=== PATIENT | female | born 1975 | race Caucasian/White ===

== ENCOUNTER → 2017-05-14 18:42 | Outpatient (CLI) | payer BC, SELFPAY ==
[2017-05-14 18:44] LABS: Bacteria 0 SEEN /hpf (None Seen); Mucous, Urine 0 SEEN /hpf (<or=2+); Red Blood Cells-Urine 0 SEEN /hpf (0-5); White Blood Cells 0 SEEN /hpf (0-5)
[2017-05-14 18:56] LABS: Color, Urine Yellow (Yellow); Glucose, Dipstick Normal (Normal); Ketone-Dipstick Negative (Negative); Leukocyte Esterase-Dipstick Negative /ul (Negative); Nitrite-Dipstick Negative (Negative); Occult Blood-Urine Negative /ul (Negative); Protein-Dipstick Negative (Negative); Urine Bilirubin Dipstick Negative (Negative); Urine Clarity Sl. Cloudy (Clear); Urine Urobilinogen Normal (Normal); Urine pH 6.5 (5.0 - 8.0)
[2017-05-14 19:08] LABS: Squamous Epithelial Cells - UA 0-5 SEEN /hpf (5-10)
== END ==
PROVIDERS: Family Provider Internal Medicine; PCP Internal Medicine; Visit Provider Physician Assistant Surgical
DX: R35.0 Frequency of micturition (principal)
CPT/HCPCS: 81001; 87086

== ENCOUNTER → 2019-10-07 08:05 | Outpatient (REF) | payer BC, SELFPAY ==
[2019-10-01 09:57] VITALS: BMI 24.0
== END ==
LOC: HPRAD 08:05
PROVIDERS: PCP Internal Medicine; Referring Provider Chiropractor; Visit Provider Chiropractor
DX: M54.9 Dorsalgia, unspecified (principal); M99.03 Segmental and somatic dysfunction of lumbar region; M99.05 Segmental and somatic dysfunction of pelvic region
CPT/HCPCS: 72100

== ENCOUNTER → 2019-12-26 15:33 | Outpatient (CLI) | payer BC, SELFPAY ==
[2019-10-07 13:08] VITALS: BMI 24.0
--- NOTE | 2019-12-26 15:45 | MRI_ITS ---
STUDY: MRI LUMBAR SPINE WITHOUT CONTRAST REASON FOR EXAM: Female, 44 years old. Lumbar radiculopathy, right hip and buttock pain TECHNIQUE: Standardized fat and water weighted pulse sequences were obtained in the sagittal and axial planes. COMPARISON: X-ray 10/07/2019 FINDINGS: T12-L1: Normal endplates. Normal disc height, hydration and morphology. Normal bilateral facet joints. Normal central canal and bilateral lateral recesses. Normal bilateral intervertebral neural foramina. Normal lumbar lordosis. There is no substantial scoliosis. Normal conus medullaris that terminates at the T12/L1 to L1-2: Normal endplates. Normal disc height, hydration and morphology. Normal bilateral facet joints. Normal central canal and bilateral lateral recesses. Normal bilateral intervertebral neural foramina. L2-3: Normal endplates. Normal disc height, hydration and morphology. Normal bilateral facet joints. Normal central canal and bilateral lateral recesses. Normal bilateral intervertebral neural foramina. L3-4: Normal endplates. Normal disc height, hydration and morphology. Normal bilateral facet joints. Normal central canal and bilateral lateral recesses. Normal bilateral intervertebral neural foramina. L4-5: Normal endplates. Normal disc height, hydration and morphology. Normal bilateral facet joints. Normal central canal and bilateral lateral recesses. Normal bilateral intervertebral neural foramina. L5-S1: Normal endplates. Normal disc height, hydration and morphology. Normal bilateral facet joints. Normal central canal and bilateral lateral recesses. Normal bilateral intervertebral neural foramina. Normal visualized sacral ala. Normal visualized paraspinous soft tissue structures. MRI/Spine Lumbar (Routine) IMPRESSION: Normal unenhanced MR examination of the lumbar spine. Electronically Signed: Rishi Pastor MD at 11:01 EST Tel , Service support ,
--- NOTE | 2019-12-26 15:46 | MRI_ITS ---
STUDY: MRI RIGHT HIP REASON FOR EXAM: Female, 44 years old. RIGHT gluteal tendonopathy, RIGHT SI and glute pain x 17years TECHNIQUE: Standardized fat and water weighted pulse sequences were obtained in all 3 orthogonal planes. COMPARISON: None. FINDINGS: Normal hip joint without articular joint space narrowing. Normal acetabulum. Normal labrum. Normal femoral head. Normal femoral neck and intratrochanteric region. Normal gluteus minimus, medius and iliopsoas tendons and distal insertions. There is no trochanteric, iliopsoas or iliopectineal bursitis. Normal superior and inferior pubic rami. Normal pubic symphysis. Normal ischial tuberosity. Normal origin of the hamstring tendons. Normal visualized iliac wing, sacroiliac joint, and sacral ala. 4 cm corpus luteum cyst of the left ovary. Retroverted uterus. MRI/Lower Ext Joint Only (Routine) IMPRESSION: Normal MRI of the hip. Electronically Signed: Rishi Pastor MD at 13:17 EST Tel , Service support ,
== END ==
PROVIDERS: PCP Internal Medicine; Referring Provider Orthopaedic Surgery Orthopaedic Surgery of the Spine; Visit Provider Orthopaedic Surgery Orthopaedic Surgery of the Spine
DX: M54.16 Radiculopathy, lumbar region (principal); M67.959 Unspecified disorder of synovium and tendon, unspecified thigh
CPT/HCPCS: 72148; 73721

== ENCOUNTER → 2020-10-12 12:31 | Outpatient (CLI) | payer BC, SELFPAY ==
[2020-10-12 15:35] LABS: T4 Free Direct 1.11 ng/dL (0.76-1.46)
== END ==
PROVIDERS: PCP Internal Medicine; Referring Provider Internal Medicine Endocrinology, Diabetes & Metabolism; Visit Provider Internal Medicine Endocrinology, Diabetes & Metabolism
DX: E89.0 Postprocedural hypothyroidism (principal)
CPT/HCPCS: 36415; 84439

== ENCOUNTER → 2020-12-06 12:15 | Outpatient (CLI) | payer BC, SELFPAY ==
[2020-12-06 16:03] LABS: T4 Free Direct 1.31 ng/dL (0.76-1.46); Thyroid Stim Hormone (TSH) 0.33 uIU/mL (0.358-3.74)
== END ==
PROVIDERS: PCP Internal Medicine; Referring Provider Nurse Practitioner Adult Health; Visit Provider Nurse Practitioner Adult Health
DX: E89.0 Postprocedural hypothyroidism (principal)
CPT/HCPCS: 36415; 84439; 84443

== ENCOUNTER 2021-03-22 08:51 | Outpatient (CLI) | payer BC, SELFPAY ==
[2021-03-22 10:49] LABS: ALB/GLOB Ratio 1.2 RATIO (0.9-2.4); AST(SGOT) 13 U/L (15-37); Alanine Aminotransfer ALT/SGPT 18 U/L (13-56); Albumin, Serum 3.7 g/dL (3.2-5.0); Alkaline Phosphatase 37 U/L (45-117); Anion Gap 8 (5-15); BUN 14 mg/dL (7-18); BUN/Creat Ratio 21.3 RATIO (10-20); Calcium,Total 8.4 mg/dL (8.5-10.1); Chloride 100 mmol/L (98-107); Creatinine, Serum 0.66 mg/dL (0.55-1.02); EST Glomerular Filtration Rate 104 mL/min (>60); Est Glom Filt Rate - Afr Amer 126 mL/min (>60); Glucose 93 mg/dL (74-106); Protein, Total 6.7 g/dL (6.4-8.2); Sodium Level 134 mmol/L (136-145); Thyroid Stim Hormone (TSH) 0.13 uIU/mL (0.358-3.74)
== END 2021-03-22 23:59 | disposition home or self-care (01) ==
LOC: MTLAB 08:53
PROVIDERS: PCP Internal Medicine; Referring Provider Internal Medicine Endocrinology, Diabetes & Metabolism; Visit Provider Internal Medicine Endocrinology, Diabetes & Metabolism
DX: E89.0 Postprocedural hypothyroidism (principal)
CPT/HCPCS: 36415; 80053; 84443

== ENCOUNTER 2021-04-11 12:47 | Outpatient (RCR) | payer BC, SELFPAY | END 2021-04-11 23:59 | LOC: EMPH 12:47 | PROVIDERS: PCP Internal Medicine; Visit Provider Family Medicine Geriatric Medicine | DX: Z03.818 Encounter for observation for suspected exposure to other biological agents ruled out (principal) | CPT/HCPCS: 87426 ==

== ENCOUNTER 2021-05-26 12:56 | Outpatient (CLI) | payer BC, SELFPAY ==
[2021-05-26 15:40] LABS: Free T3 2.8 pg/mL (2.18-3.98); T4 Free Direct 1.27 ng/dL (0.76-1.46); Thyroid Stim Hormone (TSH) 0.34 uIU/mL (0.358-3.74)
== END 2021-05-26 23:59 | disposition home or self-care (01) ==
LOC: MTLAB 12:57
PROVIDERS: PCP Internal Medicine; Referring Provider Internal Medicine Endocrinology, Diabetes & Metabolism; Visit Provider Internal Medicine Endocrinology, Diabetes & Metabolism
DX: E89.0 Postprocedural hypothyroidism (principal)
CPT/HCPCS: 36415; 84439; 84443; 84481

== ENCOUNTER → 2021-07-07 | Outpatient (CLI) | payer BC, SELFPAY ==
[2021-07-07 12:37] LABS: ALB/GLOB Ratio 1.4 RATIO (0.9-2.4); AST(SGOT) 17 U/L (15-37); Alanine Aminotransfer ALT/SGPT 33 U/L (13-56); Albumin, Serum 3.8 g/dL (3.2-5.0); Alkaline Phosphatase 29 U/L (45-117); Anion Gap 7 (5-15); BUN 14 mg/dL (7-18); Calcium,Total 8.5 mg/dL (8.5-10.1); Chloride 102 mmol/L (98-107); EST Glomerular Filtration Rate 97 mL/min (>60); Est Glom Filt Rate - Afr Amer 117 mL/min (>60); Globulin 2.8 g/dL (2.2-4.2); Glucose 97 mg/dL (74-106); Potassium 3.9 mmol/L (3.5-5.1); Protein, Total 6.6 g/dL (6.4-8.2); Sodium Level 135 mmol/L (136-145); T4 Free Direct 1.31 ng/dL (0.76-1.46); Thyroid Stim Hormone (TSH) 0.17 uIU/mL (0.358-3.74)
== END | disposition home or self-care (01) ==
LOC: MTLAB 09:26
PROVIDERS: PCP Internal Medicine; Referring Provider Internal Medicine Endocrinology, Diabetes & Metabolism; Visit Provider Internal Medicine Endocrinology, Diabetes & Metabolism
DX: E89.0 Postprocedural hypothyroidism (principal)
CPT/HCPCS: 36415; 80053; 84439; 84443

== ENCOUNTER → 2021-09-19 | Outpatient (CLI) | payer BC, SELFPAY ==
[2021-09-19 10:37] LABS: ALB/GLOB Ratio 1.3 RATIO (0.9-2.4); AST(SGOT) 16 U/L (15-37); Alanine Aminotransfer ALT/SGPT 21 U/L (13-56); Albumin, Serum 3.7 g/dL (3.2-5.0); Alkaline Phosphatase 34 U/L (45-117); Anion Gap 5 (5-15); BUN 14 mg/dL (7-18); BUN/Creat Ratio 18.5 RATIO (10-20); Calcium,Total 8.5 mg/dL (8.5-10.1); Chloride 104 mmol/L (98-107); Creatinine, Serum 0.76 mg/dL (0.55-1.02); EST Glomerular Filtration Rate 88 mL/min (>60); Est Glom Filt Rate - Afr Amer 107 mL/min (>60); Globulin 2.8 g/dL (2.2-4.2); Glucose 107 mg/dL (74-106); Potassium 4.1 mmol/L (3.5-5.1); Protein, Total 6.5 g/dL (6.4-8.2); Sodium Level 136 mmol/L (136-145); T4 Free Direct 1.13 ng/dL (0.76-1.46); Thyroid Stim Hormone (TSH) 1.03 uIU/mL (0.358-3.74)
[2021-09-19 10:46] LABS: Vitamin D,25 Hydroxy 76.9 ng/mL
== END | disposition home or self-care (01) ==
LOC: MTLAB 07:29
PROVIDERS: PCP Internal Medicine; Referring Provider Internal Medicine Endocrinology, Diabetes & Metabolism; Visit Provider Internal Medicine Endocrinology, Diabetes & Metabolism
DX: E89.0 Postprocedural hypothyroidism (principal); E55.9 Vitamin D deficiency, unspecified
CPT/HCPCS: 36415; 80053; 82306; 84439; 84443

== ENCOUNTER → 2022-03-24 | Outpatient (CLI) | payer BC, SELFPAY ==
--- NOTE | 2022-03-24 10:45 | MRI_ITS ---
STUDY: BILATERAL BREAST MR WITHOUT AND WITH CONTRAST REASON FOR EXAM: Female, 46 years old. History of multiple cysts. Dense breasts. TECHNIQUE: Multi-sequence multi-echo imaging of both breasts was performed with a dedicated breast coil. T1-weighted and T2-weighted images were performed before the administration of contrast. T1-weighted images were also performed after the administration of IV 11ml Clariscan without complications. COMPARISON: Bilateral mammograms dated January 2022, December 2020 and November 2018. FINDINGS: RIGHT BREAST: Heterogeneously dense breasts may obscure small masses. Moderate to marked background enhancement. Multiple simple cysts bilaterally, too numerous to count and of variable size. There are no abnormal enhancing masses or areas of non-mass enhancement in the right breast. LEFT BREAST: Heterogeneously dense breasts may obscure small masses. Moderate to marked background enhancement. Multiple simple cysts bilaterally, too numerous to count and of variable size. There are no abnormal enhancing masses or areas of non-mass enhancement in the right breast. No enlarged or abnormal lymph nodes. No abnormality in the visualized regions of the chest or liver. MRI/Breast Bilateral W/O and W IMPRESSION: Dense fibroglandular tissue with multiple bilateral cysts as described. No suspicious lesions. Follow-up screening mammogram, which could be alternated with breast MRI with contrast, for future evaluation. CATEGORY: BIRADS Category 2: Benign. A letter regarding these results will be sent to the patient by the facility within 30 days. Electronically Signed: Dilan Clement, at 11:46 EST ,
== END | disposition home or self-care (01) ==
LOC: MRI 10:18
PROVIDERS: Referring Provider Surgery; Visit Provider Surgery
DX: R92.2 Inconclusive mammogram (principal)
CPT/HCPCS: 77049; A9575; A4216; C8908

== ENCOUNTER → 2022-04-10 | Outpatient (CLI) | payer BC, SELFPAY ==
[2022-04-10 09:59] LABS: Absolute Lymphocyte Count 2.59 X10^3/uL (0.83-4.51); Absolute Neutrophil Count 3.1 X10^3/uL (2.0-7.7); Basophil# 0.05 X10^3/uL; Basophil% 0.8 % (0-1); Eosinophil# 0.11 X10^3/uL; Eosinophils% 1.7 % (0-5); Hematocrit 38.8 % (37-47); Hemoglobin 12.7 g/dL (12.0-15.0); Lymphocyte # 2.59 X10^3/ul (0.83-4.51); Lymphocyte % 40.4 % (19-41); Mean Corp Hgb Conc 32.7 g/dL (32-36); Mean Corpuscular Hgb 32.4 pg (27.0-32.0); Mean Platelet Vol. 10.6 fl (6.2-12.0); Monocyte# 0.56 X10^3/uL; Monocyte% 8.7 % (0-10); NRBC Flagged by Analyzer 0 % (0-5); Neutrophil # 3.09 X10^3/uL (2.7-7.7); Neutrophil % 48.2 % (47-70); Platelet Count 267 K/mm3 (150-450); RBC Distribution Width CV 11.9 % (11.6-14.6); RBC Distribution Width SD 43.1 fl (35.1-43.9); Red Blood Count 3.92 M/mm3 (4.2-5.4); White Blood Count 6.4 K/mm3 (4.4-11.0)
[2022-04-10 10:36] LABS: ALB/GLOB Ratio 1.2 RATIO (0.9-2.4); AST(SGOT) 15 U/L (15-37); Alanine Aminotransfer ALT/SGPT 19 U/L (13-56); Albumin, Serum 3.6 g/dL (3.2-5.0); Alkaline Phosphatase 34 U/L (45-117); Anion Gap 6 (5-15); BUN 17 mg/dL (7-18); BUN/Creat Ratio 22.7 RATIO (10-20); Calcium,Total 8.7 mg/dL (8.5-10.1); Chloride 103 mmol/L (98-107); Creatinine, Serum 0.75 mg/dL (0.55-1.02); EST Glomerular Filtration Rate 89 mL/min (>60); Est Glom Filt Rate - Afr Amer 108 mL/min (>60); Ferritin 18 ng/mL (8-252); Glucose 104 mg/dL (74-106); Iron 120 ug/dL (50-170); Potassium 3.9 mmol/L (3.5-5.1); Protein, Total 6.6 g/dL (6.4-8.2); Sodium Level 136 mmol/L (136-145); T4 Total, Thyroxin 8.4 ug/dL (4.8-13.9); Thyroid Stim Hormone (TSH) 0.78 uIU/mL (0.358-3.74)
== END | disposition home or self-care (01) ==
LOC: MTLAB 07:10
PROVIDERS: Referring Provider Internal Medicine Endocrinology, Diabetes & Metabolism; Visit Provider Internal Medicine Endocrinology, Diabetes & Metabolism
DX: E89.0 Postprocedural hypothyroidism (principal); E61.1 Iron deficiency
CPT/HCPCS: 36415; 80053; 82728; 83540; 84436; 84443; 85025

== ENCOUNTER → 2022-12-01 | Outpatient (CLI) | payer BC, SELFPAY ==
[2022-12-01 12:48] LABS: Vitamin D,25 Hydroxy 44.9 ng/mL
[2022-12-01 13:03] LABS: AST(SGOT) 9 U/L (15-37); Alanine Aminotransfer ALT/SGPT 23 U/L (13-56); Albumin, Serum 3.3 g/dL (3.2-5.0); Alkaline Phosphatase 40 U/L (45-117); Anion Gap 6 (5-15); BUN 19 mg/dL (7-18); Chloride 105 mmol/L (98-107); Creatinine, Serum 0.73 mg/dL (0.55-1.02); EST Glomerular Filtration Rate 92 mL/min (>60); Est Glom Filt Rate - Afr Amer 111 mL/min (>60); Globulin 3.3 g/dL (2.2-4.2); Glucose 92 mg/dL (74-106); Potassium 4.3 mmol/L (3.5-5.1); Protein, Total 6.6 g/dL (6.4-8.2); Sodium Level 139 mmol/L (136-145); T4 Free Direct 1.19 ng/dL (0.76-1.46); Thyroid Stim Hormone (TSH) 0.82 uIU/mL (0.358-3.74)
== END | disposition home or self-care (01) ==
LOC: MTLAB 10:05
PROVIDERS: Referring Provider Internal Medicine Endocrinology, Diabetes & Metabolism; Visit Provider Internal Medicine Endocrinology, Diabetes & Metabolism
DX: E89.0 Postprocedural hypothyroidism (principal); E55.9 Vitamin D deficiency, unspecified
CPT/HCPCS: 36415; 80053; 82306; 84439; 84443

== ENCOUNTER → 2023-06-11 | Outpatient (CLI) | payer BC, SELFPAY ==
[2023-06-11 15:25] LABS: Vitamin D,25 Hydroxy 38.7 ng/mL
[2023-06-11 15:32] LABS: PTHIN 29.5 pg/mL (18.4-80.1)
[2023-06-11 18:24] LABS: ALB/GLOB Ratio 1.2 RATIO (0.9-2.4); AST(SGOT) 16 U/L (15-37); Alanine Aminotransfer ALT/SGPT 20 U/L (13-56); Albumin, Serum 3.7 g/dL (3.2-5.0); Alkaline Phosphatase 53 U/L (45-117); Anion Gap 4 (5-15); BUN 21 mg/dL (7-18); BUN/Creat Ratio 28.9 RATIO (10-20); Calcium,Total 9.2 mg/dL (8.5-10.1); Chloride 104 mmol/L (98-107); Creatinine, Serum 0.73 mg/dL (0.55-1.02); EST Glomerular Filtration Rate 92 mL/min (>60); Est Glom Filt Rate - Afr Amer 111 mL/min (>60); Follicle Stimulating Hormone 7.3 mIU/mL; Globulin 3.1 g/dL (2.2-4.2); Glucose 100 mg/dL (74-106); Potassium 3.8 mmol/L (3.5-5.1); Protein, Total 6.8 g/dL (6.4-8.2); Sodium Level 138 mmol/L (136-145); Thyroid Stim Hormone (TSH) 2.17 uIU/mL (0.358-3.74)
== END | disposition home or self-care (01) ==
PROVIDERS: Referring Provider Internal Medicine Endocrinology, Diabetes & Metabolism; Visit Provider Internal Medicine Endocrinology, Diabetes & Metabolism
DX: E89.0 Postprocedural hypothyroidism (principal); N95.9 Unspecified menopausal and perimenopausal disorder; E55.9 Vitamin D deficiency, unspecified
CPT/HCPCS: 36415; 80053; 82306; 82670; 83001; 83970; 84443

== ENCOUNTER → 2023-08-31 | Outpatient (CLI) | payer BC, SELFPAY ==
[2023-08-31 15:42] LABS: ALB/GLOB Ratio 1.2 RATIO (0.9-2.4); AST(SGOT) 19 U/L (15-37); Alanine Aminotransfer ALT/SGPT 23 U/L (13-56); Albumin, Serum 3.9 g/dL (3.2-5.0); Alkaline Phosphatase 49 U/L (45-117); Anion Gap 9 (5-15); BUN 22 mg/dL (7-18); BUN/Creat Ratio 26.7 RATIO (10-20); Calcium,Total 9.8 mg/dL (8.5-10.1); Chloride 103 mmol/L (98-107); Creatinine, Serum 0.82 mg/dL (0.55-1.02); EST Glomerular Filtration Rate 79 mL/min (>60); Est Glom Filt Rate - Afr Amer 96 mL/min (>60); Globulin 3.3 g/dL (2.2-4.2); Glucose 123 mg/dL (74-106); Potassium 3.8 mmol/L (3.5-5.1); Protein, Total 7.2 g/dL (6.4-8.2); Sodium Level 138 mmol/L (136-145); Thyroid Stim Hormone (TSH) 2.04 uIU/mL (0.358-3.74)
== END | disposition home or self-care (01) ==
LOC: MTLAB 13:02
PROVIDERS: PCP Family Medicine; Referring Provider Internal Medicine Endocrinology, Diabetes & Metabolism; Visit Provider Internal Medicine Endocrinology, Diabetes & Metabolism
DX: E89.0 Postprocedural hypothyroidism (principal)
CPT/HCPCS: 36415; 80053; 84443

== ENCOUNTER 2023-09-13 09:16 | Outpatient (CLI) | payer BC, SELFPAY ==
--- NOTE | 2023-09-13 09:32 | BI_ITS ---
MAMMOGRAPHY - BILATERAL DIAGNOSTIC REASON FOR EXAM: Female, 48 years old. 2 month history of left breast mass. PERTINENT HISTORY: Non-contributory. TECHNIQUE: Digital bilateral breast konstantin (3D mammographic acquisition) in the CC and MLO projections. 2-D mediolateral oblique (MLO) and craniocaudad (CC) views of both breasts were obtained. CAD: Full Field Digital Mammography with Computer Added Detection was performed. COMPARISON: Comparison made with prior outside examination dated October 24, 2021. Comparison is also made with prior MRI of the breasts dated March 24, 2022. FINDINGS: Breast Composition: The breasts are extremely dense, which lowers the sensitivity of mammography. Multiple well-defined nodules are seen scattered throughout the left breast suggestive of multiple cysts. Multiple nodular densities also seen in the right breast. Correlation with ultrasound is recommended for further evaluation. Small benign-appearing bilateral axillary lymph nodes. No other significant abnormalities are identified. There has been no significant change since the prior study. BI/DIAG MAMM W/CAD, BILAT IMPRESSION: Multiple bilateral nodular densities as described suggesting multiple cysts as seen on prior MRI examination. Correlation with ultrasound is recommended. ASSESSMENT CATEGORY: BIRADS Category 0: Incomplete. Need additional imaging evaluation. A letter regarding these results will be sent to the patient by the facility within 30 days. Approximately 10% of breast cancers are not detected by mammography. A normal mammogram should not delay biopsy of a clinically suspicious abnormality. Electronically Signed: Marlon Rodriguez MD at 10:30 EDT ,
--- NOTE | 2023-09-13 09:32 | US_ITS ---
STUDY: ULTRASOUND BREAST - LEFT REASON FOR EXAM: Female, 48 years old. Abnormal screening mammogram. TECHNIQUE: Axial and longitudinal images of the LEFT breast were performed with a high resolution ultrasound transducer. # OF IMAGES: 51 COMPARISON: Comparison is made with prior mammogram done earlier in the day. FINDINGS: LEFT Breast: The inferior medial aspect of the left breast was examined with ultrasound. Multiple cysts are seen. The largest cyst is at the 3:00 position of the breast at 6 cm from the nipple. This measures 2.7 cm x 2.3 cm x 1.7 cm. A similar appearing cyst measuring 2.6 cm x 2.5 cm x 1.8 cm is seen adjacent to this. US/Breast Limited Unilateral IMPRESSION: Left breast cysts. ASSESSMENT CATEGORY: BIRADS Category 2: Benign. A letter regarding these results will be sent to the patient by the facility within 30 days. Electronically Signed: Marlon Rodriguez MD at 11:07 EDT ,
== END 2023-09-13 23:59 | disposition home or self-care (01) ==
PROVIDERS: PCP Family Medicine; Referring Provider Obstetrics & Gynecology; Visit Provider Obstetrics & Gynecology
DX: N63.20 Unspecified lump in the left breast, unspecified quadrant (principal)
CPT/HCPCS: 76642; 77062; 77066; G0279

== ENCOUNTER → 2023-12-10 | Outpatient (CLI) | payer BC, SELFPAY ==
--- OUTSIDE RECORDS SUMMARY | 2023-12-10 07:05 | XMS RPT_ITS | CCD ---
Author Organization [facility] CliniSyil Care Team Providers Care Field Insurance Sales Manager Name Role Phone Jana Farias Unavailable Tyler Bell Unavailable Garry Rosenberg Unavailable Mitch, Yun A Unavailable Cooper Khan Unavailable Erica Shah Unavailable Unavailable Unavailable Unavailable Venus Carroll Primary Care Provider Jana Farias DO Unavailable Tyler Bell MD Unavailable Garry Rosenberg Unavailable Mitch DO, Yun A Unavailable Cooper Khan Jr Unavailable Erica Shah RN Unavailable Unavailable Unavailable Unavailable Venus Carroll Primary Care Provider Jana Farias DO Unavailable Jeff Duron DO Unavailable Pardeep Barreto MD Unavailable Priyanka Taylor MD Unavailable Pollo Hollingsworth MD Primary Care Provider Jeff Duron DO Unavailable [phone] Pardeep Barreto MD Unavailable Priyanka Taylor MD Unavailable Pollo Hollingsworth MD Primary Care Provider PARDEEP BARRETO MD Attending Unavailable NO FAMILY PHYSICIAN, 837 Primary Care Unavail able YANIRA BRADLEY CNP Attending Unavailable NO FAMILY PHYSICIAN, 837 Primary Care Unavail able NO FAMILY PHYSICIAN, 837 Primary Care Unavail able NO FAMILY PHYSICIAN, 837 Primary Care Unavail able MARY LOU CALDERON, PARDEEP Attending Unavailable MARY LOU CALDERON, PARDEEP Attending Unavailable NO FAMILY PHYSICIAN, 837 Primary Care Unavail able MARY LOU CALDERON, PARDEEP Attending Unavailable MARY LOU CALDERON, PARDEEP Referring Unavailable NO FAMILY PHYSICIAN, 837 Primary Care Unavail able NO FAMILY PHYSICIAN, 837 Primary Care Unavail able MARY LOU CALDERON, PARDEEP Attending Unavailable Pollo Hollingsworth MD Primary Care Provider [phone] Priyanka Taylor MD Unavailable [phone] Leslie Parks Unavailable MARY LOU CALDERON, PARDEEP Attending Unavailable NO FAMILY PHYSICIAN, 837 Primary Care Unavail able MARY LOU CALDERON, PARDEEP Attending Unavailable NO FAMILY PHYSICIAN, 837 Primary Care Unavail able MARY LOU CALDERON, PARDEEP Attending Unavailable NO FAMILY PHYSICIAN, 837 Primary Care Unavail able POLLO HOLLINGSWORTH Attending Unavailable POLLO HOLLINGSWORTH Primary Care Unavailable MARY LOU, PARDEEP Referring Unavailable PARDEEP BARRETO Attending Unavailable POLLO HOLLINGSWORTH Primary Care Unavailable Allergies Allergy Classification Reported Allergen(s) Allergy Type Date of Onset Reaction(s) Facility methIMAzole (2 sources) methIMAzole; Translations: [Tapazole *THYROID AGENTS*] Drug Allergy Rash [facility]; [facility] Work Phone: (14 sources) methIMAzole; Translations: [Tapazole *THYROID AGENTS*] Drug Allergy 5 Rash [facility] Work Phone: (13 sources) Allergy to tapazole (Renamed from Aspirin (Salicylates)); Translations: [Allergy to tapazole (Renamed from Aspirin (Salicylates))] allergy to substance [facility] Work Phone: (19 sources) methIMAzole Drug Allergy 7 [facility] Medications Current Medications Medication Drug Class(es) Dates Sig (Normalized) Sig (Original) cetirizine hydrochloride 10 mg oral tablet (3 sources) Histamine-1 Receptor Antagonist take 1 tablet by mouth once daily as needed cetirizine (ZYRTEC) 10 MG tablet Take 10 mg by mouth daily as needed 0 Active cholecalciferol 0.05 mg oral capsule (20 sources) Vitamin D Cholecalciferol (Vitamin D) 50 MCG (1999) capsule Take by mouth. Active Levomefolate Glucosamine (MethylFolate) 400 MCG capsule (19 sources) Start: 06-12-2022 Levomefolate Glucosamine (MethylFolate) 400 MCG capsule Take by mouth. 06/12/2022 Active Start: 06-12-2022 Levomefolate G lucosamine (MethylFolate) 400 MCG capsule Take by mouth. 0 06/12/2022 Active levothyroxine sodium 0.112 mg oral capsule (20 sources) l-Thyroxine Start: 01-12-2022 take 1 capsule by mouth once daily in the morning levothyroxine (Tirosint) 112 MCG capsule TAKE 1 CAPSULE BY MOUTH EVERY DAY IN THE MORNING 01/12/2022 Active Start: 04-17-2011 End: 11-13-2016 take 1 tablet by mouth once daily Levothyroxine Sodium 75 MCG Oral Tablet 1 Tablet qd for 0 days Quantity: 30 {Tablet(s)} Refills: 6 Ordered: 13-Nov-2016 Erica Shah RN Start : 17-Apr-2011 End : 13-Nov-2016 Inactive take 1 capsule by mo ut once daily Tirosint 88 MCG Oral Capsule 1 qd (88 MCG) Active take 1 capsule by sc ut once daily Levothyroxine Sodium (TIROSINT) 75 MCG CAPS Indications: 6d/wk Take 75 mcg by mouth Daily Indications: 6d/wk 0 Active Multiple Vitamin (MULTI VITAMIN DAILY PO) (3 sources) Multiple Vitamin (MULTI VITAMIN DAILY PO) Take by mouth 0 Active Multiple Vitamin (multivitamin) tablet (19 sources) take 1 tablet by van once daily Multiple Vitamin (multivitamin) tablet Take 1 tablet by mouth daily. Active take 1 tablet by mouth once constance y Multiple Vitamin (multivitamin) tablet Take 1 tablet by mouth daily. 0 Active NON FORMULARY (19 sources) NON FORMULARY da russell. Hormone Balance Active NON FORMULARY da russell. Hormone Balance 0 Active Completed/Discontinued Medications Medication Drug Class(es) Dates Sig (Normalized) Sig (Original) amoxicillin 875 mg / clavulanate 125 mg oral tablet (13 sources) Penicillin-class Antibacterial Start: 04-26-2011 End: 05-10-2011 take 1 tablet by mouth twice daily AUGMENTIN, 875-125MG (Oral Tablet) 1 Tablet BID for 14 days Refills: 0 Ordered: 26-Apr-2011 Jana Farias DO Dinora DO Jana Start : 26-Apr-2011 End : 10-May-2011 Inactive amylase [id number] unt / lipase 9000 unt / protease [id number] unt oral capsule (6 sources) take 1 capsule by mouth once daily Digestive Enzyme Oral Capsule 1 qd Active aspirin 81 mg oral tablet (13 sources) Platelet Aggregation Inhibitor, Nonsteroidal Anti-inflammatory Drug take 1 tablet by mouth once daily ASPIRIN, 81MG (Oral Tablet) 1 qd (81 MG) Inactive azithromycin 250 mg oral tablet (13 sources) Macrolide Antimicrobial Start: 04-09-2007 End: 04-16-2007 ZITHROMAX Z-JACKY, 250MG (Oral Tablet) 1 Tablet take 2 on day one then one daily for 5 days Quantity: 1 {Package(s)} Refills: 0 Ordered: 09-Apr-2007 KaylynnYnes rivera Start : 09-Apr-2007 End : 16-Apr-2007 Inactive bifidobacterium animalis [id number] unt / lactobacillus acidophilus [id number] unt oral capsule (7 sources) take 1 capsule by mouth once daily Probiotic Daily Oral Capsule 1 qd Active take 1 capsule by mouth once bijal ly Probiotic Daily Oral Capsule 1 qd Active BIOTIN FORTE PO (3 sources) End: 06-12-2022 BIOTIN FORTE PO Take by mouth. 0 06/12/2022 Discontinued (Med list cleanup) ciprofloxacin 500 mg oral tablet (13 sources) Quinolone Antimicrobial Start: 12-31-2007 End: 06-06-2010 take 1 tablet by mouth twice daily CIPRO, 500MG (Oral Tablet) Tablet BID for 0 days Quantity: 14 {Tablet} Refills: 0 Ordered: 06-Jun-2010 SINA Brooks LPN Start : 31-Dec-2007 End : 06-Jun-2010 Inactive CITRACAL PLUS (Oral Tablet) (13 sources) take 1 tablet by mouth once daily CITRACAL PLUS (Oral Tablet) 1 qd Active clotrimazole 10 mg oral lozenge (13 sources) Azole Antifungal Start: 04-09-2007 End: 08-14-2007 MYCELEX, 10MG (Mouth/Throat Anita) 1 (one) Anita 5 times daily for 14 days Quantity: 70 {Anita} Refills: 0 Ordered: 09-Apr-2007 Ynes Mahajan Start : 09-Apr-2007 End : 14-Aug-2007 Inactive dextromethorphan hydrobromide 2 mg/ml / guaiFENesin 20 mg/ml oral suspension (13 sources) Uncompetitive U-opeooc-U-aspartat e Receptor Antagonist, Sigma-1 Agonist End: 12-31-2007 take 2 [tsp_us] by mouth every four hours as needed ROBITUSSIN DM, 100-10MG/5ML (Oral Syrup) 2 tsp Q 4hr/PRN for 0 days Refills: 0 Ordered: 31-Dec-2007 SINA Brooks LPN End : 31-Dec-2007 Inactive End: 12-31-2007 take 2 [tsp_us] by mouth every four hours as needed ROBITUSSIN DM, 100-10MG/5ML (Oral Syrup) 2 tsp Q 4hr/PRN for 0 days Refills: 0 Ordered: 31-Dec-2007 SINA Brooks LPN End : 31-Dec-2007 Inactive Digestive Enzyme Oral Capsule (1 source) take 1 capsule by mouth once daily Digestive Enzyme Oral Capsule 1 qd Active Digestive Enzyme Oral Capsule (6 sources) take 1 capsule by mouth once daily Digestive Enzyme Oral Capsule 1 qd Active fluconazole 150 mg oral tablet (13 sources) Azole Antifungal Start: 008 End: 008 take 1 tablet by mouth once DIFLUCAN, 150MG (Oral Tablet) 1 (one) Tablet once for 1 days Refills: 1 Ordered: 09-Apr-2007 SINA Brooks LPN Start : 09-Apr-2007 End : 31-Dec-2007 Inactive fluticasone propionate 0.05 mg/actuat metered dose nasal spray (13 sources) Corticosteroid Start: 012 End: 017 Flonase 50 MCG/ACT Nasal Suspension 2 (two) Suspension each nostril daily for 0 days Quantity: 1 {Suspension} Refills: 0 Ordered: 13-Nov-2016 Erica Shah RN Start : 26-Apr-2011 End : 13-Nov-2016 Inactive Comments: pls substitute generic Comment on above: pls substitute gener ic folic acid 2.5 mg / vitamin b12 2 mg / vitamin b6 25 mg oral tablet (13 sources) Vitamin B12 take 1 tablet by mouth once daily FOLBIC, 2.5-25-2MG (Oral Tablet) 1 qd (2.5-25-2 MG) Inactive iron carbonyl 25 mg oral tablet (13 sources) take 2 tablets by mouth once daily Iron 25 MG Oral Tablet 2 qd (25 MG) Active phenazopyridine hydrochloride 100 mg oral tablet (13 sources) Start: 008 End: 011 take 1 tablet by mouth twice daily as needed PYRIDIUM, 100MG (Oral Tablet) Tablet BID/PRN for 0 days Quantity: 30 {Tablet} Refills: 0 Ordered: 06-Jun-2010 SINA Brooks LPN Start : 01-Jan-2008 End : 06-Jun-2010 Inactive (Oral Tablet) (13 sources) End: 008 take 1 tablet by mouth once daily (Oral Tablet) 1 qd for 0 days Refills: 0 Ordered: 09-Apr-2007 Meaghan Gonzalez End : 09-Apr-2007 Discontinued Oral Tablet (13 sources) take 1 tablet by mouth once daily Oral Tablet 1 qd Active Probiotic Daily Oral Capsule (6 sources) take 1 capsule by mouth once daily Probiotic Daily Oral Capsule 1 qd Active 24 hr propranolol hydrochloride 60 mg extended release oral capsule (20 sources) beta-Adrenergic Cory Start: 007 End: 008 PROPRANOLOL HCL CR, 60MG (Oral Capsule Extended Release 24 Hour) 1 (one) Capsule ER 24HR bid for 5 days Quantity: 60 {Capsule_ER_24HR} Refills: 3 Ordered: 24-Jan-2007 Meaghan Gonzalez Start : 24-Jan-2007 End : 09-Apr-2007 Discontinued End: 04-09-2007 take 1 capsule by mouth once daily PROPRANOLOL HCL CR, 60MG (PO Cap CR) 1 QD for 0 days Refills: 0 Ordered: 09-Apr-2007 Meaghan Gonzalez End : 09-Apr-2007 Discontinued propylthiouracil 50 mg oral tablet (13 sources) Thyroid Hormone Synthesis Inhibitor Start: 01-24-2007 End: 04-09-2007 take 3 tablets by mouth every eight hours PROPYLTHIOURACIL, 50MG (Oral Tablet) 3 (three) Tablet q8h for 0 days Quantity: 90 {Tablet} Refills: 0 Ordered: 24-Jan-2007 Meaghan Gonzalez Start : 24-Jan-2007 End : 09-Apr-2007 Discontinued Triamcinolone (13 sources) Corticosteroid Start: 01-24-2007 End: 04-09-2007 NASACORT AQ, 55MCG/ACT (Nasal Aerosol Solution) 1 Aerosol Soln 2PUFFF DAILY for 0 days Refills: 0 Ordered: 24-Jan-2007 Meaghan Gonzalez Start : 24-Jan-2007 End : 09-Apr-2007 Discontinued Problems Active Problems Problem Classification Problem Date Documented Da te Episodic/Chronic Abdominal pain (14 sources) Generalized abdominal pain; Translations: [Abdominal pain, acute, generalized] Resolved: 07-28-2008 11-13-2016 Episodic Comment on above: lower abd think blad breonna but with cirsums need urine if by 4 not go then straight cath Allergic reactions (1 source) Nummular eczema; Translations: [Nummular dermatitis] 09-12-2022 Episodic Anxiety disorders (20 sources) Anxiety; Translations: [Other specified anxiety disorders] Onset: 06-12-2022 06-12-2022 Chronic Cardiac dysrhythmias (20 sources) Palpitations; Translations: [Tachycardia] Resolved: 11-13-2016 11-13-2016 Episodic Complications of surgical procedures or medical care (20 sources) Postablative hypothyroidism; Translations: [Postprocedural hypothyroidism] Onset: 05-03-2022 05-03-2022 Chronic Diabetes mellitus without complication (17 sources) Abnormal glucose tolerance test; Translations: [Abnormal glucose tolerance test (Renamed from Abnormal glucose tolerance test (GTT))] 11-13-2016 Episodic Genitourinary symptoms and ill-defined conditions (20 sources) Dysuria; Translations: [Dysuria] 11-13-2016 Episodic Malaise and fatigue (20 sources) Fatigue; Translations: [Fatigue] Resolved: 11-13-2016 11-13-2016 Episodic Comment on above: eat well some sleep off with kids. thyroid panel good talkabout adding T3. suggest Dr. cuevas book thyroid solution. check rest of labs. to senior inspector for hormonal issues. Menopausal disorders (5 sources) Perimenopausal state; Translations: [Menopausal and female climacteric states] 06-15-2023 Chronic Menstrual disorders (20 sources) Menorrhagia; Translations: [Menorrhagia] Resolved: 11-13-2016 11-13-2016 Chronic Comment on above: us normal senior inspector feel t hyriod Mycoses (20 sources) Candidiasis of mouth; Translations: [Candidiasis of mouth] Resolved: 07-28-2008 11-13-2016 Episodic Nonmalignant breast conditions (19 sources) Multiple cysts of breast; Translations: [Diffuse cystic mastopathy of unspecified breast] Onset: 01-25-2022 01-25-2022 Chronic Nutritional deficiencies (20 sources) Vitamin D deficiency; Translations: [Vitamin D deficiency] 11-13-2016 Chronic Other circulatory disease (20 sources) Bleeding Episodic Other circulatory disease (14 sources) Hemorrhage, unspecified; Translations: [Bleeding] Resolved: 11-13-2016 11-13-2016 Episodic Comment on above: from injection site as self medicates with heparingives self heparin shots for Other gastrointestinal disorders (20 sources) Constipation; Translations: [Constipation] Resolved: 11-13-2016 11-13-2016 Episodic Comment on above: talk about increase thyroid some. talk about colace daily. friuts veggies. on the fiber. 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] Onset: 06-15-2023 06-15-2023 Chronic Other and delivery including normal (13 sources) History of past delivery; Translations: [Vaginal delivery] 11-13-2016 Episodic Comment on above: 2006 Other screening for suspected conditions (not mental disorders or infectious disease) (20 sources) Thyroid hormone tests abnormal; Translations: [Abnormal TSH] Onset: 01-25-2022 Resolved: 11-13-2016 11-13-2016 Episodic Other skin disorders (1 source) Erythematous rash; Translations: [Rash and other nonspecific skin eruption] 09-12-2022 Episodic Other upper respiratory disease (20 sources) Allergic rhinitis; Translations: [Allergic rhinitis] Resolved: 11-13-2016 11-13-2016 Chronic Other upper respiratory infections (20 sources) Acute sinusitis, unspecified; Translations: [Laryngitis] Resolved: 11-13-2016 11-13-2016 Episodic Otitis media and related conditions (14 sources) Dysfunction of eustachian tube; Translations: [Eustachian tube dysfunction] Resolved: 07-28-2008 11-13-2016 Episodic Thyroid disorders (20 sources) Hypothyroidism; Translations: [Hyperthyroidism] Resolved: 11-13-2016 11-13-2016 Chronic Comment on above: seeing endo and raimundo coronel her lab orders and follows Past or Other Problems Problem Classification Problem Date Documented Da te Episodic/Chronic Immunizations and screening for infectious disease (20 sources) Viral screening status; Translations: [Encounter for screening for other viral diseases] Onset: 06-15-2023 Episodic Nonmalignant breast conditions (9 sources) Breast finding ; Translations: [Dense breasts] Onset: 01-25-2022 01-25-2022 Episodic Other bone disease and musculoskeletal deformities (19 sources) Segmental and somatic dysfunction; Translations: [Segmental and somatic dysfunction of abdomen and other regions] Onset: 06-06-2022 06-06-2022 Episodic Other circulatory disease (20 sources) Labile hypertension due to being in a clinical environment; Translations: [Elevated blood-pressure reading, without diagnosis of hypertension] Onset: 06-12-2022 Episodic Other nutritional; endocrine; and metabolic disorders (19 sources) History of Graves' disease; Translations: [Personal history of other endocrine, nutritional and metabolic disease] Onset: 05-03-2022 05-03-2022 Episodic Regional enteritis and ulcerative colitis (20 sources) Ulcerative (chronic) proctitis; Translations: [Proctitis, ulcerative] Onset: 06-06-2022 Resolved: 06-12-2022 11-13-2016 Chronic Comment on above: Dr. jorge mac. 5-2 2-12 biopsy Residual codes; unclassified (19 sources) Contraception status; Translations: [Other specified health status] Onset: 05-03-2022 05-03-2022 Episodic Residual codes; unclassified (19 sources) Hereditary disorder of endocrine system; Translations: [Genetic susceptibility to other disease] Onset: 05-03-2022 06-06-2022 Episodic Residual codes; unclassified (19 sources) FH: Hypertension; Translations: [Family history of ischemic heart disease and other diseases of the circulatory system] Onset: 06-12-2022 06-12-2022 Episodic Residual codes; unclassified (9 sources) Family history of malignant melanoma; Translations: [Family history of malignant neoplasm of other organs or systems] Onset: 06-07-2023 06-07-2023 Episodic Unclassified (20 sources) Unclassified (20 sources) Abnormal TSH (794.5) Unclassified (13 sources) Allergy to tapazole (Renamed from Aspirin (Salicylates)); Translations: [Allergy to tapazole (Renamed from Aspirin (Salicylates))] 11-13-2016 Unclassified (13 sources) Abortions/Miscarriag es; Translations: [Abortions/Miscarria ges] 11-13-2016 Comment on above: 2. Unclassified (12 sources) Abnormal glucose tolerance test (Renamed from Abnormal glucose tolerance test (GTT)) Unclassified (13 sources) Living Children (Number Of); Translations: [Living Children (Number Of)] 11-13-2016 Comment on above: 3 Unclassified (13 sources) Pregnancies (); Translations: [Pregnancies ()] 11-13-2016 Comment on above: 5. Unclassified (12 sources) Eustachian tube dysfunction (381.81) Unclassified (12 sources) Abdominal Pain,General (789.07) Results Test Name Value Interpretation Reference Range Facility 10-17-2023 36 I spoke to our sugey ng department and they are resubmitting the claim with the BP dx as primary. Notified patient and advised her to call me back if she received another denial. [facility] 09-27-2023 36 Name of caller: Shayna green Contact phone number: [phone] Relationship to Patient: patient Provider: Dr. Hollingsworth Practice: [facility] Chief Complaint/Reason for Call: Pt would like to talk to the chief marketing officer, states she requested a call back last week and have not received it. Please advise Best time of day caller can be reached: After 12 tomorrow and time today! Patient advised that office/PCP has 24-48 business hours to return their call: No [facility] 09-14-2023 36 Notified mammography department at [facility] 09-13-2023 36 Received a diagnosti c mammogram result for this patient from [facility]. Please let them know that I am not the PCP for this patient. The radiology report phone number stated it was [phone] Normal [facility] CARECOORDon 08-23-2023 CARECOMERRILL Patient presented at her routine screening mammogram appointment today, stated her breast is prone to cyst, but she has a new palpable area that she has noticed for aprox 1 week on her left breast around 9o'clock. We recommended that she contact her doctor for a diagnostic mammogram and breast ultrasound order and also gave her the number for scheduling these tests. Normal [facility] Phone Msgon 08-23-2023 Phone Msg - From: Mariah Alvarez To: Mariajose Palmer; Sent: 08/23/2023 14:34:21 EDT Subject: ORDERS Caller Name: MARIAJOSE HUANG; Caller Number: H PATIENT CALLED IN STATING SHE WAS GETTING HER MAMMOGRAM DONE AND SHE STATED SHE HAD A LUMP ON LEFT BREAST THE ARE WANTING A MAMMOGRAM DIAGNOSTIC AND AN BREAST ULTRASOUND ORDER . SHE WASNT SURE IF SHE WAS GOING TO [facility] OR TO [facility] SHE WILL CALL BACK WITH LOCATION . THANK YOU RH addressed [facility] Phone Msg - From: Mariah Alvarez To: Mariajose Palmer; Sent: 08/23/2023 15:00:11 EDT Subject: 3D MAMM ORDER AND BREAST U/S Due Date/Time: 08/23/2023 15:00:00 EDT Caller Name: MARIAJOSE HUANG; Caller Number: H PATIENT CALLED BACK AND SHE WOULD LIKE IT TO BE A 3D MAMMOGRAM ORDER ALONG WITH THE BREAST ULTRASOUND ORDER AND SHE WOULD LIKE IT TO GO TO [facility] BREAST [facility] FAX # [phone]. SHE WASNT ABLE TO GET INTO [facility] THANK YOU order placed and faxed pt has called multiple times [facility] Phone Msg - From: Maria Antonia Ortiz To: Stefany Singh; Sent: 08/23/2023 14:26:08 EDT Subject: MAMMOGRAM pie filler Name: MARIAJOSE HUANG; Caller Number: H Pt. called back she called to schedule her mammogram and they asked if she has any problems. She stated to them she feels she might have a cyst in the left breast, she will no longer need a screen it needs to be changed to a U/S and mammogram. Once you have that new order in I can fax for you [phone] Order placed and to be faxed Normal [facility] Office Visiton 06-15-2023 Follow-up visit [id number] Shayna Huang Chey 1975 F Date Provider Department Center 06/15/2023 [facility] FAMILY P None Family History Problem Relation Age of Onset Melanoma Mother 55 Comments: on stomach Heart attack Father High Blood Pressure Father Prostate cancer Father 73 Bladder Cancer Father 73 Cancer Father Diabetes Father Hearing loss Father Heart disease Father Hypertension Father Hypertension Sister Other Brother Diabetes type I Daughter Diabetes Daughter Heart failure Paternal Grandmother Diabetes Paternal Grandmother Heart failure Paternal Grandfather Diabetes Paternal Grandfather High Blood Pressure Other Comments: sisters/SIBLINGS Family Status - Relation Status Age at Mother Alive Father Alive Sister Brother Daughter Daughter Alive Daughter Paternal Grandmother Paternal Grandfather Other Level of Service:51807 [place] OFFICE/OUTPATIENT ESTABLISHED MOD MDM 30 MIN Reason for Visit and Comments: Blood Pressure Check [299] Normal [facility] Progress Noteon 06-15-2023 Progress Note Most likely due to perimenopause as she has noticed cyclical component. Her [employer] MAKER did give her some Paxil to try it 5 mg for short cyclical time. She was hesitant to do so but she will consider doing this to help prevent panic attacks at work. She also knows coping mechanisms such as deep breathing exercises and other relaxation techniques if this would happen. She is going to let me know or her [employer] MAKER know if symptoms do not improve [facility] Progress Note Patient has noticed a cyclical component and believes that perimenopause and high estrogen levels are playing a role. She is going to continue taking this broccoli based supplement as it is making her feel better. She is continuing to do healthy exercise and diet. She continues to check her blood pressure at home and it is normal. She does not want to start any medications at this time Normal [facility] Progress Note [facility] [address] [facility] [address] Dept: [phone] Dept Loc: [phone] Reason for Visit: Blood Pressure Check Assessment and Plan 1. Situational anxiety Assessment & Plan: Most likely due to perimenopause as she has noticed cyclical component. Her [employer] MAKER did give her some Paxil to try it 5 mg for short cyclical time. She was hesitant to do so but she will consider doing this to help prevent panic attacks at work. She also knows coping mechanisms such as deep breathing exercises and other relaxation techniques if this would happen. She is going to let me know or her [employer]KER know if symptoms do not improve 2. White coat syndrome without diagnosis of hypertension Assessment & Plan: Patient has noticed a cyclical component and believes that perimenopause and high estrogen levels are playing a role. She is going to continue taking this broccoli based supplement as it is making her feel better. She is continuing to do healthy exercise and diet. She continues to check her blood pressure at home and it is normal. She does not want to start any medications at this time 3. Colon cancer screening - External referral to Gastroenterology 4. Screening mammogram for breast cancer-she has dense breasts she was going to check with her insurance company to see if MRI will be covered every other year she knows she is due for mammogram this has come from her [employer] 5. Encounter for screening for HIV - HIV-1 and HIV-2 Antigen-Antibody Screen 6. Need for hepatitis C screening test - Hepatitis C antibody 7. Perimenopause--mainly with hot flashes and weight gain and anxiety as above follows with clinic licensed practical nurse as well as [employer] she is going to consider the cyclical Paxil 8. Postablative hypothyroidism--follows with endocrinology levels have been stable continue current plan I reviewed recent blood work that was drawn current treatment plan is effective, no change in therapy, orders and follow up as documented in EMR, lab results reviewed with patient, repeat labs ordered prior to next appointment, reviewed compliance with lifestyle measures, reviewed diet, exercise and weight control, reviewed medications and side effects in detail Rto prn / or 3 months Subjective HPI F/up She sees luiza for post-ablative hypothyroidism = he follows labs and tsh She ahs white coat htn and has declined bp meds in past- she endorses regualr aerobic acitvity / low salt diet and yoga regularly She has noticed a cyclical component to her anxiety symptoms and mood symptoms which is usually run a week before her period the days of her period and a little bit after her period. sHe also notices a blood pressure spike during this time She brings her blood pressure readings today which are excellent in the last week her period just ended yesterday and started on the she also has a whitecoat component her blood pressure was in the 160s at her [employer]'s office and then at home it was 116/67 130/70 today knowing she was coming here it was 138/80. 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 Her clinic licensed practical nurse ordered hormone levels and has her on a special supplement that she has been on in the past to help decrease her high estrogen levels Issues with perimenopause and panic attacks during periods sees a clinic licensed practical nurse as well dr barrientos - high in estrogen her estradiol is high and had Mo-DVThe [employer] - bulgarian test detoxes estrogen --and dimevale started diindolylmethane taking again 2 weeks ago --she feels better already = less bloated Has had panic attacks before periods--high anxiety 1 week before and after and during these times her BP spikes as well Her [employer] that she saw last week prescribed Paxil for her to take a few days before her period the days of her period and a few days after her period she is to take 5 mg of Paxil. But she has not started this yet she prefers to go on a natural path and she states that she is already feeling better but was wondering what she she should do at work when the panic feelings come on. She has dense breasts and ahs followed with dr taylor in past and has had mri breast 2022 for baseline and it was normal Mammogram 2023 Was to see luiza yesterday and then July 2023 Dad has mestastized prostate and bladder cancer- and heart failure . Her daughter is a type I who is going off to college soon Patient's last menstrual period was 06/09/2023 (exact date). Review of Systems Constitutional: Positive for activity change and appetite change. HENT: Negative. Respiratory: Negative. Endocrine: Positive for heat intolerance. Genitourinary: Negative. Musculoskeletal: Negative. Psychiatric/Behavioral: Positive for behavioral problems and sleep disturbance. Negative for suicidal ideas. The patient is nerv (more content not included)... Normal [facility] Progress Note Patient was able to ambulate safely to the examination room. Provider was not notified of possible fall risk Pt asked if they have been to specialist,been in ER /hospitalized or had testing since last visit. ED. Scratched cornea Normal [facility] Physician Progress No laci 04-19-2023 [facility] Physician Progress Note MARIAJOSE HUANG :1975 Registration Date:04/19/2023 Assessment/Plan This Visit Diagnosis Breast cancer screening by mammogram Z12.31 Ordered: MAMM DIGITAL SCRN BILATERAL, 04/19/2023, Routine, SCREENING, Ambulatory, Breast cancer screening by mammogram Encounter for well woman exam Z01.419 pap normal 11/02 Graves disease w/Radiation E05.00 Ordered: TSH, ROUTINE, 04/19/2023, Order for future visit-Diagnosis required, Dx: Graves disease w/Radiation Orders: PARoxetine(Paxil 10 mg oral tablet), 10 mg= 1 tabs, ORAL, DAILY, 3 refills Medication Reconciliation What How Much When Instructions Unchanged ergocalciferol (Vitamin D) Oral Unchanged levothyroxine (Tirosint 112 mcg (0.112 mg) oral capsule) 30 EA, TAKE 1 CAPSULE BY MOUTH EVERY DAY IN THE MORNING Unchanged multivitamin 1 Tabs Oral DAILY What How Much When Comments Stop Taking fluconazole (Diflucan 150 mg oral tablet) 1 Tabs Oral ONCE Chief Complaint Here for an annual exam - having horrible anxiety, comes and goes. Had a panic attack on Mon. Happening usually around her cycle - is there a rescue medication she could take ? LMP 03/26/23 History of Present Illness Mariajose is a 47 year who has had an increase in anxiety. Her last TSH was 3 months. Her blood pressure is always elevated in the office but normal at home. I feel insane Anxiety happens at random times. I reassured her that sometimes this will happen in perimenopause. Dad isn't well-prostate cancer. mom with bad anxiety so she isn't leaving the house. Physical Exam Vitals & Measurements BP: 166/90 HT: 155 cm WT: 67.7 kg BMI: 28.18 LMP: 03/26/2023 00:00 EST Depression Screening Scores Initial Depression Screen Score: 0 (04/19/23 09:44:00) Fall Risk Assessment Is the patient ambulatory (mobile): Yes (04/19/23 09:44:00) Have you had a fall within the past: No (04/19/23 09:44:00) Have you had 2 or more falls in the past: No (04/19/23 09:44:00) The vital signs were reviewed and her blood pressure was elevated. General appearance: well developed and well nourished Lungs: Normal respiratory effort Extremities: no edema Psychiatric: Mood: normal [employer]CHOOL PAR[employer]ESSIONAL: External genitalia: normal, no lesions Urethra: normal meatus Vagina: normal no lesions, scant discharge, vault normal Cervix: no lesions, no cervical motion tenderness, normal appearance Uterus: normal mobility, non-tender, normal size, shape and consistency Adnexa: normal Cul de sac: normal Perineum: no hemorrhoids, masses or warts noted Breasts: normal-no masses or tenderness or skin changes [employer]OL [employer]AL Additional Details-Patient Stated Menstrual History Menstrual StatusMenarcheal Last Menstrual Cwwmqg0003/26/2023 [employer] Screening Date of Last Pap Smear10/21/2020 Last Pap Result, Pt StatedNegative Last Pap Result CommentNeg HPV Last Mammography Result, Pt StatedBenign Last Mammography Result CommentCat 2 simple cysts return to routine screening mammograms Date of Last Breast US, Pt StatedBreast MRI 03/24 22 Last Breast Ultrasound Result, Pt StatedBenign Last Breast Ultrasound Result CommentBenign Contraception Contraception MethodSterilization for contraception OB History History (1,2,2,3) # 1 Baby 1 Outcome Date: 2006 Outcome or Result: Spontaneous Gest Age: -- Outcome: Sex: -- # 2 Baby 1 Outcome Date: 05/19/2006 Outcome or Result: Vaginal Gest Age: 34 weeks 5 days Outcome: Live Sex: Female Wt: 2126 g # 3 Baby 1 Outcome Date: 2009 Outcome or Result: Spontaneous with D&C Gest Age: -- Outcome: Sex: -- # 4 Baby 1 Outcome Date: 03/2009 Outcome or Result: Gest Age: 36 weeks Outcome: Live Sex: Female Wt: 2580 g Hospital: Dr. Barreto Comment: Breech # 5 Baby 1 Outcome Date: 07/2012 Outcome or Result: Gest Age: 38 weeks Outcome: Live Sex: Male Wt: 3629 g Hospital: Dr. Barreto Problem List/Past Medical History Ongoing BMI 25.0-25.9,adult Graves disease w/Radiation History of gestational diabetes Hypothyroidism MTHFR gene mutation AJ-1 Seasonal allergies Historical Procedure/Surgical History Last pap-neg HPV-ne10/21/20 Mammo - Normal with US f/u: 05/20/19 Colonoscopy-normal: 07/04/11 hemorrhoidectomy: 07/2009 : 03/2009 D&C- MAB: 12/2007 Tonsils: 03/2006 Oral surgery: 1995 Medications ergocalciferol(Vitamin D), ORAL levothyroxine(Tirosint 112 mcg (0.112 mg) oral capsule) multivitamin, 1 tabs, ORAL, DAILY Allergies Tapazole rash Social History Alcohol Use:Current Frequency:1-2 times per month Sexual Sexually active:Yes Other contraceptive use:vastectomy Subst (more content not included)... Normal [facility] Ambulatory Clinical Summaryo n 04-19-2023 Ambulatory Clinical Summary MARIAJOSE HUANG :1975 Registration Date:04/19/2023 Ambulatory Visit Instructions Your Diagnosis Breast cancer screening by mammogram Encounter for well woman exam Graves disease w/Radiation Your Care Team Attending Physician - MARY LOU CALDERON FACOG, PARDEEP Primary Care Physician - NO FAMILY PHYSICIAN, 837 Procedures Performed Last pap-neg HPV-neg (10/21/2020) Mammo - Normal with US f/u (05/20/2019) Colonoscopy-normal (07/04/2011) hemorrhoidectomy (07/2009) (03/2009) D&C- MAB (12/2007) Tonsils (03/2006) Oral surgery (1995) Discharge Vitals Blood Pressure 166/90 Height 61.02 in (155 cm) Weight 149.28 lb (67.7 kg) BMI 28.18 Systolic Blood Pressure: 166 mmHg High (04/19/23 09:44:00) Diastolic Blood Pressure: 90 mmHg (04/19/23 09:44:00) Mean Arterial Pressure: 115 mmHg (04/19/23 09:44:00) Height/Length Measured: 155 cm (04/19/23 09:44:00) Weight Measured: 67.7 kg (04/19/23 09:44:00) Body Mass Index Measured: 28.18 kg/m2 (04/19/23 09:44:00) Ht/Wt Measurement Refused by Patient?2: No (04/19/23 09:44:00) Last Menstrual Period: 03/26/23 (04/19/23 09:44:00) What to do next Scheduled Follow-Up Appointments No results You Need to Schedule the Following Appointments TSH, ROUTINE, 04/19/2023, Order for future visit-Diagnosis required, Dx: Graves disease w/Radiation MAMM DIGITAL SCRN BILATERAL, 04/19/2023, Routine, SCREENING, Ambulatory, Breast cancer screening by mammogram Medications What How Much When Instructions New PARoxetine (Paxil 10 mg oral tablet) 1 Tabs Oral DAILY Refills: 3 Pickup at [facility]/pharmacy #[id number] Unchanged ergocalciferol (Vitamin D) Oral Unchanged levothyroxine (Tirosint 112 mcg (0.112 mg) oral capsule) 30 EA, TAKE 1 CAPSULE BY MOUTH EVERY DAY IN THE MORNING Unchanged multivitamin 1 Tabs Oral DAILY Pharmacy Information [facility]/pharmacy #[id number]: [address], [place] [phone] What How Much When Comments Stop Taking fluconazole (Diflucan 150 mg oral tablet) 1 Tabs Oral ONCE Allergies Tapazole rash Problems Ongoing - Any problem that you are currently receiving treatment for. BMI 25.0-25.9,adult Graves disease w/Radiation History of gestational diabetes Hypothyroidism MTHFR gene mutation AJ-1 Seasonal allergies Common Emergency Awareness Tips IS IT A STROKE? Act FAST and Check for these signs: FACE Does the face look uneven? ARM Does one arm drift down? SPEECH Does their speech sound strange? TIME Call at any sign of stroke Heart Attack Signs Chest discomfort: Most heart attacks involve discomfort in the center of the chest and lasts more than a few minutes, or goes away and comes back. It can feel like uncomfortable pressure, squeezing, fullness or pain. Discomfort in upper body: Symptoms can include pain or discomfort in one or both arms, back, neck, jaw or stomach. Shortness of breath: With or without discomfort. Other signs: Breaking out in a cold sweat, nausea, or lightheaded. Remember, MINUTES DO MATTER. If you experience any of these heart attack warning signs, call to get immediate medical attention! Normal [facility] Comprehensive Intake - Texto n 04-19-2023 Comprehensive Intake - Text Comprehensive Intake Entered On: 04/19/2023 9:44 EST Performed On: 04/19/2023 9:44 EST by Mariajose Palmer Last Menstrual Period : 03/26/2023 EST Bladder Control Issues? : No Urine Leakage? : No Presence or absence of urinary incontinence assessed : Yes CPT-II Medication list doc'd in medical record : Yes Influenza immunization administered or previously received : Yes Pneumococcal vaccine administered or previously received : No Chief Complaint : Here for an annual exam - having horrible anxiety, comes and goes. Had a panic attack on Mon. Happening usually around her cycle - is there a rescue medication she could take ? LMP 03/26/23 Mariajose Palmer - 04/19/2023 9:46 EST Menstrual Status : Menarcheal Mariajose Palmer 04/19/2023 9:44 EST Measurements Ht/Wt Measurement Refused by Patient? : No Mariajose Palmer 04/19/2023 9:44 EST Weight Measured : 67.7 kg(Converted to: 149 lb 4 oz, 149.253 lb) Mariajose Palmer 04/19/2023 9:46 EST Height/Length Measured : 155 cm(Converted to: 5 ft 1 in, 61.02 in) Mariajose Palmer 04/19/2023 9:44 EST Body Mass Index Measured : 28.18 kg/m2 Mariajose Palmer 04/19/2023 9:46 EST Body Mass Index documented : Yes Mariajose Palmer 04/19/2023 9:44 EST Vitals Require BP : Yes Systolic Blood Pressure : 166 mmHg (HI) Diastolic Blood Pressure : 90 mmHg Mean Arterial Pressure : 115 mmHg Last Systolic BP : greater than or equal to 140 mmHg Last Diastolic BP : greater than or equal to 90 mmHg Pain Present : No actual or suspected pain Pain : 0 Pain severity quantified : No pain present Mariajose Palmer 04/19/2023 9:46 EST Infection Screening Travel outside [place] within past 30 days : No Positive COVID test in the last 10 days? : No Coronavirus Live/Work High Risk : No Exposure to and/or close contact with a person who has a laboratory-confirmed COVID test within the last 48 hours. : No Mariajose Palmer 04/19/2023 9:46 EST Depression Screening Is patient currently : None of the Below Feeling Down, Depressed, Hopeless : Not at all Little Interest - Pleasure in Activities : Not at all Initial Depression Screen Score : 0 Depression Screening Score 0 : No Mariajose Palmer 04/19/2023 9:46 EST Falls Risk Assessment Is the patient ambulatory (mobile) : Yes Have you had 2 or more falls in the past year : No Have you had a fall within the past year that has caused an injury : No Patient screen for fall risk : no falls in last year OR 1 fall with no injury in last year Mariajose Palmer 04/19/2023 9:46 EST Normal [facility] PRESCHOOL [employer]AP[employer]OFESSIONAL Visit - [employer] PRESCHOOL PARAPROFESSIONAL Visit - Text PRESCHOOL PARAPROFESSIONAL Visit Entered On : 04/19/2023 9:43 EST Performed On: 04/19/2023 9:42 EST by Mariajose Palmer [employer] Menstrual History Menstrual Status : Menarcheal Mariajose Palmer 04/19/2023 9:42 EST [employer] Screenings Date of Last Pap Smear : 10/21/2020 Last Pap Result : Negative Last Pap Result Comment : Neg HPV Date of Last Mammogram : 01/23/2022 Last Mammography Result : Benign Last Mammography Result Comment : Cat 2 simple cysts return to routine screening mammograms Date of Last Breast Ultrasound : Breast MRI 03/24 22 Last Breast Ultrasound Result : Benign Last Breast Ultrasound Result Comment : Benign Mariajose Palmer 04/19/2023 9:42 EST Contraception Contraception Method : Sterilization for contraception Sterilization Type : Partner vasectomy Mariajose Palmer - 04/19/2023 9:42 EST Normal [facility] Phone Msgon 04-19-2023 Phone Msg - From: PARDEEP BARRETO MD, FACOG To: MARIAJOSE HUANG Sent: 04/19/2023 15:01:02 EST Subject: normal thyroid Mariajose, Your thyroid was normal. I hope the paxil helps you. Let me know how it goes. Pardeep Barreto MD Results: Date Result Name Value Ref Range 04/19/2023 10:18 TSH 0.74 uIU/ml (0.55 - 4.78) Normal [facility] TSHon 04-19-2023 TSH Qn 0.74 m[IU]/L Normal 0.55-4.78 [facility] Comment on above: Order Comment: Order ed on Fin# [id number] Result Comment: - Do not use samples that contain fluorescein. Fluorescein levels > 0.24 ?g/mL may decrease results in this assay - Patients undergoing retinal fluorescein angiography can retain amounts of fluorescein in the body for up to 48?72 hours post-treatment. Such samples can produce falsely depressed values when tested with this assay, and should not be tested Reference Intervals (if applicable): First trimester: 0.6-3.4 uIU/mL Second trimester: 0.37-3.6 uIU/mL Third trimester: 0.38-4.04 uIU/mL Reference: [email or web address] (11/2022) Performed By: #### 1 [id number] #### [facility] [address] [place] [address] Loss Prevention Manager: Escobar Tracy MD 03-29-2023 36 Message left for patient to call the [facility]. [facility] 03-28-2023 36 Message left for patient to call the [facility]. [facility] 03-27-2023 36 Called number of rec ord and left message to call office for message from PCP. [facility] 36 Please schedule a follow-up appointment for this patient for a check up and follow up blood pressure Normal [facility] MG Breast Tomosynthesis Scr Blon 12-23-2020 MG Breast Tomosynthesis Scr Bl Patient Name: MARIAJOSE HUANG Mammography ACCESSION EXAM DATE/TIME PROCEDURE ORDERING PROVIDER [id number] 12/23/2020 10:50 EST MG Breast Tomosynthesis PARDEEP BARRETO BI Scr CPT code 43936 [id number] Reason For Exam (MG Breast Tomosynthesis BI Scr) screening Report TIME SINCE LAST MAMMOGRAM: Last mammogram was performed 1 year and 7 months ago. REASON FOR EXAM: screening, asymptomatic. PROCEDURE: MG BREAST TOMOSYNTHESIS BL SCR: DECEMBER 23, 2020 - 2D/3D Procedure 3D Bilateral CC and MLO view(s) were taken. 2D Bilateral CC and MLO view(s) were taken. Prior study comparison: June 03, 2019, mammogram performed at [facility]. June 03, 2019, ultrasound performed at [facility]. December 20, 2018, right breast MG breast tomosynthesis right performed at [facility]. November 28, 2018, bilateral MG breast tomosynthesis bl scr performed at [facility]. TISSUE DENSITY: BIRADS D - The breast tissue is extremely dense, which may lower the sensitivity of mammography. . PATIENT CANCER HISTORY: No Personal History of Cancer FAMILY CANCER HISTORY: Mother Skin Cancer (Non-Melanoma) age 65 Father Prostate Cancer age 74 Paternal Grandfather Prostate Cancer age 60 . FINDINGS: No suspicious masses, architectural distortions or suspiciously clustered microcalcifications are identified. Bilateral circumscribed masses are noted, suggestive of a changing cystic pattern. There are no significant changes when compared with prior studies. No mammographic evidence of malignancy. Markings on images: BB's = Nipples; skin lesions Open pitka's point = Palpable Mammography Report Line = Scar 2D digital mammography and tomosynthesis imaging were performed and reviewed with CAD. ASSESSMENT: Category 2 Benign RECOMMENDATION: Routine screening mammogram of both breasts in 1 year. . Report Dictated on Cancer Risk Assessment: This risk assessment is based on patient provided information collected in a risk survey taken at the time of this examination. Lifetime breast cancer risk: Average Risk - If greater than or equal to 20%, consider annual mammogram and annual screening Breast MRI or follow up in high risk clinic. A score of Average Risk indicates a score of less than 20%. Is the patient at elevated risk based on the HBOC criteria? No (Hereditary Breast and Ovarian Cancer) - If yes, consider genetic counseling and testing with high risk follow up. Is the patient at elevated risk based on the Campbell Syndrome criteria? No - If yes, consider genetic counseling and testing with high risk follow up. Final Signed Date and Time: 12/30/2020 11:52 am Signed by: DO CRAWFORD RACHEL Normal [facility] Comprehensive metabolic 2000 panelon 10-07-2020 Albumin [Mass/Vol] 4.8 g/dL Normal 3.9-4.9 [facility] Comment on above: Order Comment: Speci men Type: BLOOD SPECIMEN Performed By: #### 2 4323-8, 6-3 #### [facility] CLIA [id number] [address] ALP [Catalytic activity/Vol] 40 U/L Normal 34-123 [facility] Comment on above: Order Comment: Speci men Type: BLOOD SPECIMEN Performed By: #### 2 4323-8, 6-3 #### [facility] CLIA [id number] [address] ALT With P-5'-P [Catalytic activity/Vol] 17 U/L Normal 7-38 [facility] Comment on above: Order Comment: Speci men Type: BLOOD SPECIMEN Performed By: #### 2 4323-8, 6-3 #### [facility] CLIA [id number] [address] Anion gap [Moles/Vol] 10 mmol/L Normal 9-18 [facility] Comment on above: Order Comment: Speci men Type: BLOOD SPECIMEN Performed By: #### 2 4323-8, 6-3 #### [facility] CLIA [id number] [address] [place] [address] [place] AST With P-5'-P [Catalytic activity/Vol] 24 U/L Normal 13-35 [facility] Comment on above: Order Comment: Speci men Type: BLOOD SPECIMEN Performed By: #### 2 4323-8, 3016-3 #### [facility] CLIA [id number] [address] STATES OF [facility] Bilirubin [Mass/Vol] 0.5 mg/dL Normal 0.2-1.3 [facility] Comment on above: Order Comment: Speci men Type: BLOOD SPECIMEN Performed By: #### 2 3-8, 6-3 #### [facility] CLIA [id number] [address] STATES OF [facility] Calcium [Mass/Vol] 9.4 mg/dL Normal 8.5-10.2 [facility] Comment on above: Order Comment: Speci men Type: BLOOD SPECIMEN Performed By: #### 2 4322-8, 3015-3 #### [facility] CLIA [id number] [address] [place] Chloride [Moles/Vol] 101 mmol/L Normal 97-105 [facility] Comment on above: Order Comment: Speci men Type: BLOOD SPECIMEN Performed By: #### 2 4322-8, 6-3 #### [facility] CLIA [id number] [address] [place] CO2 [Moles/Vol] 26 mmol/L Normal 22-30 [facility] Comment on above: Order Comment: Speci men Type: BLOOD SPECIMEN Performed By: #### 2 3-8, 6-3 #### [facility] CLIA [id number] [address] [place] Creatinine [Mass/Vol] 0.71 mg/dL Normal 0.58-0.96 [facility] Comment on above: Order Comment: Speci men Type: BLOOD SPECIMEN Performed By: #### 2 4323-8, 6-3 #### [facility] CLIA [id number] [address] [place] GFR/1.73 sq M.predicted MDRD (S/P/Bld) [Vol rate/Area] mL/min/{1.73_m2} Normal [facility] Comment on above: Order Comment: Speci men Type: BLOOD SPECIMEN Result Comment: >60 eGFR (Estimated GFR) Units of measure: mL/min/1.73 meters squared eGFR is derived from the reexpressed MDRD Study equation using the following parameters: serum creatinine, age, gender and race. The creatinine assay has been calibrated to be traceable to IDMS. An eGFR <60 mL/min/1.73m2 for >3 months is consistent with chronic kidney disease. Refer to KDOQI guidelines for clinical interpretation. In patients with unstable renal function, e.g. those with acute kidney injury, the eGFR may not accurately reflect actual GFR. Performed By: #### 2 4323-8, 3016-3 #### [facility][1] [facility] CLIA [id number] [address] [place] Glucose [Mass/Vol] 104 mg/dL High 74-99 [facility] Comment on above: Order Comment: Speci men Type: BLOOD SPECIMEN Result Comment: The [place] Diabetes Association (ADA) provides guidance for cutoff values for fasting glucose and random glucose. The ADA defines fasting as no caloric intake for at least 8 hours. Fasting plasma glucose results between 100 to 125 mg/dL indicate increased risk for diabetes (prediabetes). Fasting plasma glucose results greater than or equal to 126 mg/dL meet the criteria for diagnosis of diabetes. In the absence of unequivocal hyperglycemia, results should be confirmed by repeat testing. In a patient with classic symptoms of hyperglycemia or hyperglycemic crisis, random plasma glucose results greater than or equal to 200 mg/dL meet the criteria for diagnosis of diabetes. Reference: Standards of Medical Care in Diabetes 2016, [place] Diabetes Association. Diabetes Care. 2016.39(Suppl 1). Performed By: #### 2 4323-8, 3016-3 #### [facility] CLIA [id number] [address] [place] Potassium [Moles/Vol] 4.6 mmol/L Normal 3.7-5.1 [facility] Comment on above: Order Comment: Speci men Type: BLOOD SPECIMEN Performed By: #### 2 4323-8, 3016-3 #### [facility] CLIA [id number] [address] Protein [Mass/Vol] 7.3 g/dL Normal 6.3-8.0 [facility] Comment on above: Order Comment: Speci men Type: BLOOD SPECIMEN Performed By: #### 2 4323-8, 3016-3 #### [facility] CLIA [id number] [address] Sodium [Moles/Vol] 137 mmol/L Normal 136-144 [facility] Comment on above: Order Comment: Speci men Type: BLOOD SPECIMEN Performed By: #### 2 4323-8, 3016-3 #### [facility] CLIA [id number] [address] Urea nitrogen [Mass/Vol] 13 mg/dL Normal 7-21 [facility] Comment on above: Order Comment: Speci men Type: BLOOD SPECIMEN Performed By: #### 2 4323-8, 3016-3 #### [facility] CLIA [id number] [address] [place] TSH SerPl-aCncon 10-07-2020 TSH Qn 2.470 m[IU]/L Normal 0.270-4.200 [facility] Comment on above: Order Comment: Speci men Type: BLOOD SPECIMEN Result Comment: If t he patient is , TSH reference range varies by gestational period: First Trimester (weeks 9-12): 0.180-2.990 mcIU/mL Second Trimester: 0.110-3.980 mcIU/mL Third Trimester: 0.480-4.710 mcIU/mL Justin Rand et al. A Practical Approach for the Verifications and Determination of Site- and Trimester-Specific Reference Intervals for Thyroid Function tests in . Thyroid, 2019:29:3:412-420. Thuan E, et al. 2017 Guidelines of the [place] Thyroid Association for the Diagnosis and Management of Thyroid Disease during and the . Thyroid, 2017:27:3:315-389. Performed By: #### 2 4323-8, 3016-3 #### [facility] CLIA [id number] [address] VITAMIN D 25 HYDROXYon 10-07 25-hydroxyvitamin D3 [Mass/Vol] 63.1 ng/mL Normal 30.0-100.0 [facility] Comment on above: Order Comment: Speci men Type: BLOOD SPECIMEN Result Comment: Clas sification of 25 [place] Vitamin D status: Deficiency: < 20 ng/ml. Insufficientcy: 20-30 ng/ml. Sufficiency: 30-100 ng/ml. Performed By: #### V ITD #### [facility] CLIA [id number] [address] CNOVon 08-11-2020 CNOV Office Visit (WALKWA ) MARIAJOSE HUANG ([id number]) 1975 [facility] Date Time Provider Department 08/11/20 11:40 AM WALK IN CLINIC [facility] During your visit today, we recorded the following information about you: Temperature Pulse Respiration Blood pressure 98.3 degrees 89/minute 10/minute 149/89 Weight Last Period 64.2 kg 07/31/20 Aspen Ruelas APRN.SUPERVISOR LOCOMOTIVE 08/11/2020 11:57 AM Addendum (T14.8XXA) Puncture wound (primary encounter diagnosis) Plan: TDAP VACCINE AGE 7+ IM -Tdap updated in office today. -No signs of infection on exam now. -Keep area clean and dry. Non scented antimicrobial soap and water. -Signs of infection: increased in size, streaking up or down the skin, fever of 101 F or higher, or copious drainage from the site. -Be seen immediately with signs of infection. Aspen Ruelas APRN.CNP 08/11/2020 12:10 PM Signed This note was created using Ostarariter. Subjective Mariajose Huang is a 45 year old female. HPI by patient: Mariajose Huang is a 45 year old female presenting to the office with the complaint of needing a tetanus vaccine. Was in [place] and stepped on a tack yesterday. Tack came out in one piece but the end was jesus. No fevers or redness to the site. ALLERGIES Tapazole (Methimazo* Rash Family History Reviewed Including Cardiac Diseases, Psychiatric Diseases, AND Substance Abuse Problem: other (nephrolithiasis) Relation: Other Age of Onset: (Not Specified) Problem: Heart Relation: Other Age of Onset: (Not Specified) Problem: Osteoporosis Relation: Other Age of Onset: (Not Specified) Problem: Diabetes Relation: Other Age of Onset: (Not Specified) Problem: other (thyroid nodule) Relation: Other Age of Onset: (Not Specified) Problem: Hypertension Relation: Other Age of Onset: (Not Specified) Problem: other (hyperthyroidism) Relation: Other Age of Onset: (Not Specified) Problem: other (hyperthyroidism) Relation: Other Age of Onset: (Not Specified) Social History Tobacco Use Smoking status: Never Smoker Smokeless tobacco: Never Used Alcohol use: Yes Drug use: Not on file Active Ambulatory Problems Previous section complicating Date Noted: 08/11/2012 Hypothyroidism, postablative History of Graves' disease Date Noted: 12/12/2016 Malaise and fatigue Date Noted: 01/22/2018 Resolved Ambulatory Problems Other postablative hypothyroidism Date Noted: 11/15/2006 Thyroid disease Past Medical History: No date: Blood dyscrasia No date: Thrombophilia (HCC) Review of Systems Constitutional: Negative. HENT: Negative. Eyes: Negative. Respiratory: Negative. Cardiovascular: Negative. Gastrointestinal: Negative. Endocrine: Negative. Genitourinary: Negative. Musculoskeletal: Negative. Skin: Positive for wound (puncture wound). Neurological: Negative. Hematological: Negative. Objective BP 149/89 Pulse 89 Temp 36.8 ?C (98.3 ?F) (Tympanic) Resp 10 Wt 64.2 kg (141 lb 9.6 oz) LMP 07/31/2020 (Approximate) SpO2 100% BMI 26.76 kg/m? Physical Exam Constitutional: General: She is not in acute distress. Appearance: She is not ill-appearing, toxic-appearing or diaphoretic. Pulmonary: Effort: Pulmonary effort is normal. Skin: Findings: No wound (Area where tack went in skin: no puncture site seen or wound. Skin is soft and non tender when palpated.). Psychiatric: Behavior: Behavior is cooperative. Assessment and Plan (T14.8XXA) Puncture wound (primary encounter diagnosis) Plan: TDAP VACCINE AGE 7+ IM -Tdap updated in office today. -No signs of infection on exam now. -Keep area clean and dry. Non scented antimicrobial soap and water. -Signs of infection: increased in size, streaking up or down the skin, fever of 101 F or higher, or copious drainage from the site. -Be seen immediately with signs of infection. The patient will pursue further outpatient evaluation with the primary care physician or another Urgent Care/Express Care as outlined in the after visit summary. The patient is agreeable to this plan of care and follow-up instructions have been explained in detail. The patient has received these instructions in written format and have expressed an understanding of the after visit summary. Medical Decision Making: Level: 3 - Low I spent a total of 15 minutes on the date of the service which included preparing to see the patient, [id number] patient care, completing clinical documentation, obtaining and/or reviewing separately obtained history, performing a medically appropriate examination, counseling and educating the patient/family/caregive r and ordering medications, tests, or procedures. Referring Provider: SELF [200] Allergies As of Date: 08/11/2020 Noted Allergy Reaction TAPAZOLE (METHIMAZOLE) 01/11/2007 2 - Rash Date Reviewed: 08/11/2020 Reviewed by: Emi (more content not included)... Normal [facility] Comprehensive metabolic 2000 panelon 06-11-2020 Albumin [Mass/Vol] 4.7 g/dL Normal 3.9-4.9 [facility] Comment on above: Order Comment: Speci men Type: BLOOD SPECIMEN Performed By: #### 2 4323-8, LIPB, 3016-3, B12 #### [facility] CLIA [id number] 1 [place] [address] ALP [Catalytic activity/Vol] 37 U/L Normal 34-123 [facility] Comment on above: Order Comment: Speci men Type: BLOOD SPECIMEN Performed By: #### 2 4323-8, LIPB, 3016-3, B12 #### [facility] CLIA [id number] [address] [place] [address] ALT With P-5'-P [Catalytic activity/Vol] 15 U/L Normal 7-38 [facility] Comment on above: Order Comment: Speci men Type: BLOOD SPECIMEN Performed By: #### 2 4323-8, LIPB, 3016-3, B12 #### [facility] CLIA [id number] [address] [place] [address] Anion gap [Moles/Vol] 9 mmol/L Normal 9-18 [facility] Comment on above: Order Comment: Speci men Type: BLOOD SPECIMEN Performed By: #### 2 4323-8, LIPB, 3016-3, B12 #### [facility] CLIA [id number] [address] [place] [address] AST With P-5'-P [Catalytic activity/Vol] 19 U/L Normal 13-35 [facility] Comment on above: Order Comment: Speci men Type: BLOOD SPECIMEN Performed By: #### 2 4323-8, LIPB, 3016-3, B12 #### [facility] CLIA [id number] [address] [place] [address] Bilirubin [Mass/Vol] 0.5 mg/dL Normal 0.2-1.3 [facility] Comment on above: Order Comment: Speci men Type: BLOOD SPECIMEN Performed By: #### 2 4323-8, LIPB, 3016-3, B12 #### [facility] CLIA [id number] 1 [place] [address] Calcium [Mass/Vol] 9.5 mg/dL Normal 8.5-10.2 [facility] Comment on above: Order Comment: Speci men Type: BLOOD SPECIMEN Performed By: #### 2 4323-8, LIPB, 3016-3, B12 #### [facility] CLIA [id number] [address] [place] [address] Chloride [Moles/Vol] 101 mmol/L Normal 97-105 [facility] Comment on above: Order Comment: Speci men Type: BLOOD SPECIMEN Performed By: #### 2 4323-8, LIPB, 3016-3, B12 #### [facility] CLIA [id number] [address] [place] [address] CO2 [Moles/Vol] 27 mmol/L Normal 22-30 [facility] Comment on above: Order Comment: Speci men Type: BLOOD SPECIMEN Performed By: #### 2 4323-8, LIPB, 3016-3, B12 #### [facility] CLIA [id number] [address] [place] [address] Creatinine [Mass/Vol] 0.80 mg/dL Normal 0.58-0.96 [facility] Comment on above: Order Comment: Speci men Type: BLOOD SPECIMEN Performed By: #### 2 4323-8, LIPB, 3016-3, B12 #### [facility] CLIA [id number] [address] [place] [address] GFR/1.73 sq M.predicted MDRD (S/P/Bld) [Vol rate/Area] mL/min/{1.73_m2} Normal [facility] Comment on above: Order Comment: Speci men Type: BLOOD SPECIMEN Result Comment: >60 eGFR (Estimated GFR) Units of measure: mL/min/1.73 meters squared eGFR is derived from the reexpressed MDRD Study equation using the following parameters: serum creatinine, age, gender and race. The creatinine assay has been calibrated to be traceable to IDMS. An eGFR <60 mL/min/1.73m2 for >3 months is consistent with chronic kidney disease. Refer to KDOQI guidelines for clinical interpretation. In patients with unstable renal function, e.g. those with acute kidney injury, the eGFR may not accurately reflect actual GFR. Performed By: #### 2 4323-8, LIPB, 3016-3, B12 #### [facility] CLIA [id number] [address] [place] [address] Glucose [Mass/Vol] 108 mg/dL High 74-99 [facility] Comment on above: Order Comment: Speci men Type: BLOOD SPECIMEN Result Comment: The [place] Diabetes Association (ADA) provides guidance for cutoff values for fasting glucose and random glucose. The ADA defines fasting as no caloric intake for at least 8 hours. Fasting plasma glucose results between 100 to 125 mg/dL indicate increased risk for diabetes (prediabetes). Fasting plasma glucose results greater than or equal to 126 mg/dL meet the criteria for diagnosis of diabetes. In the absence of unequivocal hyperglycemia, results should be confirmed by repeat testing. In a patient with classic symptoms of hyperglycemia or hyperglycemic crisis, random plasma glucose results greater than or equal to 200 mg/dL meet the criteria for diagnosis of diabetes. Reference: Standards of Medical Care in Diabetes 2016, [place] Diabetes Association. Diabetes Care. 2016.39(Suppl 1). Performed By: #### 2 4323-8, LIPB, 3016-3, B12 #### [facility] CLIA [id number] 1 [place] [address] Potassium [Moles/Vol] 4.6 mmol/L Normal 3.7-5.1 [facility] Comment on above: Order Comment: Speci men Type: BLOOD SPECIMEN Performed By: #### 2 4323-8, LIPB, 3016-3, B12 #### [facility] CLIA [id number] 1 [place] [address] Protein [Mass/Vol] 6.6 g/dL Normal 6.3-8.0 [facility] Comment on above: Order Comment: Speci men Type: BLOOD SPECIMEN Performed By: #### 2 4323-8, LIPB, 3016-3, B12 #### [facility] CLIA [id number] [address] [place] [address] Sodium [Moles/Vol] 137 mmol/L Normal 136-144 [facility] Comment on above: Order Comment: Speci men Type: BLOOD SPECIMEN Performed By: #### 2 4323-8, LIPB, 3016-3, B12 #### [facility] CLIA [id number] [address] [place] [address] Urea nitrogen [Mass/Vol] 16 mg/dL Normal 7-21 [facility] Comment on above: Order Comment: Speci men Type: BLOOD SPECIMEN Performed By: #### 2 4323-8, LIPB, 3016-3, B12 #### [facility] CLIA [id number] [address] [place] [address] LIPID PANEL BASICon 06-12-19 21 Cholesterol [Mass/Vol] 168 mg/dL Normal <200 [facility] Comment on above: Order Comment: Speci men Type: BLOOD SPECIMEN Result Comment: <200 mg/dL, Desirable 200-239 mg/dL, Borderline high >239 mg/dL, High Performed By: #### 2 4323-8, LIPB, 3016-3, B12 #### [facility] CLIA [id number] [address] [place] [address] Cholesterol in HDL [Mass/Vol] 59 mg/dL Normal >39 [facility] Comment on above: Order Comment: Speci men Type: BLOOD SPECIMEN Result Comment: 40-5 9 mg/dL, Acceptable >59 mg/dL, High: Negative risk factor for coronary heart disease <40 mg/dL, Low: Positive risk factor for coronary heart disease Performed By: #### 2 4323-8, LIPB, 3016-3, B12 #### [facility] CLIA [id number] [address] [place] [address] Cholesterol in LDL [Mass/Vol] 86 mg/dL Normal <100 [facility] Comment on above: Order Comment: Speci men Type: BLOOD SPECIMEN Result Comment: <100 mg/dL, Optimal 100-129 mg/dL, Near optimal/above optimal 130-159 mg/dL, Borderline high 160-189 mg/dL, High >189 mg/dL, Very high Secondary prevention optimal LDL Cholesterol levels are recommended to be < 70 mg/dL Performed By: #### 2 4323-8, LIPB, 3016-3, B12 #### [facility] CLIA [id number] [address] [place] [address] Cholesterol in LDL/Cholesterol in HDL [Mass ratio] 1.46 {ratio} Normal <2.54 [facility] Comment on above: Order Comment: Speci men Type: BLOOD SPECIMEN Result Comment: Refe rence: 1. National Cholesterol Education Program ATP III Guideline At-A-Glance Quick Desk Reference: National Heart, Lung, and Blood [place]. National Institutes of Health. 2001: NIH Publication No. 01-3305. 2. An International Atherosclerosis Society position paper: global recommendations for the management of dyslipidemia: executive summary, Atherosclerosis. 2014: 232(2):410-413. Performed By: #### 2 4323-8, LIPB, 3016-3, B12 #### [facility] CLIA [id number] [address] [place] [address] Cholesterol in VLDL [Mass/Vol] 23 mg/dL Normal <30 [facility] Comment on above: Order Comment: Speci men Type: BLOOD SPECIMEN Performed By: #### 2 4323-8, LIPB, 3016-3, B12 #### [facility] CLIA [id number] [address] [place] [address] Cholesterol non HDL [Mass/Vol] 109 mg/dL Normal <130 [facility] Comment on above: Order Comment: Speci men Type: BLOOD SPECIMEN Result Comment: <130 mg/dL, Optimal 130-159 mg/dL, Near optimal/above optimal 160-189 mg/dL, Borderline high 190-219 mg/dL, High >219 mg/dL, Very high Secondary prevention optimal non HDL Cholesterol levels are recommended to be <100 mg/dL Performed By: #### 2 4323-8, LIPB, 3016-3, B12 #### [facility] CLIA [id number] [address] [place] [address] Cholesterol.total /Cholesterol in HDL [Mass ratio] 2.85 {ratio} Normal <5.10 [facility] Comment on above: Order Comment: Speci men Type: BLOOD SPECIMEN Performed By: #### 2 4323-8, LIPB, 3016-3, B12 #### [facility] CLIA [id number] [address] [place] [address] FASTING TIME 12 hrs Normal [facility] Comment on above: Order Comment: Speci men Type: BLOOD SPECIMEN Performed By: #### 2 4323-8, LIPB, 3016-3, B12 #### [facility] CLIA [id number] [address] [place] [address] Triglyceride [Mass/Vol] 113 mg/dL Normal <150 [facility] Comment on above: Order Comment: Speci men Type: BLOOD SPECIMEN Result Comment: <150 mg/dL, Normal 150-199 mg/dL, Borderline high 200-499 mg/dL, High >499 mg/dL, Very high Performed By: #### 2 4323-8, LIPB, 3016-3, B12 #### [facility] CLIA [id number] [address] [place] [address] TSH SerPl-aCncon 06-11-2020 TSH Qn 0.331 m[IU]/L Normal 0.270-4.200 [facility] Comment on above: Order Comment: Speci men Type: BLOOD SPECIMEN Result Comment: If t he patient is , TSH reference range varies by gestational period: First Trimester (weeks 9-12): 0.180-2.990 mcIU/mL Second Trimester: 0.110-3.980 mcIU/mL Third Trimester: 0.480-4.710 mcIU/mL Justin Rand et al. A Practical Approach for the Verifications and Determination of Site- and Trimester-Specific Reference Intervals for Thyroid Function tests in . Thyroid, 2019:29:3:412-420. Thuan E, et al. 2017 Guidelines of the [place] Thyroid Association for the Diagnosis and Management of Thyroid Disease during and the . Thyroid, 2017:27:3:315-389. Performed By: #### 2 4323-8, LIPB, 3016-3, B12 #### [facility] CLIA [id number] [address] [place] [address] VITAMIN B12 BLOODon 06-12-19 Cobalamin (Vitamin B12) [Mass/Vol] 970 pg/mL Normal 232-1,245 [facility] Comment on above: Order Comment: Speci men Type: BLOOD SPECIMEN Performed By: #### 2 4323-8, LIPB, 3016-3, B12 #### [facility] CLIA [id number] [address] [place] [address] VITAMIN D 25 HYDROXYon 06-11 25-hydroxyvitamin D3 [Mass/Vol] 39.3 ng/mL Normal 30.0-100.0 [facility] Comment on above: Order Comment: Speci men Type: BLOOD SPECIMEN Result Comment: Clas sification of 25 [place] Vitamin D status: Deficiency: < 20 ng/ml. Insufficientcy: 20-30 ng/ml. Sufficiency: 30-100 ng/ml. Performed By: #### V ITD #### [facility] CLIA [id number] [address] [place] [address] CNPGeorgie 06-04-2019 CNPN Telephone (MEPRAD) MARIAJOSE HUANG ([id number]) 1975 [facility] Date Time Provider Department 06/04/19 ROCIO COOL During your visit today, we recorded the following information about you: Rocio Cool MD 06/04/2019 11:00 AM Signed Spoke with patient - breast aspiration performed yesterday. Gram stain shows gram positive cocci. She is sore but no evidence for worsening infection. I would like to wait for the culture results to determine treatment. She is comfortable with this. Allergies As of Date: 06/04/2019 Noted Allergy Reaction TAPAZOLE (METHIMAZOLE) 01/11/2007 2 - Rash Date Reviewed: 05/29/2019 Reviewed by: Rocio Cool - Fully Assessed Reason for Visit: Results [95] Prescriptions as of 06/04/2019 Sig: SULFAMETHOXAZOLE 800 MG-TRIME* TAKE 1 TABLET BY MOUTH TWICE * TIROSINT 112 MCG CAPSULE TAKE 1 CAPSULE BY MOUTH EVERY* BENZONATATE 200 MG CAPSULE Take 1 capsule by mouth every* Problem List As Of Date 06/04/2019 Noted Resolved Other postablative hypothyroidism [E89.0] 11/15/2006 08/04/2015 Previous section complicating pregnanc*08/11/2012 Hypothyroidism, postablative [E89.0] More... Thyroid disease [E07.9] 08/05/2015 History of Graves' disease [Z86.39] 12/12/2016 Malaise and fatigue [R53.81, R53.83] 01/22/2018 Encounter Status:Closed by ROCIO COOL MD on 06/04/19 [facility] HEALTHon 06-03-2019 [facility] HNO ID: [id number] Author: MAYITO Corona (Ct) Service: Radiology Author Type: Clinical Supervisor Feed House Type: Allied Health Filed: 06/03/2019 3:09 PM Note Text: PATIENT IDENTITY VERIFICATION COMPLETED USING TWO (2) STANDARD IDENTIFIERS: Name and Date of confirmed by patient verbally. Procedure: Ultrasound FNA Site Verification: left No Nursing No Allergies ALLERGIES Allergen Reactions - Tapazole [Methimazo* Rash Is the patient having any pain? None Physician, Nurse, Technologist: Xiao Shen PREOPERATIVE/PROCEDURAL VERIFICATION: Patient verified by: Name and Date of Procedure to be performed: Ultrasound Cyst Aspiration Site of the procedure confirmed:Yes Site:left Patient position: Right lat Equipment/implant present:Imaging Data Staff involved: Abhi Rader MD Relevant documentation, images, implants or special equipment present: N/A MARKING THE SITE: Procedural site verified by:Physically marking the site on or near incision site, with persistent marker and remains visible once patient prepped. PROCEDURAL TIME OUT: All team activity stops Time out verification includes:Audible time-out documented:. Time: 14:36 NUMBER OF SPECIMENS SENT TO LAB: 1 Sign in Communication: Completed Time Out: Team Confirms the Correct Patient, Correct Procedure, Correct Site and Site Marking, Correct Position (if applicable). Time: 14:36 Affirmation of Time Out: YES Sign Out Discussion: Completed [facility] DIAGNOSTIC LTon 06-03-19 20 [facility] DIAGNOSTIC LT * * *Final Report* * * DATE OF EXAM: Jun 03 2019 1:46PM CLEO 0621 - [facility] DIAGNOSTIC LT / PROCEDURE REASON: N63.20-Breast mass, left * * * * Physician Interpretation * * * * #[id number] - [facility] US BREAST LTD LT #[id number] - [facility] DIAGNOSTIC LT UNILATERAL LEFT DIGITAL DIAGNOSTIC MAMMOGRAM WITH CAD: 06/03/2019 HISTORY: Palpable lump - left breast. Patient reposrta associated pain and warmth. She's currently on antibiotics and reports improvement of the symptoms N63.20-Breast Mass, Left. RESULT: TECHNIQUE: The study was acquired using full field digital technology and interpreted from soft copy. Current study was also evaluated with a Computer Aided Detection (CAD). Comparison is made to exams dated: 12/20/2018 mammogram, 12/20/2018 ultrasound, and 11/28/2018 mammogram. The tissue of left breast is extremely dense, which lowers the sensitivity of mammography. There are multiple oval focal asymmetries in the left breast central to the nipple middle depth. No other significant masses or calcifications are seen in the breast. IMPRESSION: INCOMPLETE: NEEDS ADDITIONAL IMAGING EVALUATION The multiple oval focal asymmetries in the left breast are indeterminate. An ultrasound is recommended. ULTRASOUND OF LEFT BREAST: 06/03/2019 RESULT: Comparison is made to exams dated: 12/20/2018 mammogram, 12/20/2018 ultrasound, and 11/28/2018 mammogram. Color flow and real-time ultrasound of the left breast were performed. Hussein scale images of the real-time examination were reviewed. There is a benign 1.9 cm x 1.6 cm x 2 cm oval lesion in the left breast at 4 o'clock 5 cm from the nipple. This oval lesion is hypoechoic with a well-defined boundary and internal echoes. This correlates as palpated. Color flow imaging demonstrates that there is an adjacent vascularity. There are multiple benign simple cysts seen scattered thoughout the left breast, corresponding to the mammographic findings, for example at 3:00 7cmfn, measuring approximatelly 3.1 x 1.5cm. IMPRESSION: BENIGN FINDING There is no sonographic evidence of malignancy. The 1.9 cm x 1.6 cm x 2 cm oval lesion in the left breast is benign. Given associated symptoms of pain and warmth, this may represent an abscess. Ultrasound guided aspiration is recommended. Multiple benign simple cysts seen in the left breast. SUMMARY: Findings were discussed with the patient at the time of examination. Informed consent for the recommended biopsy was explained and signed by the patient. The patient will ahve the aspiration done today. Ashlyn Rader M.D., cp/luh:06/03/2019 15:13:14 Multiple national specialty organizations have released breast cancer screening guidelines for women at average risk for developing breast cancer - guidelines that are based on both evidence and opinion, yet differ on when to start and how often to screen for breast cancer. With representation from Breast Imaging, Internal Medicine, Women's Health, Family Medicine, and Medical/Surgical Oncology, the [facility] has carefully reviewed the data and reached the following consensus: 1) All women should engage in shared decision-making with their providers to decide when to start and how often to screen; 2) All women should have the opportunity to start screening mammography at age 40; 3) For women ages 45-55, we recommend annual screening mammograms; 4) For women ages 55 and over, we support both the transition from an annual to a biennial interval if this aligns more with patient's values and preferences, or continuation with annual screening; 5) All women should discuss with their providers when to stop screening mammograms. Tattoo And Body Artist(s): RT Fredo(R)(M), [facility]; Xiao Nunez, [facility] OVERALL STUDY BIRADS: 2 Benign finding Extruding Press Operator: Luh Transcribe Date/Time: Jun 03 2019 1:36P Dictated by : ASHLYN RADER MD This examination was interpreted and the report reviewed and electronically signed by: ASHLYN RADER MD on Jun 03 2019 3:13PM EST [id number] Normal [facility] US BREAST LTD LTon 06-02 [facility] [employer] BREAST LTD LT * * *Final Report* * * DATE OF EXAM: Jun 03 2019 3:02PM LUIS MIGUEL 0593 - [facility] [employer] BREAST LTD LT / PROCEDURE REASON: N63.20-Breast mass, left * * * * Physician Interpretation * * * * #[id number] - [employer] BREAST LTD LT #[id number] - [facility] DIAGNOSTIC LT UNILATERAL LEFT DIGITAL DIAGNOSTIC MAMMOGRAM WITH CAD: 06/03/2019 HISTORY: Palpable lump - left breast. Patient reposrta associated pain and warmth. She's currently on antibiotics and reports improvement of the symptoms N63.20-Breast Mass, Left. RESULT: TECHNIQUE: The study was acquired using full field digital technology and interpreted from soft copy. Current study was also evaluated with a Computer Aided Detection (CAD). Comparison is made to exams dated: 12/20/2018 mammogram, 12/20/2018 ultrasound, and 11/28/2018 mammogram. The tissue of left breast is extremely dense, which lowers the sensitivity of mammography. There are multiple oval focal asymmetries in the left breast central to the nipple middle depth. No other significant masses or calcifications are seen in the breast. IMPRESSION: INCOMPLETE: NEEDS ADDITIONAL IMAGING EVALUATION The multiple oval focal asymmetries in the left breast are indeterminate. An ultrasound is recommended. ULTRASOUND OF LEFT BREAST: 06/03/2019 RESULT: Comparison is made to exams dated: 12/20/2018 mammogram, 12/20/2018 ultrasound, and 11/28/2018 mammogram. Color flow and real-time ultrasound of the left breast were performed. Hussein scale images of the real-time examination were reviewed. There is a benign 1.9 cm x 1.6 cm x 2 cm oval lesion in the left breast at 4 o'clock 5 cm from the nipple. This oval lesion is hypoechoic with a well-defined boundary and internal echoes. This correlates as palpated. Color flow imaging demonstrates that there is an adjacent vascularity. There are multiple benign simple cysts seen scattered thoughout the left breast, corresponding to the mammographic findings, for example at 3:00 7cmfn, measuring approximatelly 3.1 x 1.5cm. IMPRESSION: BENIGN FINDING There is no sonographic evidence of malignancy. The 1.9 cm x 1.6 cm x 2 cm oval lesion in the left breast is benign. Given associated symptoms of pain and warmth, this may represent an abscess. Ultrasound guided aspiration is recommended. Multiple benign simple cysts seen in the left breast. SUMMARY: Findings were discussed with the patient at the time of examination. Informed consent for the recommended biopsy was explained and signed by the patient. The patient will ahve the aspiration done today. Ashlyn Rader M.D., cp/luh:06/03/2019 15:13:14 Multiple national specialty organizations have released breast cancer screening guidelines for women at average risk for developing breast cancer - guidelines that are based on both evidence and opinion, yet differ on when to start and how often to screen for breast cancer. With representation from Breast Imaging, Internal Medicine, Women's Health, Family Medicine, and Medical/Surgical Oncology, the [facility] has carefully reviewed the data and reached the following consensus: 1) All women should engage in shared decision-making with their providers to decide when to start and how often to screen; 2) All women should have the opportunity to start screening mammography at age 40; 3) For women ages 45-55, we recommend annual screening mammograms; 4) For women ages 55 and over, we support both the transition from an annual to a biennial interval if this aligns more with patient's values and preferences, or continuation with annual screening; 5) All women should discuss with their providers when to stop screening mammograms. Tattoo And Body Artist(s): Denise Taylor RT(R)(M), [facility]; Xiao Nunez, [facility] OVERALL STUDY BIRADS: 2 Benign finding Extruding Press Operator: Luh Transcribe Date/Time: Jun 03 2019 1:36P Dictated by : ASHLYN RADER MD This examination was interpreted and the report reviewed and electronically signed by: ASHLYN RADER MD on Jun 03 2019 3:13PM EST [id number] Normal [facility] US CYST ASP BRST LTon [facility] US CYST ASP BRST LT * * *Final Report* * * * * * SEE BOTTOM OF REPORT FOR ADDENDED TEXT * * * DATE OF EXAM: Jun 03 2019 3:02PM LUIS MIGUEL 0595 - [facility] US CYST ASP BRST LT / PROCEDURE REASON: N63.0-Breast mass * * * * Physician Interpretation * * * * FINAL REPORT #[id number] - [facility] US CYST ASP BRST LT ULTRASOUND GUIDED ASPIRATION LEFT BREAST WITH POST ULTRASOUND IMAGIN06/03/2019 HISTORY: The patient presents for left ultrasound guided fine needle aspiration. Pre and post aspiration hard copy sonographic images were obtained. PATIENT CONSENT: A time out was performed immediately prior to procedure start with the radiology team, correctly identifying the patient name, date of , procedure, anatomy (including marking of site and side), patient position, relevant diagnostic and radiology test results, safety precautions, and procedure-specific equipment needs. The procedure was explained to the patient including the risks, benefits and alternatives. Medications and allergies were also reviewed. The risks, including but not limited to infection and bleeding, were reviewed by the performing physician and the patient agreed to undergo the procedure. The radiologist and technologist were present throughout the entire procedure. Audible Time Out Time: 1436 Procedure Start Time: 1439 Procedure Stop Time: 1445. Correlation is made to exams dated: 06/03/2019 ultrasound and 06/03/2019 mammogram - [facility]. An aspiration was performed for the palpable painful oval fluid collection located in the left breast at 4 o'clock 5 cm from the nipple. The skin was prepped in the usual manner. Local anesthetic was administered to the access site. The abnormality was approached from the lateral aspect. An 18 gauge needle was percutaneously placed into the abnormality under ultrasound guidance. Once the needle was documented to be in the correct location, 5 cc of brown pus was aspirated. The patient received additional local anesthetic during the procedure. A skin adhesive was applied to the access site. Post procedure ultrasound imaging demonstrates the abnormality to be smaller in size. The aspirated fluid was sent for bacterial analysis. IMPRESSION: ASPIRATION Aspiration of the fluid collection in the left breast was successful with no apparent post procedure complications. Post ultrasound imaging revealed the abnormality to be smaller in size. SUMMARY: Wound Culture and Gram Stain Smear Result Abnormal - Many Gram positive cocci Smear Result Moderate Polymorphonuclear leukocytes Smear Result Few Mononuclear cells Culture Abnormal - Many Staphylococcus lugdunensis Clinical follow up is recommended to ensure resolution of the clinical symptoms. She is under the care of Dr. Cool. Ashlyn Rader M.D., cp/luh:06/09/2019 11:31:48 Tattoo And Body Artist(s): [facility] Multiple national specialty organizations have released breast cancer screening guidelines for women at average risk for developing breast cancer - guidelines that are based on both evidence and opinion, yet differ on when to start and how often to screen for breast cancer. With representation from Breast Imaging, Internal Medicine, Women's Health, Family Medicine, and Medical/Surgical Oncology, the [facility] has carefully reviewed the data and reached the following consensus: 1) All women should engage in shared decision-making with their providers to decide when to start and how often to screen; 2) All women should have the opportunity to start screening mammography at age 40; 3) For women ages 45-55, we recommend annual screening mammograms; 4) For women ages 55 and over, we support both the transition from an annual to a biennial interval if this aligns more with patient's values and preferences, or continuation with annual screening; 5) All women should discuss with their providers when to stop screening mammograms. Extruding Press Operator: Luh Transcribe Date/Time: Jun 03 2019 2:57P Dictated by : ASHLYN RADER MD This examination was interpreted and the report reviewed and electronically signed by: ASHLYN RADER MD on Jun 03 2019 3:24PM EST This document has been addended by: ASHLYN RADER MD on Jun 09 2019 11:31AM EST [id number] [facility] PROGRESSon 06-03-2019 PROGRESS HNO ID: [id number] Author: Denise Fragoso) Jose Luis Taylor Service: Radiology Author Type: Supervisor Feed House Type: Progress Notes Filed: 06/03/2019 1:53 PM Note Text: Radiology Service Progress Note PATIENT NAME: Mariajose Huang DATE OF SERVICE: June 03, 2019 TIME: 1:52 PM PATIENT IDENTITY VERIFICATION COMPLETED USING TWO (2) IDENTIFIERS: Name and Date of confirmed by patient verbally. PATIENT GENDER DATA: Female. status: : No status: NO. PATIENT RELEVANT IMPLANT DATA REVIEWED: Not Applicable RADIOLOGY DEPARTMENT: Mammography PERIPHERAL IV DATA: Not applicable SIGNED BY: RT Fredo June 03, 2019 1:52 PM [facility] Wound Culture/Stainon 2019 Wound Culture/Stain Sp. Request/Comment: - Specimen received in sterile container. Smear Result - Many Gram positive cocci --> ABNORMAL ALERT Moderate Polymorphonuclear leukocytes Few Mononuclear cells Culture Result - Many Staphylococcus lugdunensis --> ABNORMAL ALERT ORGANISM: Staphylococcus lugdunensis METHOD: Minimum inhibitory concentration(Vitek) Antibiotic Interp KATHRYN Status Erythromycin SUSCEPTIBLE <=0.25 F Clindamycin SUSCEPTIBLE 0.25 F Tetracycline SUSCEPTIBLE <=1 F Vancomycin SUSCEPTIBLE <=0.5 F Oxacillin SUSCEPTIBLE 0.5 F Oxacillin susceptible staphylococci are susceptible to other penicillinase stable penicillins, beta lactam/beta lactamase inhibitor combinations, anti staphyloccal cephems, and carbapenems. Trimeth sulfameth SUSCEPTIBLE <=10 F Gentamicin SUSCEPTIBLE <=0.5 F Rifampin SUSCEPTIBLE <=0.5 F Rifampin should not be used alone for antimicrobial therapy. Doxycycline SUSCEPTIBLE <=0.5 F Critically abnormal [facility] Comment on above: Performed By: #### W CUL ####[facility] [place], [place] [phone] [facility] 05-08-2019 Albumin [Mass/Vol] 4.4 g/dL Normal 3.9-4.9 [facility] Comment on above: Performed By: #### C MP #### [facility] [address] [place], [place] [address] ALP [Catalytic activity/Vol] 39 U/L Normal 34-123 [facility] Comment on above: Performed By: #### C MP #### [facility] [address] [place], [place] [address] ALT [Catalytic activity/Vol] 13 U/L Normal 7-38 [facility] Comment on above: Performed By: #### C MP #### [facility] [address] [place], [place] [address] Anion gap [Moles/Vol] 13 mmol/L Normal 9-18 [facility] Comment on above: Performed By: #### C MP #### [facility] [address] [place] [address] AST [Catalytic activity/Vol] 17 U/L Normal 13-35 [facility] Comment on above: Performed By: #### C MP #### [facility] [address] [place] [address] Bilirubin [Mass/Vol] 0.3 mg/dL Normal 0.2-1.3 [facility] Comment on above: Performed By: #### C MP #### [facility] [address] [place] [address] Calcium [Mass/Vol] 9.5 mg/dL Normal 8.5-10.2 [facility] Comment on above: Performed By: #### C MP #### [facility] [address] [place] [address] Chloride [Moles/Vol] 99 mmol/L Normal 97-105 [facility] Comment on above: Performed By: #### C MP #### [facility] [address] [place] [address] CO2 Blood 26 mmol/L Normal 22-30 [facility] Comment on above: Performed By: #### C MP #### [facility] [address] [place] [address] Creatinine [Mass/Vol] 0.68 mg/dL Normal 0.58-0.96 [facility] Comment on above: Performed By: #### C MP #### [facility] [address] [place] [address] Glucose [Mass/Vol] 98 mg/dL Normal 74-99 [facility] Comment on above: Result Comment: The [place] [employer] (ADA) provides guidance for cutoff values for fasting glucose and random glucose. The ADA defines fasting as no caloric intake for at least 8 hours.Fasting plasma glucose results between 100 to 125 mg/dL indicate increased risk for diabetes (prediabetes). Fasting plasma glucose results greater than or equal to 126 mg/dL meet the criteria for diagnosis of diabetes. In the absence of unequivocal hyperglycemia, results should be confirmed by repeat testing. In a patient with classic symptoms of hyperglycemia or hyperglycemic crisis, random plasma glucose results greater than or equal to 200 mg/dL meet the criteria for diagnosis of diabetes. Reference: Standards of Medical Care in Diabetes 2016; [place] [employer] Association. Diabetes Care. 2016;39(Suppl 1). Performed By: #### C MP #### [place] [address] Potassium [Moles/Vol] 4.4 mmol/L Normal 3.7-5.1 [facility] Comment on above: Performed By: #### C MP #### [place] [address] Protein [Mass/Vol] 6.5 g/dL Normal 6.3-8.0 [facility] Comment on above: Performed By: #### C MP #### [place] [id number] Sodium [Moles/Vol] 138 mmol/L Normal 136-144 [facility] Comment on above: Performed By: #### C MP #### [place] [id number] Urea nitrogen [Mass/Vol] 21 mg/dL Normal 7-21 [facility] Comment on above: Performed By: #### C MP #### [place] [id number] MDRD GFRon 05-08-2019 GFR/1.73 sq M predicted among non-blacks MDRD (S/P/Bld) [Vol rate/Area] mL/min/{1.73_m2} Normal >60mL/min/1. 73m2 [facility] Comment on above: Result Comment: If t he patient is , multiply the result by 1.210. Performed By: #### G FR #### [address] [address] TSHon 05-08-2019 TSH Qn 0.267 uIU/mL Low 0.270-4.200 [facility] Comment on above: Result Comment: Preg sylvia: 1st trimester:(9-12 weeks):0.180-2.900 uIU/mL 2nd trimester: 0.110-3.980 uIU/mL 3rd trimester: 0.480-4.710 uIU/mL Patients taking a biotin dose of up to 5 mg/day should refrain from taking biotin for 4 hours prior to sample collection. Patients taking a biotin dose of 5 to 10 mg/day should refrain from taking biotin for 8 hours prior to sample collection. Patients taking a biotin dose > 10 mg/day should consult with their physician or the laboratory prior to having a sample taken. Clinicians should consider biotin interference as a source of error, when clinically suspicious of the laboratory result. Performed By: #### T SH3 #### [place] [id number] MAMM OUTSIDE DICOM IMPORT -N BNRon 12-20-2018 MAMM OUTSIDE DICOM IMPORT -NBNR Images were obtained outside of [facility] [id number] OUTSIDE CD DICOM IMPORT - NBNRon 12-20-2018 [place] OUTSIDE CD DICOM IMPORT -NBNR Images were obtained outside of [facility] [id number] [facility] ZO DIGITAL SCREEN BILA Kaiden 11-28-2018 Patient Name: MARIAJOSE HUANG ---Mammography--- Exam Date/Time 11/28/2018 14:52:28 EDT Exam MG Breast Tomosynthesis BI Scr Ordering Physician PARDEEP BARRETO Accession Number [id number] CPT4 Codes 11224 (MG Breast Tomosynthesis Scr Bl), 63725 (MG MAMMO 2D SCREENING) Reason For Exam screening Report PATIENT HISTORY: Family history of prostate cancer at age 74 in father. Took hormonal contraceptives for 2 years. Took progesterone for 8 months. Patient has never smoked. Patient's BMI is 25.3. TIME SINCE LAST MAMMOGRAM: Baseline mammogram. REASON FOR EXAM: screening, asymptomatic. PROCEDURE: MG BREAST TOMOSYNTHESIS BL SCR: NOVEMBER 28, 2018 - 2D/3D Procedure 3D Bilateral CC and MLO view(s) were taken. 2D Bilateral CC and MLO view(s) were taken. TISSUE DENSITY: The breast tissue is extremely dense, which may lower the sensitivity of mammography. . FINDINGS: This baseline examination demonstrates an asymmetry in the right axillary region in the mediolateral oblique orientation with some possible surrounding architectural distortion. There is no other mass, architectural distortion or suspicious cluster of microcalcifications. Markings on images: BB's = Nipples; skin lesions Open pitka's point = Palpable Line = Scar 2D digital mammography and tomosynthesis imaging were performed and reviewed with CAD. ASSESSMENT: Category 0 Incomplete: need additional imaging evaluation RECOMMENDATION: Follow-up diagnostic mammogram of the right breast. With a follow-up Ultrasound if needed. . Report Dictated on Cancer Risk Assessment: This risk assessment is based on patient provided information collected in a risk survey taken at the time of this examination. Lifetime breast cancer risk: 12.8% - If greater than or equal to 20%, consider annual mammogram and annual screening Breast MRI or follow up in high risk clinic. Is the patient at elevated risk based on the HBOC criteria? No (Hereditary Breast and Ovarian Cancer) - If yes, consider genetic counseling and testing with high risk follow up. HNPCC mutation risk (Campbell Syndrome): 1% - if greater than or equal to 5%, consider genetic counseling, testing and screening colonoscopy. --- Final --- Signed Date and Time: 11/28/2018 3:46 pm Signed by: MD JULIET, [facility]- [place], [place], [facility] Incoming Radiology Results From [facility] - 11/28/2018 9:28 PM EDT Patient Name: MARIAJOSE HUANG ---Mammography--- Exam Date/Time 11/28/2018 14:52:28 EDT Exam MG Breast Tomosynthesis BI Scr Ordering Physician PARDEEP BARRETO Accession Number [id number] CPT4 Codes 28977 (MG Breast Tomosynthesis Scr Bl), 71982 (MG MAMMO 2D SCREENING) Reason For Exam screening Report PATIENT HISTORY: Family history of prostate cancer at age 74 in father. Took hormonal contraceptives for 2 years. Took progesterone for 8 months. Patient has never smoked. Patient's BMI is 25.3. TIME SINCE LAST MAMMOGRAM: Baseline mammogram. REASON FOR EXAM: screening, asymptomatic. PROCEDURE: MG BREAST TOMOSYNTHESIS BL SCR: NOVEMBER 28, 2018 - 2D/3D Procedure 3D Bilateral CC and MLO view(s) were taken. 2D Bilateral CC and MLO view(s) were taken. TISSUE DENSITY: The breast tissue is extremely dense, which may lower the sensitivity of mammography. . FINDINGS: This baseline examination demonstrates an asymmetry in the right axillary region in the mediolateral oblique orientation with some possible surrounding architectural distortion. There is no other mass, architectural distortion or suspicious cluster of microcalcifications. Markings on images: BB's = Nipples; skin lesions Open pitka's point = Palpable Line = Scar 2D digital mammography and tomosynthesis imaging were performed and reviewed with CAD. ASSESSMENT: Category 0 Incomplete: need additional imaging evaluation RECOMMENDATION: Follow-up diagnostic mammogram of the right breast. With a follow-up Ultrasound if needed. . Report Dictated on Cancer Risk Assessment: This risk assessment is based on patient provided information collected in a risk survey taken at the time of this examination. Lifetime breast cancer risk: 12.8% - If greater than or equal to 20%, consider annual mammogram and annual screening Breast MRI or follow up in high risk clinic. Is the patient at elevated risk based on the HBOC criteria? No (Hereditary Breast and Ovarian Cancer) - If yes, consider genetic counseling and testing with high risk follow up. HNPCC mutation risk (Campbell Syndrome): 1% - if greater than or equal to 5%, consider genetic counseling, testing and screening colonoscopy. --- Final --- Signed Date and Time: 11/28/2018 3:46 pm Signed by: MD JULIET, [facility], [place] MAMM OUTSIDE DICOM IMPORT -N [place] 11-28-2018 MAMM OUTSIDE DICOM IMPORT -NBNR Images were obtained outside of [facility] [id number] [facility] MAMM OUTSIDE DICOM IMPORT -NBNR Images were obtained outside of [facility] [id number] Normal [facility] T3, FREE (TRIDOTHYRONINE) ([id number])Ordered By: Fabric Normalizer on 04-14-2011 Free T3 [Mass/Vol] 2.8 pg/mL Normal 2.0-4.4 [facility] Work Phone: Comment on above: PATIENT NOT FASTINGP ERFORMED BY: CAROL [facility] [id number] [facility] [id number] T4, FREE (THYROXINE) ([id number]) Ordered By: Fabric Normalizer on 04-14-2011 Free T4 [Mass/Vol] 1.26 ng/dL Normal 0.82-1.77 [facility] Work Phone: Comment on above: PATIENT NOT FASTINGP ERFORMED BY: Lab[facility] Menus [id number] [facility] [id number] Information: [id number] TSH ([id number])Ordered By: Jostin m Complaint Coordinator on 04-14-2011 TSH Qn 5.580 {uIU/mL} Abnormal 0.450-4.[address] [facility] Internal Medicine Work Phone: Comment on above: PATIENT NOT FASTINGP ERFORMED BY: CAROL Lab[facility] Menus [id number] [facility] [id number] URINE DONALD CULTURE-ASTRID COL C OUNT ([id number])Ordered By: Fabric Normalizer on 11-16-2010 Bacteria identified Cx Nom (U) MUG Normal [facility] Work Phone: Comment on above: Mixed urogenital nayeli ra10,000-25,000 colony forming units per mL PATIENT NOT FASTINGP ERFORMED BY: [facility] [id number] [facility] [id number] Information: SRC:UR [id number] Bacteria identified Cx Nom (U) Final report Normal [facility] Work Phone: Comment on above: PATIENT NOT FASTINGP ERFORMED BY: Lab1001 [facility]us Vgozkh[address] [facility] [id number] Information: SRC:UR [id number] Urinalysis, Office ([id number])Or dered By: Claire Downs on 11-16-2010 Bilirubin Ql (U) Negative Normal Comprehe nsive [facility] Medicine Work Phone: Bilirubin Ql (U) Negative Normal Comprehe nsive [facility]; [facility] Work Phone: Glucose Test strip (U) [Mass/Vol] Negative Normal [facility] Work Phone: Glucose Test strip (U) [Mass/Vol] Negative Normal [facility]; [facility] Work Phone: Hemoglobin Ql (U) Negative Normal Compreh ensive [facility] Work Phone: Hemoglobin Ql (U) Negative Normal Compreh ensive [facility]; [facility] Work Phone: Ketones Ql (U) Negative Normal Comprehens fadumo [facility] Work Phone: Ketones Ql (U) Negative Normal Comprehens [facility]; [facility] Work Phone: Leukocyte esterase Test strip Ql (U) Negative Normal [facility] Work Phone: Leukocyte esterase Test strip Ql (U) Negative Normal [facility]; [facility] Work Phone: Nitrite Ql (U) Negative Normal Comprehens [facility] Work Phone: Nitrite Ql (U) Negative Normal Comprehens [facility]; [facility] Work Phone: pH (U) 7.0 [pH] Normal [facility] Work Phone: Protein Ql (U) Negative Normal Comprehens [facility] Work Phone: Protein Ql (U) Negative Normal Comprehens [facility]; [facility] Work Phone: Specific gravity (U) [Rel density] 1.010 1 Normal [facility] Work Phone: Urobilinogen (24H U) [Mass/Time] Normal Normal [facility] Work Phone: Urine Test, Office ([id number])Ordered By: Claire Downs on 11-16-2010 Beta HCG ( test) Ql (U) Negative Normal [facility] Work Phone: Beta HCG ( test) Ql (U) Negative Normal [facility]; [facility] Work Phone: CALCIFIDIOL (62084) VIT D 25 Ordered By: Fabric Normalizer on 10-06-2010 Calcitriol [Mass/Vol] 36.1 ng/mL Normal 32.0-100.0 [facility] Work Phone: Comment on above: Recent studies consi breonna the lower limit of 32.0 ng/mL to be athreshold for optimal health.Travis SIMMONS. J Nutr. 2004;135(2):317-22. PATIENT NOT FASTINGP ERFORMED BY: CB [facility] Sihmlf1641 [address] RoadDublin [place] [id number] CBC (Auto) ([id number])Ordered By : Fabric Normalizer on 10-06-2010 Erythrocyte distribution width (RBC) [Ratio] 13.7 % Normal 11.7-15.0 [facility] Work Phone: Comment on above: PATIENT NOT FASTINGP ERFORMED BY: CB [facility] Vayqop3254 [address] RoadDublin [place] [id number] Hematocrit (Bld) [Volume fraction] 39.1 % Normal 34.0-44.0 [facility] Work Phone: Comment on above: PATIENT NOT FASTINGP ERFORMED BY: CB [facility] Xyurgp[address] REVENUE.comDublin [place] [id number] Hemoglobin (Bld) [Mass/Vol] 13.0 g/dL Normal 11.5-15.0 [facility] Work Phone: Comment on above: PATIENT NOT FASTINGP ERFORMED BY: CB [facility] Jolitx8319 [address] RoadDublin [place] [id number] MCH (RBC) [Entitic mass] 31.3 pg Normal 27.0-34.0 [facility] Work Phone: Comment on above: PATIENT NOT FASTINGP ERFORMED BY: CB [facility] Fluagf2709 [address] RoadDublin [place] [id number] MCHC (RBC) [Mass/Vol] 33.2 g/dL Normal 32.0-36.0 [facility] Work Phone: Comment on above: PATIENT NOT FASTINGP ERFORMED BY: CAROL [facility] Gygqsa2371 [address] RoadDublin [place] [id number] MCV (RBC) [Entitic vol] 94 fL Normal 80-98 [facility] Work Phone: Comment on above: PATIENT NOT FASTINGP ERFORMED BY: CB [facility] Jpcxrr4897 [address] RoadDublin [place] [id number] Platelets (Bld) [#/Vol] 302 {x10E3/uL} Normal 140-415 [facility] Work Phone: Comment on above: PATIENT NOT FASTINGP ERFORMED BY: CB [facility] Ghhiva0389 [address] RoadDublin [place] [id number] Platelets (Bld) [#/Vol] 302 10*3/uL Normal 140-415 [facility]; [facility] Work Phone: Comment on above: PATIENT NOT FASTINGP ERFORMED BY: CB [facility] Grpcfs6946 [address] RoadDublin [place] [id number] RBC (Bld) [#/Vol] 4.15 {x10E6/uL} Normal 3.80-5.10 [facility] Work Phone: Comment on above: PATIENT NOT FASTINGP ERFORMED BY: CB [facility] Wwzkac3585 [address] RoadDublin [place] [id number] RBC (Bld) [#/Vol] 4.15 10*6/uL Normal 3.80-5.10 [facility]; [facility] Work Phone: Comment on above: PATIENT NOT FASTINGP ERFORMED BY: CB [facility] Gsegey5150 [address] RoadDublin [place] [id number] WBC (Bld) [#/Vol] 6.5 {x10E3/uL} Normal 4.0-10.5 [facility] Work Phone: Comment on above: PATIENT NOT FASTINGP ERFORMED BY: CB [facility] Myuufm4221 [address] RoadDublin [place] [id number] WBC (Bld) [#/Vol] 6.5 10*3/uL Normal 4.0-10.5 [facility]; [facility] Work Phone: Comment on above: PATIENT NOT FASTINGP ERFORMED BY: CAROL [facility] Zcfygx4800 [address] RoadDublin [place] [id number] Ferritin ([id number])Ordered By: Fabric Normalizer on 10-06-2010 Ferritin [Mass/Vol] 13 ng/mL Normal 13-150 [facility] Work Phone: Comment on above: PATIENT NOT FASTINGP ERFORMED BY: CAROL [facility] Fqwsfo[address] [facility] [place] [id number] Metabolic Panel, Comprehensi ve ([id number])Ordered By: Fabric Normalizer on 10-06-2010 Albumin [Mass/Vol] 4.7 g/dL Normal 3.5-5.5 [facility] Work Phone: Comment on above: PATIENT NOT FASTINGP ERFORMED BY: CAROL [facility] Onjgwv1332 [address] RoadFormerly [facility] Centerin [place] [id number] Albumin/Globulin [Mass ratio] 2.1 {ratio} Normal 1.1-2.5 [facility] Work Phone: Comment on above: PATIENT NOT FASTINGP ERFORMED BY: CAROL [facility] Enplyv1975 Brun[address] Roadblin [place] [id number] ALP [Catalytic activity/Vol] 41 [iU]/L Normal 25-150 [facility] Work Phone: Comment on above: PATIENT NOT FASTINGP ERFORMED BY: [facility] Hncfrb4283 [address] RoadDublin [place] [id number] ALP [Catalytic activity/Vol] 41 U/L Normal 25-150 [facility]; [facility] Work Phone: Comment on above: PATIENT NOT FASTINGP ERFORMED BY: [facility] Ucrxpc2114 [address] RoadDublin [place] [id number] ALT [Catalytic activity/Vol] 11 [iU]/L Normal 0-40 [facility] Work Phone: Comment on above: PATIENT NOT FASTINGP ERFORMED BY: CB [facility] Wuwgbu7517 [address] RoadDublin [place] [id number] ALT [Catalytic activity/Vol] 11 U/L Normal 0-40 [facility]; [facility] Work Phone: Comment on above: PATIENT NOT FASTINGP ERFORMED BY: CB [facility] Ccdhar5336 [address] RoadDublin [place] [id number] AST [Catalytic activity/Vol] 20 [iU]/L Normal 0-40 [facility] Work Phone: Comment on above: PATIENT NOT FASTINGP ERFORMED BY: CB [facility] Vghkgy1362 [address] RoadDublin [place] [id number] AST [Catalytic activity/Vol] 20 U/L Normal 0-40 [facility]; [facility] Work Phone: Comment on above: PATIENT NOT FASTINGP ERFORMED BY: CB [facility] Srubbr0882 [address] RoadDublin [place] [id number] Bilirubin [Mass/Vol] 0.7 mg/dL Normal 0.0-1.2 [facility] Work Phone: Comment on above: PATIENT NOT FASTINGP ERFORMED BY: CB [facility] Rbvydx5180 [address] RoadDublin [place] [id number] Calcium [Mass/Vol] 9.5 mg/dL Normal 8.7-10.2 [facility] Work Phone: Comment on above: PATIENT NOT FASTINGP ERFORMED BY: CB [facility] Qkqqwu7463 [address] RoadDublin [place] [id number] Chloride [Moles/Vol] 101 mmol/L Normal 97-108 [facility] Work Phone: Comment on above: PATIENT NOT FASTINGP ERFORMED BY: CB [facility] Psqyyq2462 [address] RoadDublin [place] [id number] CO2 [Moles/Vol] 25 mmol/L Normal 20-[address] [facility] Internal Medicine Work Phone: Comment on above: PATIENT NOT FASTINGP ERFORMED BY: CB [facility] Swlaoe6029 [address] RoadDublin [place] [id number] Creatinine [Mass/Vol] 0.80 mg/dL Normal 0.57-1.00 [facility] Work Phone: Comment on above: PATIENT NOT FASTINGP ERFORMED BY: CAROL Gaudencio Tjwuim8143 [facility] [id number] GFR/1.73 sq M predicted among blacks MDRD (S/P/Bld) [Vol rate/Area] 112 mL/min/{1.73_m2} Normal Comprehensi ve Internal Medicine Work Phone: Comment on above: Note: A persistent e GFR <60 mL/min/1.73 m2 (3 months or more) mayindicate chronic kidney disease. An eGFR >59 mL/min/1.73 m2 with anelevated urine protein also may indicate chronic kidney disease.Calculated using CKD-EPI formula. PATIENT NOT FASTINGP ERFORMED BY: CAROL [facility]6370 [facility] [id number] GFR/1.73 sq M predicted among non-blacks CKD-EPI (S/P/Bld) [Vol rate/Area] 97 mL/min/1.73 Normal [facility] Work Phone: Comment on above: PATIENT NOT FASTINGP ERFORMED BY: CAROL [employer] Xorzna7808 [facility] [id number] Globulin (S) [Mass/Vol] 2.2 g/dL Normal 1.5-4.5 [facility] Work Phone: Comment on above: PATIENT NOT FASTINGP ERFORMED BY: CAROL [facility]6370 [facility] [id number] Glucose [Mass/Vol] 108 mg/dL Abnormal 65-99 [facility] Work Phone: Comment on above: PATIENT NOT FASTINGP ERFORMED BY: CAROL [facility]6370 [facility] [id number] Potassium [Moles/Vol] 4.8 mmol/L Normal 3.5-5.2 [facility] Work Phone: Comment on above: PATIENT NOT FASTINGP ERFORMED BY: CAROL LabC[facility] [place] 1943870 [address] RoadDublin [place] [id number] Protein [Mass/Vol] 6.9 g/dL Normal 6.0-8.5 [facility] Work Phone: Comment on above: PATIENT NOT FASTINGP ERFORMED BY: CB [facility] Ekpyif9303 [address] RoadDublin [place] [id number] Sodium [Moles/Vol] 138 mmol/L Normal 135-145 [facility] Work Phone: Comment on above: PATIENT NOT FASTINGP ERFORMED BY: CB [facility] Fcbbnv8111 [address] RoadDublin [place] [id number] Urea nitrogen [Mass/Vol] 11 mg/dL Normal 6-20 [facility] Work Phone: Comment on above: PATIENT NOT FASTINGP ERFORMED BY: CB [facility] Vojloi2841 [address] RoadDublin [place] [id number] Urea nitrogen/Creatini ne [Mass ratio] 14 mg/mg Normal 8-20 [facility] Work Phone: Comment on above: PATIENT NOT FASTINGP ERFORMED BY: CB [facility] Ltbgya1384 [address] RoadDublin [place] [id number] Vitamin B-12 (cyanocobalamin ) ([id number])Ordered By: Fabric Normalizer on 10-06-2010 Cobalamin (Vitamin B12) [Mass/Vol] pg/mL Abnormal 211-946 [facility] Work Phone: Comment on above: PATIENT NOT FASTINGP ERFORMED BY: CB [facility] Omaciy1937 [address] RoadDublin [place] [id number] Urinalysis, Office ([id number])Or dered By: SINA Brooks on 12-31-2007 Bilirubin Ql (U) Negative Normal Comprehe nsive [facility] Work Phone: Bilirubin Ql (U) Negative Normal Comprehe nsive [facility]; [facility] Work Phone: Glucose Test strip (U) [Mass/Vol] Negative Normal [facility] Work Phone: Glucose Test strip (U) [Mass/Vol] Negative Normal [facility]; [facility] Work Phone: Hemoglobin Ql (U) Hemolyzed Moderate Normal [facility] Work Phone: Ketones Ql (U) Negative Normal Comprehens [facility]o [facility] Work Phone: Ketones Ql (U) Negative Normal Comprehens [facility]adumo [facility]; [facility] Work Phone: Leukocyte esterase Test strip Ql (U) Negative Normal [facility] Work Phone: Leukocyte esterase Test strip Ql (U) Negative Normal [facility]; [facility] Work Phone: Nitrite Ql (U) Negative Normal Comprehens f[facility]umo [facility] Work Phone: Nitrite Ql (U) Negative Normal Comprehens [facility]; [facility] Work Phone: pH (U) 5.0 [pH] Normal [facility] Work Phone: Protein Ql (U) Negative Normal Comprehens fadumo [facility] Work Phone: Protein Ql (U) Negative Normal Comprehens fadumo [facility]; [facility] Work Phone: Specific gravity (U) [Rel density] 1.010 1 Normal [facility] Work Phone: Urobilinogen (24H U) [Mass/Time] 2 mg/dL Normal [facility] Work Phone: Rapid Flu ([id number] x 2)Ordered By: Claire Downs on 04-09-2007 FLUAV Ag IA Ql (Throat) Negative Normal [facility] Work Phone: Comment on above: neg FLUAV Ag IA Ql (Throat) Negative Normal [facility]; [facility] Work Phone: Comment on above: neg Rapid Strep Test, Office ([phone])Ordered By: Meaghan Gonzalez on 04-09-2007 S. pyogenes Ag EIA Ql (Throat) Negative Normal [facility]; [facility] Work Phone: Comment on above: aw neg S. pyogenes Ag IA Ql (Unsp spec) Negative Normal [facility] Work Phone: Comment on above: aw neg T3, TOTAL (TRIDOTHYRONINE) ( [id number])Ordered By: Ynes Mahajan on 01-24-2007 T3 [Mass/Vol] 186 ng/dL Normal 85-205 Comprehensi ve [facility] Work Phone: Comment on above: PERFORMED BY: [facility] StrumAt[facility] [id number] T4, TOTAL ([id number])Ordered By: Ynes Mahajan on 01-24-2007 T4 [Mass/Vol] 9.8 ug/dL Normal 4.5-12.0 Comprehensi ve [facility] Medicine Work Phone: Comment on above: PERFORMED BY: [facility] StrumAt[facility] [id number] TSH (THYROID STIMULATING HOR ROXIE) ([id number])Ordered By: Ynes Mahajan on 01-24-2007 TSH Qn m[IU]/L Abnormal 0.350-5.500 [facility] Work Phone: Comment on above: fAX RESULTS TO Dr Emmy harris at [phone]; PERFORMED BY: [employer]70 PrescreenAt[facility] [id number] TSH Qn m[IU]/L Abnormal 0.350-5.500 [facility]; [facility] Work Phone: Comment on above: fAX RESULTS TO Dr Emmy harris at [phone]; PERFORMED BY: [employer]63OPX BiotechnologiesAtrium Health [facility] [id number] Vital Signs Date Time Vital Sign Value Performing Clinician Facility 06-15-2023 10:21-0400 Diastolic blood pressure 80 mm[Hg] Pollo Hollingsworth MD Work Phone: Infect[facility] 06-15-2023 10:-0400 Heart rate 100 /min Pollo Hollingsworth MD Work Phone: [facility] 06-15-2023 10:21-0400 Systolic blood pressure 130 mm[Hg] Pollo Hollingsworth MD Work Phone: [facility] 06-15-2023 09:38-0400 Body height 156.2 cm Pollo Hollingsworth MD Work Phone: [facility] 06-15-2023 09:38-0400 Body mass index (BMI) [Ratio] 27.88 kg/m2 Pollo Hollingsworth MD Work Phone: [facility] 06-15-2023 09:38-0400 Body temperature 97.7 [degF] Pollo Hollingsworth MD Work Phone: [facility] 06-15-2023 09:38-0400 Body weight 68.04 kg Pollo Hollingsworth MD Work Phone: [facility] 06-12-2022 15:58-0400 Diastolic blood pressure 72 mm[Hg] Pollo Hollingsworth MD Work Phone: [facility] 06-12-2022 15:58-0400 Heart rate 100 /min Pollo Hollingsworth MD Work Phone: [facility] 06-12-2022 15:58-0400 Systolic blood pressure 136 mm[Hg] Pollo Hollingsworth MD Work Phone: [facility] 06-12-2022 15:02-0400 Body height 156.2 cm Pollo Hollingsworth MD Work Phone: [facility] 06-12-2022 15:02-0400 Body mass index (BMI) [Ratio] 26.21 kg/m2 Pollo Hollingsworth MD Work Phone: [facility] 06-12-2022 15:02-0400 Body temperature 97.7 [degF] Pollo Hollingsworth MD Work Phone: [facility] 06-12-2022 15:02-0400 Body weight 63.96 kg Pollo Hollingsworth MD Work Phone: [facility] 11-13-2016 13:48-0400 BMI (Body Mass Index) 25.15 kg/m2 Erica Shah RN [facility] Work Phone: 11-13-2016 13:48-0400 Body weight 60.39 kg Erica Shah RN [facility] Work Phone: 11-13-2016 13:48-0400 BP Diastolic 82 mm[Hg] Erica Shah RN [facility] Work Phone: Comment on above: Patient Position: Sitting; Cuff Location : Left Arm; Cuff Size: Standard 11-13-2016 13:48-0400 BP Systolic 138 mm[Hg] Erica Shah RN [facility] Work Phone: Comment on above: Patient Position: Sitting; Cuff Location : Left Arm; Cuff Size: Standard 11-13-2016 13:48-0400 BSA (Body Surface Area) 1.59 m2 Erica Shah RN [facility] Work Phone: 11-13-2016 13:48-0400 Height 154.94 cm Erica Shah RN [facility] Work Phone: 11-13-2016 13:48-0400 Pulse (Heart Rate) 94 /min Erica Shah RN [facility] Work Phone: Comment on above: Pattern: Regular 11-13-2016 13:48-0400 Pulse Oximetry 98 % Jana Farias [facility] Work Phone: Comment on above: Room air 11-13-2016 13:48-0400 Respiratory Rate 18 /min Erica Shah RN [facility] Work Phone: Comment on above: Pattern: Unlabored 11-13-2016 13:48-0400 SaO2% (BldA) [Mass fraction] 98 % Erica Shah RN [facility]; [facility] Work Phone: Comment on above: Room air 04-26-2011 10:25-0400 BMI (Body Mass Index) 25.04 kg/m2 Erica Shah RN [facility] Work Phone: 04-26-2011 10:25-0400 Body Temperature 97.8 [degF] Erica Shah RN [facility] Work Phone: Comment on above: Method: Oral 04-26-2011 10:25-0400 Body weight 60.1 kg Erica Shah RN [facility] Work Phone: 04-26-2011 10:25-0400 BP Diastolic 80 mm[Hg] Erica Shah RN [facility] Work Phone: Comment on above: Patient Position: Sitting; Cuff Location : Left Arm; Cuff Size: Large 04-26-2011 10:25-0400 BP Systolic 122 mm[Hg] Erica Shah RN [facility] Work Phone: Comment on above: Patient Position: Sitting; Cuff Location : Left Arm; Cuff Size: Large 04-26-2011 10:25-0400 BSA (Body Surface Area) 1.59 m2 Erica Shah RN [facility] Work Phone: 04-26-2011 10:25-0400 Height 154.94 cm Erica Shah RN [facility] Work Phone: 04-26-2011 10:25-0400 Pulse (Heart Rate) 88 /min Erica Shah RN [facility] Work Phone: Comment on above: Pattern: Regular 04-26-2011 10:25-0400 Respiratory Rate 16 /min Erica Shah RN [facility] Work Phone: Comment on above: Pattern: Unlabored 04-14-2011 06:56-0500 BMI (Body Mass Index) 25.13 kg/m2 SINA Brooks LPN [facility] Work Phone: 04-14-2011 06:56-0500 Body Temperature 97.9 [degF] SINA Brooks LPN [facility] Work Phone: Comment on above: Method: Oral 04-14-2011 06:56-0500 Body weight 60.33 kg SINA Brooks LPN [facility] Work Phone: 04-14-2011 06:56-0500 BP Diastolic 78 mm[Hg] SINA Brooks LPN [facility] Work Phone: Comment on above: Patient Position: Sitting; Cuff Location : Left Arm; Cuff Size: Standard 04-14-2011 06:56-0500 BP Systolic 128 mm[Hg] SINA Brooks LPN [facility] Work Phone: Comment on above: Patient Position: Sitting; Cuff Location : Left Arm; Cuff Size: Standard 04-14-2011 06:56-0500 BSA (Body Surface Area) 1.59 m2 SINA Brooks LPN [facility] Internal Medicine Work Phone: 04-14-2011 06:56-0500 Height 154.94 cm SINA Brooks [facility] Internal Medicine Work Phone: 04-14-2011 06:56-0500 Pulse (Heart Rate) 78 /min SINA Brooks LPN [facility] Internal Medicine Work Phone: Comment on above: Pattern: Regular 04-14-2011 06:56-0500 Respiratory Rate 18 /min SINA Brooks LPN [facility] Internal Medicine Work Phone: Comment on above: Pattern: Unlabored 11-16-2010 10:35-0400 BMI (Body Mass Index) 24.37 kg/m2 Claire Downs [facility] Internal Medicine Work Phone: 11-16-2010 10:35-0400 Body Temperature 99.7 [degF] Claire Downs [facility] Internal Medicine Work Phone: Comment on above: Method: Oral 11-16-2010 10:35-0400 Body weight 58.51 kg Claire Downs [facility] Internal [facility] Work Phone: 11-16-2010 10:35-0400 BP Diastolic 82 mm[Hg] Claire Downs [facility] Medicine Work Phone: Comment on above: Patient Position: Sitting; Cuff Location : Left Arm; Cuff Size: Standard 11-16-2010 10:35-0400 BP Systolic 132 mm[Hg] Claire Downs [facility] Internal Medicine Work Phone: Comment on above: Patient Position: Sitting; Cuff Location : Left Arm; Cuff Size: Standard 11-16-2010 10:35-0400 BSA (Body Surface Area) 1.57 m2 Claire Downs [facility] Internal Medicine Work Phone: 11-16-2010 10:35-0400 Height 154.94 cm Claire Downs [employer] [facility] Work Phone: 11-16-2010 10:35-0400 Pulse (Heart Rate) 82 /min Claire Downs [facility] Internal Medicine Work Phone: Comment on above: Pattern: Regular 10-06-2010 10:17-0400 BMI (Body Mass Index) 24.37 kg/m2 SINA Brooks [facility] Work Phone: 10-06-2010 10:17-0400 Body Temperature 97.6 [degF] SINA Brooks [facility] Internal Medicine Work Phone: Comment on above: Method: Oral 10-06-2010 10:170400 Body weight 58.51 kg SINA Brooks [facility] Internal Medicine Work Phone: 10-06-2010 10:17-0400 BP Diastolic 88 mm[Hg] SINA Brooks [facility] Work Phone: Comment on above: Patient Position: Sitting; Cuff Location : Left Arm; Cuff Size: Standard 10-06-2010 10:170400 BP Systolic 132 mm[Hg] SINA Brooks [facility] Internal Medicine Work Phone: Comment on above: Patient Position: Sitting; Cuff Location : Left Arm; Cuff Size: Standard 10-06-2010 10:170400 BSA (Body Surface Area) 1.57 m2 [facility] Work Phone: 10-06-2010 10:170400 Height 154.94 cm SINA Brooks [facility] Internal Medicine Work Phone: 10-06-2010 10:17-0400 Pulse (Heart Rate) 80 /min SINA Brooks [facility] Internal Medicine Work Phone: Comment on above: Pattern: Regular 10-06-2010 10:17-0400 Respiratory Rate 18 /min SINA Brooks [facility] Internal Medicine Work Phone: Comment on above: Pattern: Unlabored 06-06-2010 08:53-0400 BMI (Body Mass Index) 24.19 kg/m2 SINA Brooks [facility] Internal Medicine Work Phone: 06-06-2010 08:53-0400 Body Temperature 98.2 [degF] SINA Brooks LPN [facility] Internal Medicine Work Phone: Comment on above: Method: Oral 06-06-2010 08:53-0400 Body weight 58.06 kg SINA Brooks LPN [facility] Internal Medicine Work Phone: 06-06-2010 08:53-0400 BP Diastolic 90 mm[Hg] SINA Brooks LPN [facility] Internal Medicine Work Phone: Comment on above: Patient Position: Sitting; Cuff Location : Left Arm; Cuff Size: Standard 06-06-2010 08:53-0400 BP Systolic 130 mm[Hg] SINA Brooks LPN [facility] Internal Medicine Work Phone: Comment on above: Patient Position: Sitting; Cuff Location : Left Arm; Cuff Size: Standard 06-06-2010 08:53-0400 BSA (Body Surface Area) 1.56 m2 SINA Brooks LPN [facility] Internal Medicine Work Phone: 06-06-2010 08:53-0400 Height 154.94 cm SINA Brooks [facility]PN [facility] [facility] Work Phone: 06-06-2010 08:53-0400 Pulse (Heart Rate) 82 /min SINA Brooks LPN [facility] Internal Medicine Work Phone: Comment on above: Pattern: Regular 06-06-2010 08:53-0400 Respiratory Rate 18 /min SINA Brooks LPN [facility] Internal Medicine Work Phone: Comment on above: Pattern: Unlabored 12-31-2007 13:00-0500 Body Temperature 98.2 [degF] SINA Brooks LPN [facility] Internal Medicine Work Phone: Comment on above: Method: Oral 12-31-2007 13:00-0500 Body weight 0 kg SINA Brooks LPN [facility] Internal Medicine Work Phone: 12-31-2007 13:00-0500 BP Diastolic 84 mm[Hg] SINA Brooks LPN [facility] Internal Medicine Work Phone: Comment on above: Patient Position: Sitting; Cuff Location : Left Arm; Cuff Size: Standard 12-31-2007 13:00-0500 BP Systolic 126 mm[Hg] SINA Brooks [facility] Internal Medicine Work Phone: Comment on above: Patient Position: Sitting; Cuff Location : Left Arm; Cuff Size: Standard 12-31-2007 13:00-0500 Head Circumference 0 cm Jana Farias [facility] Internal Medicine Work Phone: 12-31-2007 13:00-0500 Head Occipital-frontal circumference 0 cm SINA Brooks [facility] Internal Medicine; [facility] Medicine Work Phone: 12-31-2007 13:00-0500 Height 0 cm SINA Brooks [facility] Internal Medicine Work Phone: 12-31-2007 13:00-0500 Pulse (Heart Rate) 70 /min SINA Brooks [facility] Internal Medicine Work Phone: Comment on above: Pattern: Regular 12-31-2007 13:00-0500 Respiratory Rate 16 /min SINA Brooks [facility] Internal Medicine Work Phone: Comment on above: Pattern: Unlabored 04-09-2007 08:09-0500 BMI (Body Mass Index) 24.4 kg/m2 [facility] Internal Medicine Work Phone: 04-09-2007 08:09-0500 Body Temperature 98.5 [degF] [facility] Medicine Work Phone: Comment on above: Method: Oral 04-09-2007 08:09-0500 Body weight 58.57 kg [facility] Internal Medicine Work Phone: 04-09-2007 08:09-0500 BP Diastolic 82 mm[Hg] [facility] Internal Medicine Work Phone: Comment on above: Patient Position: Sitting; Cuff Location : Left Arm; Cuff Size: Standard 04-09-2007 08:09-0500 BP Systolic 142 mm[Hg] [facility] Internal Medicine Work Phone: Comment on above: Patient Position: Sitting; Cuff Location : Left Arm; Cuff Size: Standard 04-09-2007 08:09-0500 BSA (Body Surface Area) 1.57 m2 [facility] Internal Medicine Work Phone: 04-09-2007 08:09-0500 Head Circumference 0 cm Jaan Farias [facility] Work Phone: 04-09-2007 08:09-0500 Head Occipital-frontal circumference 0 cm Meaghan [facility]; [facility] Work Phone: 04-09-2007 08:09-0500 Height 154.94 cm [facility] Internal Medicine Work Phone: 04-09-2007 08:09-0500 Pulse (Heart Rate) 60 /min [facility] Internal Medicine Work Phone: Comment on above: Pattern: Regular 04-09-2007 08:09-0500 Respiratory Rate 20 /min [facility] Internal Medicine Work Phone: Comment on above: Pattern: Unlabored 01-24-2007 08:01-0500 BMI (Body Mass Index) 24.4 kg/m2 Claire Downs [employer] [facility] Work Phone: 01-24-2007 08:01-0500 Body Temperature 98.9 [degF] Claire Downs [employer] INTER[employer] [facility] Work Phone: Comment on above: Method: Oral 01-24-2007 08:01-0500 Body weight 58.57 kg Claire Downs LPN [facility] Work Phone: 01-24-2007 08:01-0500 BP Diastolic 86 mm[Hg] Claire Downs [employer] INTER[employer] [facility] Work Phone: Comment on above: Patient Position: Sitting; Cuff Location : Left Arm; Cuff Size: Standard 01-24-2007 08:01-0500 BP Systolic 144 mm[Hg] Claire Downs [employer] INTER[employer] [facility] Work Phone: Comment on above: Patient Position: Sitting; Cuff Location : Left Arm; Cuff Size: Standard 01-24-2007 08:01-0500 BSA (Body Surface Area) 1.57 m2 Claire Downs [employer] INTERPRETER [facility] Work Phone: 01-24-2007 08:01-0500 Head Circumference 0 cm Jana Farias [facility] Work Phone: 01-24-2007 08:01-0500 Head Occipital-frontal circumference 0 cm Claire Downs [employer]ANG[employer] INTERPRETER [facility]; [facility] Work Phone: 01-24-2007 08:01-0500 Height 154.94 cm Claire Downs [employer]ANG[employer] INTERPRETER [facility] Medicine Work Phone: 01-24-2007 08:01-0500 Pulse (Heart Rate) 140 /min Claire Downs [facility] Internal Medicine Work Phone: Comment on above: Pattern: Regular 01-24-2007 08:01-0500 Pulse Oximetry 100 % Jana Farias [facility] Internal Medicine Work Phone: Comment on above: Room air 01-24-2007 08:01-0500 Respiratory Rate 20 /min Claire Downs [facility] Internal Medicine Work Phone: Comment on above: Pattern: Unlabored 01-24-2007 08:01-0500 SaO2% (BldA) [Mass fraction] 100 % Claire Downs [employer]ANG[employer] INTERPRETER [facility] Internal Medicine; [facility] Work Phone: Comment on above: Room air 10-19-2006 14:54-0400 BMI (Body Mass Index) 24.4 kg/m2 Jana Farias [facility] Internal Medicine Work Phone: 10-19-2006 14:54-0400 Body Temperature 98.9 [degF] Jana Farias [facility] Medicine Work Phone: Comment on above: Method: Oral 10-19-2006 14:54-0400 Body weight 58.57 kg Jana Farias [facility] Medicine Work Phone: 10-19-2006 14:54-0400 BP Diastolic 88 mm[Hg] Jana Farias [facility] Medicine Work Phone: Comment on above: Patient Position: Sitting; Cuff Location : Left Arm; Cuff Size: Standard 10-19-2006 14:54-0400 BP Systolic 150 mm[Hg] Jana Farias [facility] Medicine Work Phone: Comment on above: Patient Position: Sitting; Cuff Location : Left Arm; Cuff Size: Standard 10-19-2006 14:54-0400 BSA (Body Surface Area) 1.57 m2 Jana Farias [facility] Work Phone: 10-19-2006 14:54-0400 Head Circumference 0 cm Jana Farias [facility] Work Phone: 10-19-2006 14:54-0400 Head Occipital-frontal circumference 0 cm Jana Farias DO Work Phone: [facility]; [facility] Work Phone: 10-19-2006 14:54-0400 Height 154.94 cm Jana Farias [facility] Work Phone: 10-19-2006 14:54-0400 Pulse (Heart Rate) 135 /min Jana Farias [facility] Work Phone: Comment on above: Pattern: Regular 10-19-2006 14:54-0400 Respiratory Rate 22 /min Jana Farias [facility] Work Phone: Comment on above: Pattern: Unlabored Encounters Encounter Date Encounter Type Care Provider Facility Start: 09-27-2023 End: 10-12-2023 Telephone encounter Pollo Hollingsworth MD Work Phone: [facility] Comment on above: Other (Billing ) Start: 09-13-2023 End: 09-18-2023 Documentation procedure Priti Hollingsworth MD Work Phone: [facility] Start: 08-23-2023 End: 08-23-2023 ambulatory PARDEEP BARRETO [facility] Start: 08-20-2023 End: 11-19-2023 Transcribe Orders Pardeep Barreto MD Work Phone: [facility] Scheduling Comment on above: Encounter for screen ing mammogram for malignant neoplasm of breast (Primary Dx) Start: 06-15-2023 End: 06-15-2023 ambulatory POLLO HOLLINGSWORTH [facility] Start: 06-15-2023 End: 06-15-2023 Office outpatient visit 25 minutes Pollo Hollingsworth MD Work Phone: [facility] Comment on above: Situational anxiety (Primary Dx); White coat syndrome without diagnosis of hypertension; Colon cancer screening; Screening mammogram for breast cancer; Encounter for screening for HIV; Need for hepatitis C screening test; Perimenopause; Postablative hypothyroidism Start: 04-19-2023 End: 04-19-2023 ambulatory PARDEEP BARRETO MD Facility:[id number] Start: 04-19-2023 ambulatory PARDEEP BARRETO MD Facil ity:[email or web address] Start: 04-19-2023 End: 04-19-2023 ambulatory PARDEEP BARRETO MD Facility:[facility] Start: 03-27-2023 Telephone encounter Pollo lundy MD Work Phone: [facility] Comment on above: Appointment Request; Appointment Start: 12-03-2022 End: 12-03-2022 ambulatory YANIRA BRADLEY CNP Facility:[facility] Start: 10-20-2022 ambulatory PARDEEP BARRETO MD Facil ity:[facility] Start: 09-12-2022 End: 09-12-2022 Office outpatient visit 15 minutes Pollo Hollingsworth MD Work Phone: [facility] Comment on above: Erythematous rash (P rimary Dx); Nummular dermatitis Start: 08-18-2022 ambulatory 837 NO FAMILY PHYSICIAN Facility:[facility] Start: 06-14-2022 Telephone encounter Pollo lundy MD Work Phone: [facility] Comment on above: New Patient (Lab rec ords ); Results Start: 06-12-2022 End: 06-12-2022 Office outpatient new 45 minutes Pollo Hollingsworth MD Work Phone: [facility] Comment on above: Hyperglycemia (Prima ry Dx); Need for hepatitis C screening test; Screening for HIV (human immunodeficiency virus); White coat syndrome without diagnosis of hypertension Start: 04-17-2022 End: 04-18-2022 ambulatory 837 NO FAMILY PHYSICIAN Facility:[facility] Start: 02-26-2022 End: 02-26-2022 ambulatory PARDEEP BARRETO MD Facility:[id number] Start: 01-11-2022 End: 01-12-2022 ambulatory PARDEEP BARRETO MD Facility:[facility] Start: 12-24-2021 End: 12-24-2021 ambulatory 837 NO FAMILY PHYSICIAN Facility:[facility] Start: 12-23-2020 End: 12-23-2020 Subsequent hospital visit by physician Pardeep Barreto MD Work Phone: [facility] Comment on above: Arrived Start: 12-20-2018 End: 12-20-2018 Subsequent hospital visit by physician Pardeep Barreto Work Phone: [facility] Comment on above: Arrived Start: 11-28-2018 End: 11-28-2018 Subsequent hospital visit by physician Pardeep Barreto Work Phone: [facility] Comment on above: Arrived Start: 11-13-2016 End: 11-13-2016 Office outpatient new 30 minutes Jana Farias [facility] Start: 02-02-2012 End: 02-02-2012 Annotation/Addendum Jana Farias [facility] Start: 07-11-2011 End: 07-11-2011 Historical Summary Jana Farias [facility] Start: 05-05-2011 End: 05-05-2011 Phone Encounter Jana Farias [facility] Start: 04-26-2011 End: 04-26-2011 Patient encounter procedure Jana Farias [facility] Start: 04-17-2011 End: 04-17-2011 Phone Encounter Jana Farias [facility] Start: 04-14-2011 End: 04-14-2011 Patient encounter procedure Jana Fajardo [facility] Start: 11-16-2010 End: 11-16-2010 Office outpatient visit 10 minutes J[facility] Start: 10-06-2010 End: 10-06-2010 Patient encounter procedure Jana Farias [facility] Start: 09-22-2010 End: 09-22-2010 Nursing evaluation of patient and report J[facility] Faj[facility] Start: 06-06-2010 End: 06-06-2010 Patient encounter procedure Jana Farias [facility] Start: 12-31-2007 End: 01-01-2008 Patient encounter procedure Jana Farias [facility] Start: 04-09-2007 End: 04-09-2007 Office outpatient visit 15 minutes Jana Farias [facility] Start: 01-24-2007 End: 01-24-2007 Office outpatient visit 25 minutes Jana Farias [facility] Start: 10-19-2006 End: 10-19-2006 Patient encounter procedure Jana Farias [facility] Procedures Date Procedure Procedure Detail Performing Clinician Start: 09-13-2023 Mammography Priti mckeon MD Work Phone: Start: 06-15-2023 Adult depression screening assessment Pollo Hollingsworth MD Work Phone: Start: 12-04-2022 Thyrotropin [Units/volume] in Serum or Plasma Pollo Hollingsworth MD Work Phone: Start: 06-12-2022 Adult depression screening assessment Pollo Hollingsworth MD Work Phone: Start: 03-22-2022 Thyrotropin [Units/volume] in Serum or Plasma Pollo Hollingsworth MD Work Phone: Start: 01-23-2022 Mammography Pollo lundy MD Work Phone: Start: 01-11-2021 End: 01-11-2021 Chiropractic Report Comments: See Note; NOTES: [facility] [address] [place], [place] [id number] OFFICE VISIT Date of Service: 01/11/21 MR#: [id number] Acct: [id number] Name: MARIAJOSE HUANG Rep #: [id number] : 1975 Provider: KVNG Magallon Age/Sex: 45/F Location: [facility] Status: Signed Intake Intake Visit Reasons: Back Pain Chief Complaint: Neck and Mid Back Pain Is patient in pain?: Yes Allergies methimazole [From Tapazole] Adverse Reaction (Mild, Verified 10/01/19 09:26) [facility] Medical History (Updated 01/11/21 @ 15:[address] [place], KVNG) Thyroid disease Surgical History History of History of dilation and curettage History of tonsillectomy Social History Smoking Status: Never smoker alcohol intake: current alcohol intake frequency: a few times a week what type of physical activity do you participate in: walking and weight training frequency: 3-4 times per week HPI Back Pain Chief Complaint: Neck and Mid Back Pain Visit Number: 2 Details: Mariajose Huang is a 45 year old F here today for neck and mid back pain. She states that her low back pain has been decreased since her last adjustment. She states that recently she has experienced pain in her mid back between her shoulders. She describes the pain as tight and tender to the touch. She also has had increased neck pain recently that has been causing migraines. She denies any new injury. Denies numbness, tingling or other associated symptoms. Location: Neck, Mid Back Duration: Frequent Aggravating or associated factors: Neck Rotation, Twisting Relieving factors: Chiro Pain Quality: aching, cramping and other (tight) Exam Musc General: Yes normal posture, normal gait and joint tenderness (C2,C5,C6,T3,T4,L4,L5,R SI); No decreased range of motion Cervical Spine: Yes normal cervical lordosis, Yes cervical muscular tenderness right greater than left lower paracervical muscle and trapezius, Yes cervical spasm right greater than left lower trapezius and paracervical muscles and Yes misalignment misalignment: C5 and C6 Thoracic/Lumber: Yes thoracic and lumbar spine normal to inspection, Yes paraspinal tenderness bilaterally in the upper thoracic and in the mid thoracic and on the right greater than left (lumbopelvic), Yes thoraco-lumbar spasm bilaterally in the upper thoracic, in the mid thoracic and in the lower lumbar and Yes misalignment T3, T4, T5, L3, L4 and L5 Office Procedures Procedures - Chiropractic Procedures Manipulation: Cervical C5, Lumbar L5 and Thoracic T3 and T6 Manipulation: 3-4 regions Patient Response: positive Assessment and Plan Assessment and Plan (1) Back pain: Status: Acute Qualifiers: Back pain laterality: bilateral Back pain location: thoracic back pain Chronicity: acute Qualified Code(s): M54.6 - Pain in thoracic spine (2) Segmental and somatic dysfunction of cervical region: Status: Acute Orders: Orders: Chiropractic Treatments Today (3) Segmental and somatic dysfunction of thoracic region: Status: Acute Orders: Orders: Chiropractic Treatments Today (4) Segmental and somatic dysfunction of lumbar region: Status: Acute Orders: Orders: Chiropractic Treatments Today Plan Details Other Orders: Orders: Chiropractic Treatments Today M54.5, M99.04, M99.05 Additional Comments: Patient was treated without incident. Continue care. Goals Barriers: Goals Decrease pain Decrease spasm Improve intersegmental motion Follow Up: 2 Weeks Coding Level of Care Code No Charge Diagnoses Back pain M54.6 Back pain laterality: bilateral Back pain location: thoracic back pain Chronicity: acute Segmental and somatic dysfunction of cervical region M99.01 Segmental and somatic dysfunction of thoracic region M99.02 Segmental and somatic dysfunction of lumbar region M99.03 CPT Codes Procedures - Manipulation: 3-4 regions ([id number]) 01/11/21 1517 <Electronically signed by Paradise Grove D.C.> Date Paradise Grove D.C. Cosigner Signature: Date (if applicable) CC: Jana Farias DO Work Phone: Start: 06-11-2020 Lipid 1996 panel - Serum or Plasma Pollo Hollingsworth MD Work Phone: Start: 03-02-2020 End: 03-02-2020 Chiropractic Report Comments: See Note; NOTES: [facility] [address] [place] [id number] OFFICE VISIT Date of Service: 03/02/20 MR#: [id number] Acct: [id number] Name: MARIAJOSE HUANG Rep #: [id number] : 1975 Provider: KVNG Magallon Age/Sex: 44/F Location: [facility] Status: Signed Intake Intake Visit Reasons: Back Pain Chief Complaint: Neck and Low Back Pain Is patient in pain?: Yes Allergies methimazole [From Tapazole] Adverse Reaction (Mild, Verified 10/01/19 09:26) [facility] Medical History Thyroid disease (Acute) Surgical History History of (Acute) History of dilation and curettage (Acute) History of tonsillectomy (Acute) Social History (Updated 03/02/20 @ 14:[address] [place], KVNG) Smoking Status: Never smoker alcohol intake: current alcohol intake frequency: a few times a week what type of physical activity do you participate in: walking, weight training frequency: 3-4 times per week HPI Back Pain: Chief Complaint: Neck and Low Back Pain Visit Number: 1 Details: MARIAJOSE HUANG is a 44 year old F here today for neck and low back pain. She states that she continues to have a tight ache in her neck. She states that her low back pain has been decreased since she had an SI injection done on 01/30/20 and she is working on strengthening. She states that today she woke up with a pain in her right mid-back underneath her right shoulder blade that is worsened with twisting. she believes that she slept on it wrong. She denies any numbness, tingling, or radiculopathy. Location: Neck, right mid-back, and Low Back Duration: Intermittent Aggravating or associated factors: Bending, squatting, twisting, sleeping Relieving factors: Chiro Pain Quality: aching, dull, cramping, other (Tight) Exam Musc General: Yes normal posture, normal gait and joint tenderness (C2,C5,C6,T3,T4,L4,L5,R SI); no decreased ROM Cervical Spine: Yes normal cervical lordosis, Yes cervical muscular tenderness, Yes cervical spasm (trap, levator) right greater than left lateral: trapezius and paracervical muscles, Yes misalignment misalignment: C2, C5, C6 Thoracic/Lumber: Yes thoracic and lumbar spine normal to inspection, Yes paraspinal tenderness bilaterally in the upper thoracic and in the mid thoracic and on the right greater than left (lumbopelvic), Yes thoraco-lumbar spasm bilaterally (trap, levator) in the upper thoracic, in the mid thoracic and in the lower lumbar (paraspinal (L3-S1)) and on the right greater than left (iliopsoas), Yes misalignment T3, T4, T5, L3, L4, L5, RIL Sacroiliac joints: on the right (post/inf rotation) tender to palpation Office Procedures Chiropractic Treatments Procedures Manipulation: Cervical C2, C6, Lumbar L4, Thoracic T4, Pelvis RIL Manipulation: 3-4 regions Patient Response: positive Assessment Plan Problems 1. Acute right-sided low back pain without sciatica M54.5 2. Segmental and somatic dysfunction of cervical region M99.01 3. Segmental and somatic dysfunction of thoracic region M99.02 4. Segmental and somatic dysfunction of lumbar region M99.03 5. Segmental and somatic dysfunction of pelvic region M99.05 Plan Patient was treated without incident. Continue care. Orders Orders: Chiropractic Treatments Today M54.9, M99.01, M99.02, M99.03, M99.05 Plan Detail Goals Decrease pain Improve ability to run/jump Improve gait Decrease spasm Follow Up PRN Coding Level of Care Code No Charge Diagnoses Acute right-sided low back pain without sciatica M54.5 ?Back pain laterality: right ?Back pain location: low back pain ?Chronicity: acute ?Sciatica presence: without sciatica Segmental and somatic dysfunction of cervical region M99.01 Segmental and somatic dysfunction of thoracic region M99.02 Segmental and somatic dysfunction of lumbar region M99.03 Segmental and somatic dysfunction of pelvic region M99.05 Additional Codes Procedures - Manipulation: 3-4 regions ([id number]) 03/02/20 0854 <Electronically signed by [place] Grove D.C.> Date Paradise Trejo Signature: Date (if applicable) CC: Jana Farias Start: 01-12-2020 End: 01-12-2020 Chiropractic Report Comments: See Note; NOTES: [facility] [address] [place] [address] OFFICE VISIT Date of Service: 01/12/20 MR#: [id number] Acct: [id number] Name: MARIAJOSE HUANG Rep #: [id number] : 1975 Provider: KVNG Magallon Age/Sex: 44/F Location: [facility] Status: Signed Intake Intake Visit Reasons: Back Pain Chief Complaint: Neck and Low Back Pain Allergies methimazole [From Tapazole] Adverse Reaction (Mild, Verified 10/01/19 09:26) [facility] Medical History Thyroid disease (Acute) Surgical History History of (Acute) History of dilation and curettage (Acute) History of tonsillectomy (Acute) Social History (Updated 01/12/20 @ 16:[address] [place], KVNG) Smoking Status: Never smoker alcohol intake: current alcohol intake frequency: a few times a week what type of physical activity do you participate in: walking, weight training frequency: 3-4 times per week HPI Back Pain: Chief Complaint: Neck and Low Back Pain Visit Number: 9 Details: MARIAJOSE HUANG is a 44 year old F here today for neck and low back pain. She states that her neck pain continues to be relieved. She states that she has a a tight, sore ache in her low back that is worse on the right side and radiates into her right groin. She states that she has been doing some jairo and painting this past weekend and that seemed to aggravate the pain. She denies any numbness or tingling. Location: Right Low Back Duration: Intermittent Aggravating or associated factors: Bending, squatting Relieving factors: Chiro Pain Quality: aching, dull, cramping, radiating, other (Tight) Exam Musc General: Yes normal posture, normal gait and joint tenderness (C2,C5,C6,T3,T4,L4,L5,R SI); no decreased ROM Cervical Spine: Yes normal cervical lordosis, Yes cervical muscular tenderness (slightly improved), Yes cervical spasm (trap, levator-slightly improved) right greater than left lateral: trapezius and paracervical muscles, Yes misalignment misalignment: C2, C5, C6 Thoracic/Lumber: Yes thoracic and lumbar spine normal to inspection, Yes paraspinal tenderness bilaterally in the upper thoracic and in the mid thoracic and on the right greater than left (l umbopelvic), Yes thoraco-lumbar spasm bilaterally (trap, levator) in the upper thoracic, in the mid thoracic and in the lower lumbar (paraspinal (L3-S1)) and on the right greater than left (iliopsoas), Yes misalignment T3, T4, T5, L3, L4, L5, RIL Sacroiliac joints: on the right (post/inf rotation) tender to palpation Office Procedures Chiropractic Treatments Procedures Manipulation: Cervical C2, C6, Lumbar L4, Thoracic T3, Pelvis RIL Manipulation: 3-4 regions Patient Response: positive Assessment Plan Problems 1. Acute right-sided low back pain without sciatica M54.5 2. Segmental and somatic dysfunction of pelvic region M99.05 3. Segmental and somatic dysfunction of lumbar region M99.03 4. Segmental and somatic dysfunction of thoracic region M99.02 5. Segmental and somatic dysfunction of cervical region M99.01 Plan Patient was treated without incident. Continue care as needed. Orders Orders: Chiropractic Treatments Today M99.01, M99.02, M99.03, M99.05 Plan Detail Goals Decrease pain Improve ability to run/jump Improve gait Decrease spasm Follow Up PRN Coding Level of Care Code No Charge Diagnoses Acute right-sided low back pain without sciatica M54.5 ?Back pain location: low back pain ?Chronicity: acute ?Back pain laterality: right ?Sciatica presence: without sciatica Segmental and somatic dysfunction of pelvic region M99.05 Segmental and somatic dysfunction of lumbar region M99.03 Segmental and somatic dysfunction of thoracic region M99.02 Segmental and somatic dysfunction of cervical region M99.01 Additional Codes Procedures - Manipulation: 3-4 regions (57055) 01/12/20 3785 <Electronically signed by [facility] D.C.> Date [facility] D.C. Cosigner Signature: Date (if applicable) CC: Jana Farias Start: 12-26-2019 End: 12-27-2019 Lower Ext Joint Only (Routine) Comments: See Note; NOTES: [facility] Imaging Services [address] [place] [address] Lower Ext Joint Only (Routine) MR#: [id number] Acct: [id number] Name: MARIAJOSE HUANG Rep #: [id number] : 1975 F 44 From: Rishi Pastor MD PCP: Dr. Jana Farias, DO Status: REG CLI Study: Lower Ext Joint Only (Routine) Date of Exam: 02/24/19 Exam# [id number] Ordering Dr: Kerrie Cardoso MD STUDY: MRI RIGHT HIP REASON FOR EXAM: Female, 44 years old. RIGHT gluteal tendonopathy, RIGHT SI and glute pain x 17years TECHNIQUE: Standardized fat and water weighted pulse sequences were obtained in all 3 orthogonal planes. COMPARISON: None. FINDINGS: Normal hip joint without articular joint space narrowing. Normal acetabulum. Normal labrum. Normal femoral head. Normal femoral neck and intratrochanteric region. Normal gluteus minimus, medius and iliopsoas tendons and distal insertions. There is no trochanteric, iliopsoas or iliopectineal bursitis. Normal superior and inferior pubic rami. Normal pubic symphysis. Normal ischial tuberosity. Normal origin of the hamstring tendons. Normal visualized iliac wing, sacroiliac joint, and sacral ala. 4 cm corpus luteum cyst of the left ovary. Retroverted uterus. MRI/Lower Ext Joint Only (Routine) IMPRESSION: Normal MRI of the hip. Electronically Signed: Rishi Pastor MD at 13:17 EST Tel , Service support , CC: Dr. Kerrie Cardoso MD; Dr. Jana Farias DO Extruding Press Operator: Signed Jana Farias Start: 12-26-2019 End: 12-27-2019 Spine Lumbar (Routine) Comments: See Note; NOTES: [facility] Imaging Services [address] [place] [id number] Spine Lumbar (Routine) MR#: [id number] Acct: [id number] Name: MARIAJOSE HUANG Rep #: [id number] : 1975 F 44 From: Rishi Pastor MD PCP: Dr. Jana Farias DO Status: REG CLI Study: Spine Lumbar (Routine) Date of Exam: 12/26/19 Exam# [id number] Ordering Dr: Kerrie Cardoso MD STUDY: MRI LUMBAR SPINE WITHOUT CONTRAST REASON FOR EXAM: Female, 44 years old. Lumbar radiculopathy, right hip and buttock pain TECHNIQUE: Standardized fat and water weighted pulse sequences were obtained in the sagittal and axial planes. COMPARISON: X-ray 10/07/2019 FINDINGS: T12-L1: Normal endplates. Normal disc height, hydration and morphology. Normal bilateral facet joints. Normal central canal and bilateral lateral recesses. Normal bilateral intervertebral neural foramina. Normal lumbar lordosis. There is no substantial scoliosis. Normal conus medullaris that terminates at the T12/L1 to L1-2: Normal endplates. Normal disc height, hydration and morphology. Normal bilateral facet joints. Normal central canal and bilateral lateral recesses. Normal bilateral intervertebral neural foramina. L2-3: Normal endplates. Normal disc height, hydration and morphology. Normal bilateral facet joints. Normal central canal and bilateral lateral recesses. Normal bilateral intervertebral neural foramina. L3-4: Normal endplates. Normal disc height, hydration and morphology. Normal bilateral facet joints. Normal central canal and bilateral lateral recesses. Normal bilateral intervertebral neural foramina. L4-5: Normal endplates. Normal disc height, hydration and morphology. Normal bilateral facet joints. Normal central canal and bilateral lateral recesses. Normal bilateral intervertebral neural foramina. L5-S1: Normal endplates. Normal disc height, hydration and morphology. Normal bilateral facet joints. Normal central canal and bilateral lateral recesses. Normal bilateral intervertebral neural foramina. Normal visualized sacral ala. Normal visualized paraspinous soft tissue structures. MRI/Spine Lumbar (Routine) IMPRESSION: Normal unenhanced MR examination of the lumbar spine. Electronically Signed: Rishi Pastor MD at 11:01 EST Tel , Service support , CC: Dr. Kerrie Cardoso MD; Dr. Jana Farias DO Extruding Press Operator: Signed Jana Farias Start: 12-18-2019 End: 12-18-2019 Chiropractic Report Comments: See Note; NOTES: [facility] [address] [place] [id number] OFFICE VISIT Date of Service: 12/18/19 MR#: [id number] Acct: [id number] Name: MARIAJOSE HUANG Rep #: [id number] : 1975 Provider: KVNG Magallon Age/Sex: 44/F Location: [facility] Status: Signed Intake Intake Visit Reasons: Back Pain Chief Complaint: Neck and Low Back Pain Allergies methimazole [From Tapazole] Adverse Reaction (Mild, Verified 10/01/19 09:26) [facility] Medical History Thyroid disease (Acute) Surgical History History of (Acute) History of dilation and curettage (Acute) History of tonsillectomy (Acute) Social History (Updated 12/18/19 @ 09:[address] [place], K[facility]NG) Smoking Status: Never smoker alcohol intake: current alcohol intake frequency: a few times a week what type of physical activity do you participate in: walking, weight training frequency: 3-4 times per week HPI Back Pain: Chief Complaint: Neck and Low Back Pain Visit Number: 8 Details: MARIAJOSE HUANG is a 44 year old F here today for improving neck and low back pain. She feels as though she is stabilizing her low back and pelvis with exercises from her PT. Her headaches have been slightly improved. Her neck pain has also decreased. She denies any numbness, tingling, or radiculopathy. Location: Neck and Low Back Duration: Intermittent Aggravating or associated factors: Wearing high heels, running, squatting, sleeping Relieving factors: Chiro Pain Quality: aching, dull, cramping, other (Tight) Exam Musc General: Yes normal posture, normal gait and joint tenderness (C2,C5,C6,T3,T4,L4,L5,R SI); no decreased ROM Cervical Spine: Yes normal cervical lordosis, Yes cervical muscular tenderness (slightly improved), Yes cervical spasm (trap, levator-slightly improved) right greater than left lateral: trapezius and paracervical muscles, Yes misalignment misalignment: C2, C5, C6 Thoracic/Lumber: Yes thoracic and lumbar spine normal to inspection, Yes paraspinal tenderness (slightly improved) bilaterally in the upper thoracic and in the mid thoracic and on the right greater than left (lumbopelvic), Yes thoraco-lumbar spasm bilaterally (trap, levator) in the upper thoracic, in the mid thoracic and in the lower lumbar (paraspinal (L3-S1)) and on the right greater than left (iliopsoas), Yes misalignment T3, T4, T5, L3, L4, L5, RIL Sacroiliac joints: on the right (post/inf rotation) tender to palpation Office Procedures Chiropractic Treatments Procedures Manipulation: Cervical C2, C6, Lumbar L4, Thoracic T4, Pelvis RIL Manipulation: 3-4 regions Patient Response: positive Assessment Plan Problems 1. Segmental and somatic dysfunction of cervical region M99.01 2. Segmental and somatic dysfunction of thoracic region M99.02 3. Segmental and somatic dysfunction of lumbar region M99.03 4. Segmental and somatic dysfunction of pelvic region M99.05 Plan Patient is showing improvement and symptom stabilization with including PT with her treatment. Continue care. Orders Orders: Chiropractic Treatments Today M54.9, M99.01, M99.02, M99.03, M99.05 Plan Detail Goals Decrease pain Improve ability to run/jump Improve gait Decrease spasm Follow Up PRN Coding Level of Care Code No Charge Diagnoses Segmental and somatic dysfunction of cervical region M99.01 Segmental and somatic dysfunction of thoracic region M99.02 Segmental and somatic dysfunction of lumbar region M99.03 Segmental and somatic dysfunction of pelvic region M99.05 Additional Codes Procedures - Manipulation: 3-4 regions (99277) 12/18/19 0936 <Electronically signed by [facility] D.C[facility]> Date [facility] D.C. Cosigner Signature: Date (if applicable) CC: Jana Farias Start: 12-02-2019 End: 12-02-2019 Chiropractic Report Comments: See Note; NOTES: [facility] [address] [place] [address] OFFICE VISIT Date of Service: 12/02/19 MR#: [id number] Acct: [id number] Name: MARIAJOSE HUANG Rep #: [id number] : 1975 Provider: KVNG Magallon Age/Sex: 44/F Location: [facility] Status: Signed Intake Intake Visit Reasons: Back pain Chief Complaint: Right SI pain Accompanied by: Self Is patient in pain?: Yes Allergies methimazole [From Tapazole] Adverse Reaction (Mild, Verified 10/01/19 09:26) [facility] Medical History Thyroid disease (Acute) Surgical History History of (Acute) History of dilation and curettage (Acute) History of tonsillectomy (Acute) Social History (Updated 12/02/19 @ 15:[address] [place], [facility]) Smoking Status: Never smoker alcohol intake: current alcohol intake frequency: a few times a week what type of physical activity do you participate in: walking, weight training frequency: 3-4 times per week HPI Back pain: Chief Complaint: SI pain Visit Number: 7 Details: MARIAJOSE HUANG is a 44 year old F here today for the treatment of her persistent neck and low back pain. She continues to get neck and upper back pain and discomfort. She also experiences constant right SI discomfort. She has attempted a variety of stretches which does not seem to address it. She no longer is having any urinary issues. She stated that she has relief for approx 2- 3 days following her adjustment. Location: Right SI and Neck Duration: Frequent Aggravating or associated factors: Wearing high heels, running, squatting, sleeping, poor posture Relieving factors: Chiro Pain Quality: aching, dull, sharp, radiating, other (Tight) Current Sensation: catching Exam Musc General: Yes normal posture, normal gait and joint tenderness (C2,C5,C6,T3,T4,L4,L5,R SI); no decreased ROM Cervical Spine: Yes normal cervical lordosis, Yes cervical muscular tenderness, Yes cervical spasm (trap, levator) right greater than left lateral: trapezius and paracervical muscles, Yes misalignment misalignment: C2, C5, C6 Thoracic/Lumber: Yes thoracic and lumbar spine normal to inspection, Yes paraspinal tenderness bilaterally in the upper thoracic and in the mid thoracic and on the right greater than left (lumbopelvic), Yes thoraco-lumbar spasm bilaterally (trap, levator) in the upper thoracic, in the mid thoracic and in the lower lumbar (paraspinal (L3-S1)) and on the right greater than left (iliopsoas), Yes misalignment T3, T4, T5, L3, L4, L5, RIL Sacroiliac joints: on the right (post/inf rotation) tender to palpation Office Procedures Chiropractic Treatments Procedures Manipulation: Cervical C2, C6, Lumbar L4, Thoracic T4, Pelvis RIL Manipulation: 3-4 regions Electronic Stimulation: No Traction, Mechanical: No Patient Response: no change Assessment Plan 1. Acute right-sided low back pain without sciatica M54.5 2. Segmental and somatic dysfunction of cervical region M99.01 Orders Orders: Chiropractic Treatments Today 3. Segmental and somatic dysfunction of lumbar region M99.03 Orders Orders: Chiropractic Treatments Today 4. Segmental and somatic dysfunction of pelvic region M99.05 Orders Orders: Chiropractic Treatments Today 5. Segmental and somatic dysfunction of thoracic region M99.02 Orders Orders: Chiropractic Treatments Today Plan Detail Additional Comments Patient was treated without incident. Continue care. She is following up with KIRSTIE-Sonia Urbano for soft tissue work. Goals Decrease pain Improve ability to run/jump Improve gait Decrease spasm Follow Up prn Coding Level of Care Code No Charge Diagnoses Acute right-sided low back pain without sciatica M54.5 ?Back pain location: low back pain ?Chronicity: acute ?Back pain laterality: right ?Sciatica presence: without sciatica Segmental and somatic dysfunction of cervical region M99.01 Segmental and somatic dysfunction of lumbar region M99.03 Segmental and somatic dysfunction of pelvic region M99.05 Segmental and somatic dysfunction of thoracic region M99.02 Additional Codes Procedures - Manipulation: 3-4 regions (54597) Time Spent (min) 30 12/02/19 2161 <Electronically signed by [facility] D.C.> Date Paradise Trejo Signature: Date (if applicable) CC: Jana Farias Start: 11-20-2019 End: 11-20-2019 Chiropractic Report Comments: See Note; NOTES: [facility] [address] [place] [address] OFFICE VISIT Date of Service: 11/20/19 MR#: [id number] Acct: [id number] Name: MARAIJOSE HUANG Rep #: [id number] : 1975 Provider: KVNG Magallon Age/Sex: 44/F Location: [facility] Status: Signed Intake Intake Visit Reasons: Back Pain Chief Complaint: Neck and Low Back Pain Allergies methimazole [From Tapazole] Adverse Reaction (Mild, Verified 10/01/19 09:26) [facility] Medical History Thyroid disease (Acute) Surgical History History of (Acute) History of dilation and curettage (Acute) History of tonsillectomy (Acute) Social History (Updated 11/20/19 @ 09:[address] [place], [facility]) Smoking Status: Never smoker alcohol intake: current alcohol intake frequency: a few times a week what type of physical activity do you participate in: walking, weight training frequency: 3-4 times per week HPI Back Pain: Chief Complaint: Neck and Low Back Pain Visit Number: 6 Details: MARIAJOSE HUANG is a 44 year old F here today for neck and low back pain. She states that her low back flared up on Sunday and Sunday she went to another chiropractor and had some relief. She states that her neck continues to be relieved and she only experiences some tightness but that is controlled through regular adjustments and massage. She continues to get discomfort in her R SI joint at times. Last week she stated that she was having urinary urgency and was treated with an antibiotic which was not helpful. She got adjusted and the urgency stopped. She denies any numbness, tingling, or radiculopathy. She stated that she made an appointment with a spinal specialist Location: Neck and Low Back Duration: Intermittent Aggravating or associated factors: Wearing high heels, running, squatting, sleeping Relieving factors: Chiro Pain Quality: aching, dull, cramping, other (Tight) Exam Musc General: Yes normal posture, normal gait and joint tenderness (C2,C5,C6,T3,T4,L4,L5,R SI); no decreased ROM Cervical Spine: Yes normal cervical lordosis, Yes cervical muscular tenderness, Yes cervical spasm (trap, levator) right greater than left lateral: trapezius and paracervical muscles, Yes misalig nment misalignment: C2, C5, C6 Thoracic/Lumber: Yes thoracic and lumbar spine normal to inspection, Yes paraspinal tenderness (slightly improved) bilaterally in the upper thoracic and in the mid thoracic and on the right greater than left (lumbopelvic), Yes thoraco-lumbar spasm bilaterally (trap, levator) in the upper thoracic, in the mid thoracic and in the lower lumbar (paraspinal (L3-S1)) and on the right greater than left (iliopsoas), Yes misalignment T3, T4, T5, L3, L4, L5, RIL Sacroiliac joints: on the right (post/inf rotation) tender to palpation Office Procedures Chiropractic Treatments Procedures Manipulation: Cervical C2, C6, Lumbar L4, Thoracic T4, Pelvis RIL Manipulation: 3-4 regions Patient Response: positive Assessment Plan Problems 1. Segmental and somatic dysfunction of pelvic region M99.05 2. Segmental and somatic dysfunction of lumbar region M99.03 3. Segmental and somatic dysfunction of thoracic region M99.02 4. Segmental and somatic dysfunction of cervical region M99.01 Plan Patient was treated without incident. She also had a massage this morning. Continue care as needed. Orders Orders: Chiropractic Treatments Today M99.01, M99.02, M99.03, M99.05 Plan Detail Goals Decrease pain Improve ability to run/jump Improve gait Decrease spasm Follow Up prn Coding Level of Care Code No Charge Diagnoses Segmental and somatic dysfunction of pelvic region M99.05 Segmental and somatic dysfunction of lumbar region M99.03 Segmental and somatic dysfunction of thoracic region M99.02 Segmental and somatic dysfunction of cervical region M99.01 Additional Codes Procedures - Manipulation: 3-4 regions (74290) 11/20/19 0945 <Electronically signed by [facility] [place] D.C.> Date Paradise Lamignchuck Signature: Date (if applicable) CC: Jana Farias Start: 10-30-2019 End: 10-30-2019 Chiropractic Report Comments: See Note; NOTES: [facility] [address] [place] [address] OFFICE VISIT Date of Service: 10/30/19 MR#: [id number] Acct: [id number] Name: MARIAJOSE HUANG Rep #: [id number] : 1975 Provider: KVNG Magallon Age/Sex: 44/F Location: [facility] Status: Signed Intake Intake Visit Reasons: Back Pain Chief Complaint: Neck and Low Back Pain Allergies methimazole [From Tapazole] Adverse Reaction (Mild, Verified 10/01/19 09:26) Rash [facility] Medical History Thyroid disease (Acute) Surgical History History of (Acute) History of dilation and curettage (Acute) History of tonsillectomy (Acute) Social History (Updated 10/30/19 @ 11:[address] [place], KVNG) Smoking Status: Never smoker alcohol intake: current alcohol intake frequency: a few times a week what type of physical activity do you participate in: walking, weight training frequency: 3-4 times per week HPI Back Pain: Chief Complaint: Neck and Low Back Pain Visit Number: 5 Details: MARIAJOSE HUANG is a 44 year old F here today for neck and low back pain. She states that she has had some neck muscular pain that she believes was caused by stress. She states that her low back and hip pain has been slightly improved since her last adjustment and just some stiffness has returned today. She denies any numbness, tingling, or radiculopathy. Location: Neck and Low Back Duration: Intermittent Aggravating or associated factors: Wearing high heels, running, squatting, sleeping Relieving factors: Chiro Pain Quality: aching, dull, cramping, other (Tight) Exam Musc General: Yes normal posture, normal gait and joint tenderness (C2,C5,C6,T3,T4,L4,L5,R SI); no decreased ROM Cervical Spine: Yes normal cervical lordosis, Yes cervical muscular tenderness, Yes cervical spasm (trap, levator) right greater than left lateral: trapezius and paracervical muscles, Yes misalignment misalignment: C2, C5, C6 Thoracic/Lumber: Yes thoracic and lumbar spine normal to inspection, Yes paraspinal tenderness (slightly improved) bilaterally in the upper thoracic and in the mid thoracic and on the right greater than left (lumbopelvic), Yes thoraco-lumbar spasm bilaterally (trap, levator) in the upper thoracic, in the mid thoracic and in the lower lumbar (paraspinal (L3-S1)) and on the right greater than left (iliopsoas), Yes misalignment T3, T4, T5, L3, L4, L5, RIL Sacroiliac joints: on the right (post/inf rotation) tender to palpation Office Procedures Chiropractic Treatments Procedures Manipulation: Cervical C2, C6, Lumbar L4, Thoracic T3, Pelvis RIL Manipulation: 3-4 regions Patient Response: positive Assessment Plan Problems 1. Segmental and somatic dysfunction of pelvic region M99.05 2. Segmental and somatic dysfunction of lumbar region M99.03 3. Segmental and somatic dysfunction of thoracic region M99.02 4. Segmental and somatic dysfunction of cervical region M99.01 Plan Patient is showing slow improvement. Continue care. Orders Orders: Chiropractic Treatments Today M99.01, M99.02, M99.03, M99.05 Plan Detail Goals Decrease pain Improve ability to run/jump Improve gait Decrease spasm Follow Up 2xWeek (5 of 6) Coding Level of Care Code No Charge Diagnoses Segmental and somatic dysfunction of pelvic region M99.05 Segmental and somatic dysfunction of lumbar region M99.03 Segmental and somatic dysfunction of thoracic region M99.02 Segmental and somatic dysfunction of cervical region M99.01 Additional Codes Procedures - Manipulation: 3-4 regions (20939) 10/30/19 1105 <Electronically signed by [facility] D.C.> Date [facility] [place] D.C. Cosigner Signature: Date (if applicable) CC: Jana Farias Start: 10-16-2019 End: 10-16-2019 Chiropractic Report Comments: See Note; NOTES: [facility] [address] [place] [address] OFFICE VISIT Date of Service: 10/16/19 MR#: [id number] Acct: [id number] Name: MARIAJOSE HUANG Rep #: [id number] : 1975 Provider: KVNG Magallon Age/Sex: 44/F Location: [facility] Status: Signed Intake Intake Visit Reasons: Back Pain Chief Complaint: Neck and Low Back Pain Allergies methimazole [From Tapazole] Adverse Reaction (Mild, Verified 10/01/19 09:26) [facility] Medical History Thyroid disease (Acute) Surgical History History of (Acute) History of dilation and curettage (Acute) History of tonsillectomy (Acute) Social History (Updated 10/16/19 @ 11:[address] [place], [place]) Smoking Status: Never smoker alcohol intake: current alcohol intake frequency: a few times a week what type of physical activity do you participate in: walking, weight training frequency: 3-4 times per week HPI Back Pain: Chief Complaint: Neck and Low Back Pain Visit Number: 4 Details: MARIAJOSE HUANG is a 44 year old F here today for neck and low back pain. She states that her neck pain has now decreased to a tight ache. She states that her low back pain has decreased as well but she is still getting radiating pain down the right leg with exercising such as squatting, prolonged walking, and running. She states that she went on a 5 mile walk on Sunday and had a lot of radiating pain but has not had any since then. She denies any numbness or tingling. Location: Neck and Low Back Duration: Intermittent Aggravating or associated factors: Wearing high heels, running, squatting, sleeping Relieving factors: Chiro Pain Quality: aching, dull, cramping, other (Tight) Exam Musc General: Yes normal posture, normal gait and joint tenderness (C2,C5,C6,T3,T4,L4,L5,R SI); no decreased ROM Cervical Spine: Yes normal cervical lordosis, Yes cervical muscular tenderness (slightly improved), Yes cervical spasm (trap, levator) right greater than left lateral: trapezius and paracervical mu scles, Yes misalignment misalignment: C2, C5, C6 Thoracic/Lumber: Yes thoracic and lumbar spine normal to inspection, Yes paraspinal tenderness (slightly improved) bilaterally in the upper thoracic and in the mid thoracic and on the right greater than left (lumbopelvic), Yes thoraco-lumbar spasm bilaterally (trap, levator) in the upper thoracic, in the mid thoracic and in the lower lumbar (paraspinal (L3-S1)) and on the right greater than left (iliopsoas), Yes misalignment T3, T4, T5, L3, L4, L5, RIL Sacroiliac joints: on the right (post/inf rotation) tender to palpation Office Procedures Chiropractic Treatments Procedures Manipulation: Cervical C2, C6, Lumbar L4, Thoracic T4, Pelvis RIL Manipulation: 3-4 regions Patient Response: positive Assessment Plan Problems 1. Segmental and somatic dysfunction of pelvic region M99.05 2. Segmental and somatic dysfunction of lumbar region M99.03 3. Segmental and somatic dysfunction of thoracic region M99.02 4. Segmental and somatic dysfunction of cervical region M99.01 Plan Patient was treated without incident. Discussed utilizing ice and stretching. Orders Orders: Chiropractic Treatments Today M54.9, M99.01, M99.02, M99.03, M99.05 Plan Detail Goals Decrease pain Improve ability to run/jump Improve gait Decrease spasm Follow Up 2xWeek (4 of 6) Coding Level of Care Code No Charge Diagnoses Segmental and somatic dysfunction of pelvic region M99.05 Segmental and somatic dysfunction of lumbar region M99.03 Segmental and somatic dysfunction of thoracic region M99.02 Segmental and somatic dysfunction of cervical region M99.01 Additional Codes Procedures - Manipulation: 3-4 regions (69318) 10/16/19 1138 <Electronically signed by [facility]> Date [facility] Cosigner Signature: Date (if applicable) CC: Jana Farias Start: 10-14-2019 End: 10-14-2019 Radiology Report Comments: See Note; NOTES: [address] [address] 10/14/19 1021 MR#: [id number] Acct: [id number] Name: MARIAJOSE HUANG Rep #: [id number] : 1975 44 From: [facility] PCP: Dr. Venus Carroll MD Status:DEP [facility] Location: [facility] X-Ray Report Impression Impression: Patients Name: MARIAJOSE HUANG : 1975 Views Submitted: a routine lumbar series was accomplished on 10/07/19 at [facility]. The lumbar series reveals in the AP view right spinous process rotation at L4 and left rotation at L2,L3. Pelvis and sacrum appear level. Soft tissue structures are unremarkable. The lateral lumbar view demonstrates a normal lordotic lumbar spine. The disc spaces are within normal limits for the patient???s age. No indication of instability or disease is noted. IMPRESSION: 1. Normal lumbar xray. Dictated by Performing Provider: [facility] Coding Level of Care Code Spine Lumbarsacral 2-3 views Diagnoses Back pain M54.9 10/14/19 1023 <Electronically signed by [facility]> Date [facility] Signed Jana Farias Start: 10-09-2019 End: 10-09-2019 Chiropractic Report Comments: See Note; NOTES: [facility] [address] [place] [address] OFFICE VISIT Date of Service: 10/09/19 MR#: [id number] Acct: [id number] Name: MARIAJOSE HUANG Rep #: [id number] : 1975 Provider: KVNG Magallon Age/Sex: 44/F Location: [facility] Status: Signed Intake Vital Signs 10/01/19 BMI 24.0 Intake Visit Reasons: Back Pain Chief Complaint: Neck and Low Back Pain Allergies methimazole [From Tapazole] Adverse Reaction (Mild, Verified 10/01/19 09:26) Rash [facility] Medical History Thyroid disease (Acute) Surgical History History of (Acute) History of dilation and curettage (Acute) History of tonsillectomy (Acute) Social History (Updated 10/09/19 @ 09:[address] [place], KVNG) Smoking Status: Never smoker alcohol intake: current alcohol intake frequency: a few times a week what type of physical activity do you participate in: walking, weight training frequency: 3-4 times per week HPI Back Pain: Chief Complaint: Neck and Low Back Pain Visit Number: 3 Details: MARIAJOSE HUANG is a 44 year old F here today for neck and low back pain. She states that her neck decreased to just some tightness since her last appointment. She also states that her low back pain and R SI pain has been relieved slightly. She only experienced one episode of R SI pain since her last visit. She notices that she is most comfortable sleeping with her right leg/hip in extension. She denies any numbness or tingling. Location: Neck and Low Back Duration: Intermittent Aggravating or associated factors: Wearing high heels, running, squatting, sleeping Relieving factors: Chiro Pain Quality: aching, dull, cramping, sharp, other (Tight) Exam Musc General: Yes normal posture, normal gait and joint tenderness (C2,C5,C6,T3,T4,L4,L5,R SI); no decreased ROM Cervical Spine: Yes normal cervical lordosis, Yes cervical muscular tenderness (slightly improved), Yes cervical spasm (trap, levator) right greater than left lateral: trapezius and paracervical muscles, Yes misalignment misalignment: C2, C5, C6 Thoracic/Lumber: Yes thoracic and lumbar spine normal to inspection, Yes paraspinal tenderness (slightly improved) bilaterally in the upper thoracic and in the mid thoracic and on the right greater than left (lumbopelvic), Yes thoraco-lumbar spasm bilaterally (trap, levator) in the upper thoracic, in the mid thoracic and in the lower lumbar (paraspinal (L3-S1)) and on the right greater than left (iliopsoas), Yes misalignment T3, T4, T5, L3, L4, L5, RIL Sacroiliac joints: on the right (post/inf rotation) tender to palpation Office Procedures Chiropractic Treatments Procedures Manipulation: Cervical C2, C6, Lumbar L4, Thoracic T3, Pelvis RIL Manipulation: 3-4 regions Patient Response: positive Assessment Plan Problems 1. Acute right-sided low back pain without sciatica M54.5 2. Segmental and somatic dysfunction of cervical region M99.01 3. Segmental and somatic dysfunction of thoracic region M99.02 4. Segmental and somatic dysfunction of lumbar region M99.03 5. Segmental and somatic dysfunction of pelvic region M99.05 Plan Patient is showing mild improvement. Continue care. Orders Orders: Chiropractic Treatments Today M54.9, M99.01, M99.02, M99.03, M99.05 Plan Detail Goals Decrease pain Improve ability to run/jump Improve gait Decrease spasm Follow Up 2xWeek (3 of 6) Coding Level of Care Code No Charge Diagnoses Acute right-sided low back pain without sciatica M54.5 ?Back pain laterality: right ?Back pain location: low back pain ?Chronicity: acute ?Sciatica presence: without sciatica Segmental and somatic dysfunction of cervical region M99.01 Segmental and somatic dysfunction of thoracic region M99.02 Segmental and somatic dysfunction of lumbar region M99.03 Segmental and somatic dysfunction of pelvic region M99.05 Additional Codes Procedures - Manipulation: 3-4 regions (54249) 10/09/19 0952 <Electronically signed by [facility]> Date [facility] Cosigner Signature: Date (if applicable) CC: Jana Farias Start: 10-07-2019 End: 10-07-2019 Chiropractic Report Comments: See Note; NOTES: [facility] [address] [place] [address] OFFICE VISIT Date of Service: 10/07/19 MR#: [id number] Acct: [id number] Name: MARIAJOSE HUANG Rep #: [id number] : 1975 Provider: KVNG Magallon Age/Sex: 44/F Location: [facility] Status: Signed Intake Vital Signs 10/01/19 BMI 25.2 Intake Visit Reasons: Back pain Chief Complaint: Neck and Low Back Pain Is patient in pain?: Yes Allergies methimazole [From Tapazole] Adverse Reaction (Mild, Verified 10/01/19 09:26) Rash [facility] Medical History Thyroid disease (Acute) Surgical History History of (Acute) History of dilation and curettage (Acute) History of tonsillectomy (Acute) Social History (Updated 10/07/19 @ 14:[address] [place], [place]) Smoking Status: Never smoker alcohol intake: current alcohol intake frequency: a few times a week what type of physical activity do you participate in: walking, weight training frequency: 3-4 times per week HPI Back pain: Chief Complaint: Neck and Low Back Pain Visit Number: 2 Details: MARIAJOSE HUANG is a 44 year old F here today for neck and low back pain. She states that she saw some relief after her last adjustment. Her low back pain is still increased by wearing high heels and prolonged running and squatting. Her neck pain is increased by poor posture and sleeping. She denies any numbness or tingling. Location: Right SI and Neck Duration: Frequent Aggravating or associated factors: Wearing high heels, running, squatting, sleeping, poor posture Relieving factors: Chiro Pain Quality: aching, dull, sharp, radiating, other (Tight) Exam Musc General: Yes normal posture, normal gait and joint tenderness (C2,C5,C6,T3,T4,L4,L5,R SI); no decreased ROM Cervical Spine: Yes normal cervical lordosis, Yes cervical muscular tenderness, Yes pain with cervical ROM with lateral flexion to right and with lateral flexion to left, Yes cervical spasm right greater than left lateral: trapezius and paracervical muscles, Yes misalignment misalignment: C2, C5, C6 Thoracic/Lumber: Yes thoracic and lumbar spine normal to inspection, Yes paraspinal tenderness (slightly improved) bilaterally in the upper thoracic and in the mid thoracic and on the right greater than left (lumbopelvic), Yes thoraco-lumbar spasm bilaterally (trap, levator) in the upper thoracic, in the mid thoracic and in the lower lumbar (paraspinal (L3-S1)) and on the right greater than left (iliopsoas), Yes misalignment T3, T4, T5, L3, L4, L5, RIL Sacroiliac joints: on the right (post/inf rotation) tender to palpation Office Procedures Chiropractic Treatments Procedures Manipulation: Cervical C2, C6, Lumbar L4, Thoracic T3, Pelvis RIL Manipulation: 3-4 regions Patient Response: positive Assessment Plan 1. Acute right-sided low back pain without sciatica M54.5 2. Segmental and somatic dysfunction of pelvic region M99.05 Orders Orders: Chiropractic Treatments Today 3. Segmental and somatic dysfunction of lumbar region M99.03 Orders Orders: Chiropractic Treatments Today 4. Segmental and somatic dysfunction of thoracic region M99.02 Orders Orders: Chiropractic Treatments Today 5. Segmental and somatic dysfunction of cervical region M99.01 Orders Orders: Chiropractic Treatments Today Plan Detail Other Orders Orders: Chiropractic Treatments Today M54.9 Additional Comments Lumbar xrays were viewed with patient and at home stretches were discussed. Suggested pelvic tilts, bridging, and psoas stretches. Continue care. Goals Decrease pain Improve ability to run/jump Improve gait Decrease spasm Follow Up 2xWeek Coding Level of Care Code No Charge Diagnoses Acute right-sided low back pain without sciatica M54.5 ?Back pain location: low back pain ?Chronicity: acute ?Back pain laterality: right ?Sciatica presence: without sciatica Segmental and somatic dysfunction of pelvic region M99.05 Segmental and somatic dysfunction of lumbar region M99.03 Segmental and somatic dysfunction of thoracic region M99.02 Segmental and somatic dysfunction of cervical region M99.01 Additional Codes Procedures - Manipulation: 3-4 regions (92436) 10/07/19 1423 <Electronically signed by [facility] D[facility]> Date Paradise Lamignchuck Signature: Date (if applicable) CC: Jana Farias Start: 10-01-2019 End: 10-01-2019 Chiropractic Report Comments: See Note; NOTES: [facility] [address] [place] [address] OFFICE VISIT Date of Service: 10/01/19 MR#: [id number] Acct: [id number] Name: MARIAJOSE HUANG Rep #: [id number] : 1975 Provider: KVNG Magallon Age/Sex: 44/F Location: [facility] Status: Signed Intake Vital Signs 10/01/19 BMI 24.0 10/01/19 Height 5 ft 1.5 in 10/01/19 Weight: 135 lb 9 oz 10/01/19 BMI 25.2 10/01/19 BP 112/60 10/01/19 Blood Pressure Location Rt brachial 10/01/19 Position Sitting Intake Visit Reasons: Back pain Chief Complaint: Neck and Low Back Pain Is patient in pain?: Yes Allergies methimazole [From Tapazole] Adverse Reaction (Mild, Verified 10/01/19 09:26) Rash Medications cetirizine 10 mg tablet 10 mg PO QDAY 05/14/17 [History Confirmed 10/01/19] levothyroxine 88 mcg capsule PO 05/14/17 [History Confirmed 10/01/19] pediatric multivitamin no.136 tab PO 05/14/17 [History Confirmed 10/01/19] [facility] Medical History (Updated 10/01/19 @ 10:[address] [facility] [place] DC) Thyroid disease (Acute) Surgical History (Updated 10/01/19 @ 09:32 by Josette Barraza) History of (Acute) History of dilation and curettage (Acute) History of tonsillectomy (Acute) Social History (Updated 10/01/19 @ 10:[address] [facility] [place] DC) Smoking Status: Never smoker alcohol intake: current alcohol intake frequency: a few times a week what type of physical activity do you participate in: walking, weight training frequency: 3-4 times per week HPI Back pain: Chief Complaint: Neck and Low Back Pain Visit Number: 1 Details: MARIAJOSE HUANG is a 44 year old F here today for neck and low back pain. She has seen a chiropractor for years but wanted to establish herself here since she works at [employer]. She states that she has issues with her Right SI joint that occasionally goes into her right groin. She states that with her first steps it feels uneven and like it is catching but usually works itself out. The pain is worsened by wearing high heels, walking on uneven ground, running, and repeated squatting. She also states that she has occasional neck stiffness and tightness that radiates from the neck into the trapezius muscles. The neck pain is aggravated by sleeping and bad posture. She denies any numbness or tingling. Location: Right SI and Neck Duration: Frequent Aggravating or associated factors: Wearing high heels, running, squating, sleeping, poor posture Relieving factors: Chiro Pain Quality: aching, dull, sharp, radiating, other (Tight) Current Sensation: catching Exam Musc General: Yes normal posture, normal gait and joint tenderness (C2,C5,C6,T3,T4,L4,L5,R SI); no decreased ROM Cervical Spine: Yes normal cervical lordosis, Yes cervical muscular tenderness, Yes pain with cervical ROM with lateral flexion to right and with lateral flexion to left, Yes cervical spasm right greater than left lateral: trapezius and paracervical muscles, Yes misalignment misalignment: C2, C5, C6 Thoracic/Lumber: Yes thoracic and lumbar spine normal to inspection, Yes Lasegue's sign negative, Yes straight leg raise negative bilaterally, No pain with thoraco-lumbar ROM, Yes paraspinal tenderness bilaterally in the upper thoracic and in the mid thoracic and on the right greater than left (lumbopelvic), No thoraco-lumbar ROM limited, Yes thoraco-lumbar spasm bilaterally (trap, levator) in the upper thoracic, in the mid thoracic and in the lower lumbar (paraspinal (L3-S1)) and on the right greater than left (iliopsoas), Yes misalignment T3, T4, T5, L3, L4, L5, RIL Sacroiliac joints: on the right (post/inf rotation) tender to palpation Neuro General: alert, awake, oriented x3, normal light touch, pain and propioception, no focal motor deficits Ortho Test CERVICAL Compression pain: Negative Shoulder depression pain: Right (tightness) THORACIC Kemps: Negative Kelly: Negative LUMBAR Kemps: Negative Valsalvas: Negative SLR: Negative Iliac Compression: Positive, Right Office Procedures Chiropractic Treatments Procedures Manipulation: Cervical C2, C6, Lumbar L4, Thoracic T3, Pelvis RIL Manipulation: 3-4 regions Patient Response: positive Assessment Plan 1. Acute right-sided low back pain without sciatica M54.5 2. Segmental and somatic dysfunction of cervical region M99.01 Orders Orders: Chiropractic Treatments Today 3. Segmental and somatic dysfunction of pelvic region M99.05 Orders Orders: Lumbar Spine 2 or 3 Views Today 4. Segmental and somatic dysfunction of lumbar region M99.03 Orders Orders: Lumbar Spine 2 or 3 Views Today 5. Segmental and somatic dysfunction of thoracic region M99.02 Plan Detail Other Orders Orders: Chiropractic Treatments Today M99.04 Lumbar Spine 2 or 3 Views Today M54.9 Additional Comments Patient was examined and treated without incident. Ordered lumbar xrays to be reviewed. Recommend acute treatment plan of 2x/wk/3wks. Goals Decrease pain Improve ability to run/jump Improve gait Decrease spasm Follow Up 2x/wk/3wks (1 of 6) Coding Level of Care Code Off vis,new,level 2 Diagnoses Acute right-sided low back pain without sciatica M54.5 ?Back pain location: low back pain ?Chronicity: acute ?Back pain laterality: right ?Sciatica presence: without sciatica Segmental and somatic dysfunction of cervical region M99.01 Segmental and somatic dysfunction of pelvic region M99.05 Segmental and somatic dysfunction of lumbar region M99.03 Segmental and somatic dysfunction of thoracic region M99.02 Additional Codes Procedures - Manipulation: 3-4 regions (72664) 10/01/19 1055 <Electronically signed by [facility]> Date [facility] Cosigner Signature: Date (if applicable) CC: Jana Farias Start: 11-28-2018 Screening digital breast tomosynthesis bi Pardeep Mary Lou Work Phone: Start: 05-14-2017 End: 05-14-2017 Urgent Care Visit Report Comments: See Note; NOTES: [facility] [address] [place] [address] OFFICE VISIT Date of Service: 05/14/17 MR#: [id number] Acct: [id number] Name: MARIAJOSE HUANG Rep #: [id number] : 1975 Provider: Brandon CHANDLER Age/Sex: 41/F Location: [facility] Status: Signed Intake Vital Signs05/14/17 Height 5 ft 1 in 05/14/17 Weight: 127 lb 05/14/17 Body Mass Index (BMI) 24.0 Intake Visit Reasons: Urinary tract infection 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 Is patient in pain?: Yes Allergies No Known Allergies Allergy (Unverified 05/14/17 12:26) Medications cetirizine 10 mg tablet 10 mg PO QDAY 05/14/17 [History Confirmed 05/14/17] levothyroxine 88 mcg capsule PO 05/14/17 [History Confirmed 05/14/17] pediatric multivitamin no.136 chewable tablet tab PO 05/14/17 [History Confirmed 05/14/17] PFSH Medical History Thyroid disease (Acute) Surgical History History of (Acute) History of tonsillectomy (Acute) Social History Smoking Status: Never smoker alcohol intake: current alcohol intake frequency: a few times a week HPI HPI Details: MARIAJOSE HUANG, is a 41 F who presents to the office today for 48 hours of intermittent pelvic discomfort. Patient states that she has pelvic pressure which is relieved with urinating. She denies any dysuria, hematuria or urinary frequency/urgency. Patient reports that her LMP was approximately 3/2 weeks ago and is due to have her period in the next several days. She reports that she has been regular with no irregular periods recently. Patient states she is concerned for possible UTI. She has had no fever, chills, sweats. No nausea, vomiting, diarrhea. No other associated symptoms or alleviating/aggravating factors. ROS Const Constitutional: No body ache, chills or fever(s) Resp Respiratory: No shortness of breath Cardio Cardiology: No lightheadedness, palpitations or irregular heart rhythm Gastro GI: No abdominal pain Genitourinary-Female: Positive for suprapubic fullness; no pelvic pain, painful intercourse, urinary frequency, blood in urine, burning urination, painful urination, sexual problems, Vaginal Itching, vaginal dryness, heavy periods, abnormal vaginal bleeding or genital itching Neuro Neurology: No confusion or behavioral changes Psych Psychiatric: No confusion, No behavioral changes Exam Const General: cooperative, healthy appearing Resp Effort AND Inspection: normal respiratory effort Auscultation: Bilateral: Clear to Auscultation Cardio Rate: regular rate Rhythm: regular rhythm GI Auscultation: normal bowel sounds General: No CVA tenderness Psych Appearance: grossly normal Mental Status: mental status grossly normal Results [facility] Office Urine Color Yellow Last Edit by Shu Riddle on 05/14/17 12:30 Assessment AND Plan 1. Pelvic pain in female R10.2 Status Acute Plan Patient advised to use ibuprofen or Tylenol as needed for the discomfort. Advised to follow-up with her [employer] in the next 5-7 days if no better or sooner if worse. Patient advised of potential red flags when appropriate report to the ED. Patient verbalized understanding of all the above. This note was generated with [employer] dictation software. It may contain incorrect words, spelling, and punctuation that were not noted in checking the note before signing. Plan Detail Other Orders Orders: Coding Level of Care Code Off vis,new,level 3 Diagnoses Pelvic pain in female R10.2 05/14/17 1243 <Electronically signed by Brandon CHANDLER> Date Brandon CHANDLER Cosigner Signature: Date (if applicable) CC: Jana Farias Start: 10-16-2013 Microscopic observat ion [Identifier] in Cervix by Cyto stain Pardeep Barreto MD Work Phone: section [facility] Erica Shah Comment on above: 2008 H/O: surgery Erica Shah Comment on above: 03/21 VILLAREAL thyroid Erica Shah Comment on above: 2006 rectal sx Erica Shah Comment on above: 2009 Tonsillectomy Erica lyman Comment on above: 03/21 Plan of Treatment Date Care Activity Detail Author Start: 2037 RSV Immunization aged 60 or older (1 - 1-dose 60+ series) RSV Immunization aged 60 or older (1 - 1-dose 60+ series) [facility] Start: 08-11-2030 DTaP/Tdap/Td vaccine (3 - Td or Tdap) DTaP/Tdap/Td vaccine (3 - Td or Tdap) [facility] Start: 08-11-2030 DTaP/Tdap/Td Vaccines (3 - Td or Tdap) DTaP/Tdap/Td Vaccines (3 - Td or Tdap) [facility] Start: 07-14-2027 Zoster Vaccines (1 of 2) Zoster Vaccines (1 of 2) [facility] Start: 06-11-2025 Lipid panel Lipid Panel [facility] Start: 09-12-2024 Screening for malignant neoplasm of breast Mammogram [facility] Start: 06-14-2024 Depression Screening Depression Screening [facility] Start: 12-05-2023 Diabetes mellitus screening Diabetes Screening [facility] Start: 12-05-2023 Thyroid stimulating hormone measurement TSH Level [facility] Start: 10-14-2023 COVID-19 Vaccine ( season) COVID-19 Vaccine ( season) [facility] Start: 10-14-2023 Influenza vaccination Influenza Vaccine (#1) [facility] Start: 10-14-2023 Screening for malignant neoplasm of cervix Cervical Cancer Screening [facility] Comment on above: Postponed from 1998 (Other Medical Reasons) Postponed from 07/13 (Other Medical Reasons) Start: 08-20-2023 End: 10-20-2024 DBT Breast - bilateral screening Bilateral screening mammogram with tomosynthesis Imaging Routine Encounter for screening mammogram for malignant neoplasm of breast Expected: 08/20/2023, Expires: 10/20/2024 [facility] Work Phone: Comment on above: Expected: 08/20/2023, Expires: Start: 06-13-2023 Depression Screening Depression Screening [facility] Start: 03-22-2023 Thyroid stimulating hormone measurement TSH Level [facility] Start: 01-23-2023 Screening for malignant neoplasm of breast Mammogram [facility] Start: 10-13-2022 COVID-19 Vaccine ( season) COVID-19 Vaccine ( season) [facility] Start: 10-13-2022 Influenza vaccination Influenza Vaccine (#1) [facility] Start: 08-13-2022 DTaP/Tdap/Td vaccine (2 - Td) DTaP/Tdap/Td vaccine (2 - Td) [place], [place] Start: 06-12-2022 End: 06-07-2023 Hemoglobin A1c/Hemoglobin.total in Blood Hemoglobin A1c Lab Routine Hyperglycemia Expected: 06/12/2022, Expires: 06/07/2023 [facility] Comment on above: Expected: 06/12/2022, Expires: 4 Start: 06-12-2022 End: 06-07-2023 Hepatitis C virus Ab [Presence] in Serum or Plasma by Immunoassay Hepatitis C antibody Lab Routine Need for hepatitis C screening test Expected: 06/12/2022, Expires: 06/07/2023 [facility] Work Phone: Comment on above: Expected: 06/12/2022, Expires: 4 Start: 06-12-2022 End: 06-07-2023 HIV 1+2 Ab+HIV1 p24 Ag [Presence] in Serum or Plasma by Immunoassay HIV-1 and HIV-2 Antigen-Antibody Screen Lab Routine Screening for HIV (human immunodeficiency virus) Expected: 06/12/2022, Expires: 06/07/2023 [facility] Comment on above: Expected: 06/12/2022, Expires: 4 Start: 02-22-2021 COVID-19 Vaccine (4 - Booster for Moderna series) COVID-19 Vaccine (4 - Booster for Moderna series) [facility] Start: 10-13-2020 Influenza vaccination Flu vaccine (#1) [facility] Start: 10-13-2018 Influenza vaccination Flu vaccine (#1) [place], [place] Start: 2017 Lipid panel Lipid screen [facility] Start: 2017 Lipid screen Lipid screen [place], [place] Start: 11-13-2016 Blood count complete auto&auto difrntl wbc CBC with auto diff (40328) [facility] Work Phone: Start: 11-13-2016 Urine albumin quantitative MICROALBUMIN: CREATININE RATIO (02001) AND (13391) [facility] Work Phone: Start: 11-13-2016 Comprehensive metabolic panel METABOLIC PANEL, COMPREHENSIVE (50138) [facility] Work Phone: Start: 11-13-2016 Lipid panel LIPID PANEL (30423) [facility] Work Phone: Start: 11-13-2016 HbA1c (Bld) [Mass fraction] HGB A1C (12617) [facility] Work Phone: Start: 11-13-2016 Hemoglobin glycosylated a1c HGB A1C (53753) [facility]; [facility] Work Phone: Start: 10-16-2016 Cervical cancer screen Cervical cancer screen [place], [place] Start: 10-16-2016 Screening for malignant neoplasm of cervix [facility] Start: 05-05-2011 Assay of free thyroxine T4, FREE (THYROXINE) ([id number]) [facility] Work Phone: Start: 05-05-2011 Free T4 [Mass/Vol] T4, FREE (THYROXINE) ([id number]) [facility] Work Phone: Start: 05-05-2011 Assay of thyroid stimulating hormone tsh TSH ([id number]) [facility]; [facility] Work Phone: Start: 05-05-2011 TSH Qn TSH ([id number]) [facility] Work Phone: Start: 05-05-2011 Assay of triiodothyronine t3 free T3, FREE (TRIDOTHYRONINE) ([id number]) [facility]; [facility] Work Phone: Start: 05-05-2011 Free T3 [Mass/Vol] T3, FREE (TRIDOTHYRONINE) ([id number]) [facility] Work Phone: Start: 04-26-2011 Provider Instructions for Treatment [facility] Work Phone: Start: 04-17-2011 Assay of free thyroxine T4, FREE (THYROXINE) ([id number]) [facility]; [facility] Work Phone: Comment on above: re check in 8 weeks Start: 04-17-2011 Free T4 [Mass/Vol] T4, FREE (THYROXINE) ([id number]) [facility] Work Phone: Comment on above: re check in 8 weeks Start: 04-17-2011 Assay of triiodothyronine t3 free T3, FREE (TRIDOTHYRONINE) ([id number]) [facility]; [facility] Work Phone: Start: 04-17-2011 Free T3 [Mass/Vol] T3, FREE (TRIDOTHYRONINE) ([id number]) [facility] Work Phone: Start: 04-17-2011 Assay of thyroid stimulating hormone tsh TSH ([id number]) [facility]; [facility] Work Phone: Start: 04-17-2011 TSH Qn TSH ([id number]) [facility] Work Phone: Start: 11-16-2010 GFR/1.73 sq M predicted among non-blacks MDRD (S/P/Bld) [Vol rate/Area] HCG, FREE BETACHAIN TEST (14682) [facility] Work Phone: Start: 11-16-2010 Gonadotropin chorionic hcg free beta chain HCG, FREE BETACHAIN TEST (86448) [facility]; [facility] Work Phone: Start: 11-16-2010 Gonadotropin chorionic qualitative HCG (Qual) (38285) [facility] Work Phone: Start: 09-22-2010 Assay of thyroid stimulating hormone tsh TSH ([id number]) [facility]; [facility] Work Phone: Start: 09-22-2010 TSH Qn TSH (19891) [facility] Work Phone: Start: 09-22-2010 Assay of free thyroxine T4, FREE (THYROXINE) ([id number]) [facility]; [facility] Work Phone: Start: 09-22-2010 Free T4 [Mass/Vol] T4, FREE (THYROXINE) ([id number]) [facility] Work Phone: Start: 09-22-2010 Assay of triiodothyronine t3 free T3, FREE (TRIDOTHYRONINE) ([id number]) [facility]; [facility] Work Phone: Start: 09-22-2010 Free T3 [Mass/Vol] T3, FREE (TRIDOTHYRONINE) ([id number]) [facility] Work Phone: Start: 07-20-2010 Assay of thyroid stimulating hormone tsh TSH ([id number]) [facility]; [facility] Work Phone: Start: 07-20-2010 TSH Qn TSH ([id number]) [facility] Work Phone: Start: 07-14-2007 Screening for malignant neoplasm of cervix [facility] Start: 04-09-2007 Cul bact xcpt urine blood/stool aerobic isol DONALD CULTURE-OTHER (80753) [facility] Work Phone: Start: 01-24-2007 Provider Instructions for Treatment [facility] Work Phone: Start: 01-24-2007 Thyroid horm uptk/thyroid hormone binding ratio T-3 UPTAKE (90900) [facility] Work Phone: Start: 10-19-2006 Assay of triiodothyronine t3 total tt3 T3, TOTAL (TRIDOTHYRONINE) ([id number]) [facility] Work Phone: Start: 10-19-2006 Thyroid horm uptk/thyroid hormone binding ratio T-3 UPTAKE (47056) [facility] Work Phone: Start: 10-19-2006 Assay of thyroxine total T4, TOTAL ([id number]) [facility] Work Phone: Start: 10-19-2006 Beta HCG ( test) Ql (U) Urine Test, Office (95006) [facility] Work Phone: Comment on above: NEGATIVE Start: 10-19-2006 Urine test visual color cmprsn meths Urine Test, Office (04127) [facility]; [facility] Work Phone: Comment on above: NEGATIVE Start: 10-19-2006 Assay of thyroid stimulating hormone tsh TSH ([id number]) [facility]; [facility] Work Phone: Start: 10-19-2006 TSH Qn TSH ([id number]) [facility] Work Phone: Start: 1998 Screening for malignant neoplasm of cervix Pap Smear [facility] Start: 1996 DTaP/Tdap/Td vaccine (1 - Tdap) DTaP/Tdap/Td vaccine (1 - Tdap) [place], [place] Start: 07-14-1995 Diabetes mellitus screening Diabetes Screening [facility] Start: 07-14-1995 Hepatitis C screening Hepatitis C Screening [facility] Start: 1992 HIV screen HIV screen [place], [place] Start: 1992 HIV screening HIV screen [facility] Start: 1989 COVID-19 Vaccine (1) COVID-19 Vaccine (1) [facility] Start: 1977 Hepatitis C screening Hepatitis C screen [facility] Start: 1977 HIV screening HIV Screening [facility] Start: 1977 Lipid panel Lipid Panel [facility] Start: 1977 Screening for malignant neoplasm of colon [facility] Hepatitis C virus Ab [Presence] in Serum or Plasma by Immunoassay Hepatitis C antibody Lab Routine Need for hepatitis C screening test Ordered: 06/15/2023 [facility] Work Phone: Comment on above: Ordered: 06/15/2023 HIV 1+2 Ab+HIV1 p24 Ag [Presence] in Serum or Plasma by Immunoassay HIV-1 and HIV-2 Antigen-Antibody Screen Lab Routine Encounter for screening for HIV Ordered: 06/15/2023 [facility] Comment on above: Ordered: 06/15/2023 End: 12-20-2018 OMAR ZO DIGITAL DIAGNOSTIC UNILATERAL RIGHT OMAR ZO DIGITAL DIAGNOSTIC UNILATERAL RIGHT Imaging Routine Once for 1 Occurrences starting 12/20/2018 until 12/20/2018 [place] Comment on above: Once for 1 Occurrences starting 12/21/19 19 until 12/20/2018 OMAR ZO DIGITAL DIAGNOSTIC UNILATERAL RIGHT OMAR ZO DIGITAL DIAGNOSTIC UNILATERAL RIGHT Imaging [facility]ine [facility]/20[facility]2018 [facility] End: 12-23-2020 Screening digital breast tomosynthesis bi [facility] Work Phone: Comment on above: Once for 1 Occurrences starting 12/24/19 21 until 12/23/2020 End: 12-20-2018 US BREAST LIMITED RIGHT US BREAST LIMITED RIGHT Imaging Routine Once for 1 Occurrences starting 12/20/2018 until 12/20/2018 [facility] Comment on above: Once for 1 Occurrences starting 12/21/19 19 until 12/20/2018 US BREAST LIMITED RIGHT US BREAS T LIMITED RIGHT Imaging Routine 12/20/2018 4:04 PM [facility] Work Phone: [facility] Work Phone: [facility] Work Phone: [facility] Work Phone: Immunizations Immunization Date Immunization Notes Care Provider [facility] 11-22-2022 influenza virus vacc ine, unspecified formulation Priti Hollingsworth MD Work Phone: [facility] 11-21-2021 influenza, seasonal, injectable Pollo Hollingsworth MD Work Phone: [facility] 11-21-2021 influenza virus vacc ine, unspecified formulation Pollo Hollingsworth MD Work Phone: [facility] 08-11-2020 tetanus toxoid, redu marisol diphtheria toxoid, and acellular pertussis vaccine, adsorbed Pollo Hollingsworth MD Work Phone: [facility] 08-13-2012 tetanus toxoid, redu marisol diphtheria toxoid, and acellular pertussis vaccine, adsorbed Pollo Hollingsworth MD Work Phone: [facility] Payers Date Payer Category Payer Unknown [id number] 2014 Unknown BC[place] PO xxxxxxxxxxxx 2014-Present [address] [place] [address] xxxxxxxxxxxx [id number] 2014 Unknown [place] PO [id number] 2014-Present [phone] [address] [place] [address] [id number] 2008 Unknown 1977 Unknown [id number] 1977 Unknown [id number] 1977 Unknown [id number] 1977 Unknown [id number] 1977 Unknown [id number] 1977 Unknown [id number] 1977 Unknown [id number] 1977 Unknown [id number] 1977 Unknown [id number] 1977 Unknown [id number] Unknown [id number] Social History Date Type Detail Facility Start: 06-12-2022 End: 06-15-2023 Alcohol Use Alcohol Use [facility] Work Phone: Comment on above: Occasional alcohol u se occ Inactive Lives with spouse 1 Tobacco use: Tobacco use: [facility] Work Phone: Comment on above: updated 04-26-11 Start: 11-25-2014 End: 06-12-2022 Tobacco smoking status NHIS Never smoker [place], [place] Start: 11-25-2014 End: 06-15-2023 Alcohol intake Current drinker of alcohol (finding) [place] Start: 09-03-2014 Alcohol Comment ocasionally Marlen Parada [place], [place] Start: 1975 Sex Assigned At Not on file [place], [place] Start: 11-25-2014 End: 06-12-2022 Alcohol intake Yes [place] Tobacco use: Tobacco use: [facility] Work Phone: Comment on above: updated 04-26-11 Start: 09-03-2014 End: 06-12-2022 Tobacco use and exposure Smokeless tobacco non-user [facility] Work Phone: Start: 06-12-2022 History SDOH Financial 5 [facility] Start: 06-12-2022 History SDOH Food Worry 1 [facility] Start: 06-12-2022 History SDOH Transport Med 2 [facility] Start: 06-02-2022 End: 06-12-2022 Exposure to SARS-CoV-2 (event) Not sure [facility] How hard is it for you to pay for the very basics like food, housing, medical care, and heating Not hard at all [facility] (I/We) worried whether (my/our) food would run out before (I/we) got money to buy more. Never true [facility] Start: 09-02-2022 End: 09-12-2022 Exposure to SARS-CoV-2 (event) Unable to assess [facility] NEGATED: Highlighted rowStart: ESTUARDO History of tobacco use Passive smoker [facility] Clinical Notes 08-11-2020 to 10-17-2023 Telephone Encounter - Marisa Hernandez - 10/17/2023 10:56 AM EDTTelephone Encounter - Marisa Hernandez - 10/17/2023 10:56 AM EDTTelephone Encounter - Fabi Galindo - 09/27/2023 3:43 PM EDT Note Date & Type Note Facility 10-17-2023 Telephone encounter Note I spoke to our billing department and they are resubmitting the claim with the BP dx as primary. Notified patient and advised her to call me back if she received another denial. [facility] 10-17-2023 Miscellaneous Notes I spoke to our billing department and they are resubmitting the claim with the BP dx as primary. Notified patient and advised her to call me back if she received another denial. Name of caller: Mariajose Contact phone number: [phone] Relationship to Patient: patient Provider: Dr. Hollingsworth Practice: [facility] Chief Complaint/Reason for Call: Pt would like to talk to the chief marketing officer, states she requested a call back last week and have not received it. Please advise Best time of day caller can be reached: After 12 tomorrow and time today! Patient advised that office/PCP has 24-48 business hours to return their call: No documented in this encounter [facility] 09-27-2023 Telephone encounter Note Name of caller: Mariajose Contact phone number: [phone] Relationship to Patient: patient Provider: Dr. Hollingsworth Practice: [facility] Chief Complaint/Reason for Call: Pt would like to talk to the chief marketing officer, states she requested a call back last week and have not received it. Please advise Best time of day caller can be reached: After 12 tomorrow and time today! Patient advised that office/PCP has 24-48 business hours to return their call: No [facility] 09-27-2023 Miscellaneous Notes Name of caller: Mariajose Contact phone number: [phone] Relationship to Patient: patient Provider: Dr. Hollingsworth Practice: [facility] Chief Complaint/Reason for Call: Pt would like to talk to the chief marketing officer, states she requested a call back last week and have not received it. Please advise Best time of day caller can be reached: After 12 tomorrow and time today! Patient advised that office/PCP has 24-48 business hours to return their call: No documented in this encounter [facility] 06-15-2023 Evaluation + Plan note Associated Problem(s): Situational anxiety Most likely due to perimenopause as she has noticed cyclical component. Her [employer] did give her some Paxil to try it 5 mg for short cyclical time. She was hesitant to do so but she will consider doing this to help prevent panic attacks at work. She also knows coping mechanisms such as deep breathing exercises and other relaxation techniques if this would happen. She is going to let me know or her [employer] know if symptoms do not improve [facility] 06-15-2023 Miscellaneous Notes Associated Problem(s): Situational anxiety Most likely due to perimenopause as she has noticed cyclical component. Her [employer] did give her some Paxil to try it 5 mg for short cyclical time. She was hesitant to do so but she will consider doing this to help prevent panic attacks at work. She also knows coping mechanisms such as deep breathing exercises and other relaxation techniques if this would happen. She is going to let me know or her [employer] know if symptoms do not improve Associated Problem(s): White coat syndrome without diagnosis of hypertension Patient has noticed a cyclical component and believes that perimenopause and high estrogen levels are playing a role. She is going to continue taking this broccoli based supplement as it is making her feel better. She is continuing to do healthy exercise and diet. She continues to check her blood pressure at home and it is normal. She does not want to start any medications at this time documented in this encounter [facility] 06-15-2023 Evaluation + Plan note Associated Problem(s): White coat syndrome without diagnosis of hypertension Patient has noticed a cyclical component and believes that perimenopause and high estrogen levels are playing a role. She is going to continue taking this broccoli based supplement as it is making her feel better. She is continuing to do healthy exercise and diet. She continues to check her blood pressure at home and it is normal. She does not want to start any medications at this time [facility] 06-15-2023 History of Presen t illness Narrative Images from the original note were not included. [address] [address] Dept: [phone] Dept Loc: [phone] Reason for Visit: Blood Pressure Check Assessment and Plan 1. Situational anxiety Assessment & Plan: Most likely due to perimenopause as she has noticed cyclical component. Her [employer] did give her some Paxil to try it 5 mg for short cyclical time. She was hesitant to do so but she will consider doing this to help prevent panic attacks at work. She also knows coping mechanisms such as deep breathing exercises and other relaxation techniques if this would happen. She is going to let me know or her [employer] know if symptoms do not improve 2. White coat syndrome without diagnosis of hypertension Assessment & Plan: Patient has noticed a cyclical component and believes that perimenopause and high estrogen levels are playing a role. She is going to continue taking this broccoli based supplement as it is making her feel better. She is continuing to do healthy exercise and diet. She continues to check her blood pressure at home and it is normal. She does not want to start any medications at this time 3. Colon cancer screening - External referral to Gastroenterology 4. Screening mammogram for breast cancer-she has dense breasts she was going to check with her insurance company to see if MRI will be covered every other year she knows she is due for mammogram this has come from her [employer] 5. Encounter for screening for HIV - HIV-1 and HIV-2 Antigen-Antibody Screen 6. Need for hepatitis C screening test - Hepatitis C antibody 7. Perimenopause--mainly with hot flashes and weight gain and anxiety as above follows with clinic licensed practical nurse as well as [employer] she is going to consider the cyclical Paxil 8. Postablative hypothyroidism--follows with endocrinology levels have been stable continue current plan I reviewed recent blood work that was drawn current treatment plan is effective, no change in therapy, orders and follow up as documented in EMR, lab results reviewed with patient, repeat labs ordered prior to next appointment, reviewed compliance with lifestyle measures, reviewed diet, exercise and weight control, reviewed medications and side effects in detail Rto prn / or 3 months Subjective HPI F/up She sees endo for post-ablative hypothyroidism = he follows labs and tsh She ahs white coat htn and has declined bp meds in past- she endorses regualr aerobic acitvity / low salt diet and yoga regularly She has noticed a cyclical component to her anxiety symptoms and mood symptoms which is usually run a week before her period the days of her period and a little bit after her period. sHe also notices a blood pressure spike during this time She brings her blood pressure readings today which are excellent in the last week her period just ended yesterday and started on the she also has a whitecoat component her blood pressure was in the 160s at her [employer]'s office and then at home it was 116/67 130/70 today knowing she was coming here it was 138/80. 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 Her clinic licensed practical nurse ordered hormone levels and has her on a special supplement that she has been on in the past to help decrease her high estrogen levels Issues with perimenopause and panic attacks during periods sees a clinic licensed practical nurse as well dr barrientos - high in estrogen her estradiol is high and had [employer] - [place] test detoxes estrogen --and crissy started diindolylmethane taking again 2 weeks ago --she feels better already = less bloated Has had panic attacks before periods--high anxiety 1 week before and after and during these times her BP spikes as well Her [employer] that she saw last week prescribed Paxil for her to take a few days before her period the days of her period and a few days after her period she is to take 5 mg of Paxil. But she has not started this yet she prefers to go on a natural path and she states that she is already feeling better but was wondering what she she should do at work when the panic feelings come on. She has dense breasts and ahs followed with dr taylor in past and has had mri breast 2022 for baseline and it was normal Mammogram 2023 Was to see endo yesterday and then July 2023 Dad has mestastized prostate and bladder cancer- and heart failure . Her daughter is a type I who is going off to college soon Patient's last menstrual period was 06/09/2023 (exact date). Review of Systems Constitutional: Positive for activity change and appetite change. HENT: Negative. Respiratory: Negative. Endocrine: Positive for heat intolerance. Genitourinary: Negative. Musculoskeletal: Negative. Psychiatric/Behavioral: Positive for behavioral problems and sleep disturbance. Negative for suicidal ideas. The patient is nervous/anxious. Allergies Allergen Reactions Methimazole Rash Outpatient Medications Prior to Visit Medication Sig Dispense Refill Cholecalciferol (Vitamin D) 50 MCG (1999 UT) capsule Take by mouth. Levomefolate Glucosamine (MethylFolate) 400 MCG capsule Take by mouth. levothyroxine (Tirosint) 112 MCG capsule TAKE 1 CAPSULE BY MOUTH EVERY DAY IN THE MORNING Multiple Vitamin (multivitamin) tablet Take 1 tablet by mouth daily. NON FORMULARY daily. Hormone Balance No facility-administered medications prior to visit. Medications reviewed Medical history reviewed Allergies reviewed Health Maintenance Topic Date Due HIV Screening Never done Colorectal Cancer Screening Never done Hepatitis C Screening Never done COVID-19 Vaccine ( season) 2022 Mammogram 01/23/2023 Depression Screening 06/13/2023 Cervical Cancer Screening 10/14/2023 (Originally 07/14/2007) TSH Level 12/05/2023 Diabetes Screening 12/05/2023 Lipid Panel 06/11/2025 Zoster Vaccines (1 of 2) 07/14/2027 DTaP/Tdap/Td Vaccines (3 - Td or Tdap) 08/11/2030 RSV Immunization aged 60 or older (1 - 1-dose 60+ series) 2037 Influenza Vaccine Completed RSV Immunization under 20 Months Aged Out HIB Vaccines Aged Out IPV Vaccines Aged Out Hepatitis A Vaccines Aged Out Meningococcal Vaccine Aged Out Rotavirus Vaccines Aged Out HPV Vaccines Aged Out Pneumococcal Vaccine: Pediatrics (0 to 5 Years) and At-Risk Patients (6 to 64 Years) Aged Out Hepatitis B Vaccines Discontinued MMR Vaccines Discontinued Objective BP 130/80 Pulse 100 Temp 36.5 C (97.7 F) Ht 5' 1.5 (1.562 m) Wt 150 lb (68 kg) LMP 06/09/2023 (Exact Date) BMI 27.88 kg/m Physical Exam Vitals and nursing note reviewed. Constitutional: General: She is not in acute distress. HENT: Head: Normocephalic and atraumatic. Right Ear: Tympanic membrane normal. Left Ear: Tympanic membrane normal. Mouth/Throat: Mouth: Mucous membranes are moist. Pharynx: Oropharynx is clear. Eyes: Conjunctiva/sclera: Conjunctivae normal. Neck: Vascular: No carotid bruit. Cardiovascular: Rate and Rhythm: Normal rate and regular rhythm. Heart sounds: No murmur heard. Pulmonary: Effort: Pulmonary effort is normal. Breath sounds: Normal breath sounds. Abdominal: General: Bowel sounds are normal. Palpations: Abdomen is soft. Musculoskeletal: Cervical back: Neck supple. Right lower leg: No edema. Left lower leg: No edema. Lymphadenopathy: Cervical: No cervical adenopathy. Skin: General: Skin is warm and dry. Neurological: Mental Status: She is alert and oriented to person, place, and time. Psychiatric: Mood and Affect: Mood normal. Thought Content: Thought content normal. Data Reviewed and Summarized Last 3 PHQ-2 Scores 06/15/2023 0937 06/12/2022 1501 Patient Health Questionnaire-2 Score: 0 0 PHQ2: Patient Health Questionnaire-2 Score: 0 Labs: esults Results Test Name Value Interpretation Reference Range Facility Basophil percentage Ordered By: Jeff Duron on 06-11-2023 Bilirubin [Mass/Vol] 0.20 mg/dL 0.20-1.00 [facility] Comment on above: For patients on eltrombopag therapy, use of Dimension [place] TBIL is not recommended. Chloride [Moles/Vol] 104 mmol/L 98-107 [facility] Glucose [Mass/Vol] 100 mg/dL 74-106 [facility] Comment on above: Fasting Glucose result from 100 to 125 mg/dL suggests IMPAIRED HOMEOSTASIS per A.D.A. criteria. Potassium [Moles/Vol] 3.8 mmol/L 3.5-5.1 [facility] Protein [Mass/Vol] 6.8 g/dL 6.4-8.2 [facility] Sodium [Moles/Vol] 138 mmol/L 136-145 [facility] on 06-11-2023 Albumin [Mass/Vol] 3.7 g/dL Normal 3.2-5.0 [facility] Comment on above: Performed By: #### L3100.5125, L506.1000, L3300.1750, L509.1000, L500.4050, L501.9520 #### [facility] [address] [place], [address] Albumin/Globulin [Mass ratio] 1.2 Normal 0.9-2.4 [facility] Comment on above: Performed By: #### L3100.5125, L506.1000, L3300.1750, L509.1000, L500.4050, L501.9520 #### [facility] [address] [place], [address] ALK P 53 U/L Normal 45-117 [facility] Comment on above: Performed By: #### L3100.5125, L506.1000, L3300.1750, L509.1000, L500.4050, L501.9520 #### [facility] [address] [place], [address] ALT [Catalytic activity/Vol] 20 U/L Normal 13-56 [facility] Comment on above: Performed By: #### L3100.5125, L506.1000, L3300.1750, L509.1000, L500.4050, L501.9520 #### [facility] [address] [place], [address] AST [Catalytic activity/Vol] 16 U/L Normal 15-37 [facility] Comment on above: Performed By: #### L3100.5125, L506.1000, L3300.1750, L509.1000, L500.4050, L501.9520 #### [facility] [address] [place], [address] Bilirubin [Mass/Vol] 0.20 mg/dL Normal 0.20-1.00 [facility] Comment on above: Result Comment: For patients on eltrombopag therapy, use of Dimension [place] TBIL is not recommended. Performed By: #### L3100.5125, L506.1000, L3300.1750, L509.1000, L500.4050, L501.9520 #### [facility] [address] [place], [address] BUN/CRE 28.9 RATIO High 10-20 [facility] Comment on above: Performed By: #### L3100.5125, L506.1000, L3300.1750, L509.1000, L500.4050, L501.9520 #### [facility] [address] [place], [address] CA,Total 9.2 mg/dL Normal 8.5-10.1 [facility] Comment on above: Performed By: #### L3100.5125, L506.1000, L3300.1750, L509.1000, L500.4050, L501.9520 #### [facility] [address] [place], [address] Chloride [Moles/Vol] 104 mmol/L Normal 98-107 [facility] Comment on above: Performed By: #### L3100.5125, L506.1000, L3300.1750, L509.1000, L500.4050, L501.9520 #### [facility] [address] [place], [address] CO2 [Moles/Vol] 30.0 mmol/L Normal 21.0-32.0 [facility] Comment on above: Performed By: #### L3100.5125, L506.1000, L3300.1750, L509.1000, L500.4050, L501.9520 #### [facility] [address] [place], [address] Creatinine [Mass/Vol] 0.73 mg/dL Normal 0.55-1.02 [facility] Comment on above: Result Comment: The validity of the calculated GFR GFRAA in patients over 70 years has not been determined. Clinical correlation is essential. Performed By: #### L3100.5125, L506.1000, L3300.1750, L509.1000, L500.4050, L501.9520 #### [facility] [address] [place], [address] EST GFR - AA 111 mL/min Normal >60 [facility] Comment on above: Result Comment: GFR Calc Performed By: #### L3100.5125, L506.1000, L3300.1750, L509.1000, L500.4050, L501.9520 #### [facility] [address] [place], [address] GAP 4 Low 5-15 [facility] Comment on above: Performed By: #### L3100.5125, L506.1000, L3300.1750, L509.1000, L500.4050, L501.9520 #### [facility] [address] [place], [address] GFR/1.73 sq M.predicted among non-blacks MDRD (S/P/Bld) [Vol rate/Area] 92 mL/min/{1.73_m2 Normal >60 [facility] Comment on above: Result Comment: Non- GFR Calc Performed By: #### L3100.5125, L506.1000, L3300.1750, L509.1000, L500.4050, L501.9520 #### [facility] [address] [place], [address] Globulin (S) [Mass/Vol] 3.1 g/dL Normal 2.2-4.2 [facility] Comment on above: Performed By: #### L3100.5125, L506.1000, L3300.1750, L509.1000, L500.4050, L501.9520 #### [facility] [address] [place], [address] Glucose [Mass/Vol] 100 mg/dL Normal 74-106 [facility] Comment on above: Result Comment: Fasting Glucose result from 100 to 125 mg/dL suggests IMPAIRED HOMEOSTASIS per A.D.A. criteria. Performed By: #### L3100.5125, L506.1000, L3300.1750, L509.1000, L500.4050, L501.9520 #### [facility] [address] [place], [address] Potassium [Moles/Vol] 3.8 mmol/L Normal 3.5-5.1 [facility] Comment on above: Performed By: #### L3100.5125, L506.1000, L3300.1750, L509.1000, L500.4050, L501.9520 #### [facility] [address] [place], [address] Sodium [Moles/Vol] 138 mmol/L Normal 136-145 [facility] Comment on above: Performed By: #### L3100.5125, L506.1000, L3300.1750, L509.1000, L500.4050, L501.9520 #### [facility] [address] [place], [address] T PROT 6.8 g/dL Normal 6.4-8.2 [facility] Comment on above: Performed By: #### L3100.5125, L506.1000, L3300.1750, L509.1000, L500.4050, L501.9520 #### [facility] [address] [place], [address] Urea nitrogen [Mass/Vol] 21 mg/dL High 7-18 [facility] Comment on above: Performed By: #### L3100.5125, L506.1000, L3300.1750, L509.1000, L500.4050, L501.9520 #### [facility] [address] [place], [address] Estradiol on 06-11-2023 ESTRADIOL 54.0 pg/mL Normal [facility] Comment on above: Result Comment: NORMAL REFERENCE RANGES FEMALE FOLLICULAR 21.4 - 164.8 pg/mL MID-CYCLE PEAK 49.9 - 367.2 pg/mL LUTEAL 40.2 - 259.0 pg/mL POST-MENOPAUSAL ON MHT <11.0 - 462.1 pg/mL NOT ON MHT <11.0 - 58.3 pg/mL MALE <11.0 - 52.5 pg/mL NOTE: [facility] HAS CONFIRMED THE DRUG FULVETRANT (FASLODEX) MAY CAUSE FALSELY ELEVATED ESTRADIOL RESULTS WHEN USING THIS TEST METHOD. IF PATIENT IS TAKING FULVESTRANT AN ALTERNATIVE METHOD SHOULD BE USED TO DETERMINE ESTRADIOL CONCENTRATION. Performed By: #### L3100.5125, L506.1000, L3300.1750, L509.1000, L500.4050, L501.9520 #### [facility] [address] [place], [address] Follicle Stimulating Hormone on 06-11-2023 FSH 7.3 mIU/mL Normal [facility] Comment on above: Result Comment: NORMAL REFERENCE RANGES FEMALE FOLLICULAR 2.3 - 12.6 mIU/mL MID-CYCLE PEAK 5.2 - 17.5 mIU/mL LUTEAL 1.7 - 12.9 mIU/mL POST-MENOPAUSAL ON MHT 5.9 - 72.8 mIU/mL NOT ON MHT 12.7 - 132.2 mlU/mL MALE 0.7 - 10.8 mIU/mL Performed By: #### L3100.5125, L506.1000, L3300.1750, L509.1000, L500.4050, L501.9520 #### [facility] [address] [place], [address] Laboratory - Chemistry and Chemistry - challenge Ordered By: Jeff Duron on 06-11-2023 Albumin/Globulin [Mass ratio] 1.2 0.9-2.4 [facility] ALP [Catalytic activity/Vol] 53 U/L 45-117 [facility] ALT [Catalytic activity/Vol] 20 U/L 13-56 [facility] CO2 [Moles/Vol] 30.0 mmol/L 21.0-32.0 [facility] Globulin (S) [Mass/Vol] 3.1 g/dL 2.2-4.2 [facility] Urea nitrogen/Creatinine [Mass ratio] 28.9 mg/mg 10-20 [facility] No Panel Information Ordered By: Jeff Duron on 06-11-2023 Estimated GFR (MDRD) Amer 111 mL/min >60 [facility] Comment on above: GFR Calc Estimated GFR (MDRD) Non-Af Amer 92 mL/min >60 [facility] Comment on above: Non- GFR Calc Estradiol (E2) Level 54.0 pg/mL [facility] Comment on above: NORMAL REFERENCE RANGES FEMALE FOLLICULAR 21.4 - 164.8 pg/mL MID-CYCLE PEAK 49.9 - 367.2 pg/mL LUTEAL 40.2 - 259.0 pg/mL POST-MENOPAUSAL ON MHT <11.0 - 462.1 pg/mL NOT ON MHT <11.0 - 58.3 pg/mL MALE <11.0 - 52.5 pg/mL NOTE:[facility] HAS CONFIRMED THE DRUG FULVETRANT (FASLODEX) MAY CAUSE FALSELY ELEVATED ESTRADIOL RESULTS WHEN USING THIS TEST METHOD. IF PATIENT IS TAKING FULVESTRANT AN ALTERNATIVE METHOD SHOULD BE USED TO DETERMINE ESTRADIOL CONCENTRATION. Follicle Stimulating Hormone 7.3 mIU/mL [facility] Comment on above: NORMAL REFERENCE RANGES FEMALE FOLLICULAR 2.3 - 12.6 mIU/mL MID-CYCLE PEAK 5.2 - 17.5 mIU/mL LUTEAL 1.7 - 12.9 mIU/mL POST-MENOPAUSAL ON MHT 5.9 - 72.8 mIU/mL NOT ON MHT 12.7 - 132.2 mlU/mL MALE 0.7 - 10.8 mIU/mL Parathyroid Hormone (Intact) 29.5 pg/mL 18.4-80.1 [facility] Vitamin D 25-Hydroxy 38.7 ng/mL [facility] Comment on above: Vitamin D 25(OH) Status Range Deficiency <20 ng/mL (50nmol/L) Insufficiency 20 - 30 ng/mL (50 - 75 nmol/L) Sufficiency 30 - 100 ng/mL (75 - 250 nmol/L) Toxicity >100 ng/mL (>250 nmol/L) PTHIN on 06-11-2023 PTH 29.5 pg/mL Normal 18.4-80.1 [facility] Comment on above: Performed By: #### L3100.5125, L506.1000, L3300.1750, L509.1000, L500.4050, L501.9520 #### [facility] [address] [place], [address] Serum or plasma calcium measurement (mass/volume) Ordered By: Jeff Duron on 06-11-2023 Calcium [Mass/Vol] 9.2 mg/dL 8.5-10.1 [facility] Serum or plasma creatinine measurement (mass/volume) Ordered By: Jeff Duron on 06-11-2023 Creatinine [Mass/Vol] 0.73 mg/dL 0.55-1.02 [facility] Comment on above: The validity of the calculated GFR & GFRAA in patients over 70 years has not been determined. Clinical correlation is essential. Serum or plasma thyroid stimulating hormone (TSH) measurement (units/volume) Ordered By: Jeff Duron on 06-11-2023 TSH Qn 2.17 uIU/mL 0.358-3.74 [facility] Serum or plasma urea nitrogen measurement (mass/volume) Ordered By: Jeff Duron on 06-11-2023 Urea nitrogen [Mass/Vol] 21 mg/dL 7-18 [facility] Thin prep Papanicolaou smear with manual screening Ordered By: Jeff Duron on 06-11-2023 Thin prep Papanicolaou smear with manual screening 3.7 g/dL 3.2-5.0 [facility] Thin prep Papanicolaou smear with manual screening 16 U/L 15-37 [facility] Thin prep Papanicolaou smear with manual screening 4 5-15 [facility] Thyroid Stim Hormone (TSH) on 06-11-2023 TSH 2.17 uIU/mL Normal 0.358-3.74 [facility] Comment on above: Performed By: #### L3100.5125, L506.1000, L3300.1750, L509.1000, L500.4050, L501.9520 #### [facility] [address] [place], [place], [id number] Vitamin D,25 Hydroxy on 06-11-2023 Vitamin D 25-OH 38.7 ng/mL Normal [facility] Comment on above: Result Comment: Vitamin D 25(OH) Status Range Deficiency <20 ng/mL (50nmol/L) Insufficiency 20 - 30 ng/mL (50 - 75 nmol/L) Sufficiency 30 - 100 ng/mL (75 - 250 nmol/L) Toxicity >100 ng/mL (>250 nmol/L) Performed By: #### L3100.5125, L506.1000, L3300.1750, L509.1000, L500.4050, L501.9520 #### [facility] [address] [place], [place], [id number] POLLO HOLLINGSWORTH MD Patient was able to ambulate safely to the examination room. Provider was not notified of possible fall risk Pt asked if they have been to specialist,been in ER /hospitalized or had testing since last visit. ED. Scratched cornea documented in this encounter [facility] 03-29-2023 Telephone encounter Note Message left for patient to [facility] 03-29-2023 Miscellaneous Notes Message left for patient to call the [facility]. Message left for patient to call the [facility]. Called number of record and left message to call office for message from PCP. Please schedule a follow-up appointment for this patient for a check up and follow up blood pressure documented in this encounter [facility] 03-28-2023 Telephone encounter Note Message left for patient to call the [facility]. [facility] 03-28-2023 Miscellaneous Notes Message left for patient to call the [facility]. Called number of record and left message to call office for message from PCP. Please schedule a follow-up appointment for this patient for a check up and follow up blood pressure documented in this encounter [facility] 03-27-2023 Telephone encounter Note Called number of record and left message to call office for message from PCP. [facility] 03-27-2023 Miscellaneous Notes Called number of record and left message to call office for message from PCP. Please schedule a follow-up appointment for this patient for a check up and follow up blood pressure documented in this encounter [facility] 03-27-2023 Telephone encounter Note Please schedule a follow-up appointment for this patient for a check up and follow up blood pressure [facility] 09-12-2022 History of Presen t illness Narrative Images from the original note were not included. [facility] [address] [facility] [address] Dept: [phone] Dept Loc: [phone] [facility] Mariajose Huang is a 47 y.o. who presents for a telehealth visit. Patient was seen today via Telehealth by agreement and consent. I used the following Telehealth technology: Audio and video capabilities. Patient location: [place] Patient Location: Home. This patient encounter is appropriate and reasonable under the circumstances: time . Time spent on phone 20 minutesThe patient has been advised of the potential risks and limitations of this mode of treatment (including but not limited to the absence of in-person examination) and has agreed to be treated in a remote fashion in spite of them. Any and all of the patient's/patient's family's questions on this issue have been answered and I have made no promises or guarantees to the patient. The patient has also been advised to contact this office for worsening conditions or problems, and seek emergency medical treatment and/or call 911 if the patient deems either necessary. The patient stated that they are currently in the [facility]. If the patient is a minor, permission has been obtained by the parent or guardian for the patient to receive medical care at this visit. Chief complaint: No chief complaint on file. 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 She does feels like was bit that Sunday before they left--September 05 she was --- scratching at it ---no bleeding . She states it was only mildly itchy she just felt like she needed to scratch at it and denied feeling severe itchiness since. Denies symptoms of arthralgia fever headache visual disturbances. Her sister she states actually developed Lyme disease but it was not in [place] but they are actually not sure. Unfortunately since she saw the nurse practitioner this morning who had noticed the rash she became very worried and was not sure what she should do. She stated she did put Neosporin on it and that the second picture was the day after she put Neosporin on it. She feels like the rash was a little bit better this morning. She is unsure if the rash has spread or gotten bigger since it was behind her neck Allergies Allergen Reactions Methimazole Rash [x] PMH, allergies, and social history reviewed and updated as appropriate [x] Medication list reviewed/updated [x] Allergies reviewed/updated [x] Problem list reviewed/updated [] Patient requests medication refills, see below for orders. Depression: Not at risk (06/12/2022) PHQ-2 PHQ-2 Score: 0 (Provider: if last PHQ done >/= 9 mos from today, consider repeating today or include in plan for next visit): No flowsheet data found. If PHQ-2 is positive, in the follow up for this appointment, please have them scheduled for an appointment to discuss depression. O: -pt reported vitals - n/a Assessment/Plan Problem List Items Addressed This Visit None - erythematous rash with central papules --differential diagnosis is broad my initial recommendation is that this is not erythema migrans of Lyme disease due to her history of [place] and not more towards a heavily forested or wooded area. Unfortunately lab work is not going to be helpful at this time just by history and appearance of the rash and the fact that is getting better with Neosporin I would say this is more of a insect dermatitis. She at this point we had a long discussion versus committing to doxycycline for 3 weeks or not. She did not want to commit at this point and I concur because she has a very sensitive stomach , at this point I recommend that she continue some hydrocortisone for the next 2 to 3 days along with some of the triple antibiotic cream as she was not getting irritation from it and then she will send me a picture on Sunday morning as erythema migrans would not be affected by that topical medication in fact it would either spread or get worse or stay the same. Patient was reassured and agreed with plan No follow-ups on file. POLLO HOLLINGSWORTH MD documented in this encounter [facility] 06-14-2022 Telephone encounter Note Called back and is faxing labs and last office note. [facility] 06-14-2022 Miscellaneous Notes Called back and is faxing labs and last office note. Left a message at the endo office to call our office. [phone]. Patient had brought labs she had done in May by her mailroom assistant Dr Duron at her appt - but we didn't make a photocopy. Can we please either call that office to get the most recent labs and note or if she could somehow mychart them ? Thanks documented in this encounter [facility] 06-14-2022 Telephone encounter Note Left a message at the endo office to call our office. [phone]. [facility] 06-14-2022 Telephone encounter Note Patient had brought labs she had done in May by her mailroom assistant Dr Duron at her appt - but we didn't make a photocopy. Can we please either call that office to get the most recent labs and note or if she could somehow mychart them ? Thanks [facility] 06-12-2022 History of Presen t illness Narrative Images from the original note were not included. Progress Notes Pollo Hollingsworth MD (Physician) Family Medicine Unsigned Expand All Collapse All [facility] [address] [facility] [address] Dept: [phone] Dept Loc: [phone] Chief Complaint Patient presents with New Patient Diagnoses and all orders for this visit: Hyperglycemia (Primary)-- patient low risk but screen - Hemoglobin A1c; Future Need for hepatitis C screening test - Hepatitis C antibody; Future Screening for HIV (human immunodeficiency virus) - HIV-1 and HIV-2 Antigen-Antibody Screen White coat syndrome without diagnosis of hypertension Other orders - better after time -- will send bps' and heart rates thru mychart --if continues to be elevated - then will do further w/up Situational anxiety-- she is in counselling, journalin, exercise. Meditiation, Declined meds, she will let me know if she experiences tachycarida/ palpitations, chest pain , sob , or panic attack sx Postablative hypothyroidism - per endo - controlled - reviewed labs she had done after her EED visit in late March and her tsh was 0.8 , her cbc. Cmp. Were wnl Dietary sodium restriction/ yoga/ deep breathing Regular aerobic exercise. Follow up in 6 weeks. Patient Education: Reviewed risks of hypertension and principles of treatment. Counseling time: counseling time more than 50% of visit: 15 minutes. Subjective HPI New pt - Patient was seen in the ER a few weeks ago for headache , and palpitaitosn , nausea and high blood pressure patient had a prior history of hyperthyroidism that was corrected and now on Synthroid no prior history of hypertension. She is noted in early March that her blood pressure had gotten higher in the 1 50/90 range and her heart rate was a little bit elevated to 115's but she deniesd shortness of breath chest pain nausea vomiting or sweating at the ER denied any headache or change in vision or hearing. EKG did show some low voltage but otherwise unremarkable, she was mildly tachycardic at 105 Chest x-ray was unremarkable CBC , BMP was unremarkable troponins were negative Mag was normal TSH was actually normal at 1.9 Her blood pressure did come down in the ER by itself down to 134/75 as well as her heart rate She thinks then developed migraines -- she thinks it was vestibular --- photo/phono sx , Global headache, dizziness, no visual auras , nausea -- headaches were less and less over those last 13 days Not taking bp during that time to see No headache since 13 days -- since 04/04/2022 She stated her hr once was in 170's --she denied c/p , sob Denied panic attacks in past Did take her bp at home in 04/2022 -- -- 104-72, 114, 80 , 121/79 , 122/82 New stressors-- daughter type 1 dm ,appendectomy in fall , dad has ca , Had migraines twice with daughter- short lived- visual auras and not since then Seeign counsleor since 11/2021 for anxiety , she's going to try probiotic , she's trying deep breathing exercisies Last 3 PHQ-2 Scores 06/12/2022 1501 Patient Health Questionnaire-2 Score: 0 Last 3 LOLA-7 Scores 06/12/2022 1500 LOLA-7 Total Score: 1 Last 3 PHQ-2 Scores 06/12/2022 1501 Patient Health Questionnaire-2 Score: 0 Last 3 PHQ-9 Scores No data found in the last 10 encounters. Patient's last menstrual period was 05/28/2022. Strong fam hx of blood pressure in siblings in her 20 's -- no kidney dx she's aware off She has apple watch and hr never goes beyond 100 with exericise on treadmil or at rest- she admits to not liking doctors' It appears per chart review she actually had a blood pressure done in July 2020 at the [facility] and it was 149/89 She has post ablative hypothyroidism for several years-she had been graves hyperthyroid at first and was treated for this she follows with dr leonard mailroom assistant at [facility] I see patient had normal iron studies and ferritin as well back in March from Endo and a normal CMP TSH otherwise CBC, he has not been vitamin D deficient last vitamin D was 90 a couple of years ago Was checked for celiac dx and was negative Per chart review it appears that she did have an annual visit with a provider on April 17 2022 with her inspector soldering at [facility] her partner has a vasectomy at that time she had a Pap smear done in October 2020 that was unremarkable Blood pressure at that visit was 150/90 Further records last colonoscopy was done July 04, 2011 she had a hemorrhoidectomy done in July 2009 Recently just had an MRI of her breast done that was normal in 03/2022 - sees dr taylor Admits to more anxiety throughout the month she is walking for exercise dePression score that was done there was a 0 Father has high blood pressure her daughter has type 1 diabetes She has mthfr def / pa1 -def Unsure of homo/hetero - no prior vte hx, 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 cephalexin (Keflex) 500 MG capsule TAKE 1 CAPSULE BY MOUTH EVERY 12 HOURS FOR 7 DAYS Cholecalciferol (Vitamin D) 50 MCG (2000 UT) capsule Take by mouth. levothyroxine (Tirosint) 112 MCG capsule TAKE 1 CAPSULE BY MOUTH EVERY DAY IN THE MORNING Multiple Vitamin (multivitamin) tablet Take 1 tablet by mouth daily. NON FORMULARY daily. Hormone Balance No facility-administered medications prior to visit. 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 Social History Tobacco Use Smoking status: Never Smokeless tobacco: Never Substance Use Topics Alcohol use: Yes Surgical History Past Surgical History: Procedure Laterality Date SECTION (HISTORICAL) 03/2009 DILATION AND CURETTAGE OF UTERUS 12/2007 HEMORRHOID SURGERY 07/2009 MOUTH SURGERY 1996 OTHER SURGICAL HISTORY 07/04/2011 Colonscopy - Normal OTHER SURGICAL HISTORY 11/2006 Radioactive Iodine TONSILLECTOMY (HISTORICAL) 03/2006 Family History Family History Problem Relation Name Age of Onset Melanoma Mother 55 on stomach Heart attack Father High Blood Pressure Father Prostate cancer Father 73 Bladder Cancer Father 73 Heart failure Paternal Grandmother Diabetes Paternal Grandmother Heart failure Paternal Grandfather Diabetes Paternal Grandfather High Blood Pressure Other sisters/SIBLINGS Health Maintenance Topic Date Due Hepatitis B Vaccines (1 of 3 - 3-dose series) Never done Lipid Panel Never done HIV Screening Never done Hepatitis C Screening Never done Cervical Cancer Screening Never done MMR Vaccines (1 of 1 - Standard series) Never done COVID-19 Vaccine (4 - Booster for Moderna series) 02/22/2021 Mammogram 01/23/2023 TSH Level 03/22/2023 Zoster Vaccines (1 of 2) 07/14/2027 DTaP/Tdap/Td Vaccines (3 - Td or Tdap) 08/11/2030 Influenza Vaccine Completed HIB Vaccines Aged Out IPV Vaccines Aged Out Hepatitis A Vaccines Aged Out Meningococcal Vaccine Aged Out Rotavirus Vaccines Aged Out HPV Vaccines Aged Out Pneumococcal Vaccine: Pediatrics (0 to 5 Years) and At-Risk Patients (6 to 64 Years) Aged Out Objective There were no vitals taken for this visit. Physical Exam Data Reviewed and Summarized Last 3 PHQ-2 Scores No data found in the last 10 encounters. Labs: Lab Results Component Value Date WBC 9.7 03/22/2022 HGB 13.2 03/22/2022 HCT 39.4 03/22/2022 PLT 323 03/22/2022 TSH 1.905 03/22/2022 Lab Results Component Value Date NA 141 03/22/2022 K 4.1 03/22/2022 CL 107 03/22/2022 CO2 31 (H) 03/22/2022 BUN 18 (H) 03/22/2022 CREATININE 0.68 03/22/2022 GLUCOSE 127 (H) 03/22/2022 CALCIUM 9.3 03/22/2022 PROT 7.0 03/22/2022 BILITOT 0.5 03/22/2022 ALKPHOS 45 03/22/2022 AST 26 03/22/2022 ALT 16 03/22/2022 Imaging/Testing: ECG 12 lead (Now) Sinus tachycardia Low voltage, precordial leads Borderline T abnormalities, inferior, lateral leads No previous ECG available for comparison Electronically Signed On 03-23-2022 2:48:37 EST by Axel HOLLINGSWORTH MD Pt asked if they have been to specialist,been in ER /hospitalized or had testing since last visit. Yes was in ER for hypertension Patient was able to ambulate safely to the examination room. Provider was not notified of possible fall risk documented in this encounter [facility] 06-12-2022 History of Presen t illness Narrative Images from the original note were not included. Progress Notes Pollo Hollingsworth MD (Physician) Family Medicine Unsigned Expand All Collapse All [facility] [address] [facility] [address] Dept: [phone] Dept Loc: [phone] Chief Complaint Patient presents with New Patient Diagnoses and all orders for this visit: Hyperglycemia (Primary)-- patient low risk but screen - Hemoglobin A1c; Future Need for hepatitis C screening test - Hepatitis C antibody; Future Screening for HIV (human immunodeficiency virus) - HIV-1 and HIV-2 Antigen-Antibody Screen White coat syndrome without diagnosis of hypertension Other orders - better after time -- will send bps' and heart rates thru mychart --if continues to be elevated - then will do further w/up Situational anxiety-- she is in counselling, journalin, exercise. Meditiation, Declined meds, she will let me know if she experiences tachycarida/ palpitations, chest pain , sob , or panic attack sx Postablative hypothyroidism - per endo - controlled - reviewed labs she had done after her EED visit in late March and her tsh was 0.8 , her cbc. Cmp. Were wnl Dietary sodium restriction/ yoga/ deep breathing Regular aerobic exercise. Follow up in 6 weeks. Patient Education: Reviewed risks of hypertension and principles of treatment. Counseling time: counseling time more than 50% of visit: 15 minutes. Subjective HPI New pt - Patient was seen in the ER a few weeks ago for headache , and palpitaitosn , nausea and high blood pressure patient had a prior history of hyperthyroidism that was corrected and now on Synthroid no prior history of hypertension. She is noted in early March that her blood pressure had gotten higher in the 1 50/90 range and her heart rate was a little bit elevated to 115's but she deniesd shortness of breath chest pain nausea vomiting or sweating at the ER denied any headache or change in vision or hearing. EKG did show some low voltage but otherwise unremarkable, she was mildly tachycardic at 105 Chest x-ray was unremarkable CBC , BMP was unremarkable troponins were negative Mag was normal TSH was actually normal at 1.9 Her blood pressure did come down in the ER by itself down to 134/75 as well as her heart rate She thinks then developed migraines -- she thinks it was vestibular --- photo/phono sx , Global headache, dizziness, no visual auras , nausea -- headaches were less and less over those last 13 days Not taking bp during that time to see No headache since 13 days -- since 04/04/2022 She stated her hr once was in 170's --she denied c/p , sob Denied panic attacks in past Did take her bp at home in 04/2022 -- 23 - 26 -- 104-72, 114, 80 , 121/79 , 122/82 New stressors-- daughter type 1 dm ,appendectomy in fall , dad has ca , Had migraines twice with daughter- short lived- visual auras and not since then Seeign counsleor since 11/2021 for anxiety , she's going to try probiotic , she's trying deep breathing exercisies Last 3 PHQ-2 Scores 06/12/2022 1501 Patient Health Questionnaire-2 Score: 0 Last 3 LOLA-7 Scores 06/12/2022 1500 LOLA-7 Total Score: 1 Last 3 PHQ-2 Scores 06/12/2022 1501 Patient Health Questionnaire-2 Score: 0 Last 3 PHQ-9 Scores No data found in the last 10 encounters. Patient's last menstrual period was 05/28/2022. Strong fam hx of blood pressure in siblings in her 20 's -- no kidney dx she's aware off She has apple watch and hr never goes beyond 100 with exericise on treadmil or at rest- she admits to not liking doctors' It appears per chart review she actually had a blood pressure done in July 2020 at the [facility] and it was 149/89 She has post ablative hypothyroidism for several years-she had been graves hyperthyroid at first and was treated for this she follows with dr leonard mailroom assistant at [facility] [place] I see patient had normal iron studies and ferritin as well back in March from Endo and a normal CMP TSH otherwise CBC, he has not been vitamin D deficient last vitamin D was 90 a couple of years ago Was checked for celiac dx and was negative Per chart review it appears that she did have an annual visit with a provider on April 17 2022 with her inspector soldering at [facility] her partner has a vasectomy at that time she had a Pap smear done in October 2020 that was unremarkable Blood pressure at that visit was 150/90 Further records last colonoscopy was done July 04, 2011 she had a hemorrhoidectomy done in July 2009 Recently just had an MRI of her breast done that was normal in 03/2022 - sees dr taylor Admits to more anxiety throughout the month she is walking for exercise dePression score that was done there was a 0 Father has high blood pressure her daughter has type 1 diabetes She has mthfr def / 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 -def Unsure of homo/hetero - no prior vte hx, 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 cephalexin (Keflex) 500 MG capsule TAKE 1 CAPSULE BY MOUTH EVERY 12 HOURS FOR 7 DAYS Cholecalciferol (Vitamin D) 50 MCG (1999 UT) capsule Take by mouth. levothyroxine (Tirosint) 112 MCG capsule TAKE 1 CAPSULE BY MOUTH EVERY DAY IN THE MORNING Multiple Vitamin (multivitamin) tablet Take 1 tablet by mouth daily. NON FORMULARY daily. Hormone Balance No facility-administered medications prior to visit. 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 Social History Tobacco Use Smoking status: Never Smokeless tobacco: Never Substance Use Topics Alcohol use: Yes Surgical History Past Surgical History: Procedure Laterality Date SECTION (HISTORICAL) 03/2009 DILATION AND CURETTAGE OF UTERUS 12/2007 HEMORRHOID SURGERY 07/2009 MOUTH SURGERY 1996 OTHER SURGICAL HISTORY 07/04/2011 Colonscopy - Normal OTHER SURGICAL HISTORY 11/2006 Radioactive Iodine TONSILLECTOMY (HISTORICAL) 03/2006 Family History Family History Problem Relation Name Age of Onset Melanoma Mother 55 on stomach Heart attack Father High Blood Pressure Father Prostate cancer Father 73 Bladder Cancer Father 73 Heart failure Paternal Grandmother Diabetes Paternal Grandmother Heart failure Paternal Grandfather Diabetes Paternal Grandfather High Blood Pressure Other sisters/SIBLINGS Health Maintenance Topic Date Due Hepatitis B Vaccines (1 of 3 - 3-dose series) Never done Lipid Panel Never done HIV Screening Never done Hepatitis C Screening Never done Cervical Cancer Screening Never done MMR Vaccines (1 of 1 - Standard series) Never done COVID-19 Vaccine (4 - Booster for Moderna series) 02/22/2021 Mammogram 01/23/2023 TSH Level 03/22/2023 Zoster Vaccines (1 of 2) 07/14/2027 DTaP/Tdap/Td Vaccines (3 - Td or Tdap) 08/11/2030 Influenza Vaccine Completed HIB Vaccines Aged Out IPV Vaccines Aged Out Hepatitis A Vaccines Aged Out Meningococcal Vaccine Aged Out Rotavirus Vaccines Aged Out HPV Vaccines Aged Out Pneumococcal Vaccine: Pediatrics (0 to 5 Years) and At-Risk Patients (6 to 64 Years) Aged Out Objective There were no vitals taken for this visit. Physical Exam Data Reviewed and Summarized Last 3 PHQ-2 Scores No data found in the last 10 encounters. Labs: Lab Results Component Value Date WBC 9.7 03/22/2022 HGB 13.2 03/22/2022 HCT 39.4 03/22/2022 PLT 323 03/22/2022 TSH 1.905 03/22/2022 Lab Results Component Value Date NA 141 03/22/2022 K 4.1 03/22/2022 CL 107 03/22/2022 CO2 31 (H) 03/22/2022 BUN 18 (H) 03/22/2022 CREATININE 0.68 03/22/2022 GLUCOSE 127 (H) 03/22/2022 CALCIUM 9.3 03/22/2022 PROT 7.0 03/22/2022 BILITOT 0.5 03/22/2022 ALKPHOS 45 03/22/2022 AST 26 03/22/2022 ALT 16 03/22/2022 Specimen: Blood - Blood specimen (specimen) Ref Range & Units 2 yr ago Comments Cholesterol, Total <200 mg/dL 168 <200 mg/dL, Desirable 200-239 mg/dL, Borderline high >239 mg/dL, High Triglyceride <150 mg/dL 113 <150 mg/dL, Normal 150-199 mg/dL, Borderline high 200-499 mg/dL, High >499 mg/dL, Very high HDL Cholesterol >39 mg/dL 59 40-59 mg/dL, Acceptable >59 mg/dL, High: Negative risk factor for coronary heart disease <40 mg/dL, Low: Positive risk factor for coronary heart disease Non HDL Cholesterol <130 mg/dL 109 <130 mg/dL, Optimal 130-159 mg/dL, Near optimal/above optimal 160-189 mg/dL, Borderline high 190-219 mg/dL, High >219 mg/dL, Very high Secondary prevention optimal non HDL Cholesterol levels are recommended to be <100 mg/dL Fasting Time hrs 12 VLDL Cholesterol <30 mg/dL 23 TC:HDL Ratio <5.10 2.85 LDL Cholesterol <100 mg/dL 86 <100 mg/dL, Optimal 100-129 mg/dL, Near optimal/above optimal 130-159 mg/dL, Borderline high 160-189 mg/dL, High >189 mg/dL, Very high Secondary prevention optimal LDL Cholesterol levels are recommended to be < 70 mg/dL LDL:HDL Ratio <2.54 1.46 Imaging/Testing: ECG 12 lead (Now) Sinus tachycardia Low voltage, precordial leads Borderline T abnormalities, inferior, lateral leads No previous ECG available for comparison Electronically Signed On 03-23-2022 2:48:37 EST by Axel HOLLINGSWORTH MD Pt asked if they have been to specialist,been in ER /hospitalized or had testing since last visit. Yes was in ER for hypertension Patient was able to ambulate safely to the examination room. Provider was not notified of possible fall risk documented in this encounter [facility] [employer] 08-11-2020 Note HNO ID: [id number] Author: Aspen Ruelas APRN.SUPERVISOR LOCOMOTIVE Service: ? Author Type: Nurse Practitioner Type: Progress Notes Filed: 08/11/2020 12:10 PM Note Text: This note was created using Ostarariter. Subjective Mariajose Huang is a 45 year old female. HPI by patient: Mariajose Huang is a 45 year old female presenting to the office with the complaint of needing a tetanus vaccine. Was in [place] and stepped on a tack yesterday. Tack came out in one piece but the end was jesus. No fevers or redness to the site. ALLERGIES Tapazole ([place]* Rash Family History Reviewed Including Cardiac Diseases, Psychiatric Diseases, AND Substance Abuse Problem: other (nephrolithiasis) Relation: Other Age of Onset: (Not Specified) Problem: Heart Relation: Other Age of Onset: (Not Specified) Problem: Osteoporosis Relation: Other Age of Onset: (Not Specified) Problem: Diabetes Relation: Other Age of Onset: (Not Specified) Problem: other (thyroid nodule) Relation: Other Age of Onset: (Not Specified) Problem: Hypertension Relation: Other Age of Onset: (Not Specified) Problem: other (hyperthyroidism) Relation: Other Age of Onset: (Not Specified) Problem: other (hyperthyroidism) Relation: Other Age of Onset: (Not Specified) Social History Tobacco Use Smoking status: Never Smoker Smokeless tobacco: Never Used Alcohol use: Yes Drug use: Not on file Active Ambulatory Problems Previous section complicating Date Noted: 08/11/2012 Hypothyroidism, postablative History of Graves' disease Date Noted: 12/12/2016 Malaise and fatigue Date Noted: 01/22/2018 Resolved Ambulatory Problems Other postablative hypothyroidism Date Noted: 11/15/2006 Thyroid disease Past Medical History: No date: Blood dyscrasia No date: Thrombophilia (HCC) Review of Systems Constitutional: Negative. HENT: Negative. Eyes: Negative. Respiratory: Negative. Cardiovascular: Negative. Gastrointestinal: Negative. Endocrine: Negative. Genitourinary: Negative. Musculoskeletal: Negative. Skin: Positive for wound (puncture wound). Neurological: Negative. Hematological: Negative. Objective BP 149/89 Pulse 89 Temp 36.8 ?C (98.3 ?F) (Tympanic) Resp 10 Wt 64.2 kg (141 lb 9.6 oz) LMP 07/31/2020 (Approximate) SpO2 100% BMI 26.76 kg/m? Physical Exam Constitutional: General: She is not in acute distress. Appearance: She is not ill-appearing, toxic-appearing or diaphoretic. Pulmonary: Effort: Pulmonary effort is normal. Skin: Findings: No wound (Area where tack went in skin: no puncture site seen or wound. Skin is soft and non tender when palpated.). Psychiatric: Behavior: Behavior is cooperative. Assessment and Plan (T14.8XXA) Puncture wound (primary encounter diagnosis) Plan: TDAP VACCINE AGE 7+ IM -Tdap updated in office today. -No signs of infection on exam now. -Keep area clean and dry. Non scented antimicrobial soap and water. -Signs of infection: increased in size, streaking up or down the skin, fever of 101 F or higher, or copious drainage from the site. -Be seen immediately with signs of infection. The patient will pursue further outpatient evaluation with the primary care physician or another Urgent Care/Express Care as outlined in the after visit summary. The patient is agreeable to this plan of care and follow-up instructions have been explained in detail. The patient has received these instructions in written format and have expressed an understanding of the after visit summary. Medical Decision Making: Level: 3 - Low I spent a total of 15 minutes on the date of the service which included preparing to see the patient, [id number] patient care, completing clinical documentation, obtaining and/or reviewing separately obtained history, performing a medically appropriate examination, counseling and educating the patient/family/caregiver and ordering medications, tests, or procedures. [facility] Evaluation note Diagnosis Hyperglycemia- Primary Other abnormal glucose Need for hepatitis C screening test Special screening examination for other specified viral diseases Screening for HIV (human immunodeficiency virus) Special screening examination for other specified viral diseases White coat syndrome without diagnosis of hypertension [facility] Diagnosis Hyperglycemia- Primary Other abnormal glucose Need for hepatitis C screening test Special screening examination for other specified viral diseases Screening for HIV (human immunodeficiency virus) Special screening examination for other specified viral diseases White coat syndrome without diagnosis of hypertension [facility] Diagnosis Hyperglycemia- Primary Other abnormal glucose Need for hepatitis C screening test Special screening examination for other specified viral diseases Screening for HIV (human immunodeficiency virus) Special screening examination for other specified viral diseases White coat syndrome without diagnosis of hypertension [facility] Diagnosis Erythematous rash- Primary Nummular dermatitis Contact dermatitis and other eczema, due to unspecified cause documented in this encounter [facility] note* Diagnosis Situational anxiety- Primary White coat syndrome without diagnosis of hypertension Colon cancer screening Special screening for malignant neoplasms, colon Screening mammogram for breast cancer Encounter for screening for HIV Need for hepatitis C screening test Special screening examination for other specified viral diseases Perimenopause Symptomatic menopausal or female climacteric states Postablative hypothyroidism Other postablative hypothyroidism documented in this encounter [facility]* Diagnosis Encounter for screening mammogram for malignant neoplasm of breast- Primary documented in this encounter [facility] HealthInstructions* Attachments The following attachments cannot be sent through Care Everywhere. * Relaxation Techniques (Urdu) documented in this encounterSTriHealthReason for referral (narrative)* Consultation (Routine) - Pending Review Specialty Diagnoses / Procedures Referred By Ayaka colon Referred To Contact Gastroenterology Diagnoses Colon cancer screening Procedures [facility] 60 MINUTES Pollo Hollingsworth MD [address] [facility] [address] [place] [address] Jorge Mac MD [address] [facility] [address] [place] [address] Referral ID Status Reason Start Date Expiration Date Visits Requested Visits Authorized [id number] Pending Review Specialty Services Required 06/15/2023 06/14/2024 1 1 [facility] Family History Unknown Family Member Name Dates Details Depression Comments:Maternal Grandmothe r. Status:Active Diabetes Mellitus Comments:Father. Paternal Gr andmother. Status:Active Heart Disease Comments:Maternal Grandfathe r. Father. Paternal Grandmother. Paternal Grandfather. Status:Active Hypertension Comments:Father. Sister. Bro ther. Status:Active Lupus Comments:Maternal Grandfathe r. Status:Active Osteoporosis Comments:Mother. Maternal Gr andmother. Status:Active Thyroid problems Comments:Mother. Maternal Gr andmother. Status:Active Ulcer Disease Comments:Mother. Status:Active Vertigo Comments:Father. Status:Active Unknown Family Member Name Dates Details Depression Comments:Maternal Grandmothe r. Status:Active Diabetes Mellitus Comments:Father. Paternal Gr andmother. Status:Active Heart Disease Comments:Maternal Grandfathe r. Father. Paternal Grandmother. Paternal Grandfather. Status:Active Hypertension Comments:Father. Sister. Bro ther. Status:Active Lupus Comments:Maternal Grandfathe r. Status:Active Osteoporosis Comments:Mother. Maternal Gr andmother. Status:Active Thyroid problems Comments:Mother. Maternal Gr andmother. Status:Active Ulcer Disease Comments:Mother. Status:Active Vertigo Comments:Father. Status:Active Unknown Family Member Name Dates Details Depression Comments:Maternal Grandmothe r. Status:Active Diabetes Mellitus Comments:Father. Paternal Gr andmother. Status:Active Heart Disease Comments:Maternal Grandfathe r. Father. Paternal Grandmother. Paternal Grandfather. Status:Active Hypertension Comments:Father. Sister. Bro ther. Status:Active Lupus Comments:Maternal Grandfathe r. Status:Active Osteoporosis Comments:Mother. Maternal Gr andmother. Status:Active Thyroid problems Comments:Mother. Maternal Gr andmother. Status:Active Ulcer Disease Comments:Mother. Status:Active Vertigo Comments:Father. Status:Active Unknown Family Member Name Dates Details Depression Comments:Maternal Grandmothe r. Status:Active Diabetes Mellitus Comments:Father. Paternal Gr andmother. Status:Active Heart Disease Comments:Maternal Grandfathe r. Father. Paternal Grandmother. Paternal Grandfather. Status:Active Hypertension Comments:Father. Sister. Bro ther. Status:Active Lupus Comments:Maternal Grandfathe r. Status:Active Osteoporosis Comments:Mother. Maternal Gr andmother. Status:Active Thyroid problems Comments:Mother. Maternal Gr andmother. Status:Active Ulcer Disease Comments:Mother. Status:Active Vertigo Comments:Father. Status:Active Unknown Family Member Name Dates Details Depression Comments:Maternal Grandmothe r. Status:Active Diabetes Mellitus Comments:Father. Paternal Gr andmother. Status:Active Heart Disease Comments:Maternal Grandfathe r. Father. Paternal Grandmother. Paternal Grandfather. Status:Active Hypertension Comments:Father. Sister. Bro ther. Status:Active Lupus Comments:Maternal Grandfathe r. Status:Active Osteoporosis Comments:Mother. Maternal Gr andmother. Status:Active Thyroid problems Comments:Mother. Maternal Gr andmother. Status:Active Ulcer Disease Comments:Mother. Status:Active Vertigo Comments:Father. Status:Active Unknown Family Member Name Dates Details Depression Comments:Maternal Grandmothe r. Status:Active Diabetes Mellitus Comments:Father. Paternal Gr andmother. Status:Active Heart Disease Comments:Maternal Grandfathe r. Father. Paternal Grandmother. Paternal Grandfather. Status:Active Hypertension Comments:Father. Sister. Bro ther. Status:Active Lupus Comments:Maternal Grandfathe r. Status:Active Osteoporosis Comments:Mother. Maternal Gr andmother. Status:Active Thyroid problems Comments:Mother. Maternal Gr andmother. Status:Active Ulcer Disease Comments:Mother. Status:Active Vertigo Comments:Father. Status:Active Unknown Family Member Name Dates Details Depression Comments:Maternal Grandmothe r. Status:Active Diabetes Mellitus Comments:Father. Paternal Gr andmother. Status:Active Heart Disease Comments:Maternal Grandfathe r. Father. Paternal Grandmother. Paternal Grandfather. Status:Active Hypertension Comments:Father. Sister. Bro ther. Status:Active Lupus Comments:Maternal Grandfathe r. Status:Active Osteoporosis Comments:Mother. Maternal Gr andmother. Status:Active Thyroid problems Comments:Mother. Maternal Gr andmother. Status:Active Ulcer Disease Comments:Mother. Status:Active Vertigo Comments:Father. Status:Active Unknown Family Member Name Dates Details Depression Comments:Maternal Grandmothe r. Status:Active Diabetes Mellitus Comments:Father. Paternal Gr andmother. Status:Active Heart Disease Comments:Maternal Grandfathe r. Father. Paternal Grandmother. Paternal Grandfather. Status:Active Hypertension Comments:Father. Sister. Bro ther. Status:Active Lupus Comments:Maternal Grandfathe r. Status:Active Osteoporosis Comments:Mother. Maternal Gr andmother. Status:Active Thyroid problems Comments:Mother. Maternal Gr andmother. Status:Active Ulcer Disease Comments:Mother. Status:Active Vertigo Comments:Father. 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 ACP-Advance Directive ACP-Power of Rn Cardiac Cath Additional Source Comments INFORMATION SOURCE (unrecogn ized section and content) DATE CREATED AUTHOR 06/09/2019 [facility] DATE CREATED AUTHOR AUTHOR'S ORGANIZ ATION 01/07/2020 [facility] DATE CREATED AUTHOR AUTHOR'S ORGANIZ ATION 10/11/2020 [facility] DATE CREATED AUTHOR AUTHOR'S ORGANIZ ATION 12/31/2020 [facility] DATE CREATED AUTHOR AUTHOR'S ORGANIZ ATION 03/22/2021 [facility] DATE CREATED AUTHOR AUTHOR'S ORGANIZ ATION 12/04/2022 [facility] DATE CREATED AUTHOR AUTHOR'S ORGANIZ ATION 08/30/2023 [facility] DATE CREATED AUTHOR AUTHOR'S ORGANIZ ATION 10/19/2023 [facility] Care Teams (unrecognized sec tion and content) 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 Insurance 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 Manager Relationship Specialty Start Date End Date Venus Carroll PCP - General 09/03/14 Field Insurance Sales Manager Relationship Specialty Start Date End Date Pollo Hollingsworth MD [address] [facility] [address] [place], [place] [id number] PCP - General Family Medicine 06/12/22 Jeff Duron DO [address] [place] [address] Endocrinology, Diabetes, & Metabolism 05/03/22 Pardeep Barreto MD [address] [facility], [address] [place] [address] Obstetrics and Gynecology 05/03/22 Priyanka Taylor MD [address] [facility] [address] [place] [address] Surgeon General Surgery 05/03/22 Field Insurance Sales Manager Relationship Specialty Start Date End Date Pollo Hollingsworth MD [address] [facility] [address] [place] [address] PCP - General Family Medicine 06/12/22 Jeff Duron DO [address] [place] [address] Endocrinology, Diabetes, & Metabolism 05/03/22 Pardeep Barreto MD [address] [facility], [address] [place] [address] Obstetrics and Gynecology 05/03/22 Priyanka Taylor MD [address] [place] [address] Surgeon General Surgery 05/03/22 Field Insurance Sales Manager Relationship Specialty Start Date End Date Pollo Hollingsworth MD [address] [facility] [address] [place] [address] PCP - General Family Medicine 06/12/22 Jeff Duron DO [address] [place] [address] Endocrinology, Diabetes, & Metabolism 05/03/22 Pardeep Barreto MD [address] [facility], [address] [place] [address] Obstetrics and Gynecology 05/03/22 Priyanka Taylor MD [address] [place] [address] Surgeon General Surgery 05/03/22 Field Insurance Sales Manager Relationship Specialty Start Date End Date Pollo Hollingsworth MD [address] [facility] [address] [place] [address] PCP - General Family Medicine 06/12/22 Jeff Duron DO [address] [place] [address] Endocrinology, Diabetes, & Metabolism 05/03/22 Pardeep Barreto MD [address] [facility], [address] [place] [address] Obstetrics and Gynecology 05/03/22 Priyanka Taylor MD [address] [facility] [address] [place], [place] [id number] Surgeon General Surgery 05/03/22 Field Insurance Sales Manager Relationship Specialty Start Date End Date Pollo Hollingsworth MD [address] [facility] [address] [place] [address] PCP - General Family Medicine 08/16/22 Jeff Duron DO [address] [place] [address] Endocrinology, Diabetes, & Metabolism 05/03/22 Pardeep Barreto MD [address] [place] [address], [address] [place] [address] Obstetrics and Gynecology 05/03/22 Priyanka Taylor MD [address] [place] [address] [address] [place] [address] Surgeon General Surgery 05/03/22 Field Insurance Sales Manager Relationship Specialty Start Date End Date Pollo Hollingsworth MD [address] [facility] [address] [place] [address] PCP - General Family Medicine 08/16/22 Jeff Duron DO [address] [place] [address] Endocrinology, Diabetes, & Metabolism 05/03/22 Pardeep Barreto MD [address] [facility], [address] [place] [address] Obstetrics and Gynecology 05/03/22 Priyanka Taylor MD [facility] [place] [address] [address] [place] [address] Surgeon General Surgery 05/03/22 Field Insurance Sales Manager Relationship Specialty Start Date End Date Pollo Hollingsworth MD [address] [facility] [address] [place] [address] PCP - General Family Medicine 08/16/22 Jeff Duron DO [address] [place] [address] Endocrinology, Diabetes, & Metabolism 05/03/22 Pardeep Barreto MD [address] [place] [address], [address] [place] [address] Obstetrics and Gynecology 05/03/22 Priyanka Taylor MD [address] [place] [address] [address] [place] [address] Surgeon General Surgery 05/03/22 Field Insurance Sales Manager Relationship Specialty Start Date End Date Pollo Hollingsworth MD [address] [facility] [address] [place] [address] PCP - General Family Medicine 08/16/22 Jeff Duron DO [address] [place] [address] Endocrinology, Diabetes, & Metabolism 05/03/22 Pardeep Barreto MD [facility] [facility], [address] [place] [address] Obstetrics and Gynecology 05/03/22 Priyanka Taylor MD [address] [place] [address] [address] [place] [address] Surgeon General Surgery 05/03/22 Field Insurance Sales Manager Relationship Specialty Start Date End Date Pollo Hollingsworth MD [address] [facility] [address] [place] [address] PCP - General Family Medicine 08/16/22 Jeff Duron DO [address] [place] [address] Endocrinology, Diabetes, & Metabolism 05/03/22 Pardeep Barreto MD [address] [place] [address], [address] [place] [address] Obstetrics and Gynecology 05/03/22 Priyanka Taylor MD [address] [place] [address] [address] [place] [address] Surgeon General Surgery 05/03/22 Leslie Parks [facility] [facility] [address] [place], [place] 06/15/23 Field Insurance Sales Manager Relationship Specialty Start Date End Date Pollo Hollingsworth MD [address] [facility] [address] [place] [address] PCP - General Family Medicine 08/16/22 Jeff Duron DO [address] [place] [address] Endocrinology, Diabetes, & Metabolism 05/03/22 Pardeep Barreto MD [address] [place] [address], [address] [place], [place] [id number] Obstetrics and Gynecology 05/03/22 Priyanka Taylor MD [address] [place] [address] Surgeon General Surgery 05/03/22 Leslie Parks [address] [facility] [address] [place], [place] 06/15/23 Field Insurance Sales Manager Relationship Specialty Start Date End Date Pollo Hollingsworth MD [address] [facility] [address] [place] [address] PCP - General Family Medicine 08/16/22 Jeff Duron DO [address] [place] [id number] Endocrinology, Diabetes, & Metabolism 05/03/22 Pardeep Barreto MD [address] [facility], [address] [place] [address] Obstetrics and Gynecology 05/03/22 Priyanka Taylor MD [address] [facility] [address] [place] [address] Surgeon General Surgery 05/03/22 Leslie Parks [address] [facility] [address] [place], [place] 06/15/23 Field Insurance Sales Manager Relationship Specialty Start Date End Date Pollo Hollingsworth MD [address] [facility] [address] [place] [address] PCP - General Family Medicine 08/16/22 Jeff Duron DO [address] [place] [address] Endocrinology, Diabetes, & Metabolism 05/03/22 Pardeep Barreto MD [address], [address] [place] [address] Obstetrics and Gynecology 05/03/22 Priyanka Taylor MD [address] [place] [address] Road [address] [place] [address] Surgeon General Surgery 05/03/22 Leslie Parks [address] [facility] [address] [place], [place] 06/15/23 Field Insurance Sales Manager Relationship Specialty Start Date End Date Pollo Hollingsworth MD [address] [place] [address] [address] [place] [address] PCP - General Family Medicine 08/16/22 Jeff Duron DO [address] [place] [address] Endocrinology, Diabetes, & Metabolism 05/03/22 Pardeep Barreto MD [address] [place] [address] Road, [address] [place] [address] Obstetrics and Gynecology 05/03/22 Priyanka Taylor MD [facility] [place] [address] Surgeon General Surgery 05/03/22 Leslie Parks [address] [facility] [address] [place], [place] 06/15/23 Reason for Visit (unrecogniz ed section and content) Reason Comments New Patient Reason Onset Date Comments New Patient 06/14/2022 Lab records Results 06/14/2022 Reason Onset Date Comments Appointment Request 03/27/2023 Appointment 03/27/2023 Reason Comments Blood Pressure Check Reason Onset Date Comments Other 09/27/2023 Billing FOR RECORDS PERTAINING TO PATIENTS WHO ARE OR HAVE BEEN ENROLLED IN A CHEMICAL DEPENDENCY/SUBSTANCEABUSE PROGRAM, SOME INFORMATION MAY BE OMITTED. This clinical summary was aggregated from multiple sources. Caution should be exercised in using it in the provision of clinical care. This summary normalizes information from multiple sources, and as a consequence, information in this document may materially change the coding, format and clinical context of patient data. In addition, data may be omitted in some cases. CLINICAL DECISIONS SHOULD BE BASED ON THE PRIMARY CLINICAL RECORDS. [facility] [employer] [email or web address] provides no warranty or guarantee of the accuracy or completeness of information in this document.
[2023-12-10 10:46] LABS: Vitamin D,25 Hydroxy 38.1 ng/mL
[2023-12-10 10:51] LABS: ALB/GLOB Ratio 1.1 RATIO (0.9-2.4); AST(SGOT) 20 U/L (15-37); Alanine Aminotransfer ALT/SGPT 25 U/L (13-56); Albumin, Serum 3.7 g/dL (3.2-5.0); Alkaline Phosphatase 45 U/L (45-117); Anion Gap 9 (5-15); BUN 16 mg/dL (7-18); BUN/Creat Ratio 19.5 RATIO (10-20); Calcium,Total 8.7 mg/dL (8.5-10.1); Chloride 103 mmol/L (98-107); Creatinine, Serum 0.82 mg/dL (0.55-1.02); EST Glomerular Filtration Rate 79 mL/min (>60); Est Glom Filt Rate - Afr Amer 96 mL/min (>60); Globulin 3.4 g/dL (2.2-4.2); Glucose 107 mg/dL (74-106); Potassium 4.1 mmol/L (3.5-5.1); Protein, Total 7.1 g/dL (6.4-8.2); Sodium Level 138 mmol/L (136-145)
== END | disposition home or self-care (01) ==
LOC: MTLAB 07:02
PROVIDERS: PCP Family Medicine; Referring Provider Internal Medicine Endocrinology, Diabetes & Metabolism; Visit Provider Internal Medicine Endocrinology, Diabetes & Metabolism
DX: E89.0 Postprocedural hypothyroidism (principal); E55.9 Vitamin D deficiency, unspecified
CPT/HCPCS: 36415; 80053; 82306; 84443

== ENCOUNTER → 2024-07-11 | Outpatient (CLI) | payer BC, SELFPAY ==
[2024-07-11 16:51] LABS: Thyroid Stim Hormone (TSH) 0.368 uIU/mL (0.300-4.200); Vitamin D,25 Hydroxy 38.8 ng/mL (30-100)
[2024-07-11 16:54] LABS: ALB/GLOB Ratio 1.9 RATIO (0.9-2.4); AST(SGOT) 19 U/L (<=31); Alanine Aminotransfer ALT/SGPT 18 U/L (<=34); Albumin, Serum 4.2 g/dL (3.5-5.0); Alkaline Phosphatase 49 U/L (35-104); Anion Gap 11 (5-15); BUN 14 mg/dL (4-19); BUN/Creat Ratio 18.4 RATIO (10-20); Calcium,Total 9.5 mg/dL (7.6-11.0); Carbon Dioxide 23.4 mmol/L (21.0-32.0); Chloride 101 mmol/L (98-108); Creatinine, Serum 0.75 mg/dL (0.70-1.20); EST Glomerular Filtration Rate 99 (>60); Globulin 2.3 g/dL (2.2-4.2); Glucose 99 mg/dL (70-99); Potassium 4.2 mmol/L (3.3-5.1); Protein, Total 6.5 g/dL (5.9-8.4); Sodium Level 135 mmol/L (133-145); Total Bilirubin < 0.15 mg/dL (0.00-1.30)
== END | disposition home or self-care (01) ==
LOC: MTLAB 11:24
PROVIDERS: PCP Family Medicine; Referring Provider Internal Medicine Endocrinology, Diabetes & Metabolism; Visit Provider Internal Medicine Endocrinology, Diabetes & Metabolism
DX: E89.0 Postprocedural hypothyroidism (principal); E55.9 Vitamin D deficiency, unspecified
CPT/HCPCS: 36415; 80053; 82306; 84443

== ENCOUNTER → 2024-09-15 | Outpatient (CLI) | payer BC, SELFPAY ==
--- OUTSIDE RECORDS SUMMARY | 2024-09-15 07:20 | XMS RPT_ITS | CCD ---
Author Organization [facility] Care Team Providers Care Build Master Name Role Phone Jana Farias Unavailable Tyler Bell Unavailable Garry Rosenberg Unavailable Mitch, Yun A Unavailable Cooper Khan Unavailable Erica Shah Unavailable Unavailable Unavailable Unavailable Venus Carroll Primary Care Provider Jana Farias DO Unavailable Tyler Bell MD Unavailable Garry Rosenberg Unavailable Mitch DO, Yun A Unavailable Cooper Khan Jr Unavailable Erica Shah RN Unavailable Unavailable Unavailable Unavailable Venus Carroll Primary Care Provider Dr. Jana Farias Primary Care Provider Dr. Jana Farias Referring Provider Dr. [place] Attending Provider Jana Farias DO Unavailable Jeff Duron DO Unavailable [phone] Mary Lou CALDERON, Pardeep Unavailable Shan Cody MD, Priyanka Unavailable Pollo Hollingsworth MD Primary Care Provider [phone] Jeff Duron DO Unavailable Pardeep Barreto MD Unavailable Priyanka Taylor MD Unavailable Pollo Hollingsworth MD Primary Care Provider [phone] MARY LOU CALDERON, PARDEEP Attending Unavailable NO FAMILY PHYSICIAN, 837 Primary Care Unavail able YANIRA BRADLEY CNP Attending Unavailable NO FAMILY PHYSICIAN, 837 Primary Care Unavail able NO FAMILY PHYSICIAN, 837 Primary Care Unavail able NO FAMILY PHYSICIAN, 837 Primary Care Unavail able PARDEEP BARRETO MD Attending Unavailable MARY LOU CALDERON, PARDEEP Attending Unavailable NO FAMILY PHYSICIAN, 837 Primary Care Unavail able MARY LOU CALDERON, PARDEEP Attending Unavailable PARDEEP BARRETO MD Referring Unavailable NO FAMILY PHYSICIAN, 837 Primary Care Unavail able NO FAMILY PHYSICIAN, 837 Primary Care Unavail able MARY LOU CALDERON, PARDEEP Attending Unavailable Pollo Hollingsworth MD Primary Care Provider Priyanka Taylor MD Unavailable Leslie Parks Unavailable PARDEEP BARRETO MD Attending Unavailable NO FAMILY PHYSICIAN, 837 Primary Care Unavail able PARDEEP BARRETO MD Attending Unavailable NO FAMILY PHYSICIAN, 837 Primary Care Unavail able PARDEEP BARRETO MD Attending Unavailable NO FAMILY PHYSICIAN, 837 Primary Care Unavail able None, Pcp Primary Care Provider Unavailabl e Jeff Duron Attending Unavailable Pollo Hollingsworth Primary Care Unavailable Tye Duronin Referring Unavailable Jeff Duron Attending Unavailable Priti Hollingsworth Primary Care Unavailable Wietecha, Jeff Referring Unavailable Bellante, Pardeep Referring Unavailable Mary Lou, Pardeep Attending Unavailable Pollo Hollingsworth Primary Care Unavailable Domi, Jeff Referring Unavailable Tye Duronin Attending Unavailable Pollo Hollingsworth Primary Care Unavailable Dr. Pollo Hollingsworth MD Primary Care Provider Domi HOWARD, Dr. Aguilar Attending Provider Domi HOWARD, Dr. Aguilar Referring Provider Allergies Allergy Classification Reported Allergen(s) Allergy Type Date of Onset Reaction(s) Facility methIMAzole (2 sources) methIMAzole; Translations: [Tapazole *THYROID AGENTS*] Drug Allergy Rash [facility]; [facility] Work Phone: (20 sources) methIMAzole; Translations: [Tapazole *THYROID AGENTS*] Drug Allergy 5 Rash [facility] Work Phone: (13 sources) Allergy to tapazole (Renamed from Aspirin (Salicylates)); Translations: [Allergy to tapazole (Renamed from Aspirin (Salicylates))] allergy to substance [facility] Work Phone: (20 sources) methIMAzole Drug Allergy 7 Rash [facility] (1 source) methIMAzole Drug Allergy 0 [facility] Repository Medications Current Medications Medication Drug Class(es) Dates Sig (Normalized) Sig (Original) cephalexin 500 mg oral capsule (5 sources) Cephalosporin Antibacterial Start: 01-19-2022 take 1 capsule by mouth every twelve hours cephalexin (Keflex) 500 MG capsule TAKE 1 CAPSULE BY MOUTH EVERY 12 HOURS FOR 7 DAYS 0 01/19/2022 Active cetirizine hydrochloride 10 mg oral tablet (13 sources) Histamine-1 Receptor Antagonist Start: 05-14-2017 take 1 tablet by mouth once daily Cetirizine (Zyrtec) 10 mg tablet Active 10 mg PO daily May 14, 2017 12:00am cholecalciferol 0.05 mg oral capsule (20 sources) Vitamin D Cholecalciferol (Vitamin D) 50 MCG (1999 UT) capsule Take by mouth. Active Levomefolate Glucosamine (MethylFolate) 400 MCG capsule (20 sources) Start: 06-12-2022 Levomefolate Glucosamine (MethylFolate) 400 [...] DAY IN THE MORNING 01/12/2022 Active Start: 05-14-2017 Levothyroxine (Tirosint) 88 mcg capsule Active PO May 14, 2017 12:00am Start: 04-17-2011 End: 11-13-2016 take 1 tablet by mouth once daily Levothyroxine Sodium 75 MCG Oral Tablet 1 Tablet qd for 0 days Quantity: 30 {Tablet(s)} Refills: 6 Ordered: 13-Nov-2016 Erica Shah RN Start : 17-Apr-2011 End : 13-Nov-2016 Inactive take 1 capsule by mo uth once daily Tirosint 88 MCG Oral Capsule 1 qd (88 MCG) Active take 1 capsule by mo uth once daily Levothyroxine Sodium (TIROSINT) 75 MCG CAPS Indications: 6d/wk Take 75 mcg by mouth Daily Indications: 6d/wk 0 Active Multiple Vitamin (MULTI VITAMIN DAILY PO) (3 sources) Multiple Vitamin (MULTI VITAMIN DAILY PO) Take by mouth 0 Active Multiple Vitamin (multivitamin) tablet (20 sources) take 1 tablet by van th once daily Multiple Vitamin (multivitamin) tablet Take 1 tablet by mouth daily. Active take 1 tablet by mouth once constance y Multiple Vitamin (multivitamin) tablet Take 1 tablet by mouth daily. 0 Active NON FORMULARY (20 sources) NON FORMULARY da russell. Hormone Balance Active NON FORMULARY da russell. Hormone Balance 0 Active Pediatric Multivitamin No.13 6 (Children Multivitamin) tablet,chewable (10 sources) Start: 05-14-2017 Pediatric Mult ivitamin No.136 (Children Multivitamin) tablet,chewable Active TABLET PO May 14, 2017 12:27pm Start: 05-14-2017 Pediatric Mult ivitamin No.136 (Children Multivitamin) tablet,chewable Active {tbl} PO May 14, 2017 12:00am Start: 05-14-2017 Pediatric Mult ivitamin No.136 (Children Multivitamin) tablet,chewable Active TABLET PO May 13, 2017 11:00pm Start: 05-14-2017 Pediatric Mult ivitamin No.136 (Children Multivitamin) tablet,chewable Active TABLET PO May 14, 2017 12:00am Completed/Discontinued Medications Medication Drug Class(es) Dates Sig (Normalized) Sig (Original) amoxicillin 875 mg / clavulanate 125 mg oral tablet (13 sources) Penicillin-class Antibacterial Start: 04-26-2011 End: 05-10-2011 take 1 tablet by mouth twice daily AUGMENTIN, 875-125MG (Oral Tablet) 1 Tablet BID for 14 days Refills: 0 Ordered: 26-Apr-2011 Dinora HOWARD Janayasmani Farias DO Jana Start : 26-Apr-2011 End : 10-May-2011 Inactive amylase 005972 unt / lipase 9000 unt / protease [id number] unt oral capsule (6 sources) take 1 [...] Quantity: 1 {Package(s)} Refills: 0 Ordered: 09-Apr-2007 Ynes Mahajan Start : 09-Apr-2007 End : 16-Apr-2007 Inactive bifidobacterium animalis [id number] unt / lactobacillus acidophilus [id number] unt oral capsule (7 sources) take 1 capsule by mouth once daily Probiotic Daily Oral Capsule 1 qd Active take 1 capsule by mouth once bijal ly Probiotic Daily Oral Capsule 1 qd Active BIOTIN FORTE PO (8 sources) End: 06-12-2022 BIOTIN FORTE PO Take by mout h. 0 06/12/2022 Discontinued (Med list cleanup) BIOTIN FORTE PO Take by mouth. 0 Active ciprofloxacin 500 mg oral tablet (13 sources) [...] 20 mg/ml oral suspension (13 sources) Uncompetitive V-rupmkp-C-aspartat e Receptor Antagonist, Sigma-1 Agonist End: 12-31-2007 [...] Date Documented Da te Episodic/Chronic Abdominal pain (20 sources) Generalized abdominal pain; Translations: [Abdominal pain, [...] Abnormal glucose tolerance test (GTT))] 11-13-2016 Episodic Essential hypertension (2 sources) Essential hypertension; Translations: [Essential (primary) hypertension] Chronic Genitourinary symptoms and ill-defined conditions (20 sources) Dysuria; Translations: [Dysuria] 11-13-2016 Episodic Immunizations and screening for infectious disease (16 sources) Viral screening status; Translations: [Encounter for screening for other viral diseases] Episodic Malaise and fatigue (20 sources) Fatigue; Translations: [Fatigue] Resolved: 11-13-2016 11-13-2016 Episodic Comment on above: eat well some sleep off with kids. thyroid panel good talkabout adding T3. suggest Dr. cuevas book thyroid solution. check rest of labs. 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 Menopausal disorders (5 sources) Perimenopausal state; Translations: [Menopausal and female climacteric states] 06-15-2023 Chronic Menstrual disorders (20 sources) Menorrhagia; Translations: [Menorrhagia] Resolved: 11-13-2016 11-13-2016 Chronic Comment on above: us normal assistant football coach feel t hyriod Mycoses (20 sources) Candidiasis of mouth; Translations: [Candidiasis of mouth] Resolved: 07-28-2008 11-13-2016 Episodic Nonmalignant breast conditions (20 sources) Multiple cysts of breast; Translations: [Diffuse cystic mastopathy of unspecified breast] Onset: 01-25-2022 01-25-2022 Chronic Nutritional deficiencies (20 sources) Vitamin D deficiency; Translations: [Vitamin D deficiency] 11-13-2016 Chronic Other bone disease and musculoskeletal deformities (1 source) Segmental and somatic dysfunction of cervical region; Translations: [Nonallopathic lesions, cervical region] Episodic Other bone disease and musculoskeletal deformities (1 source) Segmental and somatic dysfunction of lumbar region; Translations: [Nonallopathic lesions, lumbar region] Episodic Other bone disease and musculoskeletal deformities (1 source) Segmental and somatic dysfunction of thoracic region; Translations: [Nonallopathic lesions, thoracic region] Episodic Other circulatory disease (20 sources) Bleeding Episodic [...] Episodic Other nutritional; endocrine; and metabolic disorders (13 sources) 5,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; Translations: [Methylenetetrahydro [...] [Eustachian tube dysfunction] Resolved: 07-28-2008 11-13-2016 Episodic Spondylosis; intervertebral disc disorders; other back problems (11 sources) Backache; Translations: [Dorsalgia, unspecified] Episodic Thyroid disorders (20 sources) Hypothyroidism; Translations: [Hyperthyroidism] Resolved: 11-13-2016 11-13-2016 Chronic Comment on above: seeing john paul coronel her lab orders and follows Past or Other Problems Problem Classification Problem Date Documented Da te Episodic/Chronic Nonmalignant breast conditions (14 sources) Breast finding ; Translations: [Dense breasts] Onset: 01-25-2022 01-25-2022 Episodic Other bone disease and musculoskeletal deformities (20 sources) Segmental and somatic dysfunction; Translations: [Segmental and somatic dysfunction of cervical region] Onset: 06-06-2022 10-01-2019 Episodic Other circulatory disease (20 sources) Labile hypertension due to being in a clinical environment; Translations: [Elevated blood-pressure reading, without diagnosis of hypertension] Onset: 06-12-2022 Episodic Other nutritional; endocrine; and metabolic disorders (20 sources) History of Graves' disease; Translations: [Personal history of other endocrine, nutritional and metabolic disease] Onset: 05-03-2022 05-03-2022 Episodic Regional enteritis and ulcerative colitis (20 sources) Ulcerative (chronic) proctitis; Translations: [Proctitis, ulcerative] Onset: 06-06-2022 Resolved: 06-12-2022 11-13-2016 Chronic Comment on above: Dr. jorge mac. 5-2 2-12 biopsy Residual codes; unclassified (20 sources) Contraception status; Translations: [Other specified health status] Onset: 05-03-2022 05-03-2022 Episodic Residual codes; unclassified (20 sources) Hereditary disorder of endocrine system; Translations: [Genetic susceptibility to other disease] Onset: 05-03-2022 06-06-2022 Episodic Residual codes; unclassified (20 sources) FH: Hypertension; Translations: [Family history of ischemic heart disease and other diseases of the circulatory system] Onset: 06-12-2022 06-12-2022 Episodic Residual codes; unclassified (13 sources) Family history of malignant melanoma; Translations: [...] Test Name Value Interpretation Reference Range Facility 36on 08-26-2024 36 It was just for an annual visit. [facility] 36on 08-19-2024 36 What type of appointment was the patient looking for? I can follow up but unsure if I need to get with provider on what days she's willing to open for pt [facility] 36 If this is for a yearly physical and she still wants to remain established here, I can accommodate her by opening a or Sunday morning . For any acute issues she may need to see a resident or me based on availability and telehealth is also an option ( as long as appropriate ) [facility] 36on 07-15-2024 36 TVSmilest message sent to pt to schedule appt in Oct with Dr. Padilla. [facility] 36 Called and spoke to patient. Will need an appt on or Sun in October. Currently do not see any template availability on those days. Will follow up with Dr. Hollingsworth. [place] [phone] Please let patient I would like to see her at least once a year and she is due for appt with me , please schedule., thanks [place] [phone] ----- Message from Arely Islas sent at 07/15/2024 8:30 AM EDT ----- A new document has been added to this order with description cmp,tsh,vit D. [facility] Anion gap in Serum or Plasma Ordered By: Jeff Duron on 07-11-2024 Anion gap [Moles/Vol] 11 mmol/L 5-15 [facility] BUN/creatinine ratioOrdered By: Jeff Duron on 07-11-2024 Urea nitrogen/Creatinine [Mass ratio] 18.4 mg/mg 10-20 [facility] Bilirubin, totalOrdered By: Jeff Duron on 07-11-2024 Bilirubin [Mass/Vol] mg/dL 0.00-1.30 [facility] Carbon dioxide, total [Moles /volume] in Central venous bloodOrdered By: Jeff Duron on 07-11-2024 CO2 [Moles/Vol] 23.4 mmol/L 21.0-32.0 [facility] Chloride assayOrdered By: Maximiliano Duron on 07-11-2024 Chloride [Moles/Vol] 101 mmol/L 98-108 [facility] Comprehensive Metabolic Prof ilon 07-11-2024 Albumin [Mass/Vol] 4.2 g/dL Normal 3.5-5.0 [facility] Comment on above: Performed By: #### L 500.6840, L501.9520, L506.1001 #### [facility] [address] [place], [address] Albumin/Globulin [Mass ratio] 1.9 {ratio} Normal 0.9-2.4 [facility] Comment on above: Performed By: #### L 500.4050, L501.9520, L506.1001 #### [facility] [address] [place], [address] ALK PHOS 49 U/L Normal 35-104 [facility] Comment on above: Performed By: #### L 500.4050, L501.9520, L506.1001 #### [facility] [address] [place], [address] ALT [Catalytic activity/Vol] 18 U/L Normal <=34 [facility] Comment on above: Performed By: #### L 500.4050, L501.9520, L506.1001 #### [facility] [address] [place], [address] AST [Catalytic activity/Vol] 19 U/L Normal <=31 [facility] Comment on above: Performed By: #### L 500.4050, L501.9520, L506.1001 #### [facility] [address] [place], [address] BUN/CRE 18.4 RATIO Normal 10-20 [facility] Comment on above: Performed By: #### L 500.4050, L501.9520, L506.1001 #### [facility] [address] [place], [address] Calcium [Mass/Vol] 9.5 mg/dL Normal 7.6-11.0 [facility] Comment on above: Performed By: #### L 500.4050, L501.9520, L506.1001 #### [facility] [address] [place], [address] Chloride [Moles/Vol] 101 mmol/L Normal 98-108 [facility] Comment on above: Performed By: #### L 500.4050, L501.9520, L506.1001 #### [facility] [address] [place], [address] CO2 [Moles/Vol] 23.4 mmol/L Normal 21.0-32.0 [facility] Comment on above: Performed By: #### L 500.4050, L501.9520, L506.1001 #### [facility] [address] [place], [address] Creatinine [Mass/Vol] 0.75 mg/dL Normal 0.70-1.20 [facility] Comment on above: Performed By: #### L 500.4050, L501.9520, L506.1001 #### [facility] [address] [place], [address] GAP 11 Normal 5-15 [facility] Comment on above: Performed By: #### L 500.4050, L501.9520, L506.1001 #### [facility] [address] [place], [address] GFR/1.73 sq M.predicted among non-blacks MDRD (S/P/Bld) [Vol rate/Area] 99 mL/min/{1.73_m2} Normal >60 [facility] Comment on above: Result Comment: mL/m in/1.73m2 CKD-EPI Creatinine Equation (2020) Performed By: #### L 500.4050, L501.9520, L506.1001 #### [facility] [address] [place], [address] Globulin (S) [Mass/Vol] 2.3 g/dL Normal 2.2-4.2 [facility] Comment on above: Performed By: #### L 500.4050, L501.9520, L506.1001 #### [facility] [address] [place], [address] Glucose [Mass/Vol] 99 mg/dL Normal 70-99 [facility] Comment on above: Performed By: #### L 500.4050, L501.9520, L506.1001 #### [facility] [address] [place], [address] Potassium [Moles/Vol] 4.2 mmol/L Normal 3.3-5.1 [facility] Comment on above: Performed By: #### L 500.4050, L501.9520, L506.1001 #### [facility] [address] [place], [address] Sodium [Moles/Vol] 135 mmol/L Normal 133-145 [facility] Comment on above: Performed By: #### L 500.4050, L501.9520, L506.1001 #### [facility] [address] [place], [address] T BILI < 0.15 Normal 0.00-1.30 [facility] Comment on above: Performed By: #### L 500.4050, L501.9520, L506.1001 #### [facility] [address] [place], [address] T PROT 6.5 g/dL Normal 5.9-8.4 [facility] Comment on above: Performed By: #### L 500.4050, L501.9520, L506.1001 #### [facility] [address] [place], [address] Urea nitrogen [Mass/Vol] 14 mg/dL Normal 4-19 [facility] Comment on above: Performed By: #### L 500.4050, L501.9520, L506.1001 #### [facility] [address] [place], [address] Glomerular filtration rate ( GFR) estimation/1.73 sq m using serum, plasma, or whole bOrdered By: Jeff Duron on 07-11-2024 GFR/1.73 sq M.predicted among non-blacks MDRD (S/P/Bld) [Vol rate/Area] 99 mL/min/{1.73_m2} >60 [facility] Comment on above: mL/min/1.73m2 CKD-EP I Creatinine Equation (2020) Laboratory - Chemistry and C hemistry - challengeOrdered By: Jeff Duron on 07-11-2024 AST [Catalytic activity/Vol] 19 U/L <32 [facility] Potassium measurement (mass/ volume)Ordered By: Jeff Duorn on 07-11-2024 Potassium (Unsp spec) [Mass/Vol] 4.2 mmol/L 3.3-5.1 [facility] Serum creatinine measurement (mass/volume)Ordered By: Jeff Duron on 07-11-2024 Creatinine [Mass/Vol] 0.75 mg/dL 0.70-1.20 [facility] Serum globulin measurementOr dered By: Jeff Duron on 07-11-2024 Globulin (S) [Mass/Vol] 2.3 g/dL 2.2-4.2 [facility] Serum glucose measurement (m ass/volume)Ordered By: Jeff Duron on 07-11-2024 Glucose [Mass/Vol] 99 mg/dL 70-99 [facility] Serum or plasma alanine rivers otransferase (ALT) measurementOrdered By: Jeff Duron on 07-11-2024 ALT [Catalytic activity/Vol] 18 U/L <35 [facility] Serum or plasma albumin sharri urement (mass/volume)Ordered By: Jeff Duron on 07-11-2024 Albumin [Mass/Vol] 4.2 g/dL 3.5-5.0 [facility] Serum or plasma albumin/glob ulin mass ratioOrdered By: Jeff Duron on 07-11-2024 Albumin/Globulin [Mass ratio] 1.9 {ratio} 0.9-2.4 [facility] Serum or plasma alkaline eric sphatase measurementOrdered By: Jeff Duron on 07-11-2024 ALP [Catalytic activity/Vol] 49 U/L 35-104 [facility] Serum or plasma calcium sharri urement (mass/volume)Ordered By: Jeff Duron on 07-11-2024 Calcium [Mass/Vol] 9.5 mg/dL 7.6-11.0 [facility] Serum or plasma urea nitroge n measurement (mass/volume)Ordered By: Jeff Duron on 07-11-2024 Urea nitrogen [Mass/Vol] 14 mg/dL 4-19 [facility] Sodium levelOrdered By: Jann Duron on 07-11-2024 Sodium [Moles/Vol] 135 mmol/L 133-145 [facility] TSH DL <= 0.005 mIU/L QnOrde red By: Jeff Duron on 07-11-2024 TSH Qn 0.368 uIU/mL 0.300-4.200 [facility] Thyroid Stim Hormone (TSH)on 07-11-2024 TSH 0.368 uIU/mL Normal 0.300-4.200 [facility] Comment on above: Performed By: #### L 500.4050, L501.9520, L506.1001 #### [facility] [address] [place], [place], [id number] Total proteinOrdered By: Tye Duron on 07-11-2024 Protein [Mass/Vol] 6.5 g/dL 5.9-8.4 [facility] Vitamin D,25 Hydroxyon 07-11 Vitamin D 25-OH 38.8 ng/mL Normal 30-100 [facility] Comment on above: Result Comment: Stephanie min D Status Deficiency: <20 ng/mL (50nmol/L) Insufficiency: 20-30 ng/mL (50-75 nmol/L) Sufficiency: 30-100 ng/mL (75-250 nmol/L) Toxicity: >100 ng/mL (>250 nmol/L) Performed By: #### L 500.4050, L501.9520, L506.1001 #### [facility] [address] [place], [place], [id number] Comprehensive Metabolic Prof ilon 12-10-2023 Albumin [Mass/Vol] 3.7 g/dL Normal 3.2-5.0 [facility] Comment on above: Performed By: #### L 506.1000, L501.9520, L500.4050 #### [facility] [address] [place], [address] Albumin/Globulin [Mass ratio] 1.1 {ratio} Normal 0.9-2.4 [facility] Comment on above: Performed By: #### L 506.1000, L501.9520, L500.4050 #### [facility] [address] [place], [address] ALK P 45 U/L Normal 45-117 [facility] Comment on above: Performed By: #### L 506.1000, L501.9520, L500.4050 #### [facility] [address] [place], [address] ALT [Catalytic activity/Vol] 25 U/L Normal 13-56 [facility] Comment on above: Performed By: #### L 506.1000, L501.9520, L500.4050 #### [facility] [address] [place], [address] AST [Catalytic activity/Vol] 20 U/L Normal 15-37 [facility] Comment on above: Performed By: #### L 506.1000, L501.9520, L500.4050 #### [facility] [address] [place], [address] Bilirubin [Mass/Vol] 0.40 mg/dL Normal 0.20-1.00 [facility] Comment on above: Result Comment: For patients on eltrombopag therapy, use of [facility] TBIL is not recommended. Performed By: #### L 506.1000, L501.9520, L500.4050 #### [facility] [address] [place], [address] BUN/CRE 19.5 RATIO Normal 10-20 [facility] Comment on above: Performed By: #### L 506.1000, L501.9520, L500.4050 #### [facility] [address] [place], [address] CA,Total 8.7 mg/dL Normal 8.5-10.1 [facility] Comment on above: Performed By: #### L 506.1000, L501.9520, L500.4050 #### [facility] [address] [place], [address] Chloride [Moles/Vol] 103 mmol/L Normal 98-107 [facility] Comment on above: Performed By: #### L 506.1000, L501.9520, L500.4050 #### [facility] [address] [place], [address] CO2 [Moles/Vol] 26.0 mmol/L Normal 21.0-32.0 [facility] Comment on above: Performed By: #### L 506.1000, L501.9520, L500.4050 #### [facility] [address] [place], [address] Creatinine [Mass/Vol] 0.82 mg/dL Normal 0.55-1.02 [facility] Comment on above: Result Comment: The validity of the calculated GFR GFRAA in patients over 70 years has not been determined. Clinical correlation is essential. Performed By: #### L 506.1000, L501.9520, L500.4050 #### [facility] [address] [place], [address] EST GFR - AA 96 mL/min Normal >60 [facility] Comment on above: Result Comment: Afri can Faroese GFR Calc Performed By: #### L 506.1000, L501.9520, L500.4050 #### [facility] [address] [place], [address] GAP 9 Normal 5-15 [facility] Comment on above: Performed By: #### L 506.1000, L501.9520, L500.4050 #### [facility] [address] [place], [address] GFR/1.73 sq M.predicted among non-blacks MDRD (S/P/Bld) [Vol rate/Area] 79 mL/min/{1.73_m2} Normal >60 [facility] Comment on above: Result Comment: Non- GFR Calc Performed By: #### L 506.1000, L501.9520, L500.4050 #### [facility] [address] [place], [address] Globulin (S) [Mass/Vol] 3.4 g/dL Normal 2.2-4.2 [facility] Comment on above: Performed By: #### L 506.1000, L501.9520, L500.4050 #### [facility] [address] [place], [address] Glucose [Mass/Vol] 107 mg/dL High 74-106 [facility] Comment on above: Result Comment: Fast ing Glucose result from 100 to 125 mg/dL suggests IMPAIRED HOMEOSTASIS per A.D.A. criteria. Performed By: #### L 506.1000, L501.9520, L500.4050 #### [facility] [address] [place], [address] Potassium [Moles/Vol] 4.1 mmol/L Normal 3.5-5.1 [facility] Comment on above: Performed By: #### L 506.1000, L501.9520, L500.4050 #### [facility] [address] [place], [address] Sodium [Moles/Vol] 138 mmol/L Normal 136-145 [facility] Comment on above: Performed By: #### L 506.1000, L501.9520, L500.4050 #### [facility] [address] [place], [address] T PROT 7.1 g/dL Normal 6.4-8.2 [facility] Comment on above: Performed By: #### L 506.1000, L501.9520, L500.4050 #### [facility] [address] [place], [address] Urea nitrogen [Mass/Vol] 16 mg/dL Normal 7-18 [facility] Comment on above: Performed By: #### L 506.1000, L501.9520, L500.4050 #### [facility] [address] [place], [address] Thyroid Stim Hormone (TSH)on 12-10-2023 TSH 1.570 uIU/mL Normal 0.358-3.740 [facility] Comment on above: Performed By: #### L 506.1000, L501.9520, L500.4050 #### [facility] [address] [place], [address] Vitamin D,25 Hydroxyon 12-09 Vitamin D 25-OH 38.1 ng/mL Normal [facility] Comment on above: Result Comment: Stephanie min D 25(OH) Status Range Deficiency <20 ng/mL (50nmol/L) Insufficiency 20 - 30 ng/mL (50 - 75 nmol/L) Sufficiency 30 - 100 ng/mL (75 - 250 nmol/L) Toxicity >100 ng/mL (>250 nmol/L) Performed By: #### L 506.1000, L501.9520, L500.4050 #### [facility] [address] [place], [address] 36on 10-17-2023 36 I spoke to our [facility] department and they are resubmitting the claim with the BP dx as primary. Notified patient and advised her to call me back if she received another denial. [facility] 36on 09-27-2023 36 Name of caller: Shayna green Contact phone number: [phone] Relationship to Patient: patient Provider: Dr. Hollingsworth Practice: [facility] Chief Complaint/Reason for Call: Pt would like to talk to the gift officer, states she requested a call back last week and have not received it. Please advise Best time of day caller can be reached: After 12 tomorrow and time today! Patient advised that office/PCP has 24-48 business hours to return their call: No [facility] 36on 09-14-2023 36 Notified mammography department at [facility] 3609-13-2023 36 Received a diagnosti c mammogram result for this patient from [facility]. Please let them know that I am not the PCP for this patient. The radiology report phone number stated it was [phone] [facility] Breast Limited Unilateralon 09-13-2023 Breast Limited Unilateral [facility] Imaging Services [address] [place] [address] Breast Limited Unilateral MR#: [id number] Acct: [id number] Name: MARIAJOSE HUANG Rep #: [id number] : 1975 F 48 From: Marlon vuong MD PCP: Dr. Priti Hollingsworth MD Status: [facility] Study: Breast Limited Unilateral Date of Exam: Exam# [id number] Ordering Dr: Pardeep Barreto MD [id number] STUDY: ULTRASOUND BREAST - LEFT REASON FOR EXAM: Female, 48 years old. Abnormal screening mammogram. TECHNIQUE: Axial and longitudinal images of the LEFT breast were performed with a high resolution ultrasound transducer. # OF IMAGES: 51 COMPARISON: Comparison is made with prior mammogram done earlier in the day. FINDINGS: LEFT Breast: The inferior medial aspect of the left breast was examined with ultrasound. Multiple cysts are seen. The largest cyst is at the 3:00 position of the breast at 6 cm from the nipple. This measures 2.7 cm x 2.3 cm x 1.7 cm. A similar appearing cyst measuring 2.6 cm x 2.5 cm x 1.8 cm is seen adjacent to this. US/Breast Limited Unilateral IMPRESSION: Left breast cysts. ASSESSMENT CATEGORY: BIRADS Category 2: Benign. A letter regarding these results will be sent to the patient by the facility within 30 days. Electronically Signed: Marlon Rodriguez MD at 11:07 EDT Reading Location ID and State: [facility] , Service support , CC: Dr. Pardeep Barreto MD; Dr. Priti Hollingsworth MD Oriental Medicine Practitioner: Signed Normal [facility] DIAG MAMM W/CAD, BILATon DIAG MAMM W/CAD, [facility] Imaging Services [address] [place], [place] [address] DIAG MAMM W/CAD, BILAT MR#: [id number] Acct: [id number] Name: MARIAJOSE HUANG Rep #: [id number] : 1975 F 48 From: Marlon vuong MD PCP: Dr. Priti Hollingsworth MD Status: [facility] Study: DIAG MAMM W/CAD, BILAT Date of Exam: 09/13/23 Exam# [id number] Ordering Dr: Pardeep Barreto MD [id number] MAMMOGRAPHY - BILATERAL DIAGNOSTIC REASON FOR EXAM: Female, 48 years old. 2 month history of left breast mass. PERTINENT HISTORY: Non-contributory. TECHNIQUE: Digital bilateral breast zo (3D mammographic acquisition) in the CC and MLO projections. 2-D mediolateral oblique (MLO) and craniocaudad (CC) views of both breasts were obtained. CAD: Full Field Digital Mammography with Computer Added Detection was performed. COMPARISON: Comparison made with prior outside examination dated October 24, 2021. Comparison is also made with prior MRI of the breasts dated March 24, 2022. FINDINGS: Breast Composition: The breasts are extremely dense, which lowers the sensitivity of mammography. Multiple well-defined nodules are seen scattered throughout the left breast suggestive of multiple cysts. Multiple nodular densities also seen in the right breast. Correlation with ultrasound is recommended for further evaluation. Small benign-appearing bilateral axillary lymph nodes. No other significant abnormalities are identified. There has been no significant change since the prior study. BI/DIAG MAMM W/CAD, BILAT IMPRESSION: Multiple bilateral nodular densities as described suggesting multiple cysts as seen on prior MRI examination. Correlation with ultrasound is recommended. ASSESSMENT CATEGORY: BIRADS Category 0: Incomplete. Need additional imaging evaluation. A letter regarding these results will be sent to the patient by the facility within 30 days. Approximately 10% of breast cancers are not detected by mammography. A normal mammogram should not delay biopsy of a clinically suspicious abnormality. Electronically Signed: Marlon Rodriguez MD at 10:30 EDT , CC: Dr. Pardeep Barreto MD; Dr. Priti Hollingsworth MD Oriental Medicine Practitioner: Signed Normal [facility] Comprehensive Metabolic Prof ilon 08-31-2023 Albumin [Mass/Vol] 3.9 g/dL Normal 3.2-5.0 [facility] Comment on above: Performed By: #### L 501.9520, L500.4050 #### [facility] [address] [place], [address] Albumin/Globulin [Mass ratio] 1.2 {ratio} Normal 0.9-2.4 [facility] Comment on above: Performed By: #### L 501.9520, L500.4050 #### [facility] [address] [place], [address] ALK P 49 U/L Normal 45-117 [facility] Comment on above: Performed By: #### L 501.9520, L500.4050 #### [facility] [address] [place], [address] ALT [Catalytic activity/Vol] 23 U/L Normal 13-56 [facility] Comment on above: Performed By: #### L 501.9520, L500.4050 #### [facility] [address] [place], [address] AST [Catalytic activity/Vol] 19 U/L Normal 15-37 [facility] Comment on above: Performed By: #### L 501.9520, L500.4050 #### [facility] [address] [place], [address] Bilirubin [Mass/Vol] 0.20 mg/dL Normal 0.20-1.00 [facility] Comment on above: Result Comment: For patients on eltrombopag therapy, use of [facility] TBIL is not recommended. Performed By: #### L 501.9520, L500.4050 #### [facility] [address] [place], [address] BUN/CRE 26.7 RATIO High 10-20 [facility] Comment on above: Performed By: #### L 501.9520, L500.4050 #### [facility] [address] [place], [address] CA,Total 9.8 mg/dL Normal 8.5-10.1 [facility] Comment on above: Performed By: #### L 501.9520, L500.4050 #### [facility] [address] [place], [address] Chloride [Moles/Vol] 103 mmol/L Normal 98-107 [facility] Comment on above: Performed By: #### L 501.9520, L500.4050 #### [facility] [address] [place], [address] CO2 [Moles/Vol] 26.0 mmol/L Normal 21.0-32.0 [facility] Comment on above: Performed By: #### L 501.9520, L500.4050 #### [facility] [address] [place], [address] Creatinine [Mass/Vol] 0.82 mg/dL Normal 0.55-1.02 [facility] Comment on above: Result Comment: The validity of the calculated GFR GFRAA in patients over 70 years has not been determined. Clinical correlation is essential. Performed By: #### L 501.9520, L500.4050 #### [facility] [address] [place], [address] EST GFR - AA 96 mL/min Normal >60 [facility] Comment on above: Result Comment: Afri can Faroese GFR Calc Performed By: #### L 501.9520, L500.4050 #### [facility] [address] [place], [address] GAP 9 Normal 5-15 [facility] Comment on above: Performed By: #### L 501.9520, L500.4050 #### [facility] [address] [place], [address] GFR/1.73 sq M.predicted among non-blacks MDRD (S/P/Bld) [Vol rate/Area] 79 mL/min/{1.73_m2} Normal >60 [facility] Comment on above: Result Comment: Non- GFR Calc Performed By: #### L 501.9520, L500.4050 #### [facility] [address] [place], [address] Globulin (S) [Mass/Vol] 3.3 g/dL Normal 2.2-4.2 [facility] Comment on above: Performed By: #### L 501.9520, L500.4050 #### [facility] [address] [place], [address] Glucose [Mass/Vol] 123 mg/dL High 74-106 [facility] Comment on above: Result Comment: Fast ing Glucose result from 100 to 125 mg/dL suggests IMPAIRED HOMEOSTASIS per A.D.A. criteria. Performed By: #### L 501.9520, L500.4050 #### [facility] [address] [place], [address] Potassium [Moles/Vol] 3.8 mmol/L Normal 3.5-5.1 [facility] Comment on above: Performed By: #### L 501.9520, L500.4050 #### [facility] [address] [place], [address] Sodium [Moles/Vol] 138 mmol/L Normal 136-145 [facility] Comment on above: Performed By: #### L 501.9520, L500.4050 #### [facility] [address] [place], [address] T PROT 7.2 g/dL Normal 6.4-8.2 [facility] Comment on above: Performed By: #### L 501.9520, L500.4050 #### [facility] [address] [place], [address] Urea nitrogen [Mass/Vol] 22 mg/dL High 7-18 [facility] Comment on above: Performed By: #### L 501.9520, L500.4050 #### [facility] [address] [place], [place], [address] Thyroid Stim Hormone (TSH)on 08-31-2023 TSH 2.04 uIU/mL Normal 0.358-3.74 [facility] Comment on above: Performed By: #### L 501.9520, L500.4050 #### [facility] [address] [place], [place], [address] Phone Msgon 08-23-2023 Phone Msg - From: [...] WASNT SURE IF SHE WAS GOING TO [facility] OR TO [facility] SHE WILL CALL BACK WITH LOCATION . THANK YOU RH addressed Normal [facility] Phone Msg - From: Mariah Alvarez To: Mariajose [place]; Sent: 08/23/2023 15:00:11 EDT Subject: 3D MAMM ORDER AND BREAST U/S Due Date/Time: 08/23/2023 15:00:00 EDT Caller Name: MARIAJOSE HUANG; Caller Number: H PATIENT CALLED BACK AND SHE WOULD LIKE IT TO BE A 3D MAMMOGRAM ORDER ALONG WITH THE BREAST ULTRASOUND ORDER AND SHE WOULD LIKE IT TO GO TO [facility] FAX # [phone]. SHE WASNT ABLE TO GET INTO [facility] THANK YOU RH order placed and faxed pt has called multiple times Normal [facility] Phone Msg - From: Maria Antonia Ortiz To: Stefany Singh; Sent: 08/23/2023 14:26:08 EDT Subject: MAMMOGRAM technical report writer Name: MARIAJOSE HUANG; Caller Number: H Pt. [...] order in I can fax for you [phone] Order placed and to be faxed Normal [facility] Basophil percentageOrdered B y: Jeff Duron on 06-11-2023 Bilirubin [Mass/Vol] 0.20 mg/dL 0.20-1.00 [facility] Comment on above: For patients on eltr ombopag therapy, use of [facility] TBIL is not recommended. Chloride [Moles/Vol] 104 mmol/L 98-107 [facility] Glucose [Mass/Vol] 100 mg/dL 74-106 [facility] Comment on above: Fasting Glucose resu lt from 100 to 125 mg/dL suggests IMPAIRED HOMEOSTASIS per A.D.A. criteria. Potassium [Moles/Vol] 3.8 mmol/L 3.5-5.1 [facility] Protein [Mass/Vol] 6.8 g/dL 6.4-8.2 [facility] Sodium [Moles/Vol] 138 mmol/L 136-145 [facility] - Chemistry and C hemistry - challengeOrdered By: Jeff Duron on 06-11-2023 Albumin/Globulin [Mass ratio] 1.2 {ratio} 0.9-2.4 [facility] ALP [Catalytic activity/Vol] 53 U/L 45-117 [facility] ALT [Catalytic activity/Vol] 20 U/L 13-56 [facility] CO2 [Moles/Vol] 30.0 mmol/L 21.0-32.0 [facility] Globulin (S) [Mass/Vol] 3.1 g/dL 2.2-4.2 [facility] Urea nitrogen/Creatinine [Mass ratio] 28.9 mg/mg 10-20 [facility] No Panel InformationOrdered By: Jeff Duron on 06-11-2023 Estimated GFR (MDRD) Amer 111 mL/min >60 [facility] Comment on above: GFR Calc Estimated GFR (MDRD) Non-Af Amer 92 mL/min >60 [facility] Comment on above: Non- GFR Calc Estradiol (E2) Level 54.0 pg/mL [facility] Comment on above: NORMAL REFERENCE RAN GES FEMALE FOLLICULAR 21.4 - 164.8 pg/mL MID-CYCLE [...] ESTRADIOL CONCENTRATION. Follicle Stimulating Hormone 7.3 mIU/mL [facility] Comment on above: NORMAL REFERENCE RAN GES FEMALE FOLLICULAR 2.3 - 12.6 mIU/mL MID-CYCLE PEAK 5.2 - 17.5 mIU/mL LUTEAL 1.7 - 12.9 mIU/mL POST-MENOPAUSAL ON MHT 5.9 - 72.8 mIU/mL NOT ON MHT 12.7 - 132.2 mlU/mL MALE 0.7 - 10.8 mIU/mL Parathyroid Hormone (Intact) 29.5 pg/mL 18.4-80.1 [facility] Vitamin D 25-Hydroxy 38.7 ng/mL [facility] Comment on above: Vitamin D 25(OH) Sta tus Range Deficiency <20 ng/mL (50nmol/L) Insufficiency 20 - 30 ng/mL (50 - 75 nmol/L) Sufficiency 30 - 100 ng/mL (75 - 250 nmol/L) Toxicity >100 ng/mL (>250 nmol/L) Serum or plasma calcium sharri urement (mass/volume)Ordered By: Jeff Duron on 06-11-2023 Calcium [Mass/Vol] 9.2 mg/dL 8.5-10.1 [facility] Serum or plasma creatinine m easurement (mass/volume)Ordered By: Jeff Duron on 06-11-2023 Creatinine [Mass/Vol] 0.73 mg/dL 0.55-1.02 [facility] Comment on above: The validity of the calculated GFR & GFRAA in patients over 70 years has not been determined. Clinical correlation is essential. Serum or plasma thyroid stim ulating hormone (TSH) measurement (units/volume)Ordered By: Jeff Duron on 06-11-2023 TSH Qn 2.17 uIU/mL 0.358-3.74 [facility] Serum or plasma urea nitroge n measurement (mass/volume)Ordered By: Jeff Duron on 06-11-2023 Urea nitrogen [Mass/Vol] 21 mg/dL 7-18 [facility] Thin prep Papanicolaou smear with manual screeningOrdered By: Jeff Duron on 06-11-2023 Thin prep Papanicolaou smear with manual screening 3.7 g/dL 3.2-5.0 [facility] Thin prep Papanicolaou smear with manual screening 16 U/L 15-37 [facility] Thin prep Papanicolaou smear with manual screening 4 5-15 [facility] Physician Progress No laci 04-19-2023 [facility] Physician Progress Note MARIAJOSE HUANG :1975 [...] effort Extremities: no edema Psychiatric: Mood: normal CONFIGURATION RELEASE MANAGER: External genitalia: normal, no lesions Urethra: normal meatus Vagina: normal no lesions, scant discharge, vault normal Cervix: no lesions, no cervical motion tenderness, normal appearance Uterus: normal mobility, non-tender, normal size, shape and consistency Adnexa: normal [place] sac: normal Perineum: no hemorrhoids, masses or warts noted Breasts: normal-no masses or tenderness or skin changes CONFIGURATION RELEASE MANAGER Additional Details-Patient Stated Menstrual History Menstrual StatusMenarcheal Last Menstrual Dalwsn8903/26/2023 CONFIGURATION RELEASE MANAGER Screening Date of Last Pap Smear10/21/2020 Last [...] use:vastectomy Subst (more content not included)... Normal [facility] Ambulatory Clinical Summaryo n 04-19-2023 Ambulatory [...] Tabs Oral DAILY Refills: 3 Pickup at [id number] Unchanged ergocalciferol (Vitamin D) Oral Unchanged levothyroxine (Tirosint 112 mcg (0.112 mg) oral capsule) 30 EA, TAKE 1 CAPSULE BY MOUTH EVERY DAY IN THE MORNING Unchanged multivitamin 1 Tabs Oral DAILY Pharmacy Information [id number]: [address], [place] [id number] [phone] What How Much When Comments Stop Taking [...] call to get immediate medical attention! Normal [facility] Comprehensive Intake - Texto n 04-19-2023 Comprehensive Intake - Text Comprehensive Intake Entered On: 04/19/2023 9:44 EST Performed On: 04/19/2023 9:44 EST by Mariajose Palmer Summary Last Menstrual Period : 03/26/2023 EST Bladder [...] EST Menstrual Status : Menarcheal Mariajose Palmer - 04/19/2023 9:44 EST Measurements Ht/Wt Measurement Refused [...] year Mariajose Palmer 04/19/2023 9:46 EST Normal [facility] CONFIGURATION RELEASE MANAGER Visit - Texton CONFIGURATION RELEASE MANAGER Visit - Text CONFIGURATION RELEASE MANAGER Visit Entered On : 04/19/2023 9:43 EST Performed On: 04/19/2023 9:42 EST by Mariajose Palmer CONFIGURATION RELEASE MANAGER Menstrual History Menstrual Status : Menarcheal Mariajose Palmer - 04/19/2023 9:42 EST CONFIGURATION RELEASE MANAGER Screenings Date of Last Pap Smear : [...] Ultrasound Result Comment : Benign Mariajose Palmer - 04/19/2023 9:42 EST Contraception Contraception Method : Sterilization for contraception Sterilization Type : Partner vasectomy Mariajose Palmer - 04/19/2023 9:42 EST Normal [facility] Phone Msgon 04-19-2023 Phone Msg - From: PARDEEP BARRETO MD, FACOG To: CARMEN HUANGA Sent: 04/19/2023 15:01:02 EST Subject: normal thyroid Mariajose, Your thyroid was normal. I hope the paxil helps you. Let me know how it goes. Pardeep Barreto MD Results: Date Result Name Value Ref Range 04/19/2023 10:18 TSH 0.74 uIU/ml (0.55 - 4.78) Normal [facility] TSHon 04-19-2023 TSH Qn 0.74 m[IU]/L Normal 0.55-4.78 [facility] Comment on above: Order Comment: Order ed on Fin# [id number] Result Comment: - Do not use samples [...] Reference: [email or web address] (11/2022) Performed By: #### 1 [id number] #### [facility] [address] [place] [address] [id number] Environmental Services Project Manager: Escobar Tracy MD Basophil percentageOrdered B y: Jeff Duron on 12-01-2022 Bilirubin [Mass/Vol] 0.30 mg/dL 0.20-1.00 [facility] Comment on above: For patients on eltr ombopag therapy, use of [facility] TBIL is not recommended. Chloride [Moles/Vol] 105 mmol/L 98-107 [facility] Glucose [Mass/Vol] 92 mg/dL 74-106 [facility] Potassium [Moles/Vol] 4.3 mmol/L 3.5-5.1 [facility] Protein [Mass/Vol] 6.6 g/dL 6.4-8.2 [facility] Sodium [Moles/Vol] 139 mmol/L 136-145 [facility] - Chemistry and C hemistry - challengeOrdered By: Jeff Duron on 12-01-2022 ALP [Catalytic activity/Vol] 40 U/L 45-117 [facility] ALT [Catalytic activity/Vol] 23 U/L 13-56 [facility] CO2 [Moles/Vol] 28.0 mmol/L 21.0-32.0 [facility] Free T4 [Mass/Vol] 1.19 ng/dL 0.76-1.46 [facility] Globulin (S) [Mass/Vol] 3.3 g/dL 2.2-4.2 [facility] Urea nitrogen/Creatinine [Mass ratio] 26.0 mg/mg 12-01 [facility] No Panel InformationOrdered By: Jeff Duron on 12-01-2022 Estimated GFR (MDRD) Amer 111 mL/min >60 [facility] Comment on above: GFR Calc Estimated GFR (MDRD) Non-Af Amer 92 mL/min >60 [facility] Comment on above: Non- GFR Calc Thyroid Stimulating Hormone (TSH) 0.82 uIU/mL 0.358-3.74 [facility] Vitamin D 25-Hydroxy 44.9 ng/mL [facility] Comment on above: Vitamin D 25(OH) Sta tus Range Deficiency <20 ng/mL (50nmol/L) Insufficiency 20 - 30 ng/mL (50 - 75 nmol/L) Sufficiency 30 - 100 ng/mL (75 - 250 nmol/L) Toxicity >100 ng/mL (>250 nmol/L) Serum or plasma albumin sharri urement (mass/volume)Ordered By: Jeff Duorn on 12-01-2022 Albumin [Mass/Vol] 3.3 g/dL 3.2-5.0 [facility] Serum or plasma albumin/glob ulin mass ratioOrdered By: Jeff Duron on 12-01-2022 Albumin/Globulin [Mass ratio] 1.0 {ratio} 0.9-2.4 [facility] Serum or plasma calcium sharri urement (mass/volume)Ordered By: Jeff Duron on 12-01-2022 Calcium [Mass/Vol] 9.0 mg/dL 8.5-10.1 [facility] Serum or plasma creatinine m easurement (mass/volume)Ordered By: Jeff Duron on 12-01-2022 Creatinine [Mass/Vol] 0.73 mg/dL 0.55-1.02 [facility] Comment on above: The validity of the calculated GFR & GFRAA in patients over 70 years has not been determined. Clinical correlation is essential. Serum or plasma urea nitroge n measurement (mass/volume)Ordered By: Jeff Duron on 12-01-2022 Urea nitrogen [Mass/Vol] 19 mg/dL 7-18 [facility] Thin prep Papanicolaou smear with manual screeningOrdered By: Jeff Duron on 12-01-2022 Thin prep Papanicolaou smear with manual screening 9 U/L 15-37 [facility] Thin prep Papanicolaou smear with manual screening 6 5-15 [facility] Absolute lymphocyte countOrd ered By: Dr. Duron on 04-10-2022 Lymphocytes Auto (Unsp spec) [#/Vol] 2.59 10*3/uL 0.83-4.51 [facility] Basophil percentageOrdered B y: Dr. Duron on 04-10-2022 Basophils/100 WBC (Bld) 0.8 % 0-1 [facility] Bilirubin [Mass/Vol] 0.40 mg/dL 0.20-1.00 [facility] Comment on above: For patients on eltr ombopag therapy, use of [facility] TBIL is not recommended. Chloride [Moles/Vol] 103 mmol/L 98-107 [facility] Eosinophils/100 WBC (Bld) 1.7 % 0-5 [facility] Glucose [Mass/Vol] 104 mg/dL 74-106 [facility] Comment on above: Fasting Glucose resu lt from 100 to 125 mg/dL suggests IMPAIRED HOMEOSTASIS per A.D.A. criteria. Neutrophils (Bld) [#/Vol] 3.1 10*3/uL 2.0-7.7 [facility] Neutrophils/100 WBC (Bld) 48.2 % 47-70 [facility] Potassium [Moles/Vol] 3.9 mmol/L 3.5-5.1 [facility] Protein [Mass/Vol] 6.6 g/dL 6.4-8.2 [facility] Sodium [Moles/Vol] 136 mmol/L 136-145 [facility] WBC (Bld) [#/Vol] 6.4 10*3/uL 4.4-11.0 [facility] Blood erythrocytes count (nu mber/volume)Ordered By: Dr. Duron on 04-10-2022 RBC (Bld) [#/Vol] 3.92 10*6/uL 4.2-5.4 [facility] Blood hemoglobin measurement (mass/volume)Ordered By: Dr. Duron on 04-10-2022 Hemoglobin (Bld) [Mass/Vol] 12.7 g/dL 12.0-15.0 [facility] Blood lymphocytes/100 leukoc ytesOrdered By: Dr. Duron on 04-10-2022 Lymphocytes/100 WBC (Bld) 40.4 % 19-41 [facility] Blood monocytes/100 leukocyt esOrdered By: Dr. Duron on 04-10-2022 Monocytes/100 WBC (Bld) 8.7 % 0-10 [facility] Blood platelet mean volumeOr dered By: Dr. Duron on 04-10-2022 Platelet mean volume (Bld) [Entitic vol] 10.6 fL 6.2-12.0 [facility] Determination of erythrocyte mean corpuscular volume (MCV)Ordered By: Dr. Duron on 04-10-2022 MCV (RBC) [Entitic vol] 99.0 fL 81-99 [facility] Hematocrit Auto (Bld) [Volum e fraction]Ordered By: Dr. Duron on 04-10-2022 Hematocrit (Bld) [Volume fraction] 38.8 % 37-47 [facility] Iron measurement (mass/mass) Ordered By: Dr. Duron on 04-10-2022 Iron (Unsp spec) [Mass/Mass] 120 ug/dL 50-170 [facility] Laboratory - Chemistry and C hemistry - challengeOrdered By: Dr. Duron on 04-10-2022 ALP [Catalytic activity/Vol] 34 U/L 45-117 [facility] ALT [Catalytic activity/Vol] 19 U/L 13-56 [facility] CO2 [Moles/Vol] 27.0 mmol/L 21.0-32.0 [facility] Globulin (S) [Mass/Vol] 3.0 g/dL 2.2-4.2 [facility] T4 [Mass/Vol] 8.4 ug/dL 4.8-13.9 [facility] Urea nitrogen/Creatinine [Mass ratio] 22.7 mg/mg 10-20 [facility] Laboratory - Hematology and Cell countsOrdered By: Dr. Duron on 04-10-2022 Erythrocyte distribution width (RBC) [Entitic vol] 43.1 fL 35.1-43.9 [facility] Erythrocyte distribution width (RBC) [Ratio] 11.9 % 11.6-14.6 [facility] Immature granulocytes/100 WBC (Bld) 0.200 % 0.0-0.9 [facility] Comment on above: IG% - Immature Granu locytes (promyelocytes, myelocytes and metamyelocytes) > 1% indicates that a LEFT SHIFT is Present. MCH (RBC) [Entitic mass] 32.4 pg 27.0-32.0 [facility] Nucleated RBC/100 WBC (Bld) [Ratio] 0 % 0-5 [facility] MCHC Auto (RBC) [Mass/Vol]Or dered By: Dr. Duron on 04-10-2022 MCHC (RBC) [Mass/Vol] 32.7 g/dL 32-36 [facility] No Panel InformationOrdered By: Dr. Duron on 04-10-2022 Estimated GFR (MDRD) Amer 108 mL/min >60 [facility] Comment on above: GFR Calc Estimated GFR (MDRD) Non-Af Amer 89 mL/min >60 [facility] Comment on above: Non- GFR Calc Thyroid Stimulating Hormone (TSH) 0.78 uIU/mL 0.358-3.74 [facility] Platelets bldOrdered By: Dr. Duron on 04-10-2022 Platelets (Bld) [#/Vol] 267 10*3/uL 150-450 [facility] Serum or plasma albumin sharri urement (mass/volume)Ordered By: Dr. Duron on 04-10-2022 Albumin [Mass/Vol] 3.6 g/dL 3.2-5.0 [facility] Serum or plasma albumin/glob ulin mass ratioOrdered By: Dr. Duron on 04-10-2022 Albumin/Globulin [Mass ratio] 1.2 {ratio} 0.9-2.4 [facility] Serum or plasma calcium sharri urement (mass/volume)Ordered By: Dr. Duron on 04-10-2022 Calcium [Mass/Vol] 8.7 mg/dL 8.5-10.1 [facility] Serum or plasma creatinine m easurement (mass/volume)Ordered By: Dr. Duron on 04-10-2022 Creatinine [Mass/Vol] 0.75 mg/dL 0.55-1.02 [facility] Comment on above: The validity of the calculated GFR & GFRAA in patients over 70 years has not been determined. Clinical correlation is essential. Serum or plasma ferritin bibiana surement (mass/volume)Ordered By: Dr. Duron on 04-10-2022 Ferritin [Mass/Vol] 18 ng/mL 8 [facility] Serum or plasma urea nitroge n measurement (mass/volume)Ordered By: Dr. Duron on 04-10-2022 Urea nitrogen [Mass/Vol] 17 mg/dL 7-18 [facility] Thin prep Papanicolaou smear with manual screeningOrdered By: Dr. Duron on 04-10-2022 Thin prep Papanicolaou smear with manual screening 15 U/L 15-37 [facility] Thin prep Papanicolaou smear with manual screening 6 5-15 [facility] CBC W Auto Differential pane l (Bld)Ordered By: Lula Holt on 03-22-2022 Basophils (Bld) [#/Vol] 0.1 10*3/uL 0.0 - 0.2 10*3/uL [facility] Basophils/100 WBC (Bld) 0.5 % 0.0 - 2.0 % [facility] Eosinophils (Bld) [#/Vol] 0.0 10*3/uL 0.0 - 0.5 10*3/uL [facility] Eosinophils/100 WBC (Bld) 0.1 % Low 1.0 - 6.0 % [facility] Erythrocyte distribution width (RBC) [Ratio] 11.9 % 11.5 - 14.5 % [facility] Hematocrit (Bld) [Volume fraction] 39.4 % 35.0 - 47.0 % [facility] Hemoglobin (Bld) [Mass/Vol] 13.2 g/dL 11.7 - 16.0 g/dL [facility] Immature granulocytes (Bld) [#/Vol] 0.0 10*3/uL NINF - 0.0 10*3/uL [facility] Immature granulocytes/100 WBC (Bld) 0.2 % High NINF - 0.0 % [facility] Interpretation and review of laboratory results Abnormal [facility] Lymphocytes (Bld) [#/Vol] 1.7 10*3/uL 1.0 - 4.3 10*3/uL [facility] Lymphocytes/100 WBC (Bld) 17.9 % Low 20.0 - 40.0 % [facility] MCH (RBC) [Entitic mass] 32.2 pg 26.0 - 34.0 pg [facility] MCHC (RBC) [Mass/Vol] 33.5 % 32.0 - 36.0 % [facility] MCV (RBC) [Entitic vol] 96.1 fL 80.0 - 98.0 fL [facility] Monocytes (Bld) [#/Vol] 0.6 10*3/uL 0.0 - 0.8 10*3/uL [facility] Monocytes/100 WBC (Bld) 6.3 % 2.0 - 10.0 % [facility] Neutrophils (Bld) [#/Vol] 7.3 10*3/uL High 1.8 - 7.0 10*3/uL [facility] Neutrophils/100 WBC (Bld) 75.0 % 40.0 - 80.0 % [facility] Platelet mean volume (Bld) [Entitic vol] 10.2 fL 7.4 - 12.4 fL [facility] Comment on above: MPV is a calculated measurement using platelet volume ratio Platelets (Bld) [#/Vol] 323 10*3/uL 140 - 440 10*3/uL [facility] RBC (Bld) [#/Vol] 4.10 10*6/uL 3.8 - 5.20 10*6/uL [facility] WBC (Bld) [#/Vol] 9.7 10*3/uL 3.6 - 10.7 10*3/uL [facility] Comprehensive metabolic 1998 panelon 03-22-2022 Albumin [Mass/Vol] 4.5 g/dL 3.5 - 5.0 g/dL [facility] ALP [Catalytic activity/Vol] 45 U/L 38 - 126 U/L [facility] ALT [Catalytic activity/Vol] 16 U/L 0 - 34 U/L [facility] Anion gap [Moles/Vol] 3 mmol/L 3 - 13 mmol/L [facility] AST [Catalytic activity/Vol] 26 U/L 15 - 46 U/L [facility] Bilirubin [Mass/Vol] 0.5 mg/dL 0.2 - 1 .3 mg/dL [facility] Calcium [Mass/Vol] 9.3 mg/dL 8.4 - 10. 4 mg/dL [facility] Chloride [Moles/Vol] 107 mmol/L 98 - 10 7 mmol/L [facility] CO2 [Moles/Vol] 31 mmol/L High 22 - 30 mmol/L [facility] Creatinine [Mass/Vol] 0.68 mg/dL 0.52 - 1.04 mg/dL [facility] GFR/1.73 sq M.predicted MDRD (S/P/Bld) [Vol rate/Area] - PINF [facility] Comment on above: Calculation based on the Chronic Kidney Disease Epidemiology Collaboration (CKD-EPI) equation refit without adjustment for race Glucose [Mass/Vol] 127 mg/dL High 70 - 100 mg/dL [facility] Interpretation and review of laboratory results Abnormal [facility] Potassium [Moles/Vol] 4.1 mmol/L 3.5 - 5.1 mmol/L [facility] Protein [Mass/Vol] 7.0 g/dL 6.3 - 8.2 g/dL [facility] Sodium [Moles/Vol] 141 mmol/L 135 - 145 mmol/L [facility] Urea nitrogen [Mass/Vol] 18 mg/dL High 7 - 17 mg/dL [facility] Laboratory - Chemistry and C hemistry - challengeon 03-22-2022 TSH Qn 1.905 m[IU]/L [facility] Troponin I.cardiac [Mass/Vol] ng/mL 0.000 - 0.034 ng/mL [facility] Magnesium [Mass/Vol] 1.9 mg/dL 1.6 - 2 .3 mg/dL [facility] Magnesium [Mass/Vol]on 03-22 Interpretation and review of laboratory results Normal [facility] No Panel Informationon 03-22 [facility] TSH Qnon 03-22-2022 Interpretation and review of laboratory results Normal [facility] Troponin I.cardiac [Mass/Vol ]on 03-22-2022 Interpretation and review of laboratory results Normal [facility] Patients with high levels of Biotin oral intake (ie >5 mg/day) may have falsely decreased Troponin levels. [facility] XR Chest Single viewon 03-22 1. No evidence of an acute cardiopulmonary process. Report Dictated on Electronically Signed By: Abran Garcia Electronically Signed Date/Time: 03/22/2022 10:37 AM EST [facility] [facility] Patient Name: MARIAJOSE HUANG Exam Date/Time: 03/22/2022 10:19 Procedure: XR CHEST 1 VIEW Ordering Provider: CALLEJAS JESSE Reason For Exam: CLINICAL INFORMATION: Chest pain. Portable view of the chest at 1015 hours is provided without comparison. FINDINGS: The cardiac silhouette and mediastinum are within normal limits. The lungs are free of infiltrate or pleural effusion. The visualized bones and soft tissues are grossly unremarkable. [facility] Abran Garcia MD - 03/22/2022 [id number] Exam Date/Time: 03/22/2022 10:19 Procedure: XR CHEST 1 VIEW Ordering Provider: CALLEJAS JESSE Reason For Exam: CLINICAL INFORMATION: Chest pain. Portable view of the chest at 1015 hours is provided without comparison. FINDINGS: The cardiac silhouette and mediastinum are within normal limits. The lungs are free of infiltrate or pleural effusion. The visualized bones and soft tissues are grossly unremarkable. IMPRESSION: 1. No evidence of an acute cardiopulmonary process. Report Dictated on Electronically Signed By: Abran Garcia Electronically Signed Date/Time: 03/22/2022 10:37 AM EST [facility] [employer] [facility] Study observation (narrative) [employer] XR Chest Single viewOrdered By: Abran Garcia on 03-22-2022 [employer] Work Phone: Basophil percentageon 2021 Bilirubin [Mass/Vol] 0.50 mg/dL 0.20-1.00 [facility] Work Phone: Comment on above: For patients on eltr ombopag therapy, use of [facility] TBIL is not recommended. Chloride [Moles/Vol] 104 mmol/L 98-107 [facility] Work Phone: Glucose [Mass/Vol] 107 mg/dL 74-106 [facility] Work Phone: Comment on above: Fasting Glucose resu lt from 100 to 125 mg/dL suggests IMPAIRED HOMEOSTASIS per A.D.A. criteria. Potassium [Moles/Vol] 4.1 mmol/L 3.5-5.1 [facility] Work Phone: Protein [Mass/Vol] 6.5 g/dL 6.4-8.2 [facility] Work Phone: Sodium [Moles/Vol] 136 mmol/L 136-145 [facility] Work Phone: Laboratory - Chemistry and C hemistry - challengeon 09-19-2021 ALP [Catalytic activity/Vol] 34 U/L 45-117 [facility] Work Phone: ALT [Catalytic activity/Vol] 21 U/L 13-56 [facility] Work Phone: CO2 [Moles/Vol] 27.0 mmol/L 21.0-32.0 [facility] Work Phone: Free T4 [Mass/Vol] 1.13 ng/dL 0.76-1.46 [facility] Work Phone: Globulin (S) [Mass/Vol] 2.8 g/dL 2.2-4.2 [facility] Work Phone: Urea nitrogen/Creatinine [Mass ratio] 18.5 mg/mg 10-20 [facility] Work Phone: No Panel Informationon 09-19 Estimated GFR (MDRD) Amer 107 mL/min >60 [facility] Work Phone: Comment on above: GFR Calc Estimated GFR (MDRD) Non-Af Amer 88 mL/min >60 [facility] Work Phone: Comment on above: Non- GFR Calc Thyroid Stimulating Hormone (TSH) 1.03 uIU/mL 0.358-3.74 [facility] Work Phone: Vitamin D 25-Hydroxy 76.9 ng/mL [facility] Work Phone: Comment on above: Vitamin D 25(OH) Sta tus Range Deficiency <20 ng/mL (50nmol/L) Insufficiency 20 - 30 ng/mL (50 - 75 nmol/L) Sufficiency 30 - 100 ng/mL (75 - 250 nmol/L) Toxicity >100 ng/mL (>250 nmol/L) Serum or plasma albumin sharri urement (mass/volume)on 09-19-2021 Albumin [Mass/Vol] 3.7 g/dL 3.2-5.0 [facility] Work Phone: Serum or plasma albumin/glob ulin mass ratioon 09-19-2021 Albumin/Globulin [Mass ratio] 1.3 {ratio} 0.9-2.4 [facility] Work Phone: Serum or plasma calcium sharri urement (mass/volume)on 09-19-2021 Calcium [Mass/Vol] 8.5 mg/dL 8.5-10.1 [facility] Work Phone: Serum or plasma creatinine m easurement (mass/volume)on 09-19-2021 Creatinine [Mass/Vol] 0.76 mg/dL 0.55-1.02 [facility] Work Phone: Comment on above: The validity of the calculated GFR & GFRAA in patients over 70 years has not been determined. Clinical correlation is essential. Serum or plasma urea nitroge n measurement (mass/volume)on 09-19-2021 Urea nitrogen [Mass/Vol] 14 mg/dL 7-18 [facility] Work Phone: Thin prep Papanicolaou smear with manual screeningon 09-19-2021 Thin prep Papanicolaou smear with manual screening 16 U/L 15-37 [facility] Work Phone: Thin prep Papanicolaou smear with manual screening 5 5-15 [facility] Work Phone: Basophil percentageon 2021 Bilirubin [Mass/Vol] 0.60 mg/dL 0.20-1.00 [facility] Work Phone: Comment on above: For patients on eltr ombopag therapy, use of [facility] TBIL is not recommended. Chloride [Moles/Vol] 102 mmol/L 98-107 [facility] Work Phone: Glucose [Mass/Vol] 97 mg/dL 74-106 [facility] Work Phone: Potassium [Moles/Vol] 3.9 mmol/L 3.5-5.1 [facility] Work Phone: Protein [Mass/Vol] 6.6 g/dL 6.4-8.2 [facility] Work Phone: Sodium [Moles/Vol] 135 mmol/L 136-145 [facility] Work Phone: Laboratory - Chemistry and C hemistry - challengeon 07-07-2021 ALP [Catalytic activity/Vol] 29 U/L 45-117 [facility] Work Phone: ALT [Catalytic activity/Vol] 33 U/L 13-56 [facility] Work Phone: CO2 [Moles/Vol] 26.0 mmol/L 21.0-32.0 [facility] Work Phone: Free T4 [Mass/Vol] 1.31 ng/dL 0.76-1.46 [facility] Work Phone: Globulin (S) [Mass/Vol] 2.8 g/dL 2.2-4.2 [facility] Work Phone: Urea nitrogen/Creatinine [Mass ratio] 20.0 mg/mg 10-20 [facility] Work Phone: No Panel Informationon 07-07 Estimated GFR (MDRD) Amer 117 mL/min >60 [facility] Work Phone: Comment on above: GFR Calc Estimated GFR (MDRD) Non-Af Amer 97 mL/min >60 [facility] Work Phone: Comment on above: Non- GFR Calc Thyroid Stimulating Hormone (TSH) 0.17 uIU/mL 0.358-3.74 [facility] Work Phone: Serum or plasma albumin sharri urement (mass/volume)on 07-07-2021 Albumin [Mass/Vol] 3.8 g/dL 3.2-5.0 [facility] Work Phone: Serum or plasma albumin/glob ulin mass ratioon 07-07-2021 Albumin/Globulin [Mass ratio] 1.4 {ratio} 0.9-2.4 [facility] Work Phone: Serum or plasma calcium sharri urement (mass/volume)on 07-07-2021 Calcium [Mass/Vol] 8.5 mg/dL 8.5-10.1 [facility] Work Phone: Serum or plasma creatinine m easurement (mass/volume)on 07-07-2021 Creatinine [Mass/Vol] 0.70 mg/dL 0.55-1.02 [facility] Work Phone: Comment on above: The validity of the calculated GFR & GFRAA in patients over 70 years has not been determined. Clinical correlation is essential. Serum or plasma urea nitroge n measurement (mass/volume)on 07-07-2021 Urea nitrogen [Mass/Vol] 14 mg/dL 7-18 [facility] Work Phone: Thin prep Papanicolaou smear with manual screeningon 07-07-2021 Thin prep Papanicolaou smear with manual screening 17 U/L 15-37 [facility] Work Phone: Thin prep Papanicolaou smear with manual screening 7 5-15 [facility] Work Phone: Laboratory - Chemistry and C hemistry - challengeon 05-26-2021 Free T4 [Mass/Vol] 1.27 ng/dL 0.76-1.46 [facility] Work Phone: No Panel Informationon 05-26 Free Triiodothyronine (T3) pg/dL 2.8 pg/mL 2.18-3.98 [facility] Work Phone: Thyroid Stimulating Hormone (TSH) 0.34 uIU/mL 0.358-3.74 [facility] Work Phone: No Panel Informationon 04-11 SARS-CoV-2 Antigen (Rapid) [facility] Work Phone: Basophil percentageon 2021 Bilirubin [Mass/Vol] 0.60 mg/dL 0.20-1.00 [facility] Work Phone: Comment on above: For patients on eltr ombopag therapy, use of [facility] TBIL is not recommended. Chloride [Moles/Vol] 100 mmol/L 98-[address] [facility] Work Phone: Glucose [Mass/Vol] 93 mg/dL 74-106 [facility] Work Phone: Potassium [Moles/Vol] 4.0 mmol/L 3.5-5.1 [place] [facility] Work Phone: Protein [Mass/Vol] 6.7 g/dL 6.4-8.2 [facility] Work Phone: Sodium [Moles/Vol] 134 mmol/L 136-145 [facility] Work Phone: Laboratory - Chemistry and C hemistry - challengeon 03-22-2021 ALP [Catalytic activity/Vol] 37 U/L 45-117 [facility] Work Phone: ALT [Catalytic activity/Vol] 18 U/L 13-56 [facility] Work Phone: CO2 [Moles/Vol] 26.0 mmol/L 21.0-32.0 [facility] Work Phone: Globulin (S) [Mass/Vol] 3.0 g/dL 2.2-4.2 [facility] Work Phone: Urea nitrogen/Creatinine [Mass ratio] 21.3 mg/mg 10-20 [facility] Work Phone: No Panel Informationon 03-22 Estimated GFR (MDRD) Amer 126 mL/min >60 [facility] Work Phone: Comment on above: GFR Calc Estimated GFR (MDRD) Non-Af Amer 104 mL/min >60 [facility] Work Phone: Comment on above: Non- GFR Calc Thyroid Stimulating Hormone (TSH) 0.13 uIU/mL 0.358-3.74 [facility] Work Phone: Serum or plasma albumin sharri urement (mass/volume)on 03-22-2021 Albumin [Mass/Vol] 3.7 g/dL 3.2-5.0 [facility] Work Phone: Serum or plasma albumin/glob ulin mass ratioon 03-22-2021 Albumin/Globulin [Mass ratio] 1.2 {ratio} 0.9-2.4 [facility] Work Phone: Serum or plasma calcium sharri urement (mass/volume)on 03-22-2021 Calcium [Mass/Vol] 8.4 mg/dL 8.5-10.1 [place] [facility] Work Phone: Serum or plasma creatinine m easurement (mass/volume)on 03-22-2021 Creatinine [Mass/Vol] 0.66 mg/dL 0.55-1.02 [facility] Work Phone: Comment on above: The validity of the calculated GFR & GFRAA in patients over 70 years has not been determined. Clinical correlation is essential. Serum or plasma urea nitroge n measurement (mass/volume)on 03-22-2021 Urea nitrogen [Mass/Vol] 14 mg/dL 7-18 [facility] Work Phone: Thin prep Papanicolaou smear with manual screeningon 03-22-2021 Thin prep Papanicolaou smear with manual screening 13 U/L 15-37 [facility] Work Phone: Thin prep Papanicolaou smear with manual screening 8 5-15 [facility] Work Phone: MG Breast Tomosynthesis Scr Blon 12-23-2020 MG Breast Tomosynthesis Scr Bl Patient Name: MARIAJOSE HUANG Mammography ACCESSION EXAM DATE/TIME PROCEDURE ORDERING PROVIDER [phone] 12/23/2020 10:50 EST MG Breast Tomosynthesis PARDEEP BARRETO BI Scr CPT code [id number] Reason For Exam (MG Breast Tomosynthesis BI [...] comparison: June 03, 2019, mammogram performed at [facility]. June 03, 2019, ultrasound performed at [facility]. December 20, 2018, right breast MG breast tomosynthesis right performed at [facility]. November 28, 2018, bilateral MG breast tomosynthesis bl scr performed at [facility] at [facility]. TISSUE DENSITY: BIRADS D - The breast [...] images: BB's = Nipples; skin lesions [facility] [facility] = Palpable Mammography Report Line = Scar [...] am Signed by: DO CRAWFORD RACHEL Normal [facility] Comprehensive metabolic 2000 panelon 10-07-2020 Albumin [Mass/Vol] 4.8 g/dL Normal 3.9-4.9 [facility] Comment on above: Order Comment: Speci men Type: BLOOD SPECIMEN Performed By: #### 2 4323-8, 3016-3 #### [facility] CLIA [id number] [address] ALP [Catalytic activity/Vol] 40 U/L Normal 34-123 [facility] Comment on above: Order Comment: Speci men Type: BLOOD SPECIMEN Performed By: #### 2 4323-8, 6-3 #### [facility] CLIA [id number] [address] ALT With P-5'-P [Catalytic activity/Vol] 17 U/L Normal 7-38 [facility] Comment on above: Order Comment: Speci men Type: BLOOD SPECIMEN Performed By: #### 2 432-8, 6-3 #### [facility] CLIA [id number] [address] Anion gap [Moles/Vol] 10 mmol/L Normal 9-18 [facility] Comment on above: Order Comment: Speci men Type: BLOOD SPECIMEN Performed By: #### 2 432-8, 6-3 #### [facility] CLIA [id number] [address] AST With P-5'-P [Catalytic activity/Vol] 24 U/L Normal 13-35 [facility] Comment on above: Order Comment: Speci men Type: BLOOD SPECIMEN Performed By: #### 2 432-8, 6-3 #### [facility] CLIA [id number] [address] Bilirubin [Mass/Vol] 0.5 mg/dL Normal 0.2-1.3 [facility] Comment on above: Order Comment: Speci men Type: BLOOD SPECIMEN Performed By: #### 2 4323-8, 3016-3 #### [facility] CLIA [id number] [address] [facility] Calcium [Mass/Vol] 9.4 mg/dL Normal 8.5-10.2 [facility] Comment on above: Order Comment: Speci men Type: BLOOD SPECIMEN Performed By: #### 2 4323-8, 6-3 #### [facility] CLIA [id number] [address] Chloride [Moles/Vol] 101 mmol/L Normal 97-105 [facility] Comment on above: Order Comment: Speci men Type: BLOOD SPECIMEN Performed By: #### 2 4323-8, 6-3 #### [facility] CLIA [id number] [address] CO2 [Moles/Vol] 26 mmol/L Normal 22-30 [facility] Comment on above: Order Comment: Speci men Type: BLOOD SPECIMEN Performed By: #### 2 4323-8, 6-3 #### [facility] CLIA [id number] [address] Creatinine [Mass/Vol] 0.71 mg/dL Normal 0.58-0.96 [facility] [facility] Comment on above: Order Comment: Speci men Type: BLOOD SPECIMEN Performed By: #### 2 4323-8, 6-3 #### [facility] CLIA [id number] [address] GFR/1.73 sq M.predicted MDRD (S/P/Bld) [Vol rate/Area] mL/min/{1.73_m2} Normal [facility] Comment on above: Order Comment: Speci [...] reflect actual GFR. Performed By: #### 2 4328, 3015-3 #### [facility] CLIA [id number] 1 [place] [address] [place] Glucose [Mass/Vol] 104 mg/dL High 74-99 [facility] Comment on above: Order Comment: Speci men Type: BLOOD SPECIMEN Result Comment: The [place] Diabetes Association (ADA) provides guidance for cutoff [...] Standards of Medical Care in Diabetes 2016, [place] Diabetes Association. Diabetes Care. 2016.39(Suppl 1). Performed By: #### 2 4328, 3 #### [facility] CLIA [id number] [address] [place] Potassium [Moles/Vol] 4.6 mmol/L Normal 3.7-5.1 [facility] Comment on above: Order Comment: Speci men Type: BLOOD SPECIMEN Performed By: #### 2 43204-19, 3 #### [facility] CLIA [id number] [address] [place] Protein [Mass/Vol] 7.3 g/dL Normal 6.3-8.0 [facility] Comment on above: Order Comment: Speci men Type: BLOOD SPECIMEN Performed By: #### 2 4328, 3015-3 #### [facility] CLIA [id number] [address] [place] Sodium [Moles/Vol] 137 mmol/L Normal 136-144 [facility] Comment on above: Order Comment: Speci men Type: BLOOD SPECIMEN Performed By: #### 2 43204-19, 3016-3 #### [facility] CLIA [id number] [address] [place] Urea nitrogen [Mass/Vol] 13 mg/dL Normal 7-21 [facility] Comment on above: Order Comment: Speci men Type: BLOOD SPECIMEN Performed By: #### 2 4323-8, 3016-3 #### [facility] CLIA [id number] [address] [place] TSH SerPl-aCncon 10-07-2020 TSH Qn 2.470 m[IU]/L Normal 0.270-4.200 [facility] Comment on above: Order Comment: Speci [...] E, et al. 2017 Guidelines of the [place] Thyroid Association for the Diagnosis and Management of Thyroid Disease during and the . Thyroid, 2017:27:3:315-389. Performed By: #### 2 4323-8, 3016-3 #### [facility] CLIA [id number] [address] [place] VITAMIN D 25 HYDROXYon 10-07 25-hydroxyvitamin D3 [Mass/Vol] 63.1 ng/mL Normal 30.0-100.0 [facility] Comment on above: Order Comment: Speci men Type: BLOOD SPECIMEN Result Comment: Clas sification of 25 [place] Vitamin D status: Deficiency: < 20 ng/ml. Insufficientcy: 20-30 ng/ml. Sufficiency: 30-100 ng/ml. Performed By: #### V ITD #### [facility] CLIA [id number] [address] [place] CNOVon 08-11-2020 CNOV Office Visit (WALKWA ) MARIAJOSE HUANG ([id number]) 1975 F SIM[place] Date Time Provider Department 08/11/20 11:40 AM WALK IN [facility] During your visit today, we recorded the following information about you: Temperature Pulse Respiration Blood pressure 98.3 degrees 89/minute 10/minute 149/89 Weight Last Period 64.2 kg 07/31/20 Aspen Ruelas APRN.FIELD CONTRACTOR 08/11/2020 11:57 AM Addendum (T14.8XXA) Puncture wound [...] immediately with signs of infection. Aspen Ruelas APRN.FIELD CONTRACTOR 08/11/2020 12:10 PM Signed This note was created using [employer]. Subjective Mariajose Huang is a 45 year old female. HPI by patient: Mariajose Huang is a 45 year old female presenting to the office with the complaint of needing a tetanus vaccine. Was in [place] and stepped on a tack yesterday. Tack [...] which included preparing to see the patient, [id number] patient care, completing clinical documentation, obtaining and/or reviewing separately obtained history, performing a medically appropriate examination, counseling and educating the patient/family/caregiv er and ordering medications, tests, or procedures. Referring Provider: SELF [200] Allergies As of Date: 08/11/2020 Noted Allergy Reaction TAPAZOLE (METHIMAZOLE) 01/11/2007 2 - Rash Date Reviewed: 08/11/2020 Reviewed by: Emi (more content not included)... Normal [facility] metabolic 2000 panelon 06-11-2020 Albumin [Mass/Vol] 4.7 g/dL Normal 3.9-4.9 [facility] Comment on above: Order Comment: Speci men Type: BLOOD SPECIMEN Performed By: #### 2 4323-8, LIPB, 3016-3, B12 #### [facility] CLIA [id number] 1 [place] [address] ALP [Catalytic activity/Vol] 37 U/L Normal 34-123 [facility] Comment on above: Order Comment: Speci men Type: BLOOD SPECIMEN Performed By: #### 2 4323-8, LIPB, 3016-3, B12 #### [facility] CLIA [id number] 1 [place] [address] ALT With P-5'-P [Catalytic activity/Vol] 15 U/L Normal 7-38 [facility] Comment on above: Order Comment: Speci men Type: BLOOD SPECIMEN Performed By: #### 2 4323-8, LIPB, 3016-3, B12 #### [facility] CLIA [id number] 1 [place] [address] Anion gap [Moles/Vol] 9 mmol/L Normal 9-18 [facility] Comment on above: Order Comment: Speci men Type: BLOOD SPECIMEN Performed By: #### 2 4323-8, LIPB, 3016-3, B12 #### [facility] CLIA [id number] 1 [place] [address] AST With P-5'-P [Catalytic activity/Vol] 19 U/L Normal 13-35 [facility] Comment on above: Order Comment: Speci men Type: BLOOD SPECIMEN Performed By: #### 2 4323-8, LIPB, 3016-3, B12 #### [facility] CLIA [id number] 1 [place] [address] Bilirubin [Mass/Vol] 0.5 mg/dL Normal 0.2-1.3 [facility] Comment on above: Order Comment: Speci men Type: BLOOD SPECIMEN Performed By: #### 2 4323-8, LIPB, 3016-3, B12 #### [facility] CLIA [id number] 1 [place] [address] Calcium [Mass/Vol] 9.5 mg/dL Normal 8.5-10.2 [facility] Comment on above: Order Comment: Speci men Type: BLOOD SPECIMEN Performed By: #### 2 4323-8, LIPB, 3016-3, B12 #### [facility] CLIA [id number] 1 [place] [address] Chloride [Moles/Vol] 101 mmol/L Normal 97-105 [facility] Comment on above: Order Comment: Speci men Type: BLOOD SPECIMEN Performed By: #### 2 4323-8, LIPB, 3016-3, B12 #### [facility] CLIA [id number] 1 [place] [address] CO2 [Moles/Vol] 27 mmol/L Normal 22-30 [facility] Comment on above: Order Comment: Speci men Type: BLOOD SPECIMEN Performed By: #### 2 4323-8, LIPB, 3016-3, B12 #### [facility] CLIA [id number] 1 [place] [address] Creatinine [Mass/Vol] 0.80 mg/dL Normal 0.58-0.96 [facility] Comment on above: Order Comment: Speci men Type: BLOOD SPECIMEN Performed By: #### 2 4323-8, LIPB, 3016-3, B12 #### [facility] CLIA [id number] 1 [place] [address] GFR/1.73 sq M.predicted MDRD (S/P/Bld) [Vol rate/Area] mL/min/{1.73_m2} Normal [facility] Comment on above: Order Comment: Speci [...] #### 2 4323-8, LIPB, 3016-3, B12 #### [facility] CLIA [id number] 1 [place] [address] Glucose [Mass/Vol] 108 mg/dL High 74-99 [facility] Comment on above: Order Comment: Speci men Type: BLOOD SPECIMEN Result Comment: The [place] Diabetes Association (ADA) provides guidance for cutoff [...] Standards of Medical Care in Diabetes 2016, [place] Diabetes Association. Diabetes Care. 2016.39(Suppl 1). Performed By: #### 2 4323-8, LIPB, 3016-3, B12 #### [facility] CLIA [id number] 1 [place] [address] Potassium [Moles/Vol] 4.6 mmol/L Normal 3.7-5.1 [facility] Comment on above: Order Comment: Speci men Type: BLOOD SPECIMEN Performed By: #### 2 4323-8, LIPB, 3016-3, B12 #### [facility] CLIA [id number] 1 [place] [address] Protein [Mass/Vol] 6.6 g/dL Normal 6.3-8.0 [facility] Comment on above: Order Comment: Speci men Type: BLOOD SPECIMEN Performed By: #### 2 4323-8, LIPB, 3016-3, B12 #### [facility] CLIA [id number] 1 [place] [address] Sodium [Moles/Vol] 137 mmol/L Normal 136-144 [facility] Comment on above: Order Comment: Speci men Type: BLOOD SPECIMEN Performed By: #### 2 4323-8, LIPB, 3016-3, B12 #### [facility] CLIA [id number] 1 [place] [address] Urea nitrogen [Mass/Vol] 16 mg/dL Normal 7-21 [facility] Comment on above: Order Comment: Speci men Type: BLOOD SPECIMEN Performed By: #### 2 4323-8, LIPB, 3016-3, B12 #### [facility] CLIA [id number] 1 [place] [address] LIPID PANEL BASICon 06-12-19 21 Cholesterol [Mass/Vol] 168 mg/dL Normal <200 [facility] Comment on above: Order Comment: Speci men Type: BLOOD SPECIMEN Result Comment: <200 mg/dL, Desirable 200-239 mg/dL, Borderline high >239 mg/dL, High Performed By: #### 2 4323-8, LIPB, 3016-3, B12 #### [facility] CLIA [id number] 1 [place] [address] Cholesterol in HDL [Mass/Vol] 59 mg/dL Normal >39 [facility] Comment on above: Order Comment: Speci men Type: BLOOD SPECIMEN Result Comment: 40-5 9 mg/dL, Acceptable >59 mg/dL, High: Negative risk factor for coronary heart disease <40 mg/dL, Low: Positive risk factor for coronary heart disease Performed By: #### 2 4323-8, LIPB, 3016-3, B12 #### [facility] CLIA [id number] 1 [place] [address] Cholesterol in LDL [Mass/Vol] 86 mg/dL Normal <100 [facility] Comment on above: Order Comment: Speci men Type: BLOOD SPECIMEN Result Comment: <100 mg/dL, Optimal 100-129 mg/dL, Near optimal/above optimal 130-159 mg/dL, Borderline high 160-189 mg/dL, High >189 mg/dL, Very high Secondary prevention optimal LDL Cholesterol levels are recommended to be < 70 mg/dL Performed By: #### 2 4323-8, LIPB, 3016-3, B12 #### [facility] CLIA [id number] 1 [place] [address] Cholesterol in LDL/Cholesterol in HDL [Mass ratio] 1.46 {ratio} Normal <2.54 [facility] Comment on above: Order Comment: Speci men Type: BLOOD SPECIMEN Result Comment: Refe rence: 1. National Cholesterol Education Program ATP III Guideline At-A-Glance Quick Desk Reference: National Heart, Lung, and Blood [place]. National Institutes of Health. 2001: NIH Publication No. 01-3305. 2. An International Atherosclerosis Society position paper: global recommendations for the management of dyslipidemia: executive summary, Atherosclerosis. 2014: 232(2):410-413. Performed By: #### 2 4323-8, LIPB, 3016-3, B12 #### [facility] CLIA [id number] 1 [place] [address] Cholesterol in VLDL [Mass/Vol] 23 mg/dL Normal <30 [facility] Comment on above: Order Comment: Speci men Type: BLOOD SPECIMEN Performed By: #### 2 4323-8, LIPB, 3016-3, B12 #### [facility] CLIA [id number] 1 [place] [address] Cholesterol non HDL [Mass/Vol] 109 mg/dL Normal <130 [facility] Comment on above: Order Comment: Speci men Type: BLOOD SPECIMEN Result Comment: <130 mg/dL, Optimal 130-159 mg/dL, Near optimal/above optimal 160-189 mg/dL, Borderline high 190-219 mg/dL, High >219 mg/dL, Very high Secondary prevention optimal non HDL Cholesterol levels are recommended to be <100 mg/dL Performed By: #### 2 4323-8, LIPB, 3016-3, B12 #### [facility] CLIA [id number] [address] [place] [address] Cholesterol.total/Cho lesterol in HDL [Mass ratio] 2.85 {ratio} Normal <5.10 [facility] Comment on above: Order Comment: Speci men Type: BLOOD SPECIMEN Performed By: #### 2 4323-8, LIPB, 3016-3, B12 #### [facility] CLIA [id number] 1 [place] [address] FASTING TIME 12 hrs Normal [facility] Comment on above: Order Comment: Speci men Type: BLOOD SPECIMEN Performed By: #### 2 4323-8, LIPB, 3016-3, B12 #### [facility] CLIA [id number] 1 [place] [address] Triglyceride [Mass/Vol] 113 mg/dL Normal <150 [facility] Comment on above: Order Comment: Speci men Type: BLOOD SPECIMEN Result Comment: <150 mg/dL, Normal 150-199 mg/dL, Borderline high 200-499 mg/dL, High >499 mg/dL, Very high Performed By: #### 2 4323-8, LIPB, 3016-3, B12 #### [facility] CLIA [id number] [address] [place] [address] TSH SerPl-aCncon 06-11-2020 TSH Qn 0.331 m[IU]/L Normal 0.270-4.200 [facility] Comment on above: Order Comment: Speci [...] Function tests in . Thyroid, 2019:29:3:412-420. Thuan Beasley, et al. 2017 Guidelines of the [place] Thyroid Association for the Diagnosis and Management of Thyroid Disease during and the . Thyroid, 2017:27:3:315-389. Performed By: #### 2 4323-8, LIPB, 3016-3, B12 #### [facility] CLIA [id number] 1 [place] [address] VITAMIN B12 BLOODon 06-12-19 Cobalamin (Vitamin B12) [Mass/Vol] 970 pg/mL Normal 232-1,245 [facility] Comment on above: Order Comment: Speci men Type: BLOOD SPECIMEN Performed By: #### 2 4323-8, LIPB, 3016-3, B12 #### [facility] CLIA [id number] 1 [place] [address] VITAMIN D 25 HYDROXYon 06-11 25-hydroxyvitamin D3 [Mass/Vol] 39.3 ng/mL Normal 30.0-100.0 [facility] Comment on above: Order Comment: Speci men Type: BLOOD SPECIMEN Result Comment: Clas sification of 25 [place] Vitamin D status: Deficiency: < 20 ng/ml. Insufficientcy: 20-30 ng/ml. Sufficiency: 30-100 ng/ml. Performed By: #### V ITD #### [facility] CLIA [id number] 1 [place] [address] CNPGeorgie 06-04-2019 CNPN Telephone (MEPRAD) MARIAJOSE HUANG ([id number]) 1975 F SIM[place] Date Time Provider Department 06/04/19 ROCIO COOL [...] Status:Closed by ROCIO COOL MD on 06/04/19 [facility] 06-03-2019 [facility] HNO ID: [id number] Author: MAYITO Corona (Ct) Service: Radiology Author Type: Clinical Material Movers Type: Allied Health Filed: 06/03/2019 3:09 PM Note Text: PATIENT IDENTITY VERIFICATION COMPLETED USING TWO (2) STANDARD IDENTIFIERS: Name and Date of confirmed by patient verbally. Procedure: Ultrasound FNA Site Verification: left No Nursing No Allergies ALLERGIES Allergen Reactions - Tapazole [Methimazo* Rash Is the patient having any pain? None Physician, Nurse, Technologist: Xiao Shen PREOPERATIVE/PROCEDURA L VERIFICATION: Patient verified by: Name and Date [...] Time Out: YES Sign Out Discussion: Completed Normal [facility] DIAGNOSTIC LTon 06-03-19 20 [facility] * * *Final Report* * * DATE OF EXAM: Jun 03 2019 1:46PM CLEO 0621 - [facility] DIAGNOSTIC LT / PROCEDURE REASON: N63.20-Breast mass, left * * * * Physician Interpretation * * * * #[id number] - [facility] US BREAST LTD LT #[id number] - [facility] DIAGNOSTIC LT UNILATERAL LEFT DIGITAL DIAGNOSTIC MAMMOGRAM [...] Health, Family Medicine, and Medical/Surgical Oncology, the [facility] has carefully reviewed the data and [...] their providers when to stop screening mammograms. Letterpress Setter(s): ELI Yoo)(Chey), [facility]; Xiao Nunez [facility] OVERALL STUDY BIRADS: 2 Benign finding Oriental Medicine Practitioner: Penrad Transcribe Date/Time: Jun 03 2019 1:36P Dictated by : ASHLYN RADER MD This examination was interpreted and the report reviewed and electronically signed by: ASHLYN RADER MD on Jun 03 2019 3:13PM EST [id number] Normal [facility] US BREAST LTD LTon 06-02 [facility] US BREAST LTD LT * * *Final Report* * * DATE OF EXAM: Jun 03 2019 3:02PM LUIS MIGUEL 0593 - [facility] Penneo BREAST LTD LT / PROCEDURE REASON: N63.20-Breast mass, left * * * * Physician Interpretation * * * * #[id number] - [facility] US BREAST LTD LT #[id number] - [facility] DIAGNOSTIC LT UNILATERAL LEFT DIGITAL DIAGNOSTIC MAMMOGRAM [...] Health, Family Medicine, and Medical/Surgical Oncology, the [facility] has carefully reviewed the data and [...] their providers when to stop screening mammograms. Letterpress Setter(s): RT Fredo(R)(M), [facility]; Xiao [facility] OVERALL STUDY BIRADS: 2 Benign finding Oriental Medicine Practitioner: Luh Transcribe Date/Time: Jun 03 2019 1:36P Dictated by : ASHLYN RADER MD This examination was interpreted and the report reviewed and electronically signed by: ASHLYN RADER MD on Jun 03 2019 3:13PM EST [id number] Normal [facility] US CYST ASP BRST LTon [facility] US CYST ASP BRST LT * * *Final Report* * * * * * SEE BOTTOM OF REPORT FOR ADDENDED TEXT * * * DATE OF EXAM: Jun 03 2019 3:02PM LUIS MIGUEL 0595 - [facility] US CYST ASP BRST LT / PROCEDURE REASON: N63.0-Breast mass * * * * Physician Interpretation * * * * FINAL REPORT #[id number] - [facility] US CYST ASP BRST LT [...] dated: 06/03/2019 ultrasound and 06/03/2019 mammogram - [facility]. An aspiration was performed for the palpable [...] Dr. Cool. Ashlyn Rader M.D., cp/luh:06/09/2019 11:31:48 Letterpress Setter(s): Xiao Nunez [facility] Multiple national specialty organizations have released breast cancer screening guidelines for women at average risk for developing breast cancer - guidelines that are based on both evidence and opinion, yet differ on when to start and how often to screen for breast cancer. With representation from Breast Imaging, Internal Medicine, Women's Health, Family Medicine, and Medical/Surgical Oncology, the [facility] has carefully reviewed the data and [...] their providers when to stop screening mammograms. Oriental Medicine Practitioner: Luh Transcribe Date/Time: Jun 03 2019 2:57P Dictated by : ASHLYN RADER MD This examination was interpreted and the report reviewed and electronically signed by: ASHLYN RADER MD on Jun 03 2019 3:24PM EST This document has been addended by: ASHLYN RADER MD on Jun 09 2019 11:31AM EST [id number] Normal [facility] PROGRESSon 06-03-2019 PROGRESS HNO ID: [id number] Author: Jose Luis Yoo (Rt) Service: Radiology Author Type: Material Movers Type: Progress Notes Filed: 06/03/2019 1:53 PM [...] RT Fredo June 03, 2019 1:52 PM Normal [facility] Wound Culture/Stainon 2019 Wound Culture/Stain Sp. [...] therapy. Doxycycline SUSCEPTIBLE <=0.5 F Critically abnormal [facility] Comment on above: Performed By: #### W CUL ####[facility] [place], [place] [phone] Comprehensive Metabolic Pane [facility] 05-08-2019 Albumin [Mass/Vol] 4.4 g/dL Normal 3.9-4.9 [facility] Comment on above: Performed By: #### C MP #### [address] [address] ALP [Catalytic activity/Vol] 39 U/L Normal 34-123 [facility] Comment on above: Performed By: #### C MP #### [address] [address] ALT [Catalytic activity/Vol] 13 U/L Normal 7-38 [facility] Comment on above: Performed By: #### C MP #### [address] [address] Anion gap [Moles/Vol] 13 mmol/L Normal 9-18 [facility] Comment on above: Performed By: #### C MP #### [place] [id number] AST [Catalytic activity/Vol] 17 U/L Normal 13-35 [facility] Comment on above: Performed By: #### C MP #### [facility] [address] [place], [place] [address] Bilirubin [Mass/Vol] 0.3 mg/dL Normal 0.2-1.3 [facility] [place] Comment on above: Performed By: #### C MP #### [facility] [address] [place], [place] [address] Calcium [Mass/Vol] 9.5 mg/dL Normal 8.5-10.2 [facility] Comment on above: Performed By: #### C MP #### [facility] [address] [place], [place] [address] Chloride [Moles/Vol] 99 mmol/L Normal 97-105 [facility] [place] Comment on above: Performed By: #### C MP #### [facility] [address] [place], [place] [address] CO2 Blood 26 mmol/L Normal 22-30 [facility] Comment on above: Performed By: #### C MP #### [facility] [address] [place], [place] [address] Creatinine [Mass/Vol] 0.68 mg/dL Normal 0.58-0.96 [facility] Comment on above: Performed By: #### C MP #### [facility] [address] [place], [place] [address] Glucose [Mass/Vol] 98 mg/dL Normal 74-99 [facility] Comment on above: Result Comment: The [place] Diabetes Association (ADA) provides guidance for cutoff [...] Standards of Medical Care in Diabetes 2016; [place] Diabetes Association. Diabetes Care. 2016;39(Suppl 1). Performed By: #### C MP #### [facility] [address] [place], [place] [address] Potassium [Moles/Vol] 4.4 mmol/L Normal 3.7-5.1 [facility] Comment on above: Performed By: #### C MP #### [facility] [address] [place], [place] [address] Protein [Mass/Vol] 6.5 g/dL Normal 6.3-8.0 [facility] Comment on above: Performed By: #### C MP #### [facility] [address] [place], [place] [address] Sodium [Moles/Vol] 138 mmol/L Normal 136-144 [facility] Comment on above: Performed By: #### C MP #### [facility] [address] [place], [place] [address] Urea nitrogen [Mass/Vol] 21 mg/dL Normal 7-21 [facility] Comment on above: Performed By: #### C MP #### [facility] [address] [place], [place] [address] MDRD GFRon 05-08-2019 GFR/1.73 sq M predicted among non-blacks MDRD (S/P/Bld) [Vol rate/Area] mL/min/{1.73_m2} Normal >60mL/min/1 .73m2 [facility] Comment on above: Result Comment: If t he patient is , multiply the result by 1.210. Performed By: #### G FR #### [address] [address] TSHon 05-08-2019 TSH Qn 0.267 uIU/mL Low 0.270-4.200 [facility] Comment on above: Result Comment: Preg sylvia: [...] result. Performed By: #### T SH3 #### [place] [id number] MAMM OUTSIDE DICOM IMPORT -N BNRon 12-20-2018 MAMM OUTSIDE DICOM IMPORT -NBNR Images were obtained outside of [facility] [id number] [facility] US OUTSIDE CD DICOM IMPORT - NBNRon 12-20-2018 US OUTSIDE CD DICOM IMPORT -NBNR Images were obtained outside [id number] DIGITAL SCREEN BILA Nelliemonty 11-28-2018 Patient Name: MARIAJOSE HUANG ---Mammography--- Exam Date/Time 11/28/2018 14:52:28 EDT Exam Breast Tomosynthesis BI Scr Ordering Physician PARDEEP BARRETO Accession Number [id number] CPT4 Codes 19006 (MG Breast Tomosynthesis Scr Bl), 61243 (MG MAMMO 2D SCREENING) Reason For Exam [...] images: BB's = Nipples; skin lesions Open [place] = Palpable Line = Scar 2D digital [...] 11/28/2018 3:46 pm Signed by: MD JULIET, [place], [place] Wendy Aguilar Incoming Radiology Results From Replaced By [facility] - 11/28/2018 9:28 PM EDT Patient Name: MARIAJOES HUANG ---Mammography--- Exam Date/Time 11/28/2018 14:52:28 EDT Exam MG Breast Tomosynthesis BI Scr Ordering Physician PARDEEP BARRETO Accession Number [id number] CPT4 Codes 43805 (MG Breast Tomosynthesis Scr Bl), 08717 (MG MAMMO 2D SCREENING) Reason For Exam [...] images: BB's = Nipples; skin lesions Open [place] = Palpable Line = Scar 2D digital [...] 11/28/2018 3:46 pm Signed by: MD JULIET, [facility], [place], [place] MAMM OUTSIDE DICOM IMPORT -N BNRon 11-28-2018 MAMM OUTSIDE DICOM IMPORT -NBNR Images were obtained outside of [facility] [id number] [facility] MAMM OUTSIDE DICOM IMPORT -NBNR Images were obtained outside of [facility] [id number] [facility] T3, FREE (TRIDOTHYRONINE) (8 6522)Ordered By: Door Cutter on 04-14-2011 Free T3 [Mass/Vol] 2.8 pg/mL Normal 2.0-4.4 [facility] [facility] Internal Medicine Work Phone: Comment on above: PATIENT NOT FASTINGP ERFORMED BY: [facility]6370 [facility] [id number] T4, FREE (THYROXINE) ([id number]) Ordered By: Door Cutter on 04-14-2011 Free T4 [Mass/Vol] 1.26 ng/dL Normal 0.82-1.77 [facility] [employer] Internal Medicine Work Phone: Comment on above: PATIENT NOT FASTINGP ERFORMED BY: [facility] Qofckp8539 [facility] [id number] Information: [id number] TSH (10123)Ordered By: Jostin m Hand Rigger on 04-14-2011 TSH Qn 5.580 {uIU/mL} Abnormal 0.450-4.500 Comprehen sive Internal Medicine Work Phone: Comment on above: PATIENT NOT FASTINGP ERFORMED BY: [facility] Ifmmat[address] [facility] [id number] URINE DONALD CULTURE-ASTRID COL C OUNT (50057)Ordered By: Door Cutter on 11-16-2010 Bacteria identified Cx Nom (U) MUG Normal [facility] Work Phone: Comment on above: Mixed urogenital nayeli ra10,000-25,000 colony forming units per mL PATIENT NOT FASTINGP ERFORMED BY: [facility] Qruspi9287 [facility] [id number] Information: SRC:UR [id number] Bacteria identified Cx Nom (U) Final report Normal [facility] Work Phone: Comment on above: PATIENT NOT FASTINGP ERFORMED BY: [facility] Gifmmh4823 [facility] [id number] Information: SRC:UR [id number] Urinalysis, Office ([id number])Or dered By: Claire Downs on 11-16-2010 Bilirubin [...] Internal Medicine Work Phone: Urine Test, Office ([id number])Ordered By: Claire Downs on 11-16-2010 Beta HCG ( test) Ql (U) Negative Normal [facility] Work Phone: Beta HCG ( test) Ql (U) Negative Normal [facility]; [facility] Work Phone: CALCIFIDIOL ([id number]) VIT D 25 Ordered By: Door Cutter on 10-06-2010 Calcitriol [Mass/Vol] 36.1 ng/mL Normal 32.0-100.0 Com prehensive Internal Medicine Work Phone: Comment on above: Recent studies consi breonna the lower limit of 32.0 ng/mL to be athreshold for optimal health.Travis SIMMONS. J Nutr. 2004;135(2):317-22. PATIENT NOT FASTINGP ERFORMED BY: [facility] CenterCo49 Zhang StreetDublin [place] [id number] CBC (Auto) (04897)Ordered By : Door Cutter on 10-06-2010 Erythrocyte distribution width (RBC) [Ratio] 13.7 % Normal 11.7-15.0 [facility] Work Phone: Comment on above: PATIENT NOT FASTINGP ERFORMED BY: CAROL LabCoLourdes Specialty HospitalLxfqce4404 [facility] [id number] Hematocrit (Bld) [Volume fraction] 39.1 % Normal 34.0-44.0 [facility] Work Phone: Comment on above: PATIENT NOT FASTINGP ERFORMED BY: LabCoLourdes Specialty HospitalGefqrd4344 [facility] [id number] Hemoglobin (Bld) [Mass/Vol] 13.0 g/dL Normal 11.5-15.0 [facility] Work Phone: Comment on above: PATIENT NOT FASTINGP ERFORMED BY: LabCoLourdes Specialty HospitalRnphbj2029 [facility] [id number] MCH (RBC) [Entitic mass] 31.3 pg Normal 27.0-34.0 [facility] Work Phone: Comment on above: PATIENT NOT FASTINGP ERFORMED BY: [facility] Jgggbf1540 [facility] [id number] MCHC (RBC) [Mass/Vol] 33.2 g/dL Normal 32.0-36.0 [facility] Internal Medicine Work Phone: Comment on above: PATIENT NOT FASTINGP ERFORMED BY: CB [facility] Nmzsgu1947 [facility] [id number] MCV (RBC) [Entitic vol] 94 fL Normal 80-98 [facility] Work Phone: Comment on above: PATIENT NOT FASTINGP ERFORMED BY: CB [facility] Jscjrg6137 [facility] [id number] Platelets (Bld) [#/Vol] 302 {x10E3/uL} Normal 140-415 [facility] Work Phone: Comment on above: PATIENT NOT FASTINGP ERFORMED BY: CB [facility] Ravtpa6874 [address] RoadDublin [place] [id number] Platelets (Bld) [#/Vol] 302 10*3/uL Normal 140-415 [facility] Internal Medicine; [facility] Medicine Work Phone: Comment on above: PATIENT NOT FASTINGP ERFORMED BY: CB [facility] Piupge2266 [address] RoadDublin [place] [id number] RBC (Bld) [#/Vol] 4.15 {x10E6/uL} Normal 3.80-5.10 [facility] Internal Medicine Work Phone: Comment on above: PATIENT NOT FASTINGP ERFORMED BY: CB [facility] Zbxikj3290 [address] RoadDublin [place] [id number] RBC (Bld) [#/Vol] 4.15 10*6/uL Normal 3.80-5.10 [facility] Internal Medicine; [facility] Medicine Work Phone: Comment on above: PATIENT NOT FASTINGP ERFORMED BY: CB [facility] Ljwmfj4418 [address] RoadDublin [place] [id number] WBC (Bld) [#/Vol] 6.5 {x10E3/uL} Normal 4.0-10.5 [facility] Internal Medicine Work Phone: Comment on above: PATIENT NOT FASTINGP ERFORMED BY: CB [facility] Lmaqml9845 [address] RoadDublin [place] [id number] WBC (Bld) [#/Vol] 6.5 10*3/uL Normal 4.0-10.5 [facility] Internal Medicine; [facility] Work Phone: Comment on above: PATIENT NOT FASTINGP ERFORMED BY: CB [facility] Qgpjqt7810 [address] RoadDublin [place] [id number] Ferritin ([id number])Ordered By: Door Cutter on 10-06-2010 Ferritin [Mass/Vol] 13 ng/mL Normal 13-150 [facility] Internal Medicine Work Phone: Comment on above: PATIENT NOT FASTINGP ERFORMED BY: CB [facility] Bjkzvq4771 [address] RoadDublin [place] [id number] Metabolic Panel, Comprehensi ve (09704)Ordered By: Door Cutter on 10-06-2010 Albumin [Mass/Vol] 4.7 g/dL Normal 3.5-5.5 [facility] Internal Medicine Work Phone: Comment on above: PATIENT NOT FASTINGP ERFORMED BY: CB [facility] Donhms1028 [address] RoadDublin [place] [id number] Albumin/Globulin [Mass ratio] 2.1 {ratio} Normal 1.1-2.5 [facility] Work Phone: Comment on above: PATIENT NOT FASTINGP ERFORMED BY: CB [facility] Ynqlkb6333 [address] RoadDublin [place] [id number] ALP [Catalytic activity/Vol] 41 [iU]/L Normal 25-150 [facility] Work Phone: Comment on above: PATIENT NOT FASTINGP ERFORMED BY: CAROL [facility] Pjzapi8677 [address] RoadDublin [place] [id number] ALP [Catalytic activity/Vol] 41 U/L Normal 25-150 [facility]; [facility] Work Phone: Comment on above: PATIENT NOT FASTINGP ERFORMED BY: CAROL [facility] Vxckce5378 [address] RoadDublin [place] [id number] ALT [Catalytic activity/Vol] 11 [iU]/L Normal 0-40 [facility] Work Phone: Comment on above: PATIENT NOT FASTINGP ERFORMED BY: CB [facility] Hnxngm8313 [address] RoadDublin [place] [id number] ALT [Catalytic activity/Vol] 11 U/L Normal 0-40 [facility]; [facility] Work Phone: Comment on above: PATIENT NOT FASTINGP ERFORMED BY: CB [facility] Exzyni3882 [address] RoadDublin [place] [id number] AST [Catalytic activity/Vol] 20 [iU]/L Normal 0-40 [facility] Work Phone: Comment on above: PATIENT NOT FASTINGP ERFORMED BY: CB [facility] Ooswrt9815 [address] RoadDublin [place] [id number] AST [Catalytic activity/Vol] 20 U/L Normal 0-40 [facility]; [facility] Work Phone: Comment on above: PATIENT NOT FASTINGP ERFORMED BY: CB [facility] Eoxiff0759 [address] RoadDublin [place] [id number] Bilirubin [Mass/Vol] 0.7 mg/dL Normal 0.0-1.2 Comp rehensive Internal Medicine Work Phone: Comment on above: PATIENT NOT FASTINGP ERFORMED BY: CB [facility] Lwutko1354 [address] RoadDublin [place] [id number] Calcium [Mass/Vol] 9.5 mg/dL Normal 8.7-10.2 [facility] Internal Medicine Work Phone: Comment on above: PATIENT NOT FASTINGP ERFORMED BY: CB [facility] Dwvyef5952 [address] RoadDublin [place] [id number] Chloride [Moles/Vol] 101 mmol/L Normal 97-108 Comp [facility] Internal [facility] Work Phone: Comment on above: PATIENT NOT FASTINGP ERFORMED BY: CB [facility] Kscyan9679 [address] RoadDublin [place] [id number] CO2 [Moles/Vol] 25 mmol/L Normal 20-32 Comprehen [facility] Internal Medicine Work Phone: Comment on above: PATIENT NOT FASTINGP ERFORMED BY: CB [facility] Zlhsvt0909 [address]Dublin [place] [id number] Creatinine [Mass/Vol] 0.80 mg/dL Normal 0.57-1.00 [facility] Internal Medicine Work Phone: Comment on above: PATIENT NOT FASTINGP ERFORMED BY: CB [facility] Zqptnq2880 [address] RoadDublin [place] [id number] GFR/1.73 sq M predicted among blacks MDRD (S/P/Bld) [Vol rate/Area] 112 mL/min/{1.73_m2} Normal Comprehensi Internal Medicine Work Phone: Comment on above: Note: A persistent e GFR <60 mL/min/1.73 m2 (3 months or more) mayindicate chronic kidney disease. An eGFR >59 mL/min/1.73 m2 with anelevated urine protein also may indicate chronic kidney disease.Calculated using CKD-EPI formula. PATIENT NOT FASTINGP ERFORMED BY: CB [facility] Fjcbkp5551 [address]bun[address] RoadDublin [place] [id number] GFR/1.73 sq M predicted among non-blacks CKD-EPI (S/P/Bld) [Vol rate/Area] 97 mL/min/1.73 Normal [facility] Internal Medicine Work Phone: Comment on above: PATIENT NOT FASTINGP ERFORMED BY: CB [facility] Uaslvm8071 [address] RoadDublin [place] [id number] Globulin (S) [Mass/Vol] 2.2 g/dL Normal 1.5-4.5 [facility] Internal Medicine Work Phone: Comment on above: PATIENT NOT FASTINGP ERFORMED BY: CB [facility] Dnsntl0207 [address] RoadDublin [place] [id number] Glucose [Mass/Vol] 108 mg/dL Abnormal 65-99 [facility] Internal Medicine Work Phone: Comment on above: PATIENT NOT FASTINGP ERFORMED BY: CB [facility] Dbpnqq7490 [address] RoadDublin [place] [id number] Potassium [Moles/Vol] 4.8 mmol/L Normal 3.5-5.2 [facility] Internal Medicine Work Phone: Comment on above: PATIENT NOT FASTINGP ERFORMED BY: CB [facility] Ufnigx3970 [address] RoadDublin [place] [id number] Protein [Mass/Vol] 6.9 g/dL Normal 6.0-8.5 [facility] Internal Medicine Work Phone: Comment on above: PATIENT NOT FASTINGP ERFORMED BY: CB [facility] Bljuwz9262 [address] RoadDublin [place] [id number] Sodium [Moles/Vol] 138 mmol/L Normal 135-145 [facility] Internal Medicine Work Phone: Comment on above: PATIENT NOT FASTINGP ERFORMED BY: CB [facility] Ihokfn9713 [address] RoadDublin [place] [id number] Urea nitrogen [Mass/Vol] 11 mg/dL Normal 6-20 [facility] Work Phone: Comment on above: PATIENT NOT FASTINGP ERFORMED BY: [employer] Ewcxaj2606 [facility] [id number] Urea nitrogen/Creatinine [Mass ratio] 14 mg/mg Normal 8-20 [facility] Work Phone: Comment on above: PATIENT NOT FASTINGP ERFORMED BY: [facility] Milddk9981 [facility] [id number] Vitamin B-12 (cyanocobalamin ) ([id number])Ordered By: Door Cutter on 10-06-2010 Cobalamin (Vitamin B12) [Mass/Vol] pg/mL Abnormal 211-946 [facility] Work Phone: Comment on above: PATIENT NOT FASTINGP ERFORMED BY: [employer]6370 [facility] [id number] Urinalysis, Office ([id number])Or dered By: SINA Brooks on 12-31-2007 Bilirubin [...] [facility] Work Phone: Rapid Flu (37325 x 2)Ordered By: Claire Downs on 04-09-2007 FLUAV Ag IA Ql (Throat) Negative Normal [facility] Work Phone: Comment on above: neg FLUAV Ag IA Ql (Throat) Negative Normal [facility]; [facility] Work Phone: Comment on above: neg Rapid Strep Test, Office ([phone])Ordered By: Meaghan Gonzalez on 04-09-2007 S. pyogenes Ag EIA Ql (Throat) Negative Normal [facility]; [facility] Work Phone: Comment on above: aw neg S. pyogenes Ag IA Ql (Unsp spec) Negative Normal [facility] Work Phone: Comment on above: aw neg T3, TOTAL (TRIDOTHYRONINE) ( [id number])Ordered By: Ynes Mahajan on 01-24-2007 T3 [Mass/Vol] 186 ng/dL Normal 85-205 Comprehensi ve Internal Medicine Work Phone: Comment on above: PERFORMED BY: [employer] Jdeahp8628 [facility] [id number] T4, TOTAL (00080)Ordered By: Ynes Mahajan on 01-24-2007 T4 [Mass/Vol] 9.8 ug/dL Normal 4.5-12.0 Comprehensi ve Internal Medicine Work Phone: Comment on above: PERFORMED BY: [email or web address] [facility] Xjnzrw9508 [facility] [id number] TSH (THYROID STIMULATING HOR ROXIE) (98046)Ordered By: Ynes Mahajan on 01-24-2007 TSH Qn m[IU]/L Abnormal 0.350-5.500 [facility] Work Phone: Comment on above: fAX RESULTS TO Dr Emmy harris at [phone]; PERFORMED BY: [email or web address] [facility] Mcrfnm1608 [address] DuneNetworksLifeBrite [facility] [id number] TSH Qn m[IU]/L Abnormal 0.350-5.500 [facility]; [facility] Work Phone: Comment on above: fAX RESULTS TO Dr Emmy harris at [phone]; PERFORMED BY: [employer] AlleyCoPeople PatternJqklyi2757 Help.comLifeBrite [facility] [id number] Vital Signs Date Time Vital Sign Value Performing Clinician Facility 06-15-2023 10:21-0400 Diastolic blood pressure 80 mm[Hg] Pollo Hollingsworth MD Work Phone: [facility] 06-15-2023 10:21-0400 Heart rate 100 /min Pollo Hollingsworth MD Work Phone: [facility] 06-15-2023 10:21-0400 Systolic blood pressure 130 mm[Hg] Pollo Hollingsworth MD Work Phone: [facility] 06-15-2023 09:38-0400 Body height 156.2 cm Pollo Hollingsworth MD Work Phone: [facility] 06-15-2023 09:38-0400 Body mass index (BMI) [Ratio] 27.88 kg/m2 Pollo Hollingsworth MD Work Phone: [facility] 06-15-2023 09:38-0400 Body temperature 97.7 [degF] Pollo Hollingsworth MD Work Phone: [facility] 06-15-2023 09:38-0400 Body weight 68.04 kg Pollo Hollingsworth MD Work Phone: [facility] 06-12-2022 15:58-0400 Diastolic blood pressure 72 mm[Hg] Pollo Hollingsworth MD Work Phone: [facility] 06-12-2022 15:58-0400 Heart rate 100 /min Pollo Hollingsworth MD Work Phone: [facility] 06-12-2022 15:58-0400 Systolic blood pressure 136 mm[Hg] Pollo Hollingsworth MD Work Phone: [facility] 06-12-2022 15:02-0400 Body height 156.2 cm Pollo Hollingsworth MD Work Phone: [facility] 06-12-2022 15:02-0400 Body mass index (BMI) [Ratio] 26.21 kg/m2 Pollo Hollingsworth MD Work Phone: [facility] 06-12-2022 15:02-0400 Body temperature 97.7 [degF] Pollo Hollingsworth MD Work Phone: [facility] 06-12-2022 15:02-0400 Body weight 63.96 kg Pollo Hollingsworth MD Work Phone: [facility] 03-22-2022 11:40-0500 Diastolic blood pressure 77 mm[Hg] Larry Callejas MD Work Phone: [facility] 03-22-2022 11:40-0500 Heart rate 87 /min Larry Callejas MD Work Phone: [facility] 03-22-2022 11:40-0500 Respiratory rate 19 /min Larry Callejas MD Work Phone: [facility] 03-22-2022 11:40-0500 SaO2% (BldA) [Mass fraction] 97 % Larry Callejas MD Work Phone: [facility] 03-22-2022 11:40-0500 Systolic blood pressure 128 mm[Hg] Larry Callejas MD Work Phone: [facility] 03-22-2022 09:49-0500 Body height 154.9 cm Larry Callejas MD Work Phone: [facility] 03-22-2022 09:49-0500 Body mass index (BMI) [Ratio] 24.56 kg/m2 Larry Callejas MD Work Phone: [facility] 03-22-2022 09:49-0500 Body temperature 98.6 [degF] Larry Callejas MD Work Phone: [facility] 03-22-2022 09:49-0500 Body weight 58.97 kg Larry Callejas MD Work Phone: [facility] 11-13-2016 13:48-0400 BMI (Body Mass Index) 25.15 [...] Mass Index) 25.13 kg/m2 SINA Brooks LPN [facility] Internal Medicine Work Phone: 04-14-2011 06:56-0500 Body Temperature 97.9 [degF] [facility] Work Phone: Comment on above: Method: Oral 04-14-2011 06:56-0500 Body weight 60.33 kg SINA Brooks LPN [facility] Internal Medicine Work Phone: 04-14-2011 06:56-0500 BP Diastolic 78 mm[Hg] SINA Brooks COMM[employer] [facility] Internal Medicine Work Phone: Comment on above: Patient Position: Sitting; Cuff Location : Left Arm; Cuff Size: Standard 04-14-2011 06:56-0500 BP Systolic 128 mm[Hg] [facility] Work Phone: Comment on above: Patient Position: Sitting; Cuff Location : Left Arm; Cuff Size: Standard 04-14-2011 06:56-0500 BSA (Body Surface Area) 1.59 m2 SINA Brooks LPN [facility] Internal Medicine Work Phone: 04-14-2011 06:56-0500 Height 154.94 cm SINA Brooks LPN [facility] Internal Medicine Work Phone: 04-14-2011 06:56-0500 Pulse (Heart Rate) 78 /min SINA Brooks [employer] [facility] Internal Medicine Work Phone: Comment on above: Pattern: Regular 04-14-2011 06:56-0500 Respiratory Rate 18 /min SINA Brooks LPN [facility] Internal Medicine Work Phone: Comment on above: Pattern: Unlabored 11-16-2010 10:35-0400 BMI (Body Mass Index) 24.37 kg/m2 Claire Downs [facility] Internal Medicine Work Phone: 11-16-2010 10:35-0400 Body Temperature 99.7 [degF] Claire Downs [facility] Internal Medicine Work Phone: Comment on above: Method: Oral 11-16-2010 10:350400 Body weight 58.51 kg Claire Downs LPN [facility] Internal Medicine Work Phone: 11-16-2010 10:35-0400 BP Diastolic 82 mm[Hg] Claire Downs LPN [facility] Internal Medicine Work Phone: Comment on above: Patient Position: Sitting; Cuff Location : Left Arm; Cuff Size: Standard 11-16-2010 10:35-0400 BP Systolic 132 mm[Hg] Claire Downs LPN [facility] Work Phone: Comment on above: Patient Position: Sitting; Cuff Location : Left Arm; Cuff Size: Standard 11-16-2010 10:35-0400 BSA (Body Surface Area) 1.57 m2 Claire Downs LPN [facility] Internal Medicine Work Phone: 11-16-2010 10:35-0400 Height 154.94 cm Claire Downs LPN [facility] Internal Medicine Work Phone: 11-16-2010 10:35-0400 Pulse (Heart Rate) 82 /min Claire Downs [employer] [facility] Internal Medicine Work Phone: Comment on above: Pattern: Regular 10-06-2010 10:17-0400 BMI (Body Mass Index) 24.37 kg/m2 SINA Brooks [facility] Internal Medicine Work Phone: 10-06-2010 10:17-0400 Body Temperature 97.6 [degF] SINA Brooks [employer] [facility] Internal Medicine Work Phone: Comment on above: Method: Oral 10-06-2010 10:170400 Body weight 58.51 kg SINA Brooks LPN [facility] Internal Medicine Work Phone: 10-06-2010 10:17-0400 BP Diastolic 88 mm[Hg] SINA Brooks [facility] Internal Medicine Work Phone: Comment on above: Patient Position: Sitting; Cuff Location : Left Arm; Cuff Size: Standard 10-06-2010 10:17-0400 BP Systolic 132 mm[Hg] SINA Brooks [facility] Internal Medicine Work Phone: Comment on above: Patient Position: Sitting; Cuff Location : Left Arm; Cuff Size: Standard 10-06-2010 10:17-0400 BSA (Body Surface Area) 1.57 m2 SINA Brooks LPN [facility] Internal Medicine Work Phone: 10-06-2010 10:17-0400 Height 154.94 cm [facility] Work Phone: 10-06-2010 10:17-0400 Pulse (Heart Rate) 80 /min SINA Brooks [facility] Internal Medicine Work Phone: Comment on above: Pattern: Regular 10-06-2010 10:17-0400 Respiratory Rate 18 /min SINA Brooks [facility] Internal Medicine Work Phone: Comment on above: Pattern: Unlabored 06-06-2010 08:53-0400 BMI (Body Mass Index) 24.19 kg/m2 SINA Brooks [facility] Internal Medicine Work Phone: 06-06-2010 08:53-0400 Body Temperature 98.2 [degF] SINA Brooks [facility] Internal Medicine Work Phone: Comment on above: Method: Oral 06-06-2010 08:53-0400 Body weight 58.06 kg SINA Brooks [facility] Internal Medicine Work Phone: 06-06-2010 08:53-0400 BP Diastolic 90 mm[Hg] SINA Brooks [facility] Internal Medicine Work Phone: Comment on above: Patient Position: Sitting; Cuff Location : Left Arm; Cuff Size: Standard 06-06-2010 08:53-0400 BP Systolic 130 mm[Hg] SINA Brooks [facility] Internal Medicine Work Phone: Comment on above: Patient Position: Sitting; Cuff Location : Left Arm; Cuff Size: Standard 06-06-2010 08:53-0400 BSA (Body Surface Area) 1.56 m2 SINA Brooks [facility] Internal Medicine Work Phone: 06-06-2010 08:53-0400 Height 154.94 cm SINA Brooks [facility] Internal Medicine Work Phone: 06-06-2010 08:53-0400 Pulse (Heart Rate) 82 /min SINA Brooks LPN [facility] Internal Medicine Work Phone: Comment on above: Pattern: Regular 06-06-2010 08:53-0400 Respiratory Rate 18 /min SINA Brooks LPN [facility] Internal Medicine Work Phone: Comment on above: Pattern: Unlabored 12-31-2007 13:00-0500 Body Temperature 98.2 [degF] SINA Brooks [facility] Internal Medicine Work Phone: Comment on above: Method: Oral 12-31-2007 13:00-0500 Body weight 0 kg SINA Brooks [facility] Internal Medicine Work Phone: 12-31-2007 13:00-0500 BP Diastolic 84 mm[Hg] SINA Brooks [facility] Internal Medicine Work Phone: Comment on above: Patient Position: Sitting; Cuff Location : Left Arm; Cuff Size: Standard 12-31-2007 13:00-0500 BP Systolic 126 mm[Hg] SINA Brooks [facility] Internal Medicine Work Phone: Comment on above: Patient Position: Sitting; Cuff Location : Left Arm; Cuff Size: Standard 12-31-2007 13:00-0500 Head Circumference 0 cm Jana Farias [facility] Internal Medicine Work Phone: 12-31-2007 13:00-0500 Head Occipital-frontal circumference 0 cm SINA Brooks [employer] [facility] Internal Medicine; [facility] Work Phone: 12-31-2007 13:00-0500 Height 0 cm SINA Brooks [facility] Internal Medicine Work Phone: 12-31-2007 13:00-0500 Pulse (Heart Rate) 70 /min SINA Brooks [facility] Internal Medicine Work Phone: Comment on above: Pattern: Regular 12-31-2007 13:00-0500 Respiratory Rate 16 /min SINA Brokos [facility] Internal Medicine Work Phone: Comment on above: Pattern: Unlabored 04-09-2007 08:09-0500 BMI (Body Mass Index) 24.4 kg/m2 Meaghan thorne Internal Medicine Work Phone: 04-09-2007 08:09-0500 Body Temperature 98.5 [degF] [facility] Internal Medicine Work Phone: Comment on above: Method: Oral 04-09-2007 08:09-0500 Body weight 58.57 kg [facility] Internal Medicine Work Phone: 04-09-2007 08:09-0500 BP Diastolic 82 mm[Hg] [facility] Internal Medicine Work Phone: Comment on above: Patient Position: Sitting; Cuff Location : Left Arm; Cuff Size: Standard 04-09-2007 08:09-0500 BP Systolic 142 mm[Hg] [facility] Medicine Work Phone: Comment on above: Patient Position: Sitting; Cuff Location : Left Arm; Cuff Size: Standard 04-09-2007 08:09-0500 BSA (Body Surface Area) 1.57 m2 [facility] Work Phone: 04-09-2007 08:09-0500 Head Circumference 0 cm Jana Farias [facility] Internal Medicine Work Phone: 04-09-2007 08:09-0500 Head Occipital-frontal circumference 0 cm [facility] Internal [facility]; [facility] Internal Medicine Work Phone: 04-09-2007 08:09-0500 Height 154.94 cm [facility] Work Phone: 04-09-2007 08:09-0500 Pulse (Heart Rate) 60 /min [facility] Work Phone: Comment on above: Pattern: Regular 04-09-2007 08:09-0500 Respiratory Rate 20 /min [facility] Internal Medicine Work Phone: Comment on above: Pattern: Unlabored 01-24-2007 08:01-0500 BMI (Body Mass Index) 24.4 kg/m2 Claire Downs LPN [facility] Internal Medicine Work Phone: 01-24-2007 08:01-0500 Body Temperature 98.9 [degF] Claire Downs [employer] [facility] Internal Medicine Work Phone: Comment on above: Method: Oral 01-24-2007 08:01-0500 Body weight 58.57 kg Claire Downs LPN [facility] Work Phone: 01-24-2007 08:01-0500 BP Diastolic 86 mm[Hg] Claire Downs LPN [facility] Work Phone: Comment on above: Patient Position: Sitting; Cuff Location : Left Arm; Cuff Size: Standard 01-24-2007 08:01-0500 BP Systolic 144 mm[Hg] Claire Downs LPN [facility] Work Phone: Comment on above: Patient Position: Sitting; Cuff Location : Left Arm; Cuff Size: Standard 01-24-2007 08:01-0500 BSA (Body Surface Area) 1.57 m2 Claire Downs LPN [facility] Work Phone: 01-24-2007 08:01-0500 Head Circumference 0 cm Jana Farias [facility] Work Phone: 01-24-2007 08:01-0500 Head Occipital-frontal circumference 0 cm Claire Downs LPN [facility]; [facility] Work Phone: 01-24-2007 08:01-0500 Height 154.94 cm Claire Downs LPN [facility] Work Phone: 01-24-2007 08:01-0500 Pulse (Heart Rate) 140 /min Claire Downs LPN [facility] Work Phone: Comment on above: Pattern: Regular 01-24-2007 08:01-0500 Pulse Oximetry 100 % Jana Farias [facility] Work Phone: Comment on above: Room air 01-24-2007 08:01-0500 Respiratory Rate 20 /min Claire Downs LPN [facility] Work Phone: Comment on above: Pattern: Unlabored 01-24-2007 08:01-0500 SaO2% (BldA) [Mass fraction] 100 % Claire Downs LPN [facility]; [facility] Work Phone: Comment on above: Room air 10-19-2006 14:54-0400 BMI (Body Mass Index) 24.4 kg/m2 [facility] Work Phone: 10-19-2006 14:54-0400 Body Temperature 98.9 [degF] Jana Farias [facility] Internal Medicine Work Phone: Comment on above: Method: Oral 10-19-2006 14:54-0400 Body weight 58.57 kg Jana Farias [facility] Work Phone: 10-19-2006 14:54-0400 BP Diastolic 88 mm[Hg] Jana Farias [facility] Work Phone: Comment on above: Patient Position: Sitting; Cuff Location : Left Arm; Cuff Size: Standard 10-19-2006 14:54-0400 BP Systolic 150 mm[Hg] Jana Farias [facility] Internal Medicine Work Phone: Comment [...] Pulse (Heart Rate) 135 /min Jana Farias [facility] Internal Medicine Work Phone: Comment on above: Pattern: Regular 10-19-2006 14:54-0400 Respiratory Rate 22 /min Jana Farias [facility] Internal Medicine Work Phone: Comment on above: Pattern: Unlabored Encounters Encounter Date Encounter Type Care Provider Facility Start: 07-15-2024 End: 07-15-2024 Telephone encounter Mariajose Barr RN [facility] Start: 07-11-2024 End: 07-11-[address] Pollo Hollingsworth MD Work Phone: [facility] Work Phone: Start: 07-11-2024 End: 07-11-[address] Jeff Duron DO -Laboratory [place] Work Phone: Start: 07-11-2024 End: 07-11-2024 ambulatory Jeff Duron Facility:[facility] Start: 12-10-2023 End: 12-10-2023 ambulatory Jeff Mnquentin Facility:[facility] Start: 09-27-2023 End: 10-12-2023 Telephone encounter Pollo Hollingsworth MD Work Phone: [facility] Comment on above: Other (Billing ) Start: 09-13-2023 End: 09-18-2023 Documentation procedure Priti Hollingsworth MD Work Phone: [facility] Start: 09-13-2023 End: 09-13-2023 ambulatory Pardeep Barreto Facility:[facility] Start: 08-31-2023 End: 08-31-[facility] Start: 08-20-2023 End: 11-19-2023 Transcribe Orders Pardeep Barreto MD Work Phone: [facility] Sched[facility] Comment on above: Encounter for screen ing mammogram for malignant neoplasm of breast (Primary Dx) Start: 06-15-2023 End: 06-15-2023 Office outpatient visit 25 minutes Pollo Hollingsworth MD Work Phone: [facility] Comment on above: Situational anxiety (Primary Dx); White coat syndrome without diagnosis of hypertension; Colon cancer screening; Screening mammogram for breast cancer; Encounter for screening for HIV; Need for hepatitis C screening test; Perimenopause; Postablative hypothyroidism Start: 06-11-2023 End: 06-11-2023 ambulatory [facility] Work Phone: Start: 06-11-2023 End: 06-11-[address] [facility] Work Phone: Start: 04-19-2023 End: 04-19-2023 ambulatory PARDEEP BARRETO MD Facility:[id number] Start: 04-19-2023 ambulatory PARDEEP BARRETO MD Facil ity:[facility] Start: 04-19-2023 End: 04-19-2023 ambulatory PARDEEP BARRETO MD Facility:[facility] Start: 03-27-2023 Telephone encounter Pollo lundy MD Work Phone: [facility] Comment on above: Appointment Request; Appointment Start: 12-03-2022 End: 12-03-2022 ambulatory YANIRA SEWICKLEY FIONA Facility:[facility] Start: 12-01-2022 End: 12-01-2022 ambulatory [facility] Work Phone: Start: 12-01-2022 End: 12-01-[address] [facility] Work Phone: Start: 10-20-2022 ambulatory PARDEEP BARRETO MD Facil ity:[facility] Start: 09-12-2022 End: 09-12-2022 Office outpatient visit 15 minutes Pollo Hollingsworth MD Work Phone: [facility] Comment on above: Erythematous rash (P rimary Dx); Nummular dermatitis Start: 08-18-2022 ambulatory 837 NO [facility]ILY PHYSICIAN Facility:[facility] Start: 06-14-2022 Telephone encounter Pollo lundy MD Work Phone: [facility] Comment on above: New Patient (Lab rec ords ); Results Start: 06-12-2022 End: 06-12-2022 Office outpatient new 45 minutes Pollo Hollingsworth MD Work Phone: [facility] Comment on above: Hyperglycemia (Prima ry Dx); Need for hepatitis C screening test; Screening for HIV (human immunodeficiency virus); White coat syndrome without diagnosis of hypertension Start: 04-17-2022 End: 04-18-2022 ambulatory 837 NO FAMILY PHYSICIAN Facility:[facility] Start: 04-10-2022 End: 04-10-2022 ambulatory [facility] Work Phone: Start: 04-10-2022 End: 04-10-2022 Patient encounter procedure [facility] Start: 03-27-2022 ambulatory Mariajose Nguyen Cl inical Communication Start: 03-27-2022 Patient encounter procedure Mariajose Nguyen Clinical Communication Start: 03-24-2022 End: 03-24-2022 ambulatory [facility] Work Phone: Start: 03-24-2022 End: 03-24-2022 Patient encounter procedure [facility] Start: 03-22-2022 End: 03-22-2022 Subsequent hospital visit by physician [facility] Radiology Comment on above: Arrived Start: 03-22-2022 End: 03-22-2022 Emergency department patient visit Larry Callejas MD Work Phone: [facility] ED Comment on above: Primary hypertension (Primary Dx) Start: 02-26-2022 End: 02-26-2022 ambulatory PARDEEP BARRETO MD Facility:[id number] Start: 01-11-2022 End: 01-12-2022 ambulatory PARDEEP BARRETO MD Facility:[facility] Start: 12-24-2021 End: 12-24-2021 ambulatory 837 NO FAMILY PHYSICIAN Facility:[facility] Start: 09-19-2021 End: 09-19-[address] [facility] Start: 07-07-2021 End: 07-07-[address] [facility] Start: 05-26-2021 End: 05-26-[address] [facility] Start: 04-25-2021 End: 05-12-2021 [facility] Start[facility] 04-25-[address] [facility] Start: 04-11-2021 End: 04-11-[address] [facility] Start: 04-08-2021 End: 04-08-[address] [facility] Start: 03-22-2021 End: 03-22-[address] Jana Farias [facility] Start: 01-11-2021 End: 01-11-[address] [facility] Start: 12-23-2020 End: 12-23-2020 Subsequent hospital visit by physician Pardeep Barreto MD Work Phone: [facility] Comment on above: Arrived Start: 12-20-2018 End: 12-20-2018 Subsequent hospital visit by physician Pardeep Barreto Work Phone: [facility] Comment on above: Arrived Start: 11-28-2018 End: 11-28-2018 Subsequent hospital visit by physician Pardeep Barreto Work Phone: [facility] Comment on above: Arrived Start: 11-13-2016 End: 11-13-2016 Office outpatient new 30 minutes Jana Farias [facility] Start: 02-02-2012 End: 02-02-2012 Annotation/Addendum Jana Farias [facility] Start: 07-11-2011 End: 07-11-2011 Historical Summary [facility] F[facility] Start: 05-05-2011 End: 05-05-2011 Phone Encounter Jana Farias [facility] Start: 04-26-2011 End: 04-26-2011 Patient encounter procedure Jana Dinora [facility] Start: 04-17-2011 End: 04-17-2011 Phone Encounter Jana Farias [facility] Medicine Start: 04-14-2011 End: 04-14-2011 Patient encounter procedure Jana Farias [facility] Internal [facility] Start: 11-16-2010 End: 11-16-2010 Office outpatient visit 10 minutes Jana Farias [facility] Internal [facility] Start: 10-06-2010 End: 10-06-2010 Patient encounter procedure Jana Farias [facility] Start: 09-22-2010 End: 09-22-2010 Nursing evaluation of patient and report Jana Farias [facility] Start: 06-06-2010 End: 06-06-2010 Patient encounter procedure Jana Farias [facility] Start: 12-31-2007 End: 01-01-2008 Patient encounter procedure Jana Farias [facility] Start: 04-09-2007 End: 04-09-2007 Office outpatient visit 15 minutes Jana Farias [facility] Start: 01-24-2007 End: 01-24-2007 Office outpatient visit 25 minutes Jana Farias [facility] Start: 10-19-2006 End: 10-19-2006 Patient encounter procedure Jana Farias [facility] Internal [facility] Procedures Date Procedure Procedure Detail Performing Clinician Start: 07-11-2024 Vitamin D, 25-hydrox y measurement Dr. Pollo Hollingsworth MD Work Phone: Comment on above: Vitamin D StatusDefi ciency: <20 ng/mL (50nmol/L)Insufficiency: 20-30 ng/mL (50-75 nmol/L)Sufficiency: 30-100 ng/mL (75-250 nmol/L)Toxicity: >100 ng/mL (>250 nmol/L) Start: 07-11-2024 Thyrotropin [Units/volume] in Serum or Plasma Mariajose Barr RN Start: 09-13-2023 Mammography Priti mckeon MD Work Phone: Start: 06-15-2023 Adult depression screening assessment Pollo Hollingsworth MD Work Phone: Start: 12-04-2022 Thyrotropin [Units/volume] in Serum or Plasma Pollo Hollingsworth MD Work Phone: Start: 06-12-2022 Adult depression screening assessment Pollo Hollingsworth MD Work Phone: Start: 03-24-2022 MRI of bilateral breasts with contrast Start: 03-22-2022 Radiologic exam ches t single view Larry Callejas MD Work Phone: Start: 03-22-2022 Comprehensive metabo lic panel Larry Callejas MD Work Phone: Start: 03-22-2022 Ecg routine ecg w/le ast 12 lds trcg only w/o i&r Larry Callejas MD Work Phone: Start: 03-22-2022 End: 03-22-2022 Thyrotropin [Units/volume] in Serum or Plasma Larry Callejas MD Work Phone: Start: 01-23-2022 Mammography Larry hawkins MD Work Phone: Start: 04-25-2021 End: 04-25-[address] Jana Farias Work Phone: Start: 04-11-2021 SARS-CoV-2 Antigen (Rapid) Dr. Jana Farias Work Phone: Start: 01-11-2021 End: 01-11-2021 Chiropractic Report Comments: See Note; NOTES: [facility] [address] [place] [address] OFFICE VISIT Date of Service: 01/11/21 MR#: [id number] Acct: [id number] Name: MARIAJOSE HUANG Rep #: [id number] : 1975 Provider: KVNG Magallon Age/Sex: 45/F [place] [facility] [place] Status: Signed Intake Intake Visit Reasons: Back Pain Chief Complaint: Neck and Mid Back Pain Is patient in pain?: Yes Allergies methimazole [From Tapazole] Adverse Reaction (Mild, Verified 10/01/19 09:26) Rash [facility] Medical History (Updated 01/11/21 @ 15:12 by [...] CPT Codes Procedures - Manipulation: 3-4 regions (17672) 01/11/21 1517 <Electronically signed by [place] [facility]> Date [place] [facility] Cosigner Signature: Date (if applicable) CC: Jana Farias DO Work Phone: Start: 06-11-2020 Lipid 1996 panel - Serum or Plasma Pollo Hollingsworth MD Work Phone: Start: 03-02-2020 End: 03-02-2020 Chiropractic Report Comments: See Note; NOTES: [facility] [address] [place] [address] OFFICE VISIT Date of Service: 03/02/20 MR#: [id number] Acct: [id number] Name: MARIAJOSE HUANG Rep #: [id number] : 1975 Provider: KVNG Magallon Age/Sex: 44/F [place] [facility] [place] Status: Signed Intake Intake Visit Reasons: Back Pain Chief Complaint: Neck and Low Back Pain Is patient in pain?: Yes Allergies methimazole [From Tapazole] Adverse Reaction (Mild, Verified 10/01/19 09:26) Rash [facility] Medical History Thyroid disease (Acute) Surgical History [...] Additional Codes Procedures - Manipulation: 3-4 regions (39925) 03/02/20 2233 <Electronically signed by [place] [facility]> Date [place] [facility] Cosigner Signature: Date (if applicable) CC: Jana Farias Start: 01-12-2020 End: 01-12-2020 Chiropractic Report Comments: See Note; NOTES: [facility] [address] [place] [address] OFFICE VISIT Date of Service: 01/12/20 MR#: [id number] Acct: [id number] Name: MARIAJOSE HUANG Rep #: [id number] : 1975 Provider: KVNG Magallon Age/Sex: 44/F [place] [facility] [place] Status: Signed Intake Intake Visit Reasons: Back Pain Chief Complaint: Neck and Low Back Pain Allergies methimazole [From Tapazole] Adverse Reaction (Mild, Verified 10/01/19 09:26) Rash [facility] Medical History Thyroid disease (Acute) Surgical History [...] Additional Codes Procedures - Manipulation: 3-4 regions (18379) 01/12/20 3785 <Electronically signed by [place] [facility]> Date [place] [facility] Cosigner Signature: Date (if applicable) CC: Jana Farias Start: 12-26-2019 End: 12-27-2019 Lower Ext Joint Only (Routine) Comments: See Note; NOTES: [facility] Imaging Services [address] [place] [address] Lower Ext Joint Only (Routine) MR#: [id number] Acct: [id number] Name: MARIAJOSE HUANG Rep #: [id number] : 1975 F 44 From: Rishi Pastor MD PCP: Dr. Jana Farias, DO Status: REG CLI Study: Lower Ext Joint Only (Routine) Date of Exam: 02/24/19 Exam# [id number] Ordering Dr: Kerrie Cardoso MD STUDY: MRI [...] Kerrie Cardoso MD; Dr. Jana Farias DO [facility] Practitioner: Signed Jana Farais Start: 12-26-2019 End: 12-27-2019 Spine Lumbar (Routine) Comments: See Note; NOTES: [facility] Imaging Services [address] [place] [address] Spine Lumbar (Routine) MR#: [id number] Acct: [id number] Name: MARIAJOSE HUANG Rep #: [id number] : 1975 F 44 From: Rishi Pastor MD PCP: Dr. Jaan Farias DO Status: REG CLI Study: Spine Lumbar (Routine) Date of Exam: 12/26/19 Exam# [id number] Ordering Dr: Kerrie Cardoso MD STUDY: MRI [...] Kerrie Cardoso MD; Dr. Jana Farias DO [facility] Practitioner: Signed Jana Farias Start: 12-18-2019 End: 12-18-2019 Chiropractic Report Comments: See Note; NOTES: [facility] [address] [place] [address] OFFICE VISIT Date of Service: 12/18/19 MR#: [id number] Acct: [id number] Name: MARIAJOSE HUANG Rep #: [id number] : 1975 Provider: KVNG Magallon Age/Sex: 44/F [place] [facility] [place] Status: Signed Intake Intake Visit Reasons: Back Pain Chief Complaint: Neck and Low Back Pain Allergies methimazole [From Tapazole] Adverse Reaction (Mild, Verified 10/01/19 09:26) Rash [facility] Medical History Thyroid disease (Acute) Surgical History History of (Acute) History of dilation and curettage (Acute) History of tonsillectomy (Acute) Social History (Updated 12/18/19 @ 09:[address] [place], [place]) Smoking Status: Never smoker alcohol intake: current [...] Additional Codes Procedures - Manipulation: 3-4 regions (90732) 12/18/19 0936 <Electronically signed by [place] [facility]> Date [place] [facility] Cosigner Signature: Date (if applicable) CC: Jana Farias Start: 12-02-2019 End: 12-02-2019 Chiropractic Report Comments: See Note; NOTES: [facility] [address] [place] [address] OFFICE VISIT Date of Service: 12/02/19 MR#: [id number] Acct: [id number] Name: MARIAJOSE HUANG Rep #: [id number] : 1975 Provider: KVNG Magallon Age/Sex: 44/F [place] [facility] [place] Status: Signed Intake Intake Visit Reasons: Back pain Chief Complaint: Right SI pain Accompanied by: Self Is patient in pain?: Yes Allergies methimazole [From Tapazole] Adverse Reaction (Mild, Verified 10/01/19 09:26) Rash [facility] Medical History Thyroid disease (Acute) Surgical History [...] Additional Codes Procedures - Manipulation: 3-4 regions (00494) Time Spent (min) 30 12/02/19 1511 <Electronically signed by [place] [facility]> Date [place] [facility] Cosigner Signature: Date (if applicable) CC: Jana Farias Start: 11-20-2019 End: 11-20-2019 Chiropractic Report Comments: See Note; NOTES: [facility] [address] [place] [address] OFFICE VISIT Date of Service: 11/20/19 MR#: [id number] Acct: [id number] Name: MARIAJOSE HUANG Rep #: [id number] : 1975 Provider: KVNG Magallon Age/Sex: 44/F [place] [facility] [place] Status: Signed Intake Intake Visit Reasons: Back Pain Chief Complaint: Neck and Low Back Pain Allergies methimazole [From Tapazole] Adverse Reaction (Mild, Verified 10/01/19 09:26) Rash [facility] Medical History Thyroid disease (Acute) Surgical History [...] Additional Codes Procedures - Manipulation: 3-4 regions (68550) 11/20/19 0945 <Electronically signed by [place] [facility]> Date [place] [facility] Cosigner Signature: Date (if applicable) CC: Jana Farias Start: 10-30-2019 End: 10-30-2019 Chiropractic Report Comments: See Note; NOTES: [facility] [address] [place] [address] OFFICE VISIT Date of Service: 10/30/19 MR#: [id number] Acct: [id number] Name: MARIAJOSE HUANG Rep #: [id number] : 1975 Provider: KVNG Magallon Age/Sex: 44/F [place] [facility] [place] Status: Signed Intake Intake Visit Reasons: Back Pain Chief Complaint: Neck and Low Back Pain Allergies methimazole [From Tapazole] Adverse Reaction (Mild, Verified 10/01/19 09:26) Rash [facility] Medical History Thyroid disease (Acute) Surgical History History of (Acute) History of dilation and curettage (Acute) History of tonsillectomy (Acute) Social History (Updated 10/30/19 @ 11:[address] [place]) Smoking Status: [...] Additional Codes Procedures - Manipulation: 3-4 regions (61221) 10/30/19 1105 <Electronically signed by [place] [facility]> Date [place] Signature: Date (if applicable) CC: Jana Farias Start: 10-16-2019 End: 10-16-2019 Chiropractic Report Comments: See Note; NOTES: [facility] [address] [place] [address] OFFICE VISIT Date of Service: 10/16/19 MR#: [id number] Acct: [id number] Name: MARIAJOSE HUANG Rep #: [id number] : 1975 Provider: KVNG Magallon Age/Sex: 44/F [place] [facility] [place] Status: Signed Intake Intake Visit Reasons: Back Pain Chief Complaint: Neck and Low Back Pain Allergies methimazole [From Tapazole] Adverse Reaction (Mild, Verified 10/01/19 09:26) Rash [facility] Medical History Thyroid disease (Acute) Surgical History [...] Additional Codes Procedures - Manipulation: 3-4 regions (36705) 10/16/19 1138 <Electronically signed by [place] [facility]> Date [place] [facility] Cosigner Signature: Date (if applicable) CC: Jana Farias Start: 10-14-2019 End: 10-14-2019 Radiology Report Comments: See Note; NOTES: [facility] [address] [place] [address] 10/14/19 1021 MR#: [id number] Acct: [id number] Name: MARIAJOSE HUANG Rep #: [id number] : 1975 44 From: [place] [facility] PCP: Dr. Venus Carroll MD Status:DEP AMB [place] [facility] [place] Impression Impression: Patients Name: MARIAJOSE HUANG : 1975 Views Submitted: a routine lumbar series was accomplished on 10/07/19 at [facility]. The lumbar series reveals in the [...] 10-09-2019 Chiropractic Report Comments: See Note; NOTES: [facility] [address] [place] [address] OFFICE VISIT Date of Service: 10/09/19 MR#: [id number] Acct: [id number] Name: MARIAJOSE HUANG Rep #: [id number] : 1975 Provider: KVNG Magallon Age/Sex: 44/F [place] [facility] [place]: Signed Intake Vital Signs 10/01/19 BMI 24.0 Intake Visit Reasons: Back Pain Chief Complaint: Neck and Low Back Pain Allergies methimazole [From Tapazole] Adverse Reaction (Mild, Verified 10/01/19 09:26) Rash [facility] Medical History Thyroid disease (Acute) Surgical History [...] Additional Codes Procedures - Manipulation: 3-4 regions (50883) 10/09/19 0952 <Electronically signed by [place] D.[facility]> Date [place] Signature: Date (if applicable) CC: Jana Farias Start: 10-07-2019 End: 10-07-2019 Chiropractic Report Comments: See Note; NOTES: [facility] [address] [place] [address] OFFICE VISIT Date of Service: 10/07/19 MR#: [id number] Acct: [id number] Name: MARIAJOSE HUANG Rep #: [id number] : 1975 Provider: KVNG Magallon Age/Sex: 44/F [place] [facility] [place] Status: Signed Intake Vital Signs 10/01/19 BMI 25.2 Intake Visit Reasons: Back pain Chief Complaint: Neck and Low Back Pain Is patient in pain?: Yes Allergies methimazole [From Tapazole] Adverse Reaction (Mild, Verified 10/01/19 09:26) Rash [facility] Medical History Thyroid disease (Acute) Surgical History History of (Acute) History of dilation and curettage (Acute) History of tonsillectomy (Acute) Social History (Updated 10/07/19 @ 14:[address] Paradise Grove, KVNG) Smoking Status: [...] Additional Codes Procedures - Manipulation: 3-4 regions (08642) 10/07/19 1423 <Electronically signed by Paradise Grove D.C.> Date Paradise Lamignchuck Signature: Date (if applicable) CC: Jana Farias Start: 10-01-2019 End: 10-01-2019 Chiropractic Report Comments: See Note; NOTES: [facility] [address] [place] [address] [id number] OFFICE VISIT Date of Service: 10/01/19 MR#: [id number] Acct: [id number] Name: MARIAJOSE HUANG Rep #: [id number] : 1975 Provider: KVNG Magallon Age/Sex: 44/F [place] [facility] [place] Status: Signed Intake Vital Signs 10/01/19 BMI [...] no.136 tab PO 05/14/17 [History Confirmed 10/01/19] FOR[facility]LY [facility] Medical History (Updated 10/01/19 @ 10:53 by [...] establish herself here since she works at [employer]. She states that she has issues with [...] Additional Codes Procedures - Manipulation: 3-4 regions (79296) 10/01/19 1055 <Electronically signed by Paradise Grove D.C.> Date Paradise Grove D.C. Cosigner Signature: Date (if applicable) CC: Jana Farias Start: 11-28-2018 Screening digital breast tomosynthesis bi Pardeep Barreto Work Phone: Start: 05-14-2017 End: 05-14-2017 Urgent Care Visit Report Comments: See Note; NOTES: [address] [place] [id number] OFFICE VISIT Date of Service: 05/14/17 MR#: [id number] Acct: [id number] Name: MARIAJOSE HUANG Rep #: [id number] : 1975 Provider: Brandon CHANDLER Age/Sex: 41/F [place] [facility] [place] Status: Signed Intake Vital Signs05/14/17 Height 5 ft 1 in 05/14/17 Weight: 127 lb 05/14/17 Body Mass Index (BMI) 24.0 Intake Visit Reasons: Urinary tract infection Grinder Hand Required: No Is patient in pain?: Yes [...] the discomfort. 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 Patient advised of potential red flags when appropriate report to the ED. Patient verbalized understanding of all the above. This note was generated with Vida[employer] dictation software. It may contain incorrect words, [...] Treatment Date Care Activity Detail Author Start: 2052 RSV Immunization for Adults (1 - 1-dose 75+ series) RSV Immunization for Adults (1 - 1-dose 75+ series) [facility] Start: 2037 RSV Immunization aged 60 or older (1 - 1-dose 60+ series) RSV Immunization aged 60 or older (1 - 1-dose 60+ series) [facility] Start: 08-11-2030 DTaP/Tdap/Td vaccine (3 - Td or Tdap) DTaP/Tdap/Td vaccine (3 - Td or Tdap) [facility] Start: 08-11-2030 DTaP/Tdap/Td Vaccines (3 - Td or Tdap) DTaP/Tdap/Td Vaccines (3 - Td or Tdap) [facility] Start: 07-14-2027 Zoster Vaccines (1 of 2) Zoster Vaccines (1 of 2) [facility] Start: 07-11-2025 Thyroid stimulating hormone measurement TSH Level [facility] Start: 06-11-2025 Lipid panel Lipid Panel [facility] Start: 10-13-2024 Influenza vaccination Influenza Vaccine (#1) [facility] Start: 09-12-2024 Screening for malignant neoplasm of breast Mammogram [facility] Start: 06-14-2024 Depression Screening Depression Screening [facility] Start: 12-05-2023 Diabetes mellitus screening Diabetes Screening [facility] Start: 12-05-2023 Thyroid stimulating hormone measurement TSH Level [facility] Start: 10-14-2023 COVID-19 Vaccine ( season) COVID-19 Vaccine () [facility] Start: 10-14-2023 COVID-19 Vaccine ( season) COVID-19 Vaccine ( season) [facility] Start: 10-14-2023 Influenza vaccination Influenza Vaccine (#1) [facility] Start: 10-14-2023 Screening for malignant neoplasm of cervix Cervical Cancer Screening [facility] Comment on above: Postponed from 1998 (Other Medical Reasons) Postponed from 07/13 (Other Medical Reasons) Start: 08-20-2023 End: 10-20-2024 DBT Breast - bilateral screening Bilateral screening mammogram with tomosynthesis Imaging Routine Encounter for screening mammogram for malignant neoplasm of breast Expected: 08/20/2023, Expires: 10/20/2024 [facility] [employer] Work Phone: Comment on above: Expected: 08/20/2023, Expires: 5 Start: 06-13-2023 Depression Screening Depression Screening [facility] Start: 03-22-2023 Thyroid stimulating hormone measurement TSH Level [facility] Start: 01-23-2023 Screening for malignant neoplasm of breast Mammogram [facility] Start: 10-13-2022 COVID-19 Vaccine () COVID-19 Vaccine () [facility] Start: 10-13-2022 Influenza vaccination Influenza Vaccine (#1) [facility] Start: 08-13-2022 DTaP/Tdap/Td vaccine (2 - Td) DTaP/Tdap/Td vaccine (2 - Td) [place] Start: 06-12-2022 End: 06-07-2023 Hemoglobin A1c/Hemoglobin.total in Blood Hemoglobin A1c Lab Routine Hyperglycemia Expected: 06/12/2022, Expires: 06/07/2023 [facility] Comment on above: Expected: 06/12/2022, Expires: 4 Start: 06-12-2022 End: 06-07-2023 Hepatitis C virus Ab [Presence] in Serum or Plasma by Immunoassay Hepatitis C antibody Lab Routine Need for hepatitis C screening test Expected: 06/12/2022, Expires: 06/07/2023 [facility] [employer] [facility] Work Phone: Comment on above: Expected: 06/12/2022, Expires: 4 Start: 06-12-2022 End: 06-07-2023 HIV 1+2 Ab+HIV1 p24 Ag [Presence] in Serum or Plasma by Immunoassay HIV-1 and HIV-2 Antigen-Antibody Screen Lab Routine Screening for HIV (human immunodeficiency virus) Expected: 06/12/2022, Expires: 06/07/2023 [facility] Comment on above: Expected: 06/12/2022, Expires: 4 Start: 05-08-2022 End: 05-08-2022 Patient encounter procedure 05/08/2022 Office Visit Family Medicine Pollo Hollingsworth MD [address] [facility] [address] [place] [address] [facility] Start: 02-22-2021 COVID-19 Vaccine (4 - Booster for Moderna series) COVID-19 Vaccine (4 - Booster for Moderna series) [facility] Start: 10-13-2020 Influenza vaccination Flu vaccine (#1) [facility] Start: 10-13-2018 Influenza vaccination Flu vaccine (#1) [place], [place] Start: 2017 Lipid panel Lipid screen [facility] Start: 2017 Lipid screen Lipid screen [place], [place] Start: 11-13-2016 Blood count complete auto&auto difrntl wbc CBC with auto diff (95679) [facility] Work Phone: Start: 11-13-2016 Urine albumin quantitative MICROALBUMIN: CREATININE RATIO (47538) AND (58999) [facility] Work Phone: Start: 11-13-2016 Comprehensive metabolic panel METABOLIC PANEL, COMPREHENSIVE (12004) [facility] Work Phone: Start: 11-13-2016 Lipid panel LIPID PANEL (48496) [facility] Work Phone: Start: 11-13-2016 HbA1c (Bld) [Mass fraction] HGB A1C (01143) [facility] Work Phone: Start: 11-13-2016 Hemoglobin glycosylated a1c HGB A1C (11352) [facility]; [facility] Work Phone: Start: 10-16-2016 Cervical cancer screen Cervical cancer screen [place], [place] Start: 10-16-2016 Screening for malignant neoplasm of cervix [facility] Start: 05-05-2011 Assay of free thyroxine T4, FREE (THYROXINE) (71865) [facility]; [facility] Work Phone: Start: 05-05-2011 Free T4 [Mass/Vol] T4, FREE (THYROXINE) (63812) [facility] Work Phone: Start: 05-05-2011 Assay of thyroid stimulating hormone tsh TSH (78017) [facility]; [facility] Work Phone: Start: 05-05-2011 TSH Qn TSH (15853) [facility] Work Phone: Start: 05-05-2011 Assay of triiodothyronine t3 free T3, FREE (TRIDOTHYRONINE) (64492) [facility]; [facility] Work Phone: Start: 05-05-2011 Free T3 [Mass/Vol] T3, FREE (TRIDOTHYRONINE) (96638) [facility] Work Phone: Start: 04-26-2011 Provider Instructions for Treatment [facility] Work Phone: Start: 04-17-2011 Assay of free thyroxine T4, FREE (THYROXINE) (81085) [facility]; [facility] Work Phone: Comment on above: re check in 8 weeks Start: 04-17-2011 Free T4 [Mass/Vol] T4, FREE (THYROXINE) (73042) [facility] Work Phone: Comment on above: re check in 8 weeks Start: 04-17-2011 Assay of triiodothyronine t3 free T3, FREE (TRIDOTHYRONINE) (61174) [facility]; [facility] Work Phone: Start: 04-17-2011 Free T3 [Mass/Vol] T3, FREE (TRIDOTHYRONINE) (37847) [facility] Work Phone: Start: 04-17-2011 Assay of thyroid stimulating hormone tsh TSH (68501) [facility]; [facility] Work Phone: Start: 04-17-2011 TSH Qn TSH (14165) [facility] Work Phone: Start: 11-16-2010 GFR/1.73 sq M predicted among non-blacks MDRD (S/P/Bld) [Vol rate/Area] HCG, FREE BETACHAIN TEST (11500) [facility] Work Phone: Start: 11-16-2010 Gonadotropin chorionic hcg free beta chain HCG, FREE BETACHAIN TEST (98387) [facility]; [facility] Work Phone: Start: 11-16-2010 Gonadotropin chorionic qualitative HCG (Qual) (15327) [facility] Work Phone: Start: 09-22-2010 Assay of thyroid stimulating hormone tsh TSH (29858) [facility]; [facility] Work Phone: Start: 09-22-2010 TSH Qn TSH (38591) [facility] Work Phone: Start: 09-22-2010 Assay of free thyroxine T4, FREE (THYROXINE) (22628) [facility]; [facility] Work Phone: Start: 09-22-2010 Free T4 [Mass/Vol] T4, FREE (THYROXINE) (15041) [facility] Work Phone: Start: 09-22-2010 Assay of triiodothyronine t3 free T3, FREE (TRIDOTHYRONINE) (08725) [facility]; [facility] Work Phone: Start: 09-22-2010 Free T3 [Mass/Vol] T3, FREE (TRIDOTHYRONINE) (24494) [facility] Work Phone: Start: 07-20-2010 Assay of thyroid stimulating hormone tsh TSH (11759) [facility]; [facility] Work Phone: Start: 07-20-2010 TSH Qn TSH (77951) [facility] Work Phone: Start: 01-04-2009 MMR Vaccines (1 of 1 - Standard series) MMR Vaccines (1 of 1 - Standard series) [facility] Start: 07-14-2007 Screening for malignant neoplasm of cervix [facility] Start: 04-09-2007 Cul bact xcpt urine blood/stool aerobic isol DONALD CULTURE-OTHER (78067) [facility] Work Phone: Start: 01-24-2007 Provider Instructions for Treatment [facility] Work Phone: Start: 01-24-2007 Thyroid horm uptk/thyroid hormone binding ratio T-3 UPTAKE (80407) [facility] Work Phone: Start: 10-19-2006 Assay of triiodothyronine t3 total tt3 T3, TOTAL (TRIDOTHYRONINE) (86529) [facility] Work Phone: Start: 10-19-2006 Thyroid horm uptk/thyroid hormone binding ratio T-3 UPTAKE (04180) [facility] Work Phone: Start: 10-19-2006 Assay of thyroxine total T4, TOTAL (12623) [facility] Work Phone: Start: 10-19-2006 Beta HCG ( test) Ql (U) Urine Test, Office (06450) [facility] Work Phone: Comment on above: NEGATIVE Start: 10-19-2006 Urine test visual color cmprsn meths Urine Test, Office (83939) [facility]; [facility] Work Phone: Comment on above: NEGATIVE Start: 10-19-2006 Assay of thyroid stimulating hormone tsh TSH (06019) [facility]; [facility] Work Phone: Start: 10-19-2006 TSH Qn TSH (73225) [facility] Work Phone: Start: 1998 Screening for malignant neoplasm of cervix Pap Smear [facility] Start: 1996 DTaP/Tdap/Td vaccine (1 - Tdap) DTaP/Tdap/Td vaccine (1 - Tdap) [place] Start: 07-14-1995 Diabetes mellitus screening Diabetes Screening [facility] Start: 07-14-1995 Hepatitis C screening Hepatitis C Screening [facility] Start: 1992 HIV screen HIV screen [place], [place] Start: 1992 HIV screening HIV screen [facility] Start: 1989 COVID-19 Vaccine (1) COVID-19 Vaccine (1) [facility] Start: 1977 Hepatitis B Vaccines (1 of 3 - 3-dose series) Hepatitis B Vaccines (1 of 3 - 3-dose series) [facility] Start: 1977 Hepatitis C screening Hepatitis C screen [facility] Start: 1977 HIV screening HIV Screening [facility] Start: 1977 Lipid panel Lipid Panel [facility] Start: 1977 Screening for malignant neoplasm of colon [facility] ECG 12 lead (Now) ECG 12 lead (N ow) CV ECG STAT 03/22/2022 10:03 AM EST [facility] [email or web address] Work Phone: Hepatitis C virus Ab [Presence] in Serum or Plasma by Immunoassay Hepatitis C antibody Lab Routine Need for hepatitis C screening test Ordered: 06/15/2023 [facility] [employer] [facility] Work Phone: Comment on above: Ordered: 06/15/2023 HIV 1+2 Ab+HIV1 p24 Ag [Presence] in Serum or Plasma by Immunoassay HIV-1 and HIV-2 Antigen-Antibody Screen Lab Routine Encounter for screening for HIV Ordered: 06/15/2023 [facility] Comment on above: Ordered: 06/15/2023 End: 12-20-2018 OMAR ZO DIGITAL DIAGNOSTIC UNILATERAL RIGHT OMAR ZO DIGITAL DIAGNOSTIC UNILATERAL RIGHT Imaging Routine Once for 1 Occurrences starting 12/20/2018 until 12/20/2018 [employer] VAANGEL LUIS Comment on above: Once for 1 Occurrences starting 12/21/19 19 until 12/20/2018 OMAR ZO DIGITAL DIAGNOSTIC UNILATERAL RIGHT OMAR ZO DIGITAL DIAGNOSTIC UNILATERAL RIGHT Imaging Routine 12/20/2018 3:22 PM [facility] [employer] LUIS End: 12-23-2020 Screening digital breast tomosynthesis bi [facility] Work Phone: Comment on above: Once for 1 Occurrences starting 12/24/19 21 until 12/23/2020 End: 12-20-2018 US BREAST LIMITED RIGHT US BREAST LIMITED RIGHT Imaging Routine Once for 1 Occurrences starting 12/20/2018 until 12/20/2018 [employer] VAANGEL LUIS Comment on above: Once for 1 Occurrences starting 12/21/19 19 until 12/20/2018 US BREAST LIMITED RIGHT US BREAS T LIMITED RIGHT Imaging Routine 12/20/2018 4:04 PM [facility] [employer] VAANGEL LUIS [facility] Work Phone: [facility] Work Phone: [facility] Work Phone: [facility] Work Phone: Immunizations Immunization Date Immunization Notes Care Provider [facility] 12-28-2023 influenza, seasonal, injectable, preservative free Dr. Pollo Hollingsworth MD Work Phone: [facility] 11-22-2022 influenza, injectabl e, quadrivalent, preservative free [facility] 11-22-2022 influenza virus vaccine, unspecified formulation Priti Hollingsworth MD Work Phone: [facility] 11-21-2021 influenza, injectabl e, quadrivalent, preservative free [facility] 11-21-2021 influenza, seasonal, injectable [facility] 11-21-2021 influenza virus vaccine, unspecified formulation Pollo Hollingsworth MD Work Phone: [facility] 12-28-2020 Covid (Moderna) Dr. Jana Farias Work Phone: [facility] 11-24-2020 influenza, injectabl e, quadrivalent, preservative free [facility] 11-24-2020 influenza, seasonal, injectable Dr. Jana Farias Work Phone: [facility] 08-11-2020 tetanus toxoid, reduced diphtheria toxoid, and acellular pertussis vaccine, adsorbed Pollo Hollingsworth MD Work Phone: [facility] 03-16-2020 Covid (Moderna) Dr. Jana Farias Work Phone: [facility] 02-17-2020 Covid (Moderna) Dr. Jana Farias Work Phone: [facility] 12-22-2019 influenza, injectabl e, quadrivalent, preservative free [facility] 12-22-2019 influenza, seasonal, injectable Dr. Jana Farias Work Phone: [facility] 11-27-2018 influenza, injectabl e, quadrivalent, preservative free [facility] 11-27-2018 influenza, seasonal, injectable Dr. Jana Farias Work Phone: [facility] 11-21-2017 influenza, injectabl e, quadrivalent, preservative free [facility] 11-21-2017 influenza, seasonal, injectable Dr. Jana Farias Work Phone: [facility] 11-29-2016 influenza, injectabl e, quadrivalent, preservative free [facility] 11-29-2016 influenza, seasonal, injectable Dr. Jana Farias Work Phone: [facility] 11-17-2015 influenza, injectabl e, quadrivalent, preservative free [facility] 11-17-2015 influenza, seasonal, injectable Dr. Jana Farias Work Phone: [facility] 12-28-2014 influenza, injectabl e, quadrivalent, preservative free [facility] 12-28-2014 influenza, seasonal, injectable Dr. Jana Farias Work Phone: [facility] 11-12-2013 influenza, injectabl e, quadrivalent, preservative free [facility] 11-12-2013 influenza, seasonal, injectable Dr. Jana Farias Work Phone: [facility] 02-20-[address] Jana Farias Work Phone: [facility] 08-13-2012 tetanus toxoid, reduced diphtheria toxoid, and acellular pertussis vaccine, adsorbed Pollo Hollingsworth MD Work Phone: [facility] Payers Date Payer Category Payer Self-pay [id number] 2023 Unknown [id number] 2019 [place] Pedro Moran [facility] - [facility] [id number] 2014 Unknown BCBS [place] - [place] P PO xxxxxxxxxxxx 2014-Present [id number] [place] [id number] xxxxxxxxxxxx [id number] 2014 Unknown BC[place] - [place] P PO [id number] 2014-Present [phone] [id number] [place] [address] [id number] 2008 Unknown 1975 Unknown [id number]. 159 1975 Unknown [id number] 2.840.1.358297.3.579.2. 159 1975 Unknown [id number] 2.840.1.389699.3.579.2. 159 1977 Unknown [id number] 2.16840.1.802694.3.579.2. 159 1977 Unknown [id number] 2.16840.1.733167.3.579.2. 159 1977 Unknown [id number] 2.16840.1.398552.3.579.2. 159 1977 Unknown [id number] 2.16840.1.184796.3.579.2. 159 1977 Unknown [id number] 2.16.840.1.502464.3.579.2. 159 1977 Unknown [id number] [id number]. 159 1977 Unknown [id number] 2.16.840.1.400276.3.579.2. 159 Unknown [id number] Unknown [id number] 2.16.840.1.955315.3.579.2. 462 Unknown [id number] 2.16.840.1.733364.3.579.2. 462 Unknown [id number] 2.16.840.1.415501.3.579.2. 462 Unknown [id number] [id number]. 462 Social History Date Type Detail Facility Start: 06-12-2022 End: 06-15-2023 Alcohol Use Alcohol Use [facility] Work Phone: Comment on above: Occasional alcohol u se occ Inactive Lives with spouse 1 Tobacco use: Tobacco use: [facility] Work Phone: Comment on above: updated 04-26-11 Start: 11-25-2014 End: 06-12-2022 Tobacco smoking status NHIS Never smoker [place], [place] Start: 11-25-2014 End: 06-15-2023 Alcohol intake Current drinker of alcohol (finding) [place] Start: 09-03-2014 Alcohol Comment ocasionally [place], [place] Start: 1975 Sex Assigned At Not on file [place] Start: 11-25-2014 End: 06-12-2022 Alcohol intake Yes [place] Tobacco use: Tobacco use: [facility] Work Phone: Comment on above: updated 04-26-11 Start: 09-03-2014 End: 06-12-2022 Tobacco use and exposure Smokeless tobacco non-user [facility] Work Phone: Start: 01-11-2021 End: 01-11-2021 Tobacco smoking status NHIS Unknown if ever smoked [facility] Start: 1975 Sex Assigned At Female [facility] Start: 06-12-2022 History SDOH Financial 5 [facility] Start: 06-12-2022 History SDOH Food Worry 1 [facility] Start: 06-12-2022 History SDOH Transport Med 2 [facility] Start: 03-12-2022 End: 06-12-2022 Exposure to SARS-CoV-2 (event) Not sure [facility] How hard is it for you to pay for the very basics like food, housing, medical care, and heating Not hard at all [facility] (I/We) worried whether (my/our) food would run out before (I/we) got money to buy more. Never true [facility] Start: 09-02-2022 End: 09-12-2022 Exposure to SARS-CoV-2 (event) Unable to assess [facility] Start: 09-12-2021 Sex Female (finding) [facility] NEGATED: Highlighted rowStart: NINF History of tobacco use Passive smoker [facility] Goals Date Patient Goal Desired Activity /State Clinical Notes 08-11-2020 to 08-26-2024 Telephone Encounter - Mariajose Barr RN - 08/26/2024 2:02 PM EDTTelephone Encounter - Mariajose Barr RN - 08/26/2024 2:02 PM EDTTelephone Encounter - Anjali Vargas RN - 08/19/2024 11:34 AM EDT Note Date & Type Note Facility 08-26-2024 Telephone encounter Note It was just for an annual visit. [facility] 08-26-2024 Miscellaneous Notes It was just for an annual visit. What type of appointment was the patient looking for? I can follow up but unsure if I need to get with provider on what days she's willing to open for pt If this is for a yearly physical and she still wants to remain established here, I can accommodate her by opening a or Sunday morning . For any acute issues she may need to see a resident or me based on availability and telehealth is also an option ( as long as appropriate ) [employer] message sent to pt to schedule appt in Oct with Dr. Padilla. documented in this encounter [facility] 08-19-2024 Telephone encounter Note What type of appointment was the patient looking for? I can follow up but unsure if I need to get with provider on what days she's willing to open for pt [facility] 08-19-2024 Miscellaneous Notes What type of appointment was the patient looking for? I can follow up but unsure if I need to get with provider on what days she's willing to open for pt If this is for a yearly physical and she still wants to remain established here, I can accommodate her by opening a or Sunday morning . For any acute issues she may need to see a resident or me based on availability and telehealth is also an option ( as long as appropriate ) [employer] message sent to pt to schedule appt in Oct with Dr. Padilla. documented in this encounter [facility] 08-19-2024 Telephone encounter Note If this is for a yearly physical and she still wants to remain established here, I can accommodate her by opening a or Sunday morning . For any acute issues she may need to see a resident or me based on availability and telehealth is also an option ( as long as appropriate ) [facility] 07-15-2024 Telephone encounter Note [employer] message sent to pt to schedule appt in Oct with Dr. Padilla. [facility] 10-17-2023 Telephone encounter Note I spoke to our billing department and they are resubmitting the claim with the BP dx as primary. Notified patient and advised her to call me back if she received another denial. [facility] 10-17-2023 Miscellaneous Notes I spoke to our billing department and they are resubmitting the claim with the BP dx as primary. Notified patient and advised her to call me back if she received another denial. Name of caller: Mariajose Contact phone number: [phone] Relationship to Patient: patient Provider: Dr. Hollingsworth Practice: [facility] Chief Complaint/Reason for Call: Pt would like to talk to the gift officer, states she requested a call back last week and have not received it. Please advise Best time of day caller can be reached: After 12 tomorrow and time today! Patient advised that office/PCP has 24-48 business hours to return their call: No documented in this encounter [facility] 09-27-2023 Telephone encounter Note Name of caller: Mariajose Contact phone number: [phone] Relationship to Patient: patient Provider: Dr. Hollingsworth Practice: [facility] Chief Complaint/Reason for Call: Pt would like to talk to the gift officer, states she requested a call back last week and have not received it. Please advise Best time of day caller can be reached: After 12 tomorrow and time today! Patient advised that office/PCP has 24-48 business hours to return their call: No [facility] 09-27-2023 Miscellaneous Notes Name of caller: Mariajose Contact phone number: [phone] Relationship to Patient: patient Provider: Dr. Hollingsworth Practice: [facility] Chief Complaint/Reason for Call: Pt would like to talk to the gift officer, states she requested a call back last week and have not received it. Please advise Best time of day caller can be reached: After 12 tomorrow and time today! Patient advised that office/PCP has 24-48 business hours to return their call: No documented in this encounter [facility] 06-15-2023 Evaluation + Plan note Associated Problem(s): Situational anxiety Most likely due to perimenopause as she has noticed cyclical component. Her PLATE FURNACE OPERATOR did give her some Paxil to try it 5 mg for short cyclical time. She was hesitant to do so but she will consider doing this to help prevent panic attacks at work. She also knows coping mechanisms such as deep breathing exercises and other relaxation techniques if this would happen. She is going to let me know or her PLATE FURNACE OPERATOR know if symptoms do not improve [facility] 06-15-2023 Miscellaneous Notes Associated Problem(s): Situational anxiety Most likely due to perimenopause as she has noticed cyclical component. Her PLATE FURNACE OPERATOR did give her some Paxil to try it 5 mg for short cyclical time. She was hesitant to do so but she will consider doing this to help prevent panic attacks at work. She also knows coping mechanisms such as deep breathing exercises and other relaxation techniques if this would happen. She is going to let me know or her PLATE FURNACE OPERATOR know if symptoms do not improve Associated [...] at this time documented in this encounter [facility] 06-15-2023 Evaluation + Plan note Associated Problem(s): [...] to start any medications at this time [facility] 06-15-2023 History of Presen t illness Narrative Images from the original note were not included. [facility] [address] [facility] [address] Dept: [phone] Dept Loc: [phone] Reason for Visit: Blood Pressure Check Assessment and Plan 1. Situational anxiety Assessment & Plan: Most likely due to perimenopause as she has noticed cyclical component. Her PLATE FURNACE OPERATOR did give her some Paxil to try it 5 mg for short cyclical time. She was hesitant to do so but she will consider doing this to help prevent panic attacks at work. She also knows coping mechanisms such as deep breathing exercises and other relaxation techniques if this would happen. She is going to let me know or her PLATE FURNACE OPERATOR know if symptoms do not improve 2. [...] for mammogram this has come from her PLATE FURNACE OPERATOR 5. Encounter for screening for HIV - HIV-1 and HIV-2 Antigen-Antibody Screen 6. Need for hepatitis C screening test - Hepatitis C antibody 7. Perimenopause--mainly with hot flashes and weight gain and anxiety as above follows with sampler first as well as PLATE FURNACE OPERATOR she is going to consider the cyclical [...] pressure was in the 160s at her PLATE FURNACE OPERATOR's office and then at home it was 116/67 130/70 today knowing she was coming here it was 138/80. She even has reading from June 06, 1989 She follows closely with a sampler first her PLATE FURNACE OPERATOR and optometrist assistant. Her sampler first ordered hormone levels and has her on a special supplement that she has been on in the past to help decrease her high estrogen levels Issues with perimenopause and panic attacks during periods sees a sampler first as well dr barrientos - in estrogen her estradiol is high and had [employer] [facility] test detoxes estrogen --and [place] started diindolylmethane taking again 2 weeks ago --she feels better already = less bloated Has had panic attacks before periods--high anxiety 1 week before and after and during these times her BP spikes as well Her PLATE FURNACE OPERATOR that she saw last week prescribed Paxil [...] Hepatitis C Screening Never done COVID-19 Vaccine (2022- season) 2022 Mammogram 01/23/2023 Depression Screening 06/13/2023 [...] on 06-11-2023 Bilirubin [Mass/Vol] 0.20 mg/dL 0.20-1.00 [facility] Comment on above: For patients on eltrombopag therapy, use of [facility] TBIL is not recommended. Chloride [Moles/Vol] 104 mmol/L 98-107 [facility] Glucose [Mass/Vol] 100 mg/dL 74-106 [facility] Comment on above: Fasting Glucose result from 100 to 125 mg/dL suggests IMPAIRED HOMEOSTASIS per A.D.A. criteria. Potassium [Moles/Vol] 3.8 mmol/L 3.5-5.1 [facility] Protein [Mass/Vol] 6.8 g/dL 6.4-8.2 [facility] Sodium [Moles/Vol] 138 mmol/L 136-145 [facility] Comprehensive Metabolic Profil on 06-11-2023 Albumin [Mass/Vol] 3.7 g/dL Normal 3.2-5.0 [facility] Comment on above: Performed By: #### L3100.5125, L506.1000, L3300.1750, L509.1000, L500.4050, L501.9520 #### [facility] [address] [place], [place], [address] Albumin/Globulin [Mass ratio] 1.2 Normal 0.9-2.4 [facility] Comment on above: Performed By: #### L3100.5125, L506.1000, L3300.1750, L509.1000, L500.4050, L501.9520 #### [facility] [address] [place], [address] ALK P 53 U/L Normal 45-117 [facility] Comment on above: Performed By: #### L3100.5125, L506.1000, L3300.1750, L509.1000, L500.4050, L501.9520 #### [facility] [address] [place], [address] ALT [Catalytic activity/Vol] 20 U/L Normal 13-56 [facility] Comment on above: Performed By: #### L3100.5125, L506.1000, L3300.1750, L509.1000, L500.4050, L501.9520 #### [facility] [address] [place], [address] AST [Catalytic activity/Vol] 16 U/L Normal 15-37 [facility] Comment on above: Performed By: #### L3100.5125, L506.1000, L3300.1750, L509.1000, L500.4050, L501.9520 #### [facility] [address] [place], [address] Bilirubin [Mass/Vol] 0.20 mg/dL Normal 0.20-1.00 [facility] Comment on above: Result Comment: For patients on eltrombopag therapy, use of [facility] TBIL is not recommended. Performed By: #### L3100.5125, L506.1000, L3300.1750, L509.1000, L500.4050, L501.9520 #### [facility] [address] [place], [address] BUN/CRE 28.9 RATIO High 10-20 [facility] Comment on above: Performed By: #### L3100.5125, L506.1000, L3300.1750, L509.1000, L500.4050, L501.9520 #### [facility] [address] [place], [address] CA,Total 9.2 mg/dL Normal 8.5-10.1 [facility] Comment on above: Performed By: #### L3100.5125, L506.1000, L3300.1750, L509.1000, L500.4050, L501.9520 #### [facility] [address] [place], [address] Chloride [Moles/Vol] 104 mmol/L Normal 98-107 [facility] Comment on above: Performed By: #### L3100.5125, L506.1000, L3300.1750, L509.1000, L500.4050, L501.9520 #### [facility] [address] [place], [address] CO2 [Moles/Vol] 30.0 mmol/L Normal 21.0-32.0 [facility] Comment on above: Performed By: #### L3100.5125, L506.1000, L3300.1750, L509.1000, L500.4050, L501.9520 #### [facility] [address] [place], [address] Creatinine [Mass/Vol] 0.73 mg/dL Normal 0.55-1.02 [facility] Comment on above: Result Comment: The validity of the calculated GFR GFRAA in patients over 70 years has not been determined. Clinical correlation is essential. Performed By: #### L3100.5125, L506.1000, L3300.1750, L509.1000, L500.4050, L501.9520 #### [facility] [address] [place], [address] EST GFR - AA 111 mL/min Normal >60 [facility] Comment on above: Result Comment: GFR Calc Performed By: #### L3100.5125, L506.1000, L3300.1750, L509.1000, L500.4050, L501.9520 #### [facility] [address] [place], [address] GAP 4 Low 5-15 [facility] Comment on above: Performed By: #### L3100.5125, L506.1000, L3300.1750, L509.1000, L500.4050, L501.9520 #### [facility] [address] [place], [address] GFR/1.73 sq M.predicted among non-blacks MDRD (S/P/Bld) [Vol rate/Area] 92 mL/min/{1.73_m2 Normal >60 [facility] Comment on above: Result Comment: Non- GFR Calc Performed By: #### L3100.5125, L506.1000, L3300.1750, L509.1000, L500.4050, L501.9520 #### [facility] [address] [place], [address] Globulin (S) [Mass/Vol] 3.1 g/dL Normal 2.2-4.2 [facility] Comment on above: Performed By: #### L3100.5125, L506.1000, L3300.1750, L509.1000, L500.4050, L501.9520 #### [facility] [address] [place], [address] Glucose [Mass/Vol] 100 mg/dL Normal 74-106 [facility] Comment on above: Result Comment: Fasting Glucose result from 100 to 125 mg/dL suggests IMPAIRED HOMEOSTASIS per A.D.A. criteria. Performed By: #### L3100.5125, L506.1000, L3300.1750, L509.1000, L500.4050, L501.9520 #### [facility] [address] [place], [address] Potassium [Moles/Vol] 3.8 mmol/L Normal 3.5-5.1 [facility] Comment on above: Performed By: #### L3100.5125, L506.1000, L3300.1750, L509.1000, L500.4050, L501.9520 #### [facility] [address] [place], [address] Sodium [Moles/Vol] 138 mmol/L Normal 136-145 [facility] Comment on above: Performed By: #### L3100.5125, L506.1000, L3300.1750, L509.1000, L500.4050, L501.9520 #### [facility] [address] [place], [address] T PROT 6.8 g/dL Normal 6.4-8.2 [facility] Comment on above: Performed By: #### L3100.5125, L506.1000, L3300.1750, L509.1000, L500.4050, L501.9520 #### [facility] [address] [place], [address] Urea nitrogen [Mass/Vol] 21 mg/dL High 7-18 [facility] Comment on above: Performed By: #### L3100.5125, L506.1000, L3300.1750, L509.1000, L500.4050, L501.9520 #### [facility] [address] [place], [address] Estradiol on 06-11-2023 ESTRADIOL 54.0 pg/mL Normal [facility] Comment on above: Result Comment: NORMAL [...] L3100.5125, L506.1000, L3300.1750, L509.1000, L500.4050, L501.9520 #### [facility] [address] [place], [place], [id number] Follicle Stimulating Hormone on 06-11-2023 FSH 7.3 mIU/mL Normal [facility] Comment on above: Result Comment: NORMAL REFERENCE RANGES FEMALE FOLLICULAR 2.3 - 12.6 mIU/mL MID-CYCLE PEAK 5.2 - 17.5 mIU/mL LUTEAL 1.7 - 12.9 mIU/mL POST-MENOPAUSAL ON MHT 5.9 - 72.8 mIU/mL NOT ON MHT 12.7 - 132.2 mlU/mL MALE 0.7 - 10.8 mIU/mL Performed By: #### L3100.5125, L506.1000, L3300.1750, L509.1000, L500.4050, L501.9520 #### [facility] [address] [place], [address] Laboratory - Chemistry and Chemistry - challenge Ordered By: Jeff Duron on 06-11-2023 Albumin/Globulin [Mass ratio] 1.2 0.9-2.4 [facility] ALP [Catalytic activity/Vol] 53 U/L 45-117 [facility] ALT [Catalytic activity/Vol] 20 U/L 13-56 [facility] CO2 [Moles/Vol] 30.0 mmol/L 21.0-32.0 [facility] Globulin (S) [Mass/Vol] 3.1 g/dL 2.2-4.2 [facility] Urea nitrogen/Creatinine [Mass ratio] 28.9 mg/mg 10-20 [facility] No Panel Information Ordered By: Jeff Duron on 06-11-2023 Estimated GFR (MDRD) Amer 111 mL/min >60 [facility] Comment on above: GFR Calc Estimated GFR (MDRD) Non-Af Amer 92 mL/min >60 [facility] Comment on above: Non- GFR Calc Estradiol (E2) Level 54.0 pg/mL [facility] Comment on above: NORMAL REFERENCE RANGES [...] ESTRADIOL CONCENTRATION. Follicle Stimulating Hormone 7.3 mIU/mL [facility] Comment on above: NORMAL REFERENCE RANGES FEMALE FOLLICULAR 2.3 - 12.6 mIU/mL MID-CYCLE PEAK 5.2 - 17.5 mIU/mL LUTEAL 1.7 - 12.9 mIU/mL POST-MENOPAUSAL ON MHT 5.9 - 72.8 mIU/mL NOT ON MHT 12.7 - 132.2 mlU/mL MALE 0.7 - 10.8 mIU/mL Parathyroid Hormone (Intact) 29.5 pg/mL 18.4-80.1 [facility] Vitamin D 25-Hydroxy 38.7 ng/mL [facility] Comment on above: Vitamin D 25(OH) Status Range Deficiency <20 ng/mL (50nmol/L) Insufficiency 20 - 30 ng/mL (50 - 75 nmol/L) Sufficiency 30 - 100 ng/mL (75 - 250 nmol/L) Toxicity >100 ng/mL (>250 nmol/L) PTHIN on 06-11-2023 PTH 29.5 pg/mL Normal 18.4-80.1 [facility] Comment on above: Performed By: #### L3100.5125, L506.1000, L3300.1750, L509.1000, L500.4050, L501.9520 #### [facility] [address] [place], [place], [id number] Serum or plasma calcium measurement (mass/volume) Ordered By: Jeff Duron on 06-11-2023 Calcium [Mass/Vol] 9.2 mg/dL 8.5-10.1 [facility] Serum or plasma creatinine measurement (mass/volume) Ordered By: Jeff Duron on 06-11-2023 Creatinine [Mass/Vol] 0.73 mg/dL 0.55-1.02 [facility] Comment on above: The validity of the calculated GFR & GFRAA in patients over 70 years has not been determined. Clinical correlation is essential. Serum or plasma thyroid stimulating hormone (TSH) measurement (units/volume) Ordered By: Jeffnaa Duron on 06-11-2023 TSH Qn 2.17 uIU/mL 0.358-3.74 [facility] Serum or plasma urea nitrogen measurement (mass/volume) Ordered By: Jeff Duron on 06-11-2023 Urea nitrogen [Mass/Vol] 21 mg/dL 7-18 [facility] Thin prep Papanicolaou smear with manual screening Ordered By: Jeff Duron on 06-11-2023 Thin prep Papanicolaou smear with manual screening 3.7 g/dL 3.2-5.0 [facility] Thin prep Papanicolaou smear with manual screening 16 U/L 15-37 [facility] Thin prep Papanicolaou smear with manual screening 4 5-15 [facility] Thyroid Stim Hormone (TSH) on 06-11-2023 TSH 2.17 uIU/mL Normal 0.358-3.74 [facility] Comment on above: Performed By: #### L3100.5125, L506.1000, L3300.1750, L509.1000, L500.4050, L501.9520 #### [facility] [address] [place], [address] Vitamin D,25 Hydroxy on 06-11-2023 Vitamin D 25-OH 38.7 ng/mL Normal [facility] Comment on above: Result Comment: Vitamin D 25(OH) Status Range Deficiency <20 ng/mL (50nmol/L) Insufficiency 20 - 30 ng/mL (50 - 75 nmol/L) Sufficiency 30 - 100 ng/mL (75 - 250 nmol/L) Toxicity >100 ng/mL (>250 nmol/L) Performed By: #### L3100.5125, L506.1000, L3300.1750, L509.1000, L500.4050, L501.9520 #### [facility] [address] [place], [address] POLLO HOLLINGSWORTH MD Patient was able to ambulate safely to the examination room. Provider was not notified of possible fall risk Pt asked if they have been to specialist,been in ER /hospitalized or had testing since last visit. ED. Scratched cornea documented in this encounter [facility] 03-29-2023 Telephone encounter Note Message left for patient to call the [facility]. [facility] 03-29-2023 Miscellaneous Notes Message left for patient to call the [facility]. Message left for patient to call the [facility]. Called number of record and left message to call office for message from PCP. Please schedule a follow-up appointment for this patient for a check up and follow up blood pressure documented in this encounter [facility] 03-28-2023 Telephone encounter Note Message left for patient to call the [facility]. [facility] 03-28-2023 Miscellaneous Notes Message left for patient to call the [facility]. Called number of record and left message to call office for message from PCP. Please schedule a follow-up appointment for this patient for a check up and follow up blood pressure documented in this encounter [facility] 03-27-2023 Telephone encounter Note Called number of record and left message to call office for message from PCP. [facility] 03-27-2023 Miscellaneous Notes Called number of record and left message to call office for message from PCP. Please schedule a follow-up appointment for this patient for a check up and follow up blood pressure documented in this encounter [facility] 03-27-2023 Telephone encounter Note Please schedule a follow-up appointment for this patient for a check up and follow up blood pressure [facility] 09-12-2022 History of Presen t illness Narrative Images from the original note were not included. [facility] [address] [facility] [address] Dept: [phone] Dept Loc: [phone] Subjective Mariajose Huang is a 47 y.o. who presents for a telehealth visit. Patient was seen today via Telehealth by agreement and consent. I used the following Telehealth technology: Audio and video capabilities. Patient location: Patient Location: Home. This patient encounter is [...] stated that they are currently in the [facility]. If the patient is a minor, permission has been obtained by the parent or guardian for the patient to receive medical care at this visit. Chief complaint: No chief complaint on file. 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 Unfortunately [...] POLLO HOLLINGSWORTH MD documented in this encounter [facility] 06-14-2022 Telephone encounter Note Called back and is faxing labs and last office note. [facility] 06-14-2022 Miscellaneous Notes Called back and is faxing labs and last office note. Left a message at the endo office to call our office. [phone]. Patient had brought labs she had done in May by her optometrist assistant Dr Duron at her appt - but we didn't make a photocopy. Can we please either call that office to get the most recent labs and note or if she could somehow mychart them ? Thanks documented in this encounter [facility] 06-14-2022 Telephone encounter Note Left a message at the endo office to call our office. [phone]. [facility] 06-14-2022 Telephone encounter Note Patient had brought labs she had done in May by her optometrist assistant Dr Duron at her appt - but we didn't make a photocopy. Can we please either call that office to get the most recent labs and note or if she could somehow mychart them ? Thanks [facility] 06-12-2022 History of Presen t illness Narrative Images from the original note were not included. 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 [facility] 03-27-2022 Miscellaneous Notes Wrong office, not our patient. S: Patient spoke with [facility] nurse regarding elevated B/P. B: Onset of seen in the ER 03/22/22 and was instructed to be seen earlier than 05/08/22. A: Having a dull headache that comes and goes, elevated B/P, new patient appointment scheduled for 05/08/22. Seen in the ER and B/P came down, not taking any meds. No feet swelling, no SOB or CP. Last B/P's 140/95. 160/90 B/P varies and is concerned. Is asking if she can be seen earlier? R: Message to the office with appointment request to be see sooner. Please call the patient. Instructed to monitor salt intake and call back if sx's change . Patient understands care advice. No further needs at this time. Patient instructed to call back with new or worsening symptoms. Reason for Disposition Systolic BP >= 130 OR Diastolic >= 80, and is not taking BP medications Protocols used: Blood Pressure - [id number] documented in this encounter [facility] 03-27-2022 Telephone encounter Note S: Patient spoke with [facility] nurse regarding elevated B/P. B: Onset of seen in the ER 03/22/22 and was instructed to be seen earlier than 05/08/22. A: Having a dull headache that comes and goes, elevated B/P, new patient appointment scheduled for 05/08/22. Seen in the ER and B/P came down, not taking any meds. No feet swelling, no SOB or CP. Last B/P's 140/95. 160/90 B/P varies and is concerned. Is asking if she can be seen earlier? R: Message to the office with appointment request to be see sooner. Please call the patient. Instructed to monitor salt intake and call back if sx's change . Patient understands care advice. No further needs at this time. Patient instructed to call back with new or worsening symptoms. Reason for Disposition Systolic BP >= 130 OR Diastolic >= 80, and is not taking BP medications Protocols used: Blood Pressure - [id number] [employer] 03-22-2022 Emergency department Note Discussed discharge instructions with patient including new prescription and importance of follow up with PCP. Education provided including s/s to return to the ED. Patient verbalized understanding. Patient respirations even and unlabored with no s/s of distress noted. Patient able to speak in complete sentences without difficulty. All questions answered and patient denies any needs at this time. Patient ambulatory with steady gait on departure. Iesha Wallis RN 03/22/22 [facility] [employer] 03-22-2022 Emergency department Note Discussed discharge instructions with patient including new prescription and importance of follow up with PCP. Education provided including s/s to return to the ED. Patient verbalized understanding. Patient respirations even and unlabored with no s/s of distress noted. Patient able to speak in complete sentences without difficulty. All questions answered and patient denies any needs at this time. Patient ambulatory with steady gait on departure. Iesha Wallis RN 03/22/22 1202 EMERGENCY DEPARTMENT ENCOUNTER Pt Name: Mariajose Huang Birthdate 1975 Date of evaluation: 03/22/2022 ED Provider: LARRY CALLEJAS MD CHIEF COMPLAINT Chief Complaint Patient presents with Hypertension HISTORY OF PRESENT ILLNESS (Location/Symptom, Timing/Onset, Context/Setting, Quality, Duration, Modifying Factors, Severity) Note limiting factors. I wore appropriate PPE for the entirety of this encounter. HPI Mariajose Huang is a 46 y.o. female who presents to the emergency department for evaluation of hypertension. Patient has a prior history of hyperthyroidism that was corrected and now is on Synthroid, she has no history of hypertension. She noted yesterday that her blood pressure was low but high in the 150/90 range and that in general she just did not feel good. She denied headache there is no chest pain shortness of breath nausea vomiting or diaphoresis. Today she woke up she said she was anxious a little bit about her blood pressure and not feeling good the other day got out of bed and thought her heart rate is in the 120 range and her blood pressure again was a little bit high at 150 last 90 range. Here now she denies chest pain shortness of breath nausea vomiting or diaphoresis, there is no headache no change in vision hearing or speech no acute neurologic deficit. She has no history of hypertension diabetes or hypercholesterol is him, just the medically induced hypothyroidism, she held her Synthroid today because of her tachycardia. No other associated problems or complaints she is non-smoker no subs abuse issues. Nursing Notes were reviewed. REVIEW OF SYSTEMS Review of Systems REVIEW OF SYSTEMS: Positives and pertinent negatives noted in my history PAST MEDICAL HISTORY Past Medical History: Diagnosis Date Gestational diabetes Graves disease Hypothyroid MTHFR mutation AJ-1 Recurrent vaginitis 11/2014 6 weeks of diflucan Vaginal lesion 2015 vaginal papillomatosis SURGICAL HISTORY Past Surgical History: Procedure Laterality Date SECTION (HISTORICAL) 03/2009 DILATION AND CURETTAGE OF UTERUS 12/2007 HEMORRHOID SURGERY 07/2009 MOUTH SURGERY 1995 OTHER SURGICAL HISTORY 07/04/2011 Colonscopy - Normal OTHER SURGICAL HISTORY 11/2006 Radioactive Iodine TONSILLECTOMY (HISTORICAL) 03/2006 CURRENT MEDICATIONS Previous Medications BIOTIN FORTE PO Take by mouth. CEPHALEXIN (KEFLEX) 500 MG CAPSULE TAKE 1 CAPSULE BY MOUTH EVERY 12 HOURS FOR 7 DAYS CHOLECALCIFEROL (VITAMIN D) 50 MCG (2000 UT) CAPSULE Take by mouth. LEVOTHYROXINE (TIROSINT) 112 MCG CAPSULE TAKE 1 CAPSULE BY MOUTH EVERY DAY IN THE MORNING MULTIPLE VITAMIN (MULTIVITAMIN) TABLET Take 1 tablet by mouth daily. NON FORMULARY daily. Hormone Balance ALLERGIES Methimazole FAMILY HISTORY Family History Problem Relation Name Age of Onset Melanoma Mother 55 on stomach Heart attack Father High Blood Pressure Father Prostate cancer Father 73 Bladder Cancer Father 73 Heart failure Paternal Grandmother Diabetes Paternal Grandmother Heart failure Paternal Grandfather Diabetes Paternal Grandfather High Blood Pressure Other sisters/SIBLINGS SOCIAL HISTORY Social History Socioeconomic History Marital status: Tobacco Use Smoking status: Never Smokeless tobacco: Never Substance and Sexual Activity Alcohol use: Yes Drug use: No SCREENINGS HEART Score History: Slightly suspicious ECG: Non-specific repolarization disturbance Age: <45 Risk Factors: No known risk factors Troponin: Less than or equal to normal limit HEART Score: 1 PHYSICAL EXAM ED Triage Vitals [03/22/22 0949] Temp Heart Rate Resp BP 37 C (98.6 F) (!) 113 18 (!) 150/78 SpO2 Temp Source Heart Rate Source Patient Position 100 % Oral Monitor Sitting BP Location FiO2 (%) Right arm -- Physical Exam CONSTITUTIONAL: Vital signs are charted, patient is awake alert oriented and in no severe acute distress, well-hydrated, normal appearance GEN. APPEARANCE: Well-developed well-nourished individual in no severe acute distress, vital signs are charted. LUNGS: Breath sounds equal and clear to auscultation. Good air exchange, no wheezes rales or retractions, pulse oximetry is charted. HEART: Regular rate and rhythm without murmur thrill or rub, strong tones, auscultation is normal. ABDOMEN: Soft and nontender without guarding rebound rigidity or mass. Bowel sounds are present and normal in all quadrants. There is no palpable masses or aneurysms identified. No hepatosplenomegaly, normal abdominal exam. BACK: No thoracic or lumbar or flank pain on palpation and percussion. EXTREMITIES: Pulses are present, cap refills less than 2 seconds, no edema, no palpable tenderness negative cords, no signs of deep vein thrombosis. No erythema or warmth, or redness, neurovascularly intact and normal. NEURO: Cranial nerves II through XII are intact, motor and sensory exams are intact and normal, muscle strength is 5/5, deep tendon reflexes are 2/4, sensation to touch and pain is intact and normal, no ataxia, normal gait, no focal findings noted. PSYCH: Awake alert oriented, normal mood and affect. DIAGNOSTIC RESULTS Procedures/EKG per my interpretation: EKG interpretation performed by myself can be found in Epiphany &/or below: EKG independently interpreted by me reveals sinus tachycardia rate of 105 no acute STEMI or ST segment depression there is some flattening diffusely of the T waves no significant arrhythmia. RADIOLOGY per my interpretation: Chest x-ray independently interpreted by me reveals no focal infiltrate normal mediastinum and cardiac silhouette clear lung hammond. Interpretation per the Radiologist below, if available at the time of this note: XR chest 1 view Final Result 1. No evidence of an acute cardiopulmonary process. Report Dictated on Electronically Signed By: Abran Garcia Electronically Signed Date/Time: 03/22/2022 10:37 AM EST ED BEDSIDE ULTRASOUND: Performed by ED Physician - none LABS: Labs Reviewed CBC WITH AUTO DIFFERENTIAL - Abnormal Result Value Auto WBC 9.7 RBC 4.10 Hemoglobin 13.2 Hematocrit 39.4 MCV 96.1 MCH 32.2 MCHC 33.5 RDW 11.9 Platelets 323 MPV 10.2 Neutrophils Relative 75.0 Lymphocytes Relative 17.9 (*) Monocytes Relative 6.3 Eosinophils Relative 0.1 (*) Basophils Relative 0.5 Immature Grans % 0.2 (*) Neutrophils Absolute 7.3 (*) Lymphocytes Absolute 1.7 Monocytes Absolute 0.6 Eosinophils Absolute 0.0 Basophils Absolute 0.1 Immature Grans Absolute 0.0 COMPREHENSIVE METABOLIC PANEL - Abnormal SODIUM 141 POTASSIUM 4.1 CHLORIDE 107 CARBON DIOXIDE 31 (*) ANION GAP 3 UREA NITROGEN 18 (*) CREATININE 0.68 GLUCOSE 127 (*) CALCIUM 9.3 AST (SGOT) 26 ALT 16 ALKALINE PHOSPHATASE 45 ALBUMIN 4.5 BILIRUBIN, TOTAL 0.5 TOTAL PROTEIN 7.0 eGFR >90.0 TROPONIN I - Normal TROPONIN I <0.012 Narrative: Patients with high levels of Biotin oral intake (ie >5 mg/day) may have falsely decreased Troponin levels. MAGNESIUM - Normal MAGNESIUM 1.9 THYROID STIMULATING HORMONE - Normal THYROID STIMULATING HORMONE 1.905 All other labs were within normal range or not returned as of this dictation. MDM/EMERGENCY DEPARTMENT COURSE: Vitals: Vitals: 03/22/22 0949 03/22/22 1020 03/22/22 1040 BP: (!) 150/78 (!) 141/74 134/75 BP Location: Right arm Patient Position: Sitting Pulse: (!) 113 98 95 Resp: 18 12 13 Temp: 37 C (98.6 F) TempSrc: Oral SpO2: 100% 100% Weight: 59 kg (130 lb) Height: 1.549 m (5' 1) Medications - No data to display Medical Decision Making Amount and/or Complexity of Data Reviewed Labs: ordered. Radiology: ordered. ECG/medicine tests: ordered. EMERGENCY DEPARTMENT COURSE and DIFFERENTIAL DIAGNOSIS/MDM: Vitals: Vitals: 03/22/22 0949 03/22/22 1020 03/22/22 1040 BP: (!) 150/78 (!) 141/74 134/75 BP Location: Right arm Patient Position: Sitting Pulse: (!) 113 98 95 Resp: 18 12 13 Temp: 37 C (98.6 F) TempSrc: Oral SpO2: 100% 100% Weight: 59 kg (130 lb) Height: 1.549 m (5' 1) The patient presented with a chief complaint of hypertension and transient tachycardia. Please see my HPI above for details.. The differential diagnosis associated with this patient's presentation includes arrhythmia, hyperthyroidism, cardiac issues, electrolyte abnormalities. Our workup consisted of ordering/reviewing I had ordered an EKG and chest x-ray, I ordered laboratory studies to include CBC chemistries cardiac enzymes and thyroid stimulating hormone as well.. Progress note: Patient was observed in the apartment for period of time, normal sinus rhythm with a rate between 95 and 105 on her monitor technician at bedside reviewed by myself independently, labs showed an unremarkable CBC with normal white count of 9.7 negative cardiac enzymes normal thyroid stimulating hormone of 1.905, electrolytes are unremarkable as well and/or normal, her magnesium is normal as well. Clinically she does not have hypertensive urgency/emergency, there is no endorgan injury her EKG laboratory studies renal functions and neurologic exam are all unremarkable. Her blood pressure is borderline high right now, it does not require emergent treatment as it is currently 134/75. From the differential diagnosis we have excluded any significant ventricular arrhythmia or other supraventricular arrhythmia that she is adequately treated with her thyroid medication and does not appear to have any significant electrolyte abnormalities or cardiac problems. Heart score calculated to be a 1, nothing suggest acute coronary syndrome or significant cardiac issues based on the above and the work-up here. Plan: We will discharge for outpatient follow-up I advised her to call and schedule follow-up appointment and she is going to check her blood pressure frequently and return if there is uncontrolled hypertension any neurologic symptoms chest pain shortness of breath or any new or unusual symptoms. Diagnoses as of 03/22/22 1140 Primary hypertension External records reviewed: Outpatient notes I reviewed office visit on 01/25/2022 she was seen by surgery for breast lump, unfortunately there was no blood pressure noted on that visit. However I did review a [facility] office visit on 08/11/2020 where she was seen for puncture wound and at that time I noted her blood pressure in the notes to be 149/89. Diagnostics interpreted by me: EKG(s) see my independent interpretation above Xray(s) see my independent interpretation above Chronic conditions impacting care: Her medically induced hypothyroidism because of prior hyperthyroidism is a chronic condition that would impact her blood pressure evaluation and care ED Medications managed: Medications - No data to display Prescription drugs considered: Antihypertensive medication was considered however with shared decision making we elected with her input not to start on anything now since her blood pressure here was 134/75 currently and she has a follow-up appointment promptly with her new small package and bundle sorter clerk and will reevaluate with them. REVAL: FINAL IMPRESSION 1. Primary hypertension DISPOSITION/PLAN Discharged for outpatient follow-up PATIENT REFERRED TO: No follow-up provider specified. DISCHARGE MEDICATIONS: New Prescriptions No medications on file (Comment: Please note this report has been produced using speech recognition software and may contain errors related to that system including errors in grammar, punctuation, and spelling, as well as words and phrases that may be inappropriate. If there are any questions or concerns please feel free to contact the dictating provider for clarification.) LARRY CALLEJAS MD (electronically signed) Emergency Medicine Provider Larry Callejas MD 03/22/22 1140 Patient presents for HTN, ambulatory to room 5. Patient states that it has been higher than normal since Sunday and she states that she has been feeling like her heart is racing more than normal. Patient concerned it might be related to her thyroid and did not take her thyroid medication today. Patient states minimal headache at 1/10. Also states that she feels a bit stressed. Patient denies any SOB or CP. documented in this encounter [facility] 03-22-2022 Hospital Discharg e instructions Larry Callejas MD - 03/22/2022 11:40 AM EST Continue all current medications, call and schedule follow-up appointment with your new small package and bundle sorter clerk that you inform me you have established with in the next week with your primary physician, return if is any worsening problems including chest pain shortness of breath headache neurologic symptoms or other abnormalities. The following attachments cannot be sent through Care Everywhere.High Blood Pressure Discharge Instructions (Tajik)documented in this encounter [facility] 03-22-2022 Emergency department Triage note Patient presents for HTN, ambulatory to room 5. Patient states that it has been higher than normal since Sunday and she states that she has been feeling like her heart is racing more than normal. Patient concerned it might be related to her thyroid and did not take her thyroid medication today. Patient states minimal headache at 1/10. Also states that she feels a bit stressed. Patient denies any SOB or CP. [facility] 03-22-2022 Physician Emergency department Note EMERGENCY DEPARTMENT ENCOUNTER Pt Name: Mariajose Huang Birthdate 1975 Date of evaluation: 03/22/2022 ED Provider: LARRY CALLEJAS MD CHIEF COMPLAINT Chief Complaint Patient presents with Hypertension HISTORY OF PRESENT ILLNESS (Location/Symptom, Timing/Onset, Context/Setting, Quality, Duration, Modifying Factors, Severity) Note limiting factors. I wore appropriate PPE for the entirety of this encounter. HPI Mariajose Huang is a 46 y.o. female who presents to the emergency department for evaluation of hypertension. Patient has a prior history of hyperthyroidism that was corrected and now is on Synthroid, she has no history of hypertension. She noted yesterday that her blood pressure was low but high in the 150/90 range and that in general she just did not feel good. She denied headache there is no chest pain shortness of breath nausea vomiting or diaphoresis. Today she woke up she said she was anxious a little bit about her blood pressure and not feeling good the other day got out of bed and thought her heart rate is in the 120 range and her blood pressure again was a little bit high at 150 last 90 range. Here now she denies chest pain shortness of breath nausea vomiting or diaphoresis, there is no headache no change in vision hearing or speech no acute neurologic deficit. She has no history of hypertension diabetes or hypercholesterol is him, just the medically induced hypothyroidism, she held her Synthroid today because of her tachycardia. No other associated problems or complaints she is non-smoker no subs abuse issues. Nursing Notes were reviewed. REVIEW OF SYSTEMS Review of Systems REVIEW OF SYSTEMS: Positives and pertinent negatives noted in my history PAST MEDICAL HISTORY Past Medical History: Diagnosis Date Gestational diabetes Graves disease Hypothyroid MTHFR mutation AJ-1 Recurrent vaginitis 11/2014 6 weeks of diflucan Vaginal lesion 2014 vaginal papillomatosis SURGICAL HISTORY Past Surgical History: Procedure Laterality Date SECTION (HISTORICAL) 03/2009 DILATION AND CURETTAGE OF UTERUS 12/2007 HEMORRHOID SURGERY 07/2009 MOUTH SURGERY 1995 OTHER SURGICAL HISTORY 07/04/2011 Colonscopy - Normal OTHER SURGICAL HISTORY 11/2006 Radioactive Iodine TONSILLECTOMY (HISTORICAL) 03/2006 CURRENT MEDICATIONS Previous Medications BIOTIN FORTE PO Take by mouth. CEPHALEXIN (KEFLEX) 500 MG CAPSULE TAKE 1 CAPSULE BY MOUTH EVERY 12 HOURS FOR 7 DAYS CHOLECALCIFEROL (VITAMIN D) 50 MCG (2000 UT) CAPSULE Take by mouth. LEVOTHYROXINE (TIROSINT) 112 MCG CAPSULE TAKE 1 CAPSULE BY MOUTH EVERY DAY IN THE MORNING MULTIPLE VITAMIN (MULTIVITAMIN) TABLET Take 1 tablet by mouth daily. NON FORMULARY daily. Hormone Balance ALLERGIES Methimazole FAMILY HISTORY Family History Problem Relation Name Age of Onset Melanoma Mother 55 on stomach Heart attack Father High Blood Pressure Father Prostate cancer Father 73 Bladder Cancer Father 73 Heart failure Paternal Grandmother Diabetes Paternal Grandmother Heart failure Paternal Grandfather Diabetes Paternal Grandfather High Blood Pressure Other sisters/SIBLINGS SOCIAL HISTORY Social History Socioeconomic History Marital status: Tobacco Use Smoking status: Never Smokeless tobacco: Never Substance and Sexual Activity Alcohol use: Yes Drug use: No SCREENINGS HEART Score History: Slightly suspicious ECG: Non-specific repolarization disturbance Age: <45 Risk Factors: No known risk factors Troponin: Less than or equal to normal limit HEART Score: 1 PHYSICAL EXAM ED Triage Vitals [03/22/22 0949] Temp Heart Rate Resp BP 37 C (98.6 F) (!) 113 18 (!) 150/78 SpO2 Temp Source Heart Rate Source Patient Position 100 % Oral Monitor Sitting BP Location FiO2 (%) Right arm -- Physical Exam CONSTITUTIONAL: Vital signs are charted, patient is awake alert oriented and in no severe acute distress, well-hydrated, normal appearance GEN. APPEARANCE: Well-developed well-nourished individual in no severe acute distress, vital signs are charted. LUNGS: Breath sounds equal and clear to auscultation. Good air exchange, no wheezes rales or retractions, pulse oximetry is charted. HEART: Regular rate and rhythm without murmur thrill or rub, strong tones, auscultation is normal. ABDOMEN: Soft and nontender without guarding rebound rigidity or mass. Bowel sounds are present and normal in all quadrants. There is no palpable masses or aneurysms identified. No hepatosplenomegaly, normal abdominal exam. BACK: No thoracic or lumbar or flank pain on palpation and percussion. EXTREMITIES: Pulses are present, cap refills less than 2 seconds, no edema, no palpable tenderness negative cords, no signs of deep vein thrombosis. No erythema or warmth, or redness, neurovascularly intact and normal. NEURO: Cranial nerves II through XII are intact, motor and sensory exams are intact and normal, muscle strength is 5/5, deep tendon reflexes are 2/4, sensation to touch and pain is intact and normal, no ataxia, normal gait, no focal findings noted. PSYCH: Awake alert oriented, normal mood and affect. DIAGNOSTIC RESULTS Procedures/EKG per my interpretation: EKG interpretation performed by myself can be found in Ep[facility]any &/or below: EKG independently interpreted by me reveals sinus tachycardia rate of 105 no acute STEMI or ST segment depression there is some flattening diffusely of the T waves no significant arrhythmia. RADIOLOGY per my interpretation: Chest x-ray independently interpreted by me reveals no focal infiltrate normal mediastinum and cardiac silhouette clear lung hammond. Interpretation per the Radiologist below, if available at the time of this note: XR chest 1 view Final Result 1. No evidence of an acute cardiopulmonary process. Report Dictated on Electronically Signed By: Abran Garcia Electronically Signed Date/Time: 03/22/2022 10:37 AM EST ED BEDSIDE ULTRASOUND: Performed by ED Physician - none LABS: Labs Reviewed CBC WITH AUTO DIFFERENTIAL - Abnormal Result Value Auto WBC 9.7 RBC 4.10 Hemoglobin 13.2 Hematocrit 39.4 MCV 96.1 MCH 32.2 MCHC 33.5 RDW 11.9 Platelets 323 MPV 10.2 Neutrophils Relative 75.0 Lymphocytes Relative 17.9 (*) Monocytes Relative 6.3 Eosinophils Relative 0.1 (*) Basophils Relative 0.5 Immature Grans % 0.2 (*) Neutrophils Absolute 7.3 (*) Lymphocytes Absolute 1.7 Monocytes Absolute 0.6 Eosinophils Absolute 0.0 Basophils Absolute 0.1 Immature Grans Absolute 0.0 COMPREHENSIVE METABOLIC PANEL - Abnormal SODIUM 141 POTASSIUM 4.1 CHLORIDE 107 CARBON DIOXIDE 31 (*) ANION GAP 3 UREA NITROGEN 18 (*) CREATININE 0.68 GLUCOSE 127 (*) CALCIUM 9.3 AST (SGOT) 26 ALT 16 ALKALINE PHOSPHATASE 45 ALBUMIN 4.5 BILIRUBIN, TOTAL 0.5 TOTAL PROTEIN 7.0 eGFR >90.0 TROPONIN I - Normal TROPONIN I <0.012 Narrative: Patients with high levels of Biotin oral intake (ie >5 mg/day) may have falsely decreased Troponin levels. MAGNESIUM - Normal MAGNESIUM 1.9 THYROID STIMULATING HORMONE - Normal THYROID STIMULATING HORMONE 1.905 All other labs were within normal range or not returned as of this dictation. MDM/EMERGENCY DEPARTMENT COURSE: Vitals: Vitals: 03/22/22 0949 03/22/22 1020 03/22/22 1040 BP: (!) 150/78 (!) 141/74 134/75 BP Location: Right arm Patient Position: Sitting Pulse: (!) 113 98 95 Resp: 18 12 13 Temp: 37 C (98.6 F) TempSrc: Oral SpO2: 100% 100% Weight: 59 kg (130 lb) Height: 1.549 m (5' 1) Medications - No data to display Medical Decision Making Amount and/or Complexity of Data Reviewed Labs: ordered. Radiology: ordered. ECG/medicine tests: ordered. EMERGENCY DEPARTMENT COURSE and DIFFERENTIAL DIAGNOSIS/MDM: Vitals: Vitals: 03/22/22 0949 03/22/22 1020 03/22/22 1040 BP: (!) 150/78 (!) 141/74 134/75 BP Location: Right arm Patient Position: Sitting Pulse: (!) 113 98 95 Resp: 18 12 13 Temp: 37 C (98.6 F) TempSrc: Oral SpO2: 100% 100% Weight: 59 kg (130 lb) Height: 1.549 m (5' 1) The patient presented with a chief complaint of hypertension and transient tachycardia. Please see my HPI above for details.. The differential diagnosis associated with this patient's presentation includes arrhythmia, hyperthyroidism, cardiac issues, electrolyte abnormalities. Our workup consisted of ordering/reviewing I had ordered an EKG and chest x-ray, I ordered laboratory studies to include CBC chemistries cardiac enzymes and thyroid stimulating hormone as well.. Progress note: Patient was observed in the apartment for period of time, normal sinus rhythm with a rate between 95 and 105 on her monitor technician at bedside reviewed by myself independently, labs showed an unremarkable CBC with normal white count of 9.7 negative cardiac enzymes normal thyroid stimulating hormone of 1.905, electrolytes are unremarkable as well and/or normal, her magnesium is normal as well. Clinically she does not have hypertensive urgency/emergency, there is no endorgan injury her EKG laboratory studies renal functions and neurologic exam are all unremarkable. Her blood pressure is borderline high right now, it does not require emergent treatment as it is currently 134/75. From the differential diagnosis we have excluded any significant ventricular arrhythmia or other supraventricular arrhythmia that she is adequately treated with her thyroid medication and does not appear to have any significant electrolyte abnormalities or cardiac problems. Heart score calculated to be a 1, nothing suggest acute coronary syndrome or significant cardiac issues based on the above and the work-up here. Plan: We will discharge for outpatient follow-up I advised her to call and schedule follow-up appointment and she is going to check her blood pressure frequently and return if there is uncontrolled hypertension any neurologic symptoms chest pain shortness of breath or any new or unusual symptoms. Diagnoses as of 03/22/22 1140 Primary hypertension External records reviewed: Outpatient notes I reviewed office visit on 01/25/2022 she was seen by surgery for breast lump, unfortunately there was no blood pressure noted on that visit. However I did review a [facility] office visit on 08/11/2020 where she was seen for puncture wound and at that time I noted her blood pressure in the notes to be 149/89. Diagnostics interpreted by me: EKG(s) see my independent interpretation above Xray(s) see my independent interpretation above Chronic conditions impacting care: Her medically induced hypothyroidism because of prior hyperthyroidism is a chronic condition that would impact her blood pressure evaluation and care ED Medications managed: Medications - No data to display Prescription drugs considered: Antihypertensive medication was considered however with shared decision making we elected with her input not to start on anything now since her blood pressure here was 134/75 currently and she has a follow-up appointment promptly with her new small package and bundle sorter clerk and will reevaluate with them. REVAL: FINAL IMPRESSION 1. Primary hypertension DISPOSITION/PLAN Discharged for outpatient follow-up PATIENT REFERRED TO: No follow-up provider specified. DISCHARGE MEDICATIONS: New Prescriptions No medications on file (Comment: Please note this report has been produced using speech recognition software and may contain errors related to that system including errors in grammar, punctuation, and spelling, as well as words and phrases that may be inappropriate. If there are any questions or concerns please feel free to contact the dictating provider for clarification.) LARRY CALLEJAS MD (electronically signed) Emergency Medicine Provider Larry Callejas MD 03/22/22 1140 [employer] Phone: 08-11-2020 Note HNO ID: [id number] Author: Aspen Ruelas APRN.FIELD CONTRACTOR Service: ? Author Type: Nurse Practitioner Type: Progress Notes Filed: 08/11/2020 12:10 PM Note Text: This note was created using [employer]. Subjective Mariajose Huang is a 45 year old female. HPI by patient: Mariajose Huang is a 45 year old female presenting to the office with the complaint of needing a tetanus vaccine. Was in [place] and stepped on a tack yesterday. Tack [...] which included preparing to see the patient, [id number] patient care, completing clinical documentation, obtaining and/or reviewing separately obtained history, performing a medically appropriate examination, counseling and educating the patient/family/caregiver and ordering medications, tests, or procedures. [facility] Evaluation note Diagnosis Onset Date Back pain acute Segmental and somatic dysfun ction of cervical region acute Segmental and somatic dysfun ction of lumbar region acute Segmental and somatic dysfun ction of thoracic region acute [facility] Work Phone: Evaluation noteNo assessment information available [facility] Work Phone: Evaluation note* Diagnosis Hyperglycemia- Primary Other abnormal glucose Need for hepatitis C screening test Special screening examination for other specified viral diseases Screening for HIV (human immunodeficiency virus) Special screening examination for other specified viral diseases White coat syndrome without diagnosis of hypertension documented in this encounter [facility] [employer] note* Diagnosis Hyperglycemia- Primary Other abnormal glucose Need for hepatitis C screening test Special screening examination for other specified viral diseases Screening for HIV (human immunodeficiency virus) Special screening examination for other specified viral diseases White coat syndrome without diagnosis of hypertension documented in this encounter [facility] [employer] note* Diagnosis Hyperglycemia- Primary Other abnormal glucose Need for hepatitis C screening test Special screening examination for other specified viral diseases Screening for HIV (human immunodeficiency virus) Special screening examination for other specified viral diseases White coat syndrome without diagnosis of hypertension documented in this encounter [facility] [employer] note* Diagnosis Erythematous rash- Primary Nummular dermatitis Contact dermatitis and other eczema, due to unspecified cause documented in this encounter [facility]* Diagnosis Situational anxiety- Primary White coat syndrome without diagnosis of hypertension Colon cancer screening Special screening for malignant neoplasms, colon Screening mammogram for breast cancer Encounter for screening for HIV Need for hepatitis C screening test Special screening examination for other specified viral diseases Perimenopause Symptomatic menopausal or female climacteric states Postablative hypothyroidism Other postablative hypothyroidism documented in this encounter [facility]* Diagnosis Encounter for screening mammogram for malignant neoplasm of breast- Primary [facility] Diagnosis Primary hypertension- Primary Unspecified essential hypertension documented in this encounter [facility] HealthInstructions* Attachments The following attachments cannot be sent through Care Everywhere. * Relaxation Techniques (Tajik) [facility] for referral (narrative)* Consultation (Routine) - Pending Review Specialty Diagnoses / Procedures Referred By Ayaka colon Referred To Contact Gastroenterology Diagnoses Colon cancer screening Procedures [place] OFFICE/OUTPATIENT [facility] 60 MINUTES Pollo Hollingsworth MD [address] [facility] [address] [place] [address] Jorge Mac MD [address] [facility] [address] [facility] [address] [place] [address] Referral ID Status Reason Start Date Expiration Date Visits Requested Visits Authorized [id number] Pending Review Specialty Services Required 06/15/2023 06/14/2024 1 1 [facility] (narrative)No reason for referral information [facility]WAs[facility] Work Phone: Family History No Family History Records FoundUnknown Family Member Name Dates Details Depression Comments:Maternal [...] Vertigo Comments:Father. Status:Active Summary Purpose Advance Directives No Advanced Directives Records FoundDocuments on File Type Date Recorded Patient Kalsominer Expl anation Advance Directives and Living Will Power of Grip Wrapper Documents on File Type Date Recorded Patient Kalsominer Expl anation ACP-Advance Directive ACP-Power of Grip Wrapper Chief Complaint and Reason for Visit Chief Complaint Neck pain SP Reason for Visit Back pain Segmental and somatic dysfunction of cervical region Segmental and somatic dysfunction of lumbar region Segmental and somatic dysfunction of thoracic region Chief Complaint SP Chief Complaint DENSE BREASTS Chief Complaint LABS Additional Source Comments INFORMATION SOURCE (unrecogn ized section and content) DATE CREATED AUTHOR 06/09/2019 [facility] DATE CREATED AUTHOR AUTHOR'S ORGANIZ ATION 01/07/2020 [facility] DATE CREATED AUTHOR AUTHOR'S ORGANIZ ATION [facility] DATE CREATED AUTHOR AUTHOR'S ORGANIZ ATION 12/31/2020 [facility] DATE CREATED AUTHOR AUTHOR'S ORGANIZ ATION 03/22/2021 [facility] DATE CREATED AUTHOR AUTHOR'S ORGANIZ ATION 12/04/2022 [facility] DATE CREATED AUTHOR AUTHOR'S ORGANIZ ATION 08/30/2023 [facility] DATE CREATED AUTHOR AUTHOR'S ORGANIZ ATION 07/18/2024 [facility] DATE CREATED AUTHOR AUTHOR'S ORGANIZ ATION 08/30/2024 [facility] Care Teams (unrecognized sec tion and content) Build Master Relationship Specialty Start Date End Date Venus Carroll PCP - General 09/03/14 Team Status: Active Member Role Status Dates Dr. Jana Farias DO Family Provider Active No Primary Care Physician Primary Care Provider Active Team Status: Inactive Member Role Status Dates Dr. Priyanka Hester MD Attending Provider, Referr ing Provider Active No Primary Care Physician Primary Care Provider Active Team Status: Inactive Member Role Status Dates No Primary Care Physician Primary Care Provider Active Dr. Jeff Duron DO Attending Provider, Referring Provider Active Build Master Relationship Specialty Start Date End Date Pollo Hollingsworth MD [address] [place] [address] [place] [address] PCP - General Family Medicine 06/12/22 Jeff Duron DO [address] [place] [address] Endocrinology, Diabetes, & Metabolism 05/03/22 Pardeep Barreto MD [address] [facility], [address] [place] [address] Obstetrics and Gynecology 05/03/22 Priyanka Taylor MD [address] [place] [address] Surgeon General Surgery 05/03/22 Build Master Relationship Specialty Start Date End Date Pollo Hollingsworth MD [address] [facility] [address] [place] [address] PCP - General Family Medicine 06/12/22 Jeff Duron DO [address] [place] [address] Endocrinology, Diabetes, & Metabolism 05/03/22 Pardeep Barreto MD [address] [facility], [address] [place] [address] Obstetrics and Gynecology 05/03/22 Priyanka Taylor MD [address] [place] [address] Surgeon General Surgery 05/03/22 Build Master Relationship Specialty Start Date End Date Pollo Hollingsworth MD [address] [facility] [address] [place] [address] PCP - General Family Medicine 06/12/22 Jeff Duron DO [address] [place] [address] Endocrinology, Diabetes, & Metabolism 05/03/22 Pardeep Barreto MD [address] [facility], [address] [place] [address] Obstetrics and Gynecology 05/03/22 Priyanka Taylor MD [address] [facility] [address] [place] [address] Surgeon General Surgery 05/03/22 Build Master Relationship Specialty Start Date End Date Pollo Hollingsworth MD [address] [facility] [address] [place] [address] PCP - General Family Medicine 06/12/22 Jeff Duron DO [address] [place] [address] Endocrinology, Diabetes, & Metabolism 05/03/22 Pardeep Barreto MD [address] [facility] [place] [address] Obstetrics and Gynecology 05/03/22 Priyanka Taylor MD [facility] [facility] [address] [place] [address] Surgeon General Surgery 05/03/22 Build Master Relationship Specialty Start Date End Date Pollo Hollingsworth MD [address] [facility] [address] [place] [address] PCP - General Family Medicine 08/16/22 Jeff Duron DO [address] [place] [id number] Endocrinology, Diabetes, & Metabolism 05/03/22 Pardeep Barreto MD [address] [facility] [place] [address] Obstetrics and Gynecology 05/03/22 Priyanka Taylor MD [address] [facility] [address] [place] [address] Surgeon General Surgery 05/03/22 Build Master Relationship Specialty Start Date End Date Pollo Hollingsworth MD [address] [facility] [address] [place] [address] PCP - General Family Medicine 08/16/22 Jeff Duron DO [address] [place] [address] Endocrinology, Diabetes, & Metabolism 05/03/22 Pardeep Barreto MD [address] [facility] [place], [place] [id number] Obstetrics and Gynecology 05/03/22 Priyanka Taylor MD [facility] [facility] [address] [place], [place] [id number] Surgeon General Surgery 05/03/22 Build Master Relationship Specialty Start Date End Date Pollo Hollingsworth MD [address] [facility] [address] [place] [address] PCP - General Family Medicine 08/16/22 Jeff Duron DO [address] [place] [address] Endocrinology, Diabetes, & Metabolism 05/03/22 Pardeep Barreto MD [address] [place] [address], [address] [place], [place] [id number] Obstetrics and Gynecology 05/03/22 Priyanka Taylor MD [facility] [place], [place] [id number] Surgeon General Surgery 05/03/22 Build Master Relationship Specialty Start Date End Date Pollo Hollingsworth MD [address] [facility] [address] [place] [address] PCP - General Family Medicine 08/16/22 Jeff Duron DO [address] [place] [address] Endocrinology, Diabetes, & Metabolism 05/03/22 Pardeep Barreto MD [address] [place], [address] [place], [place] [id number] Obstetrics and Gynecology 05/03/22 Priyanka Taylor MD [address] [place] [place], [place] [id number] Surgeon General Surgery 05/03/22 Build Master Relationship Specialty Start Date End Date Pollo Hollingsworth MD [address] [facility] [address] [place] [address] PCP - General Family Medicine 08/16/22 Jeff Duron DO [address] [place] [address] Endocrinology, Diabetes, & Metabolism 05/03/22 Pardeep Barreto MD [address] [place], [address] [place] [address] Obstetrics and Gynecology 05/03/22 Priyanka Taylor MD [address] [place] [place], [place] [id number] Surgeon General Surgery 05/03/22 Leslie Parks [address] [facility] [address] [place], [place] 06/15/23 Build Master Relationship Specialty Start Date End Date Pollo Hollingsworth MD [address] [facility] [address] [place] [address] PCP - General Family Medicine 08/16/22 Jeff Duron DO [address] [place] [address] Endocrinology, Diabetes, & Metabolism 05/03/22 Pardeep Barreto MD [address] [place] [address], [address] [place] [address] Obstetrics and Gynecology 05/03/22 Priyanka Taylor MD [facility] [facility] [address] [place] [address] Surgeon General Surgery 05/03/22 Leslie Parks [address] [facility] [address] [place] 06/15/23 Build Master Relationship Specialty Start Date End Date Pollo Hollingsworth MD [address] [facility] [address] [place] [address] PCP - General Family Medicine 08/16/22 Jeff Duron DO [address] [place] [address] Endocrinology, Diabetes, & Metabolism 05/03/22 Pardeep Barreto MD [facility] [facility] [place] [address] Obstetrics and Gynecology 05/03/22 Priyanka Taylor MD [facility] [facility] [address] [place] [address] Surgeon General Surgery 05/03/22 Leslie Parks [address] [facility] [address] [place] 06/15/23 Build Master Relationship Specialty Start Date End Date Pollo Hollingsworth MD [address] [facility] [address] [place] [address] PCP - General Family Medicine 08/16/22 Jeff Duron DO [address] [place] [id number] Endocrinology, Diabetes, & Metabolism 05/03/22 Pardeep Barreto MD [address] [place] [address], [address] [place] [address] Obstetrics and Gynecology 05/03/22 Priyanka Taylor MD [facility] [facility] [address] [place] [address] Surgeon General Surgery 05/03/22 Leslie Parks [address] [facility] [address] [place] 06/15/23 Build Master Relationship Specialty Start Date End Date Pollo Hollingsworth MD [address] [facility] [address] [place] [address] PCP - General Family Medicine 08/16/22 Jeff Duron DO [address] [place] [address] Endocrinology, Diabetes, & Metabolism 05/03/22 Pardeep Barreto MD [address] [facility] [place], [place] [id number] Obstetrics and Gynecology 05/03/22 Priyanka Taylor MD [address] [facility] [address] [place], [place] [id number] Surgeon General Surgery 05/03/22 Leslie Parks [address] [facility] [address] [place], [place] 06/15/23 Build Master Relationship Specialty Start Date End Date None, Pcp [address] [place] [address] PCP - General 03/22/22 Build Master Relationship Specialty Start Date End Date None, Pcp [address] [place] [address] PCP - General 03/22/22 Build Master Relationship Specialty Start Date End Date None, Pcp [address] [place] [address] PCP - General 03/22/22 Team Status: Active Member Role Status Dates Dr. Jana Farias DO Family Provider Active Dr. Pollo Hollingsworth MD Primary Care Provider Activ e Team Status: Inactive Member Role Status Dates Dr. Pollo Hollingsworth MD Primary Care Provider Activ e Start: July 11, 2024 End: July 11, 2024 Dr. Jeff Duron DO Attending Provider Active Start: July 11, 2024 End: July 11, 2024 Dr. Jeff Duron DO Referring Provider Active Start: July 11, 2024 End: July 11, 2024 Build Master Relationship Specialty Start Date End Date Pollo Hollingsworth MD [address] [facility] [address] [place] [address] PCP - General Family Medicine 08/16/22 Jeff Duron DO [address] [place] [address] Endocrinology, Diabetes, & Metabolism 05/03/22 Pardeep Barreto MD [address], [address] [place], [place] [id number] Obstetrics and Gynecology 05/03/22 Priyanka Taylor MD [address] [place], [place] [id number] Surgeon General Surgery 05/03/22 Leslie Parks [address] [facility] [address] [place], [place] 06/15/23 Build Master Relationship Specialty Start Date End Date Pollo Hollingsworth MD [address] [facility] [address] [place], [place] [id number] PCP - General Family Medicine 08/16/22 Jeff Duron DO [address] [place] [address] Endocrinology, Diabetes, & Metabolism 05/03/22 Pardeep Barreto MD [address], [address] [place], [place] [id number] Obstetrics and Gynecology 05/03/22 Priyanka Taylor MD [address] [place], [place] [id number] Surgeon General Surgery 05/03/22 Leslie Parks [address] [facility] [address] [place] 06/15/23 Reason for Visit (unrecogniz ed section and content) Reason Comments New Patient Reason Onset Date Comments New Patient 06/14/2022 Lab records Results 06/14/2022 Reason Onset Date Comments Appointment Request 03/27/2023 Appointment 03/27/2023 Reason Comments Blood Pressure Check Reason Onset Date Comments Other 09/27/2023 Billing Reason Comments Hypertension Reason Onset Date Comments Hypertension 03/27/2022 FOR RECORDS PERTAINING TO PATIENTS WHO ARE [...] BE BASED ON THE PRIMARY CLINICAL RECORDS. [employer] [facility]. provides no warranty or guarantee of the accuracy or completeness of information in this document.
== END | disposition home or self-care (01) ==
LOC: MTLAB 07:10
PROVIDERS: PCP Family Medicine; Referring Provider Physician Assistant Medical; Visit Provider Physician Assistant Medical
DX: E89.0 Postprocedural hypothyroidism (principal)
CPT/HCPCS: 36415; 84443

== ENCOUNTER → 2025-01-16 | Outpatient (CLI) | payer BC, SELFPAY ==
--- NOTE | 2025-01-16 09:24 | BI_ITS ---
EXAM: DIAG MAMM W/CAD, BILAT; BREAST LIMITED UNILATERAL; BILAT BRST ZO STAND ALONE 01/16/2025 CLINICAL HISTORY: F, Age 49 y/o , PAIN; ABD MAMM TECHNIQUE: Procedure Code: [id number]; USBRSTLIMIT; BIBILATBRTOM Modality: MG; US Procedure: DIAG MAMM W/CAD, BILAT; BREAST LIMITED UNILATERAL; BILAT BRST ZO STAND ALONE. COMPARISON: Prior exam(s) dated 09/13/2023, 03/24/2022. FINDINGS: MAMMOGRAM: TISSUE DENSITY: The breasts are extremely dense, which lowers the sensitivity of mammography. The mammogram demonstrates that the patient has dense breasts. Supplemental screening with whole breast ultrasound or MRI may be considered for further evaluation. Left breast: The patient presents with pain in the lower outer left breast, there are multiple circumscribed masses seen in the lower-outer quadrant of the left breast. Also, there are multiple innumerable diffuse circumscribed masses scattered throughout the left breast. Otherwise, there are no suspicious calcifications or architectural distortions in the left breast. Right breast: There are multiple innumerable circumscribed masses scattered throughout the right breast. Otherwise, there are no suspicious calcifications or architectural distortions in the right breast. ULTRASOUND: Ultrasound performed of the lower outer quadrant of the left breast demonstrates multiple cysts. For example at 3 o'clock 4 cm from the nipple there is a cyst measuring 3.8 x 3.5 x 2.3 cm and at 3 o'clock 2 cm from the nipple there is another cyst measuring 5.3 x 4.2 x 1.8 cm. BI/Bilat Brst Zo Stand Alone IMPRESSION: In the area of patient's reported pain in the left breast there are multiple be nign cysts. Clinical management is recommended for the pain. There is no evidence of malignancy in either breast. OVERALL FINAL ASSESSMENT BI-RADS 2: BENIGN RECOMMENDATION: Routine annual follow-up in 1 Year Additional Recommendation clinical management is recommended for the pain. A letter with findings and recommendations will be mailed to the patient. Reading Location: [id number]
--- NOTE | 2025-01-16 09:37 | US_ITS ---
EXAM: DIAG MAMM W/CAD, BILAT; BREAST LIMITED UNILATERAL; BILAT BRST ZO STAND ALONE 01/16/2025 CLINICAL HISTORY: F, Age 49 y/o , PAIN; ABD MAMM TECHNIQUE: Procedure Code: [id number]; USBRSTLIMIT; BIBILATBRTOM Modality: MG; US Procedure: DIAG MAMM W/CAD, BILAT; BREAST LIMITED UNILATERAL; BILAT BRST ZO STAND ALONE. COMPARISON: Prior exam(s) dated 09/13/2023, 03/24/2022. FINDINGS: MAMMOGRAM: TISSUE DENSITY: The breasts are extremely dense, which lowers the sensitivity of mammography. The mammogram demonstrates that the patient has dense breasts. Supplemental screening with whole breast ultrasound or MRI may be considered for further evaluation. Left breast: The patient presents with pain in the lower outer left breast, there are multiple circumscribed masses seen in the lower-outer quadrant of the left breast. Also, there are multiple innumerable diffuse circumscribed masses scattered throughout the left breast. Otherwise, there are no suspicious calcifications or architectural distortions in the left breast. Right breast: There are multiple innumerable circumscribed masses scattered throughout the right breast. Otherwise, there are no suspicious calcifications or architectural distortions in the right breast. ULTRASOUND: Ultrasound performed of the lower outer quadrant of the left breast demonstrates multiple cysts. For example at 3 o'clock 4 cm from the nipple there is a cyst measuring 3.8 x 3.5 x 2.3 cm and at 3 o'clock 2 cm from the nipple there is another cyst measuring 5.3 x 4.2 x 1.8 cm. US/Breast Limited Unilateral IMPRESSION: In the area of patient's reported pain in the left breast there are multiple be nign cysts. Clinical management is recommended for the pain. There is no evidence of malignancy in either breast. OVERALL FINAL ASSESSMENT BI-RADS 2: BENIGN RECOMMENDATION: Routine annual follow-up in 1 Year Additional Recommendation clinical management is recommended for the pain. A letter with findings and recommendations will be mailed to the patient. Reading Location: [facility]
== END | disposition home or self-care (01) ==
LOC: OPBI 09:18
PROVIDERS: PCP Family Medicine; Referring Provider Obstetrics & Gynecology; Visit Provider Obstetrics & Gynecology
DX: Z01.419 Encounter for gynecological examination (general) (routine) without abnormal findings (principal); N60.09 Solitary cyst of unspecified breast; N64.4 Mastodynia
CPT/HCPCS: 76642; 77062; 77066; G0279